=== PATIENT | female | born 1965 | race Caucasian/White ===

== ENCOUNTER 2016-06-26 13:30 | Inpatient (IN) | payer MEDICARE, MEDICAID ==
[2016-06-26] MEDS ORDERED: NS 0.9% 1000 ML* 1,000 ML IV ONE ×2 (14:09→15:04)
[2016-06-26] MEDS ORDERED: Acetaminophen TAB* 325 MG PO ONE (14:09)
[2016-06-26] MEDS ORDERED: Meclizine TAB* 12.5 MG PO ONE (14:13)
[2016-06-26 14:38] LABS: Hematocrit 37 % (35-47); Hemoglobin 12.3 g/dl (12.0-16.0); Mean Corpuscular HGB Conc 33 g/dl (31-36); Mean Corpuscular Hemoglobin 32 pg (27-31); Mean Corpuscular Volume 96 fL (80-97); Mean Platelet Volume 8 um3 (7.4-10.4); Red Blood Count 3.84 10^6/ul (4.0-5.4); Red Cell Distribution Width 13 % (10.5-15); White Blood Count 3.6 10^3/ul (3.5-10.8)
[2016-06-26 14:50] LABS: ALT 15 U/L (7-52); AST 18 U/L (13-39); Albumin 3.6 g/dL (3.2-5.2); Alkaline Phosphatase 61 U/L (34-104); Anion Gap 5 mmol/L (2-11); BUN/Creatinine Ratio 22.2 (8-20); Blood Urea Nitrogen 20 mg/dL (6-24); C Reactive Protein < 1.00 mg/L (< 5.00); CO2 Carbon Dioxide 27 mmol/L (22-32); Chloride 92 mmol/L (101-111); EGFR African American 84.2 (>60); EGFR Non-African American 65.5 (>60); Globulin 3.2 g/dL (2-4); Glucose 205 mg/dL (70-100); Magnesium 1.5 mg/dL (1.9-2.7); Potassium 4.4 mmol/L (3.5-5.0); Sodium 124 mmol/L (133-145); Total Protein 6.8 g/dL (6.4-8.9)
[2016-06-26 14:52] LABS: Urine Bacteria Absent (Absent); Urine Bilirubin Negative (Negative); Urine Glucose 2+(150 mg/dL) (Negative); Urine Nitrite Negative (Negative)
[2016-06-26 14:59] LABS: TSH (Thyroid Stimulating Horm) 2.33 mcIU/mL (0.34-5.60)
[2016-06-26] MEDS ORDERED: Acetaminophen TAB* 325 MG PO PRN (15:44)
--- NOTE | 2016-06-26 15:49 | ED ---
Dizziness - HPI Summary HPI Summary: Patient SHAWN is a type 2 diabetic on metformin and insulin who arrives to ED with CC of dizziness x2 days and worse since last night. She has a significant psych history in addition to her diabetes, but denies other health problems. She has not missed any doses of her psych or diabetes meds and last BG check this morning was 80. Her average daily is 80-100. She states she began to get dizzy 2 days ago while sitting. Symptoms are not worse with standing and nothing makes the dizziness better or worse. She is on Depakote and states her last Depakote check was several years ago. Denies abd pain, neck pain, SOB, chest pressure, N/V/C/D or body aches. She is unable to say if she feels she is spinning or if the room is spinning, just states "generalized dizziness." Endorses LARSEN intermittently for which she takes naproxen 1000mg for relief. Last dose she took was this morning. She has never had anything like this before. - History Of Current Complaint Chief Complaint: EDDizziness Stated Complaint: WEAKNESS/SHAKY Time Seen by Provider: 06/26/16 13:44 Hx Obtained From: Patient Onset/Duration: Still Present Timing: Constant Severity Initially: Moderate Severity Currently: Moderate Character: Lightheaded, Dizzy Aggravating Factor(s): Headache Alleviating Factor(s): Nothing - Risk Factors Cardiac Risk Factors: Negative CVA Risk Factor: Negative - Allergies/Home Medications Allergies/Adverse Reactions: Allergies Allergy/AdvReac Type Severity Reaction Status Date / Time Chlorpromazine Allergy Severe Hallucinati Verified 06/26/16 13:36 [From Thorazine] ons Haloperidol [From Haldol] Allergy Severe Hallucinati Verified 06/26/16 13:36 ons Ziprasidone [From Geodon] Allergy Severe See Comment Verified 06/26/16 13:36 Erythromycin Allergy Intermediate Rash Verified 06/26/16 13:36 Fluphenazine [From Prolixin] Allergy Intermediate See Comment Verified 06/26/16 13:36 [place] Allergy Intermediate depression Verified 06/26/16 13:36 Sulfisoxazole Allergy Intermediate Nausea Verified 06/26/16 13:36 [From Gantrisin] Sulfa Drugs Allergy Unknown Unknown Verified 06/26/16 13:36 Reaction Details Home Medications: Home Medications Atomoxetine (NF) [Strattera (NF)] 40 mg PO QAM 06/26/16 [History Confirmed 06/26] Atorvastatin* [Lipitor*] 80 mg PO BEDTIME 06/26/16 [History Confirmed 06/26/16] Naproxen TAB* [Naprosyn 250 mg TAB*] 500 mg PO BID PRN 06/26/16 [History Confirmed 06/26/16] Temazepam CAP* [Restoril CAP*] 30 mg PO BEDTIME PRN MDD 30mg 06/26/16 [History Confirmed 06/26/16] glipiZIDE TAB* [Glucotrol TAB*] 5 mg PO QAM 06/26/16 [History Confirmed 06/26/16 ] PMH/Surg Hx/FS Hx/Imm Hx Previously Healthy: Yes Endocrine/Hematology History: Reports: Hx Diabetes Denies: Hx Anticoagulant Therapy, Hx Blood Disorders, Hx Blood Transfusions, Hx Bone Marrow Disease, Hx Systemic Lupus Erythematosus, Hx Sickle Cell Disease , Hx Thyroid Disease, Hx Anemia, Hx Unexplained Bleeding, Other Endocrine/ Hematological Disorders Cardiovascular History: Reports: Hx Hypercholesterolemia - HLD, Hx Hypertension Denies: Hx Aneurysm, Hx Angina, Hx Angioplasty, Hx Auto Implanted Cardiovert Defib, Hx Cardiac Arrest, Hx Cardiomegaly, Hx Congenital Heart Disease, Hx Congestive Heart Failure, Hx Coronary Artery Disease, Hx Deep Vein Thrombosis, Hx Embolism, Hx Hypotension, Hx Pacemaker/ICD, Hx Peripheral Vascular Disease, Hx Rheumatic Fever, Hx Syncope, Hx Valvular Heart Disease, Other Cardiovascular Problems/Disorders Respiratory History: Denies: Hx Asthma, Hx Chronic Bronchitis, Hx Chronic Obstructive Pulmonary Disease (COPD), Hx Cystic Fibrosis, Hx Lung Cancer, Hx Pleural Effusion, Hx Pneumonia, Hx Pulmonary Edema, Hx Pulmonary Embolism, Hx Seasonal Allergies, Hx Sleep Apnea, Other Respiratory Problems/Disorders GI History: Denies: Hx Cirrhosis, Hx Crohn's Disease, Hx Diverticulosis, Hx Gall Bladder Disease, Hx Gastroesophageal Reflux Disease, Hx Gastrointestinal Bleed, Hx Hiatal Hernia, Hx Irritable Bowel, Hx Jaundice, Hx Obstructive Bowel, Hx Ileostomy, Hx Pyloric Stenosis, Hx Ulcer, Other GI Disorders History: Denies: Hx Renal Disease Musculoskeletal History: Denies: Hx Arthritis, Hx Back Problems, Hx Bursitis, Hx Congenital Bone Abnormalities, Hx Fibromyalgia, Hx Gout, Hx Orthopedic Injury, Hx Osteoporosis, Hx Scoliosis, Hx Tendonitis, Other Musculoskeletal History Sensory History: Reports: Hx Contacts or Glasses, Hx Deafness - Hard of hearing , Hx Hearing Problem Denies: Hx Cataracts, Hx Eye Injury, Hx Eye Prosthesis, Hx Glaucoma, Hx Legally Blind, Hx Macular Degeneration, Hx Vision Problem, Hx Hearing Aid, Other Sensory Impairments Opthamlomology History: Reports: Hx Contacts or Glasses Denies: Hx Cataracts, Hx Eye Injury, Hx Eye Prosthesis, Hx Glaucoma, Hx Legally Blind, Hx Macular Degeneration, Hx Vision Problem, Other Sensory Impairments Neurological History: Reports: Hx Headaches, Hx Migraine Denies: Hx Dementia, Hx Developmental Delay, Hx Nerve Disease, Hx Seizures, Hx Spinal Cord Injury, Hx Transient Ischemic Attacks (TIA), Other Neuro Impairments/Disorders Psychiatric History: Reports: Hx Anxiety, Hx Attention Deficit Hyperactivity Disorder, Hx Depression, Hx Post Traumatic Stress Disorder - HX SEXUAL ABUSE CHILD, Hx Inpatient Treatment - HX PSYCHIATRIC HOSPITALIZATIONS, Hx Community Mental Health Tx, Hx Bipolar Disorder - BORDERLINE PERSONALITY DISORDER, Hx Suicide Attempt, Hx of Violent Episodes Against Others, Hx Substance Abuse - HX BENZO ABUSE, Other Psychiatric Issues/Disorders - HX SI/ATTEMPT Denies: Hx Eating Disorder, Hx Panic Disorder, Hx Schizophrenia - Cancer History Hx Chemotherapy: No Hx Radiation Therapy: No - Surgical History Surgery Procedure, Year, and Place: appendectomy 1975, 1972 bladder, 5yrs ago orif rt ankle Hx Anesthesia Reactions: No - Immunization History Date of Tetanus Vaccine: Unknown Date of Influenza Vaccine: 12/10/2012 Infectious Disease History: No Infectious Disease History: Denies: Hx Clostridium Difficile, Hx Hepatitis, Hx Human Immunodeficiency Virus (HIV), Hx of Known/Suspected MRSA, Hx Shingles, Hx Tuberculosis, Hx Known/ Suspected VRE, Hx Known/Suspected VRSA, History Other Infectious Disease, Traveled Outside the [place] in Last 30 Days - Family History Known Family History: Positive: Hypertension, Diabetes - Social History Occupation: Unemployed Lives: With Family Alcohol Use: None Hx Substance Use: No Substance Use Type: Reports: None Hx Tobacco Use: No Smoking Status (MU): Never Smoked Tobacco Do You Chew or Dip Tobacco: No Review of Systems Constitutional: Negative ENT: Negative Cardiovascular: Negative Respiratory: Negative Positive: no symptoms reported, see HPI Musculoskeletal: Negative Skin: Negative Neurological: Other - dizziness Positive: Headache Psychological: Normal All Other Systems Reviewed And Are Negative: Yes Physical Exam Triage Information Reviewed: Yes Vital Signs On Initial Exam: Initial Vitals Temp Pulse Resp BP Pulse Ox 97.7 F 82 18 122/91 99 06/26/16 13:31 06/26/16 13:31 06/26/16 13:31 06/26/16 13:31 06/26/16 13:31 Vital Signs Reviewed: Yes Appearance: Positive: Well-Appearing, Well-Nourished Skin: Positive: Warm, Skin Color Reflects Adequate Perfusion Head/Face: Positive: Normal Head/Face Inspection Eyes: Positive: Normal, ELISEO Neck: Positive: Supple, No Lymphadenopathy Respiratory/Lung Sounds: Positive: Clear to Auscultation Cardiovascular: Positive: Normal, RRR Musculoskeletal: Positive: Normal, Strength/ROM Intact Neurological: Positive: Normal, Speech Normal Psychiatric: Positive: Normal AVPU Assessment: Alert Diagnostics - Vital Signs Vital Signs Temp Pulse Resp BP Pulse Ox 06/26/16 13:31 97.7 F 82 18 122/91 99 - Laboratory Lab Results: Lab Results 06/26/16 06/26/16 06/26/16 Range/Units 13:55 13:55 14:32 WBC 3.6 (3.5-10.8) 10^3/ul RBC 3.84 L (4.0-5.4) 10^6/ul Hgb 12.3 (12.0-16.0) g/dl Hct 37 (35-47) % MCV 96 (80-97) fL MCH 32 H (27-31) pg MCHC 33 (31-36) g/dl RDW 13 (10.5-15) % Plt Count 150 (150-450) 10^3/ul MPV 8 (7.4-10.4) um3 Neut % (Auto) 45.9 (38-83) % Lymph % (Auto) 41.6 (25-47) % Holmes % (Auto) 10.2 H (1-9) % Eos % (Auto) 0.5 (0-6) % Baso % (Auto) 1.8 (0-2) % Absolute Neuts (auto) 1.7 (1.5-7.7) 10^3/ul Absolute Lymphs (auto) 1.5 (1.0-4.8) 10^3/ul Absolute Monos (auto) 0.4 (0-0.8) 10^3/ul Absolute Eos (auto) 0 (0-0.6) 10^3/ul Absolute Basos (auto) 0.1 (0-0.2) 10^3/ul Absolute Nucleated RBC 0.02 10^3/ul Nucleated RBC % 0.4 Sodium 124 L (133-145) mmol/L Potassium 4.4 (3.5-5.0) mmol/L Chloride 92 L (101-111) mmol/L Carbon Dioxide 27 (22-32) mmol/L Anion Gap 5 (2-11) mmol/L BUN 20 (6-24) mg/dL Creatinine 0.90 (0.51-0.95) mg/dL Est GFR ( Amer) 84.2 (>60) Est GFR (Non-Af Amer) 65.5 (>60) BUN/Creatinine Ratio 22.2 H (8-20) Glucose 205 H (70-100) mg/dL Calcium 9.0 (8.6-10.3) mg/dL Magnesium 1.5 L (1.9-2.7) mg/dL Total Bilirubin 0.40 (0.2-1.0) mg/dL AST 18 (13-39) U/L ALT 15 (7-52) U/L Alkaline Phosphatase 61 (34-104) U/L Troponin I 0.00 (<0.04) ng/mL C-Reactive Protein < 1.00 (< 5.00) mg/L Total Protein 6.8 (6.4-8.9) g/dL Albumin 3.6 (3.2-5.2) g/dL Globulin 3.2 (2-4) g/dL Albumin/Globulin Ratio 1.1 (1-3) TSH 2.33 (0.34-5.60) mcIU/mL Urine Color Straw Urine Appearance Clear Urine pH 6.0 (5-9) Ur Specific Hurley 1.006 L (1.010-1.030) Urine Protein Negative (Negative) Urine Ketones Negative (Negative) Urine Blood 1+ H (Negative) Urine Nitrate Negative (Negative) Urine Bilirubin Negative (Negative) Urine Urobilinogen Negative (Negative) Ur Leukocyte Esterase Negative (Negative) Urine WBC (Auto) Trace(0-5/hpf) (Absent) Urine RBC (Auto) Trace(0-2/hpf) (Absent) Ur Squamous Epith Cells Present H (Absent) Urine Bacteria Absent (Absent) Urine Glucose 2+(150 mg/dl) H (Negative) Result Diagrams: 06/26/16 13:55 06/26/16 13:55 Lab Statement: Any lab studies that have been ordered have been reviewed, and results considered in the medical decision making process. Dizzy Course/Dx - Course Course Of Treatment: Physical exam performed. Labs show hyponatremia and increased BUN/Cr ratio. Given 2 L normal saline. Hospitalist called to see patient for admit for dizziness/hyponatremia. Agrees to see patient. - Diagnoses Differential Diagnosis/HQI/PQRI: Benign Paroxysmal Positional Vertigo, Hypovolemia, Vasovagal Reaction Provider Diagnoses: Dizziness Discharge - Discharge Plan Condition: Stable Disposition: ADMITTED TO [facility]
[2016-06-26] MEDS ORDERED: Dextrose 50% Syringe 50 ML* 25 GM/50 ML SYRINGE IV PUSH PRN (15:52)
--- NOTE | 2016-06-26 16:30 | ED ---
Chadd Iverson Adam, scribed for Bala Selby MD on 06/26/16 at 1510 . Progress - Progress Note Progress Note: This patient is being seen by Meme Lovett (FRANCINE). Last night the pt started feeling weak, shakey, and dizzy. She denies any vomiting, diarrhea, fever, hematuria, or burning during urination. She has a Hx of DM and her medications include Seroquel, Depakote, Metformin, Restoril, and Lipitor. She denies being on water pills or anything else that makes her urinate. Recommend admission for symptomatic hyponatremia, no mental status changes, no indication for ICU Course/Dx - Diagnoses Provider Diagnoses: Dizziness - Provider Notifications Discussed Care Of Patient With: the patient's mother who states that she goes to all of her appointments and makes all of her medical decisions for her. After speaking with her mother, the patient agrees to be admitted. The documentation as recorded by the Chadd zuniga Adam accurately reflects the service I personally performed and the decisions made by , Bala Selby MD.
[2016-06-26] MEDS: NS 0.9% 1000 ML* 1,000 ML IV SCH (18:30)
[2016-06-26 19:05] LABS: BUN/Creatinine Ratio 24.7 (8-20); Calcium 8.9 mg/dL (8.6-10.3); Potassium 4.5 mmol/L (3.5-5.0)
--- NOTE | 2016-06-26 19:10 | HP ---
HISTORY AND PHYSICAL: DATE OF ADMISSION: 06/26/16 TIME OF EVALUATION: 3:10 p.m. PRIMARY CARE PROVIDER: Dr. Burns. CHIEF COMPLAINT: Dizziness. HISTORY OF PRESENT ILLNESS: Ms. Gill is a 51-year-old lady with a past medical history of PTSD, multiple suicide attempts and psychiatric hospitalizations, hypertension, hyperlipidemia, type 2 diabetes, chronic headaches, mild intellectual disability who presents to the emergency room with complaints of dizziness. She states that last night she started to feel very weak, dizzy with the sensation she is going to pass out. She talked to her mom and states that her mom told her to take her medications and go to bed and she would feel better. The patient did that and she states that this morning when she woke up, she was actually feeling better, but around 11, she went to her appointment at [facility] and the same symptoms started again with dizziness, some nausea, weakness, and she felt she was going to pass out, so this prompted her emergency room visit. The patient is still symptomatic at this point, so she is going to be admitted for further observation. She denies fever, chills, cough, shortness of breath, chest pain, nausea, vomiting, or diarrhea. She also states that there were no medication changes to her medication list. PAST MEDICAL HISTORY: 1. PTSD. 2. History of multiple suicide attempts and psychiatric hospitalizations. 3. Hypertension. 4. Hyperlipidemia. 5. Type 2 diabetes. 6. Chronic headaches. 7. Mild intellectual disability. 8. Admission to [facility] in September 2015 with similar complaints. At that time, the patient was found to be dehydrated with acute kidney injury, hyponatremia. MEDICATIONS: 1. Aspirin 81 mg p.o. daily. 2. Strattera 40 mg p.o. q.a.m. 3. Atorvastatin 80 mg p.o. at bedtime. 4. Divalproex ER 2000 mg p.o. at bedtime. 5. Glipizide 5 mg p.o. q.a.m. 6. Ibuprofen 600 mg p.o. q.8 hours p.r.n. pain. 7. Metformin 1000 mg p.o. b.i.d. 8. Mirtazapine 30 mg p.o. at bedtime. 9. Naproxen 500 mg p.o. b.i.d. as needed for pain. 10. Seroquel XR 1200 mg p.o. at bedtime. 11. Temazepam 30 mg p.o. at bedtime. 12. Lantus 25 units subcutaneously at bedtime. ALLERGIES: The patient had hallucinations with THORAZINE and HALOPERIDOL. She had suicidal ideation with GEODON. She had a rash with ERYTHROMYCIN. She had depression with PROLIXIN and LITHIUM. She had nausea with SULFISOXAZOLE and other SULFA DRUGS. FAMILY HISTORY: Reviewed and noncontributory. SOCIAL HISTORY: She denies tobacco, alcohol, or drug use. The patient's mother , Ginny Gill, is her surrogate decision maker. Phone number is [phone]. REVIEW OF SYSTEMS: A 14-point review of systems was performed and all the pertinent negative and positive findings are in the HPI. PHYSICAL EXAMINATION GENERAL: The patient is a pleasant, middle-aged lady sitting up in the ER stretcher in no acute distress. VITAL SIGNS: Temperature 97.7, heart rate is 82, respiratory rate is 18, oxygen saturation 99% on room air, blood pressure is 122/91. HEENT: Pupils are equal. Dry mucous membranes. CHEST: Breath sounds present bilaterally with no added sounds. CVS: Normal S1, S2. Regular rate and rhythm. ABDOMEN: Soft, nontender. Bowel sounds present. EXTREMITIES: No edema. NEUROLOGIC: She is alert, awake, oriented x3. Able to move all 4 extremities. LABORATORY AND IMAGING DATA: The patient had a CBC that showed a WBC of 3.6, hemoglobin 12.3, hematocrit of 37, platelets of 150 with 45% neutrophils. Chemistry showed sodium of 124, potassium 4.4, chloride of 92, bicarb of 27, BUN of 20, creatinine of 0.9, glucose of 205, calcium of 9.0, magnesium of 1.5. LFTs are normal. Troponin is 0. Urinalysis shows 1+ blood, squamous epithelial cells. EKG done on June 26 at 1406 showed sinus rhythm at 79 beats per minute with flat T's in 3. No significant change when compared to her prior EKG from September 2015. ASSESSMENT AND PLAN: Ms. Gill is a 51-year-old lady with a past medical history of post-traumatic stress disorder, multiple suicide attempts and psychiatric hospitalizations, hypertension, hyperlipidemia, type 2 diabetes, chronic headaches, mild intellectual disability who presented to the emergency room with complaints of weakness and dizziness, found to be dehydrated with a sodium of 124. 1. Hyponatremia: The patient appears to be dehydrated at this time and that could explain her dizziness and hyponatremia. She is going to be admitted as observation to the telemetry floor. We are going to continue IV hydration. We are going to check serum and urine osmolality as well as urine random creatinine and sodium. She had a similar presentation in September 2015, although it was more severe at that time with significant hypotension. The patient states that she thinks she drinks enough fluids. She has had no new medications added to her regimen. We are going to continue to monitor. 2. Type 2 diabetes: I am going to continue her Lantus, add lispro sliding scale, hold glipizide and metformin for now. 3. Hypertension: She is normotensive at this time and we are going to continue to monitor. 4. Post-traumatic stress disorder: The patient denies any suicidal or homicidal ideation at this point. We are going to continue her mental health medications. 5. DVT prophylaxis: The patient has a score of 1 on the DVT Prophylaxis Risk Assessment Guide, but I believe she will not be ambulating a lot due to her dizziness, so we are going to place BRUCE stockings for DVT prophylaxis. 6. Code status is full. TIME SPENT: Approximately 50 minutes was spent in patient interview, medical records review, and physical examination to complete this admission, more than half of this time spent [id number] with the patient in coordination of care. CC: Dr. Burns* [id number]/CPS #: [id number]
[2016-06-26] MEDS: Insulin LISPRO* 1 UNITS UNIT SUBCUT SCH ×2 (20:38→20:55)
[2016-06-26] MEDS: Temazepam CAP* 15 MG PO SCH (20:54)
[2016-06-26] MEDS: Mirtazapine TAB* 15 MG PO SCH (20:54)
[2016-06-26] MEDS: Atorvastatin* 80 MG TAB PO SCH (20:54)
[2016-06-26] MEDS: Insulin GLARGINE(*) 1 UNITS UNIT SUBCUT SCH (20:55)
[2016-06-26] MEDS: QUEtiapine XR TAB* 300 MG PO SCH (20:55)
[2016-06-26] MEDS: Divalproex ER TAB(*) 500 MG PO SCH (21:09)
[2016-06-27 06:24] LABS: BUN/Creatinine Ratio 20.2 (8-20); Calcium 8.5 mg/dL (8.6-10.3); EGFR African American 85.3 (>60); EGFR Non-African American 66.3 (>60); Potassium 4.1 mmol/L (3.5-5.0)
[2016-06-27] MEDS: Insulin LISPRO* 1 UNITS UNIT SUBCUT SCH ×4 (07:44→21:00)
[2016-06-27] MEDS: Aspirin EC Low Dose* 81 MG TAB.EC PO SCH (08:32)
[2016-06-27] MEDS: NS 0.9% 1000 ML* 1,000 ML IV SCH (08:33)
--- NOTE | 2016-06-27 08:51 | PN ---
Subjective Date of Service: 06/27/16 Interval History: Pt is feeling ok today but no better than when she presented to the ER. She states she still feels dizzy. She describes the dizziness as both lightheaded like she will pass out and a feeling of spinning. She has been able to get up and walk without assistance and is stable on her feet per her nurse. The patient states nothing makes the "dizziness" any better or worse. Objective Active Medications: Acetaminophen (Tylenol Tab*) 650 mg PO Q6H PRN PRN Reason: pain/fever Aspirin (Aspirin Ec Low Dose*) 81 mg PO DAILY [facility] Last Admin: 06/27/16 08:32 Dose: 81 mg Atomoxetine HCl (Strattera (Nf)) 40 mg PO QAM [facility] PRN Reason: Protocol Last Admin: 06/27/16 08:32 Dose: Not Given Atorvastatin Calcium (Lipitor*) 80 mg PO BEDTIME [facility] Last Admin: 06/26/16 20:54 Dose: 80 mg Carbamide Peroxide (Debrox 6.5% Otic*) 5 drop BOTH EARS BID [facility] Stop: 06/30/16 21:01 Dextrose (D50w Syringe 50 Ml*) 12.5 gm IV PUSH .FOR FS < 60 - SS PRN PRN Reason: FS < 60 Divalproex Sodium (Depakote Er Tab(*)) 2,000 mg PO BEDTIME [facility] Last Admin: 06/26/16 21:09 Dose: 2,000 mg Sodium Chloride (Ns 0.9% 1000 Ml*) 1,000 mls @ 100 mls/hr IV PER RATE [facility] Last Admin: 06/27/16 08:33 Dose: 100 mls/hr Ibuprofen (Motrin Tab*) 600 mg PO Q8H PRN PRN Reason: PAIN Insulin Glargine (Lantus(*)) 25 units SUBCUT BEDTIME [facility] Last Admin: 06/26/16 20:55 Dose: 25 units Insulin Human Lispro (Humalog*) 0 units SUBCUT ACHS [facility] PRN Reason: Protocol Last Admin: 06/27/16 07:44 Dose: Not Given Mirtazapine (Remeron Tab*) 30 mg PO BEDTIME [facility] Last Admin: 06/26/16 20:54 Dose: 30 mg Quetiapine Fumarate (Seroquel Xr Tab*) 1,200 mg PO BEDTIME [facility] Last Admin: 06/26/16 20:55 Dose: 1,200 mg Temazepam (Restoril Cap*) 30 mg PO BEDTIME [facility] Last Admin: 06/26/16 20:54 Dose: 30 mg Vital Signs 06/26/16 06/26/16 06/26/16 15:53 16:00 16:13 Temperature 97.7 F Pulse Rate 85 Respiratory 21 18 16 Rate Blood Pressure 133/86 134/81 133/103 (mmHg) O2 Sat by Pulse 99 Oximetry 06/26/16 06/26/16 06/27/16 16:17 23:18 03:36 Temperature 97.7 F 97.7 F Pulse Rate 72 73 Respiratory 18 16 16 Rate Blood Pressure 119/77 93/63 (mmHg) O2 Sat by Pulse 95 96 Oximetry 06/27/16 07:24 Temperature 97.6 F Pulse Rate 78 Respiratory 16 Rate Blood Pressure 106/67 (mmHg) O2 Sat by Pulse 96 Oximetry Oxygen Devices in Use Now: None Appearance: Middle aged female sitting up in bed, NAD Eyes: No Scleral Icterus Ears/Nose/Mouth/Throat: Mucous Membranes Moist Respiratory: Symmetrical Chest Expansion and Respiratory Effort, Clear to Auscultation Cardiovascular: NL Sounds; No Murmurs; No JVD, RRR, No Edema Abdominal: NL Sounds; No Tenderness; No Distention Extremities: No Clubbing, Cyanosis Skin: No Rash or Ulcers, No Nodules or Sclerosis Neurological: Alert and Oriented x 3 Result Diagrams: 06/26/16 13:55 06/27/16 05:57 Additional Lab and Data: Lab Results 06/26/16 06/26/16 06/26/16 Range/Units 13:55 13:55 14:32 WBC 3.6 (3.5-10.8) 10^3/ul RBC 3.84 L (4.0-5.4) 10^6/ul Hgb 12.3 (12.0-16.0) g/dl Hct 37 (35-47) % MCV 96 (80-97) fL MCH 32 H (27-31) pg MCHC 33 (31-36) g/dl RDW 13 (10.5-15) % Plt Count 150 (150-450) 10^3/ul MPV 8 (7.4-10.4) um3 Neut % (Auto) 45.9 (38-83) % Lymph % (Auto) 41.6 (25-47) % [place] % (Auto) 10.2 H (1-9) % Eos % (Auto) 0.5 (0-6) % Baso % (Auto) 1.8 (0-2) % Absolute Neuts (auto) 1.7 (1.5-7.7) 10^3/ul Absolute Lymphs (auto) 1.5 (1.0-4.8) 10^3/ul Absolute Monos (auto) 0.4 (0-0.8) 10^3/ul Absolute Eos (auto) 0 (0-0.6) 10^3/ul Absolute Basos (auto) 0.1 (0-0.2) 10^3/ul Absolute Nucleated RBC 0.02 10^3/ul Nucleated RBC % 0.4 Sodium 124 L (133-145) mmol/L Potassium 4.4 (3.5-5.0) mmol/L Chloride 92 L (101-111) mmol/L Carbon Dioxide 27 (22-32) mmol/L Anion Gap 5 (2-11) mmol/L BUN 20 (6-24) mg/dL Creatinine 0.90 (0.51-0.95) mg/dL Est GFR ( Amer) 84.2 (>60) Est GFR (Non-Af Amer) 65.5 (>60) BUN/Creatinine Ratio 22.2 H (8-20) Glucose 205 H (70-100) mg/dL Calcium 9.0 (8.6-10.3) mg/dL Magnesium 1.5 L (1.9-2.7) mg/dL Total Bilirubin 0.40 (0.2-1.0) mg/dL AST 18 (13-39) U/L ALT 15 (7-52) U/L Alkaline Phosphatase 61 (34-104) U/L Troponin I 0.00 (<0.04) ng/mL C-Reactive Protein < 1.00 (< 5.00) mg/L Total Protein 6.8 (6.4-8.9) g/dL Albumin 3.6 (3.2-5.2) g/dL Globulin 3.2 (2-4) g/dL Albumin/Globulin Ratio 1.1 (1-3) TSH 2.33 (0.34-5.60) mcIU/mL Urine Color Straw Urine Appearance Clear Urine pH 6.0 (5-9) Ur Specific [place] 1.006 L (1.010-1.030) Urine Protein Negative (Negative) Urine Ketones Negative (Negative) Urine Blood 1+ H (Negative) Urine Nitrate Negative (Negative) Urine Bilirubin Negative (Negative) Urine Urobilinogen Negative (Negative) Ur Leukocyte Esterase Negative (Negative) Urine WBC (Auto) Trace(0-5/hpf) (Absent) Urine RBC (Auto) Trace(0-2/hpf) (Absent) Ur Squamous Epith Cells Present H (Absent) Urine Bacteria Absent (Absent) Urine Glucose 2+(150 mg/dl) H (Negative) Assess/Plan/Problems-Billing Ms Gill is a 51 yo F who has a h/o HTN, HLD, Type II DM, extensive psychiatric history and mild intellectual disability who presented to the ER with c/o lightheadedness and was found to be hyponatremic - Patient Problems (1) Hyponatremia Current Visit: Yes Status: Acute Code(s): E87.1 - HYPO-OSMOLALITY AND HYPONATREMIA SNOMED Code(s): 85798865 Comment: Resolved after hydration overnight. Likely secondary to volume depletion. (2) Dizziness Current Visit: Yes Status: Acute Code(s): R42 - DIZZINESS AND GIDDINESS SNOMED Code(s): 710159040 Comment: Etiology is not clear. On admission it was felt her dizziness was likely secondary to volume depletion. She has been hydrated overnight, appears euvolemic and feels no better today. She does admit to a sensation of spinning but I am not sure this is accurate. Will start debrox drops for marked cerum impaction in her ear canals. Trial meclizine 25mg TID for possible vertigo. Will continue to hydrate the patient for now and monitor her ability to get around. (3) HTN (hypertension) Current Visit: Yes Status: Acute Code(s): I10 - ESSENTIAL (PRIMARY) HYPERTENSION SNOMED Code(s): 74286696 Comment: BP this AM is low normal. Will continue IVFs. She is not on any medications for HTN at home. (4) Type II diabetes mellitus Current Visit: Yes Status: Acute Comment: Sugar this AM is good at 102. Will continue lantus alone for now but will likely be adding back her metformin and glipizide. (5) HLD (hyperlipidemia) Current Visit: Yes Status: Acute Code(s): E78.5 - HYPERLIPIDEMIA, UNSPECIFIED SNOMED Code(s): 33467114 Comment: Continue lipitor. (6) PTSD (post-traumatic stress disorder) Current Visit: Yes Status: Acute Code(s): F43.10 - POST-TRAUMATIC STRESS DISORDER, UNSPECIFIED SNOMED Code(s): 91094134 Comment: Pt has associated depression. Will continue depakote, seroquel and restoril. (7) DVT prophylaxis Current Visit: Yes Status: Acute Code(s): WCZ2980 - SNOMED Code(s): 332830724 Comment: SQ heparin (8) Full code status Current Visit: Yes Status: Acute Code(s): Z78.9 - OTHER SPECIFIED HEALTH STATUS SNOMED Code(s): 240130145
[2016-06-27] MEDS ORDERED: Atomoxetine (NF) 40 MG CAP PO SCH (09:00)
[2016-06-27] MEDS: Carbamide Peroxide 6.5% OTIC* 15 ML BTL BOTH EARS SCH ×2 (10:20→21:01)
[2016-06-27] MEDS: Meclizine TAB* 12.5 MG PO SCH ×3 (10:20→17:28)
[2016-06-27] MEDS: Ibuprofen TAB* 600 MG PO PRN (14:00)
[2016-06-27] MEDS: Heparin VIAL(*) 5000 UNITS/ML VIAL (FIVE THOUSAND) SUBCUT SCH ×2 (14:03→21:00)
[2016-06-27] MEDS: Mirtazapine TAB* 15 MG PO SCH (20:59)
[2016-06-27] MEDS: Divalproex ER TAB(*) 500 MG PO SCH (20:59)
[2016-06-27] MEDS: Atorvastatin* 80 MG TAB PO SCH (20:59)
[2016-06-27] MEDS: QUEtiapine XR TAB* 300 MG PO SCH (20:59)
[2016-06-27] MEDS: Temazepam CAP* 15 MG PO SCH (20:59)
[2016-06-27] MEDS: Insulin GLARGINE(*) 1 UNITS UNIT SUBCUT SCH (21:00)
[2016-06-28] MEDS: Meclizine TAB* 12.5 MG PO SCH ×2 (02:58→09:00)
[2016-06-28] MEDS: Heparin VIAL(*) 5000 UNITS/ML VIAL (FIVE THOUSAND) SUBCUT SCH ×2 (05:15→13:09)
[2016-06-28] MEDS: NS 0.9% 1000 ML* 1,000 ML IV SCH ×2 (05:58→11:07)
[2016-06-28] MEDS: Insulin LISPRO* 1 UNITS UNIT SUBCUT SCH ×2 (07:59→11:34)
[2016-06-28] MEDS ORDERED: CMCS:Atomoxetine (NF) 40 MG CAP PO SCH (09:00)
[2016-06-28] MEDS: Aspirin EC Low Dose* 81 MG TAB.EC PO SCH (09:00)
[2016-06-28] MEDS: Carbamide Peroxide 6.5% OTIC* 15 ML BTL BOTH EARS SCH (09:01)
[2016-06-28 11:34] VITALS: BP 131/85
[2016-06-28] MEDS: Ibuprofen TAB* 600 MG PO PRN (13:09)
--- NOTE | 2016-06-28 14:03 | PN ---
Subjective Date of Service: 06/28/16 Interval History: Pt is feeling well. No further dizziness. She states it went away last evening. She has not been up and walking yet today. Objective Active Medications: Acetaminophen (Tylenol Tab*) 650 mg PO Q6H PRN PRN Reason: pain/fever Aspirin (Aspirin Ec Low Dose*) 81 mg PO DAILY [facility] Last Admin: 06/28/16 09:00 Dose: 81 mg Atomoxetine HCl (Strattera (Nf)) 40 mg PO QAM [facility] PRN Reason: Protocol Last Admin: 06/28/16 09:00 Dose: 40 mg Atorvastatin Calcium (Lipitor*) 80 mg PO BEDTIME [facility] Last Admin: 06/27/16 20:59 Dose: 80 mg Carbamide Peroxide (Debrox 6.5% Otic*) 5 drop BOTH EARS BID [facility] Stop: 06/30/16 21:01 Last Admin: 06/28/16 09:01 Dose: 5 drop Dextrose (D50w Syringe 50 Ml*) 12.5 gm IV PUSH .FOR FS < 60 - SS PRN PRN Reason: FS < 60 Divalproex Sodium (Depakote Er Tab(*)) 2,000 mg PO BEDTIME [facility] Last Admin: 06/27/16 20:59 Dose: 2,000 mg Heparin Sodium (Porcine) (Heparin Vial(*)) 5,000 units SUBCUT Q8HR [facility] Last Admin: 06/28/16 13:09 Dose: 5,000 units Sodium Chloride (Ns 0.9% 1000 Ml*) 1,000 mls @ 100 mls/hr IV PER RATE [facility] Last Admin: 06/28/16 11:07 Dose: 100 mls/hr Ibuprofen (Motrin Tab*) 600 mg PO Q8H PRN PRN Reason: PAIN Last Admin: 06/28/16 13:09 Dose: 600 mg Insulin Glargine (Lantus(*)) 25 units SUBCUT BEDTIME [facility] Last Admin: 06/27/16 21:00 Dose: 25 units Insulin Human Lispro (Humalog*) 0 units SUBCUT ACHS [facility] PRN Reason: Protocol Last Admin: 06/28/16 11:34 Dose: Not Given Meclizine HCl (Antivert Tab*) 25 mg PO 0200,1000,1800 [facility] Last Admin: 06/28/16 09:00 Dose: 25 mg Mirtazapine (Remeron Tab*) 30 mg PO BEDTIME [facility] Last Admin: 06/27/16 20:59 Dose: 30 mg Quetiapine Fumarate (Seroquel Xr Tab*) 1,200 mg PO BEDTIME [facility] Last Admin: 06/27/16 20:59 Dose: 1,200 mg Temazepam (Restoril Cap*) 30 mg PO BEDTIME [facility] Last Admin: 06/27/16 20:59 Dose: 30 mg Vital Signs 06/27/16 06/27/16 06/28/16 19:21 23:14 03:50 Temperature 98.2 F 97.4 F 97.2 F Pulse Rate 82 81 78 Respiratory 18 16 16 Rate Blood Pressure 107/77 95/53 117/76 (mmHg) O2 Sat by Pulse 95 95 97 Oximetry 06/28/16 06/28/16 06/28/16 07:35 07:39 11:28 Temperature 98.5 F 98.1 F Pulse Rate 72 75 Respiratory 18 18 Rate Blood Pressure 127/81 131/85 (mmHg) O2 Sat by Pulse 100 100 Oximetry Oxygen Devices in Use Now: None Appearance: Middle aged female lying in bed sleeping, awakens to voice, NAD Eyes: No Scleral Icterus Ears/Nose/Mouth/Throat: Mucous Membranes Moist Respiratory: Symmetrical Chest Expansion and Respiratory Effort, Clear to Auscultation Cardiovascular: NL Sounds; No Murmurs; No JVD, RRR, No Edema Abdominal: NL Sounds; No Tenderness; No Distention Extremities: No Clubbing, Cyanosis Skin: No Rash or Ulcers, No Nodules or Sclerosis Neurological: Alert and Oriented x 3 Result Diagrams: 06/26/16 13:55 06/27/16 05:57 Additional Lab and Data: Lab Results 06/26/16 06/26/16 06/26/16 Range/Units 13:55 13:55 14:32 WBC 3.6 (3.5-10.8) 10^3/ul RBC 3.84 L (4.0-5.4) 10^6/ul Hgb 12.3 (12.0-16.0) g/dl Hct 37 (35-47) % MCV 96 (80-97) fL MCH 32 H (27-31) pg MCHC 33 (31-36) g/dl RDW 13 (10.5-15) % Plt Count 150 (150-450) 10^3/ul MPV 8 (7.4-10.4) um3 Neut % (Auto) 45.9 (38-83) % Lymph % (Auto) 41.6 (25-47) % [place] % (Auto) 10.2 H (1-9) % Eos % (Auto) 0.5 (0-6) % Baso % (Auto) 1.8 (0-2) % Absolute Neuts (auto) 1.7 (1.5-7.7) 10^3/ul Absolute Lymphs (auto) 1.5 (1.0-4.8) 10^3/ul Absolute Monos (auto) 0.4 (0-0.8) 10^3/ul Absolute Eos (auto) 0 (0-0.6) 10^3/ul Absolute Basos (auto) 0.1 (0-0.2) 10^3/ul Absolute Nucleated RBC 0.02 10^3/ul Nucleated RBC % 0.4 Sodium 124 L (133-145) mmol/L Potassium 4.4 (3.5-5.0) mmol/L Chloride 92 L (101-111) mmol/L Carbon Dioxide 27 (22-32) mmol/L Anion Gap 5 (2-11) mmol/L BUN 20 (6-24) mg/dL Creatinine 0.90 (0.51-0.95) mg/dL Est GFR ( Amer) 84.2 (>60) Est GFR (Non-Af Amer) 65.5 (>60) BUN/Creatinine Ratio 22.2 H (8-20) Glucose 205 H (70-100) mg/dL Calcium 9.0 (8.6-10.3) mg/dL Magnesium 1.5 L (1.9-2.7) mg/dL Total Bilirubin 0.40 (0.2-1.0) mg/dL AST 18 (13-39) U/L ALT 15 (7-52) U/L Alkaline Phosphatase 61 (34-104) U/L Troponin I 0.00 (<0.04) ng/mL C-Reactive Protein < 1.00 (< 5.00) mg/L Total Protein 6.8 (6.4-8.9) g/dL Albumin 3.6 (3.2-5.2) g/dL Globulin 3.2 (2-4) g/dL Albumin/Globulin Ratio 1.1 (1-3) TSH 2.33 (0.34-5.60) mcIU/mL Urine Color Straw Urine Appearance Clear Urine pH 6.0 (5-9) Ur Specific [place] 1.006 L (1.010-1.030) Urine Protein Negative (Negative) Urine Ketones Negative (Negative) Urine Blood 1+ H (Negative) Urine Nitrate Negative (Negative) Urine Bilirubin Negative (Negative) Urine Urobilinogen Negative (Negative) Ur Leukocyte Esterase Negative (Negative) Urine WBC (Auto) Trace(0-5/hpf) (Absent) Urine RBC (Auto) Trace(0-2/hpf) (Absent) Ur Squamous Epith Cells Present H (Absent) Urine Bacteria Absent (Absent) Urine Glucose 2+(150 mg/dl) H (Negative) Assess/Plan/Problems-Billing Ms Gill is a 51 yo F who has a h/o HTN, HLD, Type II DM, extensive psychiatric history and mild intellectual disability who presented to the ER with c/o lightheadedness and was found to be hyponatremic - Patient Problems (1) Hyponatremia Current Visit: Yes Status: Acute Code(s): E87.1 - HYPO-OSMOLALITY AND HYPONATREMIA SNOMED Code(s): 40837059 Comment: Resolved. (2) Dizziness Current Visit: Yes Status: Acute Code(s): R42 - DIZZINESS AND GIDDINESS SNOMED Code(s): 689719245 Comment: Resolved-? secondary to vertigo. Meclizine may have helped. She will continue with the debrox drops for the ear wax build up x3 more days. She will monitor her symptoms. (3) HTN (hypertension) Current Visit: Yes Status: Acute Code(s): I10 - ESSENTIAL (PRIMARY) HYPERTENSION SNOMED Code(s): 62723266 Comment: BP is in good range. (4) Type II diabetes mellitus Current Visit: Yes Status: Acute Comment: Resume home medication regimen. (5) HLD (hyperlipidemia) Current Visit: Yes Status: Acute Code(s): E78.5 - HYPERLIPIDEMIA, UNSPECIFIED SNOMED Code(s): 27466682 Comment: Continue lipitor. (6) PTSD (post-traumatic stress disorder) Current Visit: Yes Status: Acute Code(s): F43.10 - POST-TRAUMATIC STRESS DISORDER, UNSPECIFIED SNOMED Code(s): 58706248 Comment: Pt has associated depression. Will continue depakote, seroquel and restoril. (7) DVT prophylaxis Current Visit: Yes Status: Acute Code(s): CSS6552 - SNOMED Code(s): 417818836 Comment: SQ heparin (8) Full code status Current Visit: Yes Status: Acute Code(s): Z78.9 - OTHER SPECIFIED HEALTH STATUS SNOMED Code(s): 189043882 Status and Disposition: d/c home
--- NOTE | 2016-06-29 19:25 | DS ---
CC: Dr. Burns DISCHARGE SUMMARY: DATE OF ADMISSION: 06/26/16 DATE OF DISCHARGE: 06/28/16 PRIMARY CARE PROVIDER: Dr. Burns. PRINCIPAL DIAGNOSIS: Dizziness - likely vertigo. SECONDARY DIAGNOSES: 1. Posttraumatic stress disorder with depression. 2. Type 2 diabetes. 3. Hyperlipidemia. DISCHARGE MEDICATIONS: 1. Glipizide 5 mg p.o. daily. 2. Aspirin 81 mg p.o. daily. 3. Ibuprofen 600 mg p.o. q.8 hours p.r.n. pain. 4. Metformin 1000 mg p.o. b.i.d. 5. Temazepam 30 mg p.o. q.h.s. p.r.n. insomnia. 6. Naproxen 500 mg p.o. b.i.d. p.r.n. pain. 7. Lipitor 80 mg p.o. q.h.s. 8. Lantus 25 units subcutaneous q.h.s. 9. Depakote ER 2000 mg p.o. q.h.s. 10. Strattera 40 mg p.o. daily. 11. Seroquel 1200 mg p.o. q.h.s. 12. Remeron 30 mg p.o. q.h.s. 13. Meclizine 25 mg p.o. t.i.d. p.r.n. dizziness. 14. Debrox drops 5 drops to both ears x3 days. HOSPITAL COURSE: Ms. Gill is a 51-year-old female who presented to the emergency room on 06/26/16 with complaints of dizziness. The patient is not the best historian, but sounds as if her dizziness was felt to be lightheadedness initially. It was felt that perhaps she was mildly volume deplete. The patient was placed on telemetry where no significant arrhythmias were noted. She received IV fl uid hydration. Despite being hydrated overnight, the patient continued to be dizzy. At that time, s he then noted also a spinning sensation. Meclizine 25 mg 3 times daily was started. On the day of discharge, the patient states that the dizziness has completely resolved. She states that the dizzi ness went away the night prior to discharge. At this point, the patient has been able to be up and ambulating in the hallway without any issues whatsoever. The patient was ultimately felt to be stab le for discharge home. FOLLOWUP CONCERNS: The patient is being discharged home today, 06/28/16. She is remaining on her u sual home medication regimen and in addition p.r.n. meclizine has been ordered. FOLLOWUP: The patient is to follow up with Dr. Burns on 07/03/16 at 11:30 a.m. ACTIVITY LEVEL: As tolerated. DIET: Diabetic. CONDITION ON DISCHARGE: Stable. TIME SPENT: 35 minutes was spent discharging this patient. [id number]/[facility] #: [id number]
== END 2016-06-28 16:04 | disposition home or self-care (01) | DRG 149 ==
LOC: ED 13:30 → MEDTELE 15:08 → OBSVTOIN 06-27 10:00
PROVIDERS: ADMIT Internal Medicine; ATTEND Hospitalist
DX: R42 Dizziness and giddiness (principal); E87.1 Hypo-osmolality and hyponatremia; I10 Essential (primary) hypertension; E86.9 Volume depletion, unspecified; E86.0 Dehydration; E11.9 Type 2 diabetes mellitus without complications; E78.5 Hyperlipidemia, unspecified; F43.10 Post-traumatic stress disorder, unspecified; F32.9 Major depressive disorder, single episode, unspecified; H91.90 Unspecified hearing loss, unspecified ear; G43.909 Migraine, unspecified, not intractable, without status migrainosus; F41.9 Anxiety disorder, unspecified; F90.9 Attention-deficit hyperactivity disorder, unspecified type; F79 Unspecified intellectual disabilities; H61.20 Impacted cerumen, unspecified ear; F60.3 Borderline personality disorder; Z83.3 Family history of diabetes mellitus; Z82.49 Family history of ischemic heart disease and other diseases of the circulatory system; Z79.82 Long term (current) use of aspirin; Z79.4 Long term (current) use of insulin; Z88.8 Allergy status to other drugs, medicaments and biological substances; Z88.2 Allergy status to sulfonamides; Z88.1 Allergy status to other antibiotic agents
CPT/HCPCS: 36415; 80048; 80053; 81003; 81015; 82570; 83735; 83930; 83935; 84300; 84443; 84484; 85025; 86140; 93005; A9270-GY; G0378; J1644; J3475

== ENCOUNTER 2016-08-28 12:34 | Emergency (ER) | payer MEDICARE, MEDICAID ==
[2016-08-28 14:38] LABS: Hematocrit 39 % (35-47); Mean Corpuscular HGB Conc 33 g/dl (31-36); Mean Corpuscular Hemoglobin 31 pg (27-31); Mean Corpuscular Volume 95 fL (80-97); Mean Platelet Volume 7 um3 (7.4-10.4); Red Blood Count 4.12 10^6/ul (4.0-5.4); Red Cell Distribution Width 14 % (10.5-15); White Blood Count 4.9 10^3/ul (3.5-10.8)
[2016-08-28 14:57] LABS: Albumin 3.5 g/dL (3.2-5.2); BUN/Creatinine Ratio 16.8 (8-20); EGFR Non-African American 53.6 (>60); Globulin 3.1 g/dL (2-4); Potassium 4.4 mmol/L (3.5-5.0); Total Bilirubin 0.3 mg/dL (0.2-1.0); Total Protein 6.6 g/dL (6.4-8.9)
[2016-08-28] MEDS ORDERED: NS 0.9% 1000 ML* 1,000 ML IV ONE (15:02)
[2016-08-28] MEDS ORDERED: Acetaminophen TAB* 325 MG PO ONE (15:37)
--- NOTE | 2016-08-28 15:37 | ED ---
HPI Diabetic - HPI Summary HPI Summary: 51F presents with hypoglyemia today. She states her blood sugar was 39 at home so she ate some applesauce and then it was 60 so she came to the ED. Her originally blood sugar here wsa 69 so she was given a turkey sandwich. She states she has been on lantus 35 units for 3 weeks. Her blood sugars have been low but never this low. states she was dizzy but that has resolve. She denies any chest pain, SOB, fever, or uti symptoms. She denies any recent illnesses. she states she takes the lantus as night. - History Of Current Complaint Chief Complaint: EDGeneral Time Seen by Provider: 08/28/16 13:27 - Allergies/Home Medications Allergies/Adverse Reactions: Allergies Allergy/AdvReac Type Severity Reaction Status Date / Time Chlorpromazine Allergy Severe Hallucinati Verified 06/26/16 13:36 [From Thorazine] ons Haloperidol [From Haldol] Allergy Severe Hallucinati Verified 06/26/16 13:36 ons Ziprasidone [From Geodon] Allergy Severe See Comment Verified 06/26/16 13:36 Erythromycin Allergy Intermediate Rash Verified 06/26/16 13:36 Fluphenazine [From Prolixin] Allergy Intermediate See Comment Verified 06/26/16 13:36 [place] Allergy Intermediate depression Verified 06/26/16 13:36 Sulfisoxazole Allergy Intermediate Nausea Verified 06/26/16 13:36 [From Gantrisin] Sulfa Drugs Allergy Unknown Unknown Verified 06/26/16 13:36 Reaction Details PMH/Surg Hx/FS Hx/Imm Hx Endocrine/Hematology History: Reports: Hx Diabetes Denies: Hx Anticoagulant Therapy, Hx Blood Disorders, Hx Blood Transfusions, Hx Bone Marrow Disease, Hx Systemic Lupus Erythematosus, Hx Sickle Cell Disease , Hx Thyroid Disease, Hx Anemia, Hx Unexplained Bleeding, Other Endocrine/ Hematological Disorders Cardiovascular History: Reports: Hx Hypercholesterolemia - HLD, Hx Hypertension Denies: Hx Aneurysm, Hx Angina, Hx Angioplasty, Hx Auto Implanted Cardiovert Defib, Hx Cardiac Arrest, Hx Cardiomegaly, Hx Congenital Heart Disease, Hx Congestive Heart Failure, Hx Coronary Artery Disease, Hx Deep Vein Thrombosis, Hx Embolism, Hx Hypotension, Hx Pacemaker/ICD, Hx Peripheral Vascular Disease, Hx Rheumatic Fever, Hx Syncope, Hx Valvular Heart Disease, Other Cardiovascular Problems/Disorders Respiratory History: Denies: Hx Asthma, Hx Chronic Bronchitis, Hx Chronic Obstructive Pulmonary Disease (COPD), Hx Cystic Fibrosis, Hx Lung Cancer, Hx Pleural Effusion, Hx Pneumonia, Hx Pulmonary Edema, Hx Pulmonary Embolism, Hx Seasonal Allergies, Hx Sleep Apnea, Other Respiratory Problems/Disorders GI History: Denies: Hx Cirrhosis, Hx Crohn's Disease, Hx Diverticulosis, Hx Gall Bladder Disease, Hx Gastroesophageal Reflux Disease, Hx Gastrointestinal Bleed, Hx Hiatal Hernia, Hx Irritable Bowel, Hx Jaundice, Hx Obstructive Bowel, Hx Ileostomy, Hx Pyloric Stenosis, Hx Ulcer, Other GI Disorders History: Denies: Hx Renal Disease Musculoskeletal History: Denies: Hx Arthritis, Hx Back Problems, Hx Bursitis, Hx Congenital Bone Abnormalities, Hx Fibromyalgia, Hx Gout, Hx Orthopedic Injury, Hx Osteoporosis, Hx Scoliosis, Hx Tendonitis, Other Musculoskeletal History Sensory History: Reports: Hx Contacts or Glasses, Hx Deafness - Hard of hearing , Hx Hearing Problem Denies: Hx Cataracts, Hx Eye Injury, Hx Eye Prosthesis, Hx Glaucoma, Hx Legally Blind, Hx Macular Degeneration, Hx Vision Problem, Hx Hearing Aid, Other Sensory Impairments Opthamlomology History: Reports: Hx Contacts or Glasses Denies: Hx Cataracts, Hx Eye Injury, Hx Eye Prosthesis, Hx Glaucoma, Hx Legally Blind, Hx Macular Degeneration, Hx Vision Problem, Other Sensory Impairments Neurological History: Reports: Hx Headaches, Hx Migraine Denies: Hx Dementia, Hx Developmental Delay, Hx Nerve Disease, Hx Seizures, Hx Spinal Cord Injury, Hx Transient Ischemic Attacks (TIA), Other Neuro Impairments/Disorders Psychiatric History: Reports: Hx Anxiety, Hx Attention Deficit Hyperactivity Disorder, Hx Depression, Hx Post Traumatic Stress Disorder - HX SEXUAL ABUSE CHILD, Hx Inpatient Treatment - HX PSYCHIATRIC HOSPITALIZATIONS, Hx [facility] Tx, Hx Bipolar Disorder - BORDERLINE PERSONALITY DISORDER, Hx Suicide Attempt, Hx of Violent Episodes Against Others, Hx Substance Abuse - HX BENZO ABUSE, Other Psychiatric Issues/Disorders - HX SI/ATTEMPT Denies: Hx Eating Disorder, Hx Panic Disorder, Hx Schizophrenia - Cancer History Hx Chemotherapy: No Hx Radiation Therapy: No - Surgical History Surgery Procedure, Year, and Place: appendectomy 1975, 1972 bladder, 5yrs ago orif rt ankle Hx Anesthesia Reactions: No - Immunization History Date of Tetanus Vaccine: Unknown Date of Influenza Vaccine: 12/10/2012 Infectious Disease History: No Infectious Disease History: Denies: Hx Clostridium Difficile, Hx Hepatitis, Hx Human Immunodeficiency Virus (HIV), Hx of Known/Suspected MRSA, Hx Shingles, Hx Tuberculosis, Hx Known/ Suspected VRE, Hx Known/Suspected VRSA, History Other Infectious Disease, Traveled Outside the [place] in Last 30 Days - Family History Known Family History: Positive: Hypertension, Diabetes - Social History Alcohol Use: None Hx Substance Use: No Substance Use Type: Reports: None Hx Tobacco Use: No Smoking Status (MU): Never Smoked Tobacco Review of Systems Negative: Fever Negative: Chest Pain Negative: Shortness Of Breath Positive: Weakness All Other Systems Reviewed And Are Negative: Yes Physical Exam Triage Information Reviewed: Yes Vital Signs On Initial Exam: Initial Vitals Temp Pulse Resp BP Pulse Ox 98.5 F 72 20 124/74 99 08/28/16 12:49 08/28/16 12:49 08/28/16 12:49 08/28/16 12:49 08/28/16 12:49 Vital Signs Reviewed: Yes Appearance: Positive: Well-Appearing Skin: Positive: Warm, Dry Head/Face: Positive: Normal Head/Face Inspection Eyes: Positive: Normal, Conjunctiva Clear Respiratory/Lung Sounds: Positive: Clear to Auscultation, Breath Sounds Present Cardiovascular: Positive: Normal, RRR Abdomen Description: Positive: Nontender, Soft Bowel Sounds: Positive: Present Neurological: Positive: Sensory/Motor Intact, Alert, Oriented to Person Place, Time - [place] Coma Scale Coma Scale Total: 15 Diagnostics - Vital Signs Vital Signs Temp Pulse Resp BP Pulse Ox 08/28/16 15:00 21 119/77 08/28/16 14:54 81 17 98 08/28/16 14:52 149/100 08/28/16 12:55 98 F 72 16 124/74 98 08/28/16 12:49 98.5 F 72 20 124/74 99 - Laboratory Lab Results: Lab Results 08/28/16 08/28/16 08/28/16 Range/Units 12:41 13:54 14:25 WBC 4.9 (3.5-10.8) 10^3/ul RBC 4.12 (4.0-5.4) 10^6/ul Hgb 13.0 (12.0-16.0) g/dl Hct 39 (35-47) % MCV 95 (80-97) fL MCH 31 (27-31) pg MCHC 33 (31-36) g/dl RDW 14 (10.5-15) % Plt Count 154 (150-450) 10^3/ul MPV 7 L (7.4-10.4) um3 Neut % (Auto) 50.2 (38-83) % Lymph % (Auto) 39.5 (25-47) % [place] % (Auto) 9.8 H (1-9) % Eos % (Auto) 0.1 (0-6) % Baso % (Auto) 0.4 (0-2) % Absolute Neuts (auto) 2.4 (1.5-7.7) 10^3/ul Absolute Lymphs (auto) 1.9 (1.0-4.8) 10^3/ul Absolute Monos (auto) 0.5 (0-0.8) 10^3/ul Absolute Eos (auto) 0 (0-0.6) 10^3/ul Absolute Basos (auto) 0 (0-0.2) 10^3/ul Absolute Nucleated RBC 0.01 10^3/ul Nucleated RBC % 0.1 Sodium (133-145) mmol/L Potassium (3.5-5.0) mmol/L Chloride (101-111) mmol/L Carbon Dioxide (22-32) mmol/L Anion Gap (2-11) mmol/L BUN (6-24) mg/dL Creatinine (0.51-0.95) mg/dL Est GFR ( Amer) (>60) Est GFR (Non-Af Amer) (>60) BUN/Creatinine Ratio (8-20) Glucose (70-100) mg/dL POC Glucose (mg/dL) 69 L 79 (74-106) mg/dL Lactic Acid (0.5-2.0) mmol/L Calcium (8.6-10.3) mg/dL Total Bilirubin (0.2-1.0) mg/dL AST (13-39) U/L ALT (7-52) U/L Alkaline Phosphatase (34-104) U/L C-React Prot High Sens mg/L Total Protein (6.4-8.9) g/dL Albumin (3.2-5.2) g/dL Globulin (2-4) g/dL Albumin/Globulin Ratio (1-3) 08/28/16 08/28/16 Range/Units 14:25 14:25 WBC (3.5-10.8) 10^3/ul RBC (4.0-5.4) 10^6/ul Hgb (12.0-16.0) g/dl Hct (35-47) % MCV (80-97) fL MCH (27-31) pg MCHC (31-36) g/dl RDW (10.5-15) % Plt Count (150-450) 10^3/ul MPV (7.4-10.4) um3 Neut % (Auto) (38-83) % Lymph % (Auto) (25-47) % [place] % (Auto) (1-9) % Eos % (Auto) (0-6) % Baso % (Auto) (0-2) % Absolute Neuts (auto) (1.5-7.7) 10^3/ul Absolute Lymphs (auto) (1.0-4.8) 10^3/ul Absolute Monos (auto) (0-0.8) 10^3/ul Absolute Eos (auto) (0-0.6) 10^3/ul Absolute Basos (auto) (0-0.2) 10^3/ul Absolute Nucleated RBC 10^3/ul Nucleated RBC % Sodium 130 L (133-145) mmol/L Potassium 4.4 (3.5-5.0) mmol/L Chloride 95 L (101-111) mmol/L Carbon Dioxide 28 (22-32) mmol/L Anion Gap 7 (2-11) mmol/L BUN 18 (6-24) mg/dL Creatinine 1.07 H (0.51-0.95) mg/dL Est GFR ( Amer) 69.0 (>60) Est GFR (Non-Af Amer) 53.6 (>60) BUN/Creatinine Ratio 16.8 (8-20) Glucose 139 H (70-100) mg/dL POC Glucose (mg/dL) (74-106) mg/dL Lactic Acid 2.2 H* (0.5-2.0) mmol/L Calcium 9.0 (8.6-10.3) mg/dL Total Bilirubin 0.30 (0.2-1.0) mg/dL AST 21 (13-39) U/L ALT 14 (7-52) U/L Alkaline Phosphatase 53 (34-104) U/L C-React Prot High Sens 0.21 mg/L Total Protein 6.6 (6.4-8.9) g/dL Albumin 3.5 (3.2-5.2) g/dL Globulin 3.1 (2-4) g/dL Albumin/Globulin Ratio 1.1 (1-3) Result Diagrams: 08/28/16 14:25 08/28/16 14:25 Lab Statement: Any lab studies that have been ordered have been reviewed, and results considered in the medical decision making process. Diabetic Course/Dx - Course Course Of Treatment: 51F presents with hypoglycemia today. states was changed to lantus 35 3 weeks ago and has had low blood sugars but never as low as today. denies any recent illness. blood sugar intially wsa 69 gave food in ED and end blood sugar was 135. spoke with nurse from PCP and states she is only suppose to be taking 30 units of lantus. explained this to patient and she understands and agrees with plan. she has family at home to make sure sugars do not do to low until lantus wears off. - Diagnoses Differential Dx: Hyperosmolar State, Hypoglycemia, Sepsis Provider Diagnoses: Hypoglycemia Discharge - Discharge Plan Condition: Good Disposition: HOME Patient Education Materials: Hypoglycemia in a Person with Diabetes (ED) Referrals: Stella Burns MD [Primary Care Provider] - Additional Instructions: Take Lantus 30 units every night Continue to check blood sugar throughout day and eat as needed based on numbers Call primary tomorrow with blood sugars to discuss numbers Return to ED if develop any new or worsening symptoms
[2016-08-28 15:38] VITALS: BP 126/77
== END 2016-08-28 16:09 | disposition home or self-care (01) ==
LOC: ED 12:34
DX: E11.649 Type 2 diabetes mellitus with hypoglycemia without coma (principal); Z88.2 Allergy status to sulfonamides; E78.00 Pure hypercholesterolemia, unspecified; E78.5 Hyperlipidemia, unspecified; I10 Essential (primary) hypertension
CPT/HCPCS: 36415; 80053; 83605; 85025; 86141; 96360; 99282; A9270-GY

== ENCOUNTER → 2016-09-12 10:18 | Emergency (ER) | payer MEDICARE, MEDICAID ==
[~2016-09-12 10:18] MED LIST: Acetaminophen TAB* 325 MG PO ONE
[2016-09-12 10:57] LABS: Hematocrit 35 % (35-47); Hemoglobin 11.4 g/dl (12.0-16.0); Mean Corpuscular HGB Conc 33 g/dl (31-36); Mean Corpuscular Hemoglobin 32 pg (27-31); Mean Corpuscular Volume 96 fL (80-97); Mean Platelet Volume 8 um3 (7.4-10.4); Red Cell Distribution Width 14 % (10.5-15); White Blood Count 5.7 10^3/ul (3.5-10.8)
[2016-09-12 11:19] LABS: Albumin 3.2 g/dL (3.2-5.2); BUN/Creatinine Ratio 20.4 (8-20); Calcium 9.2 mg/dL (8.6-10.3); EGFR African American 76.3 (>60); EGFR Non-African American 59.4 (>60); Globulin 3.1 g/dL (2-4); Magnesium 1.8 mg/dL (1.9-2.7); Potassium 4.1 mmol/L (3.5-5.0); Total Bilirubin 0.4 mg/dL (0.2-1.0); Total Protein 6.3 g/dL (6.4-8.9); Troponin I 0.01 ng/mL (<0.04)
[2016-09-12 11:33] LABS: TSH (Thyroid Stimulating Horm) 2.98 mcIU/mL (0.34-5.60)
[2016-09-12 11:38] LABS: Urine Bacteria Absent (Absent); Urine Bilirubin Negative (Negative); Urine Glucose 2+(150 mg/dL) (Negative); Urine Nitrite Negative (Negative)
[2016-09-12 11:49] LABS: Benzodiazepine Urine Screen Presumptive Positive (None Detect)
--- NOTE | 2016-09-12 13:45 | RAD ---
Indication: Abdominal pain. Flat plate of the abdomen demonstrates stool throughout the colon. No dilated loops of bowel are noted. Psoas margins are intact. The stomach is filled with air. IMPRESSION: Fecal stasis without evidence of abnormal bowel gas pattern.
[2016-09-12 15:09] VITALS: BP 131/79
--- NOTE | 2016-09-13 07:38 | RAD ---
INDICATION: Chest pain. Single frontal view of the chest performed at 1050 hours was reviewed. Comparison is made with previous exam dated October 27, 2015. No mediastinal shift is noted. Heart is of normal size and configuration. Lung lester appear clear. IMPRESSION: NO ACTIVE CARDIOPULMONARY DISEASE IS NOTED.
--- NOTE | 2016-09-13 17:42 | ED ---
Nathaly Iverson Edward, scribed for Zi Rosado MD on 09/12/16 at 1110 . HPI Chest Pain - HPI Summary HPI Summary: 51 y/o female presents to ED with CP and abd pain. Patient's CP start days ago and is characterized as a sharp pain rated 5/10 with no radiation. Denies SOB. Patient's abd pain started last week and is diffuse. Assoc sx: constipation. Denies N/V. Patient also hit her head last week while reaching for something on her nightstand. - History of Current Complaint Chief Complaint: EDChestPainROMI Time Seen by Provider: 09/12/16 10:29 Hx Obtained From: Patient Onset/Duration: Started Days Ago - CP started days ago, Started Weeks Ago - Abd pain started last week Timing: Constant Initial Severity: Mild Current Severity: None Pain Intensity: 5 Pain Scale Used: 0-10 Numeric Chest Pain Location: Mid Sternal Chest Pain Radiates: No Character: Sharp/Stabbing Aggravating Factor(s): Nothing Alleviating Factor(s): Nothing Associated Signs and Symptoms: Positive: Chest Pain, Abdominal Pain - diffuse, Other: - Constipation. Negative: Shortness of Breath, Nausea, Vomiting - Additional Pertinent History Primary Care Physician: [id number] - Allergy/Home Medications Allergies/Adverse Reactions: Allergies Allergy/AdvReac Type Severity Reaction Status Date / Time Chlorpromazine Allergy Severe Hallucinati Verified 09/12/16 10:42 [From Thorazine] ons Haloperidol [From Haldol] Allergy Severe Hallucinati Verified 09/12/16 10:42 ons Ziprasidone [From Geodon] Allergy Severe See Comment Verified 09/12/16 10:42 Erythromycin Allergy Intermediate Rash Verified 09/12/16 10:42 Fluphenazine [From Prolixin] Allergy Intermediate See Comment Verified 09/12/16 10:42 [place] Allergy Intermediate depression Verified 09/12/16 10:42 Sulfisoxazole Allergy Intermediate Nausea Verified 09/12/16 10:42 [From Gantrisin] Sulfa Drugs Allergy Unknown Unknown Verified 09/12/16 10:42 Reaction Details PMH/Surg Hx/FS Hx/Imm Hx Previously Healthy: No Endocrine/Hematology History: Reports: Hx Diabetes Denies: Hx Anticoagulant Therapy, Hx Blood Disorders, Hx Blood Transfusions, Hx Bone Marrow Disease, Hx Systemic Lupus Erythematosus, Hx Sickle Cell Disease , Hx Thyroid Disease, Hx Anemia, Hx Unexplained Bleeding, Other Endocrine/ Hematological Disorders Cardiovascular History: Reports: Hx Hypercholesterolemia - HLD, Hx Hypertension Denies: Hx Aneurysm, Hx Angina, Hx Angioplasty, Hx Auto Implanted Cardiovert Defib, Hx Cardiac Arrest, Hx Cardiomegaly, Hx Congenital Heart Disease, Hx Congestive Heart Failure, Hx Coronary Artery Disease, Hx Deep Vein Thrombosis, Hx Embolism, Hx Hypotension, Hx Pacemaker/ICD, Hx Peripheral Vascular Disease, Hx Rheumatic Fever, Hx Syncope, Hx Valvular Heart Disease, Other Cardiovascular Problems/Disorders Respiratory History: Denies: Hx Asthma, Hx Chronic Bronchitis, Hx Chronic Obstructive Pulmonary Disease (COPD), Hx Cystic Fibrosis, Hx Lung Cancer, Hx Pleural Effusion, Hx Pneumonia, Hx Pulmonary Edema, Hx Pulmonary Embolism, Hx Seasonal Allergies, Hx Sleep Apnea, Other Respiratory Problems/Disorders GI History: Denies: Hx Cirrhosis, Hx Crohn's Disease, Hx Diverticulosis, Hx Gall Bladder Disease, Hx Gastroesophageal Reflux Disease, Hx Gastrointestinal Bleed, Hx Hiatal Hernia, Hx Irritable Bowel, Hx Jaundice, Hx Obstructive Bowel, Hx Ileostomy, Hx Pyloric Stenosis, Hx Ulcer, Other GI Disorders History: Denies: Hx Renal Disease Musculoskeletal History: Denies: Hx Arthritis, Hx Back Problems, Hx Bursitis, Hx Congenital Bone Abnormalities, Hx Fibromyalgia, Hx Gout, Hx Orthopedic Injury, Hx Osteoporosis, Hx Scoliosis, Hx Tendonitis, Other Musculoskeletal History Sensory History: Reports: Hx Contacts or Glasses, Hx Deafness - Hard of hearing , Hx Hearing Problem Denies: Hx Cataracts, Hx Eye Injury, Hx Eye Prosthesis, Hx Glaucoma, Hx Legally Blind, Hx Macular Degeneration, Hx Vision Problem, Hx Hearing Aid, Other Sensory Impairments Opthamlomology History: Reports: Hx Contacts or Glasses Denies: Hx Cataracts, Hx Eye Injury, Hx Eye Prosthesis, Hx Glaucoma, Hx Legally Blind, Hx Macular Degeneration, Hx Vision Problem, Other Sensory Impairments Neurological History: Reports: Hx Headaches, Hx Migraine Denies: Hx Dementia, Hx Developmental Delay, Hx Nerve Disease, Hx Seizures, Hx Spinal Cord Injury, Hx Transient Ischemic Attacks (TIA), Other Neuro Impairments/Disorders Psychiatric History: Reports: Hx Anxiety, Hx Attention Deficit Hyperactivity Disorder, Hx Depression, Hx Post Traumatic Stress Disorder - HX SEXUAL ABUSE CHILD, Hx Inpatient Treatment - HX PSYCHIATRIC HOSPITALIZATIONS, Hx Community Mental Health Tx, Hx Bipolar Disorder - BORDERLINE PERSONALITY DISORDER, Hx Suicide Attempt, Hx of Violent Episodes Against Others, Hx Substance Abuse - HX BENZO ABUSE, Other Psychiatric Issues/Disorders - HX SI/ATTEMPT Denies: Hx Eating Disorder, Hx Panic Disorder, Hx Schizophrenia - Cancer History Hx Chemotherapy: No Hx Radiation Therapy: No - Surgical History Surgery Procedure, Year, and Place: appendectomy 1975, 1972 bladder, 5yrs ago orif rt ankle Hx Anesthesia Reactions: No - Immunization History Date of Tetanus Vaccine: Unknown Date of Influenza Vaccine: 12/10/2012 Infectious Disease History: No Infectious Disease History: Denies: Hx Clostridium Difficile, Hx Hepatitis, Hx Human Immunodeficiency Virus (HIV), Hx of Known/Suspected MRSA, Hx Shingles, Hx Tuberculosis, Hx Known/ Suspected VRE, Hx Known/Suspected VRSA, History Other Infectious Disease, Traveled Outside the [place] in Last 30 Days - Family History Known Family History: Positive: Hypertension, Diabetes - Social History Occupation: Disabled Lives: With Family Alcohol Use: None Hx Substance Use: No Substance Use Type: Reports: None Hx Tobacco Use: No Smoking Status (MU): Never Smoked Tobacco Review of Systems Constitutional: Negative Eyes: Negative ENT: Negative Positive: Chest Pain Respiratory: Negative Negative: Shortness Of Breath Positive: Abdominal Pain, Other - Constipation. Negative: Vomiting, Nausea Genitourinary: Negative Musculoskeletal: Negative Skin: Negative Neurological: Negative Psychological: Normal All Other Systems Reviewed And Are Negative: Yes Physical Exam - Summary Physical Exam Summary: VITAL SIGNS:~Reviewed. GENERAL:~ Patient is a well-developed and nourished female who is lying comfortable in the stretcher.~ Patient is not in any acute respiratory distress. HEAD AND FACE:~No signs of trauma.~ Ecchymosis on right side of forehead, hematomas or skull depressions. No sinus tenderness. EYES:~PERRLA, EOMI x 2, No injected conjunctiva, no nystagmus. EARS:~Hearing grossly intact. Ear canals and tympanic membranes are within normal limits. MOUTH:~Oropharynx within normal limits. NECK:~Supple, trachea is midline, no adenopathy, no JVD, no carotid bruit, no c- spine tenderness, neck with full ROM. CHEST:~Symmetric, no tenderness at palpation LUNGS:~Clear to auscultation bilaterally. No wheezing or crackles. CVS:~Regular rate and rhythm, S1 and S2 present, no murmurs or gallops appreciated. ABDOMEN:~Soft, non-tender. No signs of distention. No rebound no guarding, and no masses palpated. Bowel sounds are normal. EXTREMITIES:~FROM in all major joints, no edema, no cyanosis or clubbing. NEURO:~Alert and oriented x 3. No acute neurological deficits. Speech is normal and follows commands. SKIN:~Dry and warm Triage Information Reviewed: Yes Vital Signs On Initial Exam: Initial Vitals BP 115/67 09/12/16 10:23 Vital Signs Reviewed: Yes Diagnostics - Vital Signs Vital Signs Temp Pulse Resp BP Pulse Ox 09/12/16 10:29 99 09/12/16 10:25 97.6 F 86 16 115/67 97 09/12/16 10:24 97.6 F 84 18 115/ 97 09/12/16 10:23 115/ - Laboratory Lab Results: Lab Results 09/12/16 09/12/16 09/12/16 Range/Units 10:38 10:38 10:38 WBC 5.7 (3.5-10.8) 10^3/ul RBC 3.60 L (4.0-5.4) 10^6/ul Hgb 11.4 L (12.0-16.0) g/dl Hct 35 (35-47) % MCV 96 (80-97) fL MCH 32 H (27-31) pg MCHC 33 (31-36) g/dl RDW 14 (10.5-15) % Plt Count 152 (150-450) 10^3/ul MPV 8 (7.4-10.4) um3 Neut % (Auto) 54.8 (38-83) % Lymph % (Auto) 34.7 (25-47) % [place] % (Auto) 9.8 H (1-9) % Eos % (Auto) 0.2 (0-6) % Baso % (Auto) 0.5 (0-2) % Absolute Neuts (auto) 3.2 (1.5-7.7) 10^3/ul Absolute Lymphs (auto) 2.0 (1.0-4.8) 10^3/ul Absolute Monos (auto) 0.6 (0-0.8) 10^3/ul Absolute Eos (auto) 0 (0-0.6) 10^3/ul Absolute Basos (auto) 0 (0-0.2) 10^3/ul Absolute Nucleated RBC 0 10^3/ul Nucleated RBC % 0 Sodium 130 L (133-145) mmol/L Potassium 4.1 (3.5-5.0) mmol/L Chloride 97 L (101-111) mmol/L Carbon Dioxide 28 (22-32) mmol/L Anion Gap 5 (2-11) mmol/L BUN 20 (6-24) mg/dL Creatinine 0.98 H (0.51-0.95) mg/dL Est GFR ( Amer) 76.3 (>60) Est GFR (Non-Af Amer) 59.4 (>60) BUN/Creatinine Ratio 20.4 H (8-20) Glucose 212 H (70-100) mg/dL Lactic Acid 2.0 (0.5-2.0) mmol/L Calcium 9.2 (8.6-10.3) mg/dL Magnesium 1.8 L (1.9-2.7) mg/dL Total Bilirubin 0.40 (0.2-1.0) mg/dL AST 22 (13-39) U/L ALT 13 (7-52) U/L Alkaline Phosphatase 57 (34-104) U/L Total Creatine Kinase 54 (10-223) U/L CK-MB (CK-2) 2.3 (0.6-6.3) ng/mL Troponin I 0.01 (<0.04) ng/mL B-Natriuretic Peptide ( - 100) pg/mL Total Protein 6.3 L (6.4-8.9) g/dL Albumin 3.2 (3.2-5.2) g/dL Globulin 3.1 (2-4) g/dL Albumin/Globulin Ratio 1.0 (1-3) TSH 2.98 (0.34-5.60) mcIU/mL Urine Color Urine Appearance Urine pH (5-9) Ur Specific [place] (1.010-1.030) Urine Protein (Negative) Urine Ketones (Negative) Urine Blood (Negative) Urine Nitrate (Negative) Urine Bilirubin (Negative) Urine Urobilinogen (Negative) Ur Leukocyte Esterase (Negative) Urine WBC (Auto) (Absent) Urine RBC (Auto) (Absent) Urine Bacteria (Absent) Urine Glucose (Negative) Urine Opiates Screen (None Detect) Ur Barbiturates Screen (None Detect) Ur Phencyclidine Scrn (None Detect) Ur Amphetamines Screen (None Detect) U Benzodiazepines Scrn (None Detect) Urine Cocaine Screen (None Detect) U Cannabinoids Screen (None Detect) 09/12/16 09/12/16 09/12/16 Range/Units 10:38 11:24 11:24 WBC (3.5-10.8) 10^3/ul RBC (4.0-5.4) 10^6/ul Hgb (12.0-16.0) g/dl Hct (35-47) % MCV (80-97) fL MCH (27-31) pg MCHC (31-36) g/dl RDW (10.5-15) % Plt Count (150-450) 10^3/ul MPV (7.4-10.4) um3 Neut % (Auto) (38-83) % Lymph % (Auto) (25-47) % [place] % (Auto) (1-9) % Eos % (Auto) (0-6) % Baso % (Auto) (0-2) % Absolute Neuts (auto) (1.5-7.7) 10^3/ul Absolute Lymphs (auto) (1.0-4.8) 10^3/ul Absolute Monos (auto) (0-0.8) 10^3/ul Absolute Eos (auto) (0-0.6) 10^3/ul Absolute Basos (auto) (0-0.2) 10^3/ul Absolute Nucleated RBC 10^3/ul Nucleated RBC % Sodium (133-145) mmol/L Potassium (3.5-5.0) mmol/L Chloride (101-111) mmol/L Carbon Dioxide (22-32) mmol/L Anion Gap (2-11) mmol/L BUN (6-24) mg/dL Creatinine (0.51-0.95) mg/dL Est GFR ( Amer) (>60) Est GFR (Non-Af Amer) (>60) BUN/Creatinine Ratio (8-20) Glucose (70-100) mg/dL Lactic Acid (0.5-2.0) mmol/L Calcium (8.6-10.3) mg/dL Magnesium (1.9-2.7) mg/dL Total Bilirubin (0.2-1.0) mg/dL AST (13-39) U/L ALT (7-52) U/L Alkaline Phosphatase (34-104) U/L Total Creatine Kinase (10-223) U/L CK-MB (CK-2) (0.6-6.3) ng/mL Troponin I (<0.04) ng/mL B-Natriuretic Peptide 41 ( - 100) pg/mL Total Protein (6.4-8.9) g/dL Albumin (3.2-5.2) g/dL Globulin (2-4) g/dL Albumin/Globulin Ratio (1-3) TSH (0.34-5.60) mcIU/mL Urine Color Straw Urine Appearance Clear Urine pH 6.0 (5-9) Ur Specific [place] 1.009 L (1.010-1.030) Urine Protein Negative (Negative) Urine Ketones Negative (Negative) Urine Blood Negative (Negative) Urine Nitrate Negative (Negative) Urine Bilirubin Negative (Negative) Urine Urobilinogen Negative (Negative) Ur Leukocyte Esterase Trace H (Negative) Urine WBC (Auto) Trace(0-5/hpf) (Absent) Urine RBC (Auto) Absent (Absent) Urine Bacteria Absent (Absent) Urine Glucose 2+(150 mg/dl) H (Negative) Urine Opiates Screen None detected (None Detect) Ur Barbiturates Screen None detected (None Detect) Ur Phencyclidine Scrn None detected (None Detect) Ur Amphetamines Screen None detected (None Detect) U Benzodiazepines Scrn Presumptive positive H (None Detect) Urine Cocaine Screen None detected (None Detect) U Cannabinoids Screen None detected (None Detect) 09/12/16 Range/Units 13:45 WBC (3.5-10.8) 10^3/ul RBC (4.0-5.4) 10^6/ul Hgb (12.0-16.0) g/dl Hct (35-47) % MCV (80-97) fL MCH (27-31) pg MCHC (31-36) g/dl RDW (10.5-15) % Plt Count (150-450) 10^3/ul MPV (7.4-10.4) um3 Neut % (Auto) (38-83) % Lymph % (Auto) (25-47) % [place] % (Auto) (1-9) % Eos % (Auto) (0-6) % Baso % (Auto) (0-2) % Absolute Neuts (auto) (1.5-7.7) 10^3/ul Absolute Lymphs (auto) (1.0-4.8) 10^3/ul Absolute Monos (auto) (0-0.8) 10^3/ul Absolute Eos (auto) (0-0.6) 10^3/ul Absolute Basos (auto) (0-0.2) 10^3/ul Absolute Nucleated RBC 10^3/ul Nucleated RBC % Sodium (133-145) mmol/L Potassium (3.5-5.0) mmol/L Chloride (101-111) mmol/L Carbon Dioxide (22-32) mmol/L Anion Gap (2-11) mmol/L BUN (6-24) mg/dL Creatinine (0.51-0.95) mg/dL Est GFR ( Amer) (>60) Est GFR (Non-Af Amer) (>60) BUN/Creatinine Ratio (8-20) Glucose (70-100) mg/dL Lactic Acid (0.5-2.0) mmol/L Calcium (8.6-10.3) mg/dL Magnesium (1.9-2.7) mg/dL Total Bilirubin (0.2-1.0) mg/dL AST (13-39) U/L ALT (7-52) U/L Alkaline Phosphatase (34-104) U/L Total Creatine Kinase (10-223) U/L CK-MB (CK-2) (0.6-6.3) ng/mL Troponin I 0.00 (<0.04) ng/mL B-Natriuretic Peptide ( - 100) pg/mL Total Protein (6.4-8.9) g/dL Albumin (3.2-5.2) g/dL Globulin (2-4) g/dL Albumin/Globulin Ratio (1-3) TSH (0.34-5.60) mcIU/mL Urine Color Urine Appearance Urine pH (5-9) Ur Specific [place] (1.010-1.030) Urine Protein (Negative) Urine Ketones (Negative) Urine Blood (Negative) Urine Nitrate (Negative) Urine Bilirubin (Negative) Urine Urobilinogen (Negative) Ur Leukocyte Esterase (Negative) Urine WBC (Auto) (Absent) Urine RBC (Auto) (Absent) Urine Bacteria (Absent) Urine Glucose (Negative) Urine Opiates Screen (None Detect) Ur Barbiturates Screen (None Detect) Ur Phencyclidine Scrn (None Detect) Ur Amphetamines Screen (None Detect) U Benzodiazepines Scrn (None Detect) Urine Cocaine Screen (None Detect) U Cannabinoids Screen (None Detect) Result Diagrams: 09/12/16 10:38 09/12/16 10:38 Lab Statement: Any lab studies that have been ordered have been reviewed, and results considered in the medical decision making process. - Radiology ABDOMEN XRAY Xray Interpretation: No Acute Changes - Fecal stasis without evidence of abnormal bowel gas pattern. Radiology Interpretation Completed By: Radiologist CXR Xray Interpretation: No Acute Changes Radiology Interpretation Completed By: ED Physician - EKG 1028 Cardiac Rate: NL - 83 BPM EKG Rhythm: Sinus Rhythm EKG Interpretation: No ST elevation Chest Pain Course/Dx - Course Assessment/Plan: 51 y/o female presents to ED with CP and abd pain. Patient's CP start days ago and is characterized as a sharp pain rated 5/10 with no radiation. Assoc sx: SOB, nausea. Patient's abd pain started last week and is diffuse. Assoc sx: constipation. Denies N/V. Patient also hit her head last week while reaching for something on her nightstand. Patients blood work is at baseline. Abd XR shows constipation with lots of stool in her colon. Therefore I hydrated the patient in the ER and gave her Miralax for her constipation. We checked her Troponin twice, both were negative. Patients CXR was negative for acute pathology. EKG showed no ST elevation. The patient was asymptomatic therefore I discharged the patient home with F/U with PCP. - Chest Pain Differential Diagnosis/HQI/PQRI: ACS, Angina, CHF, Chest Wall, Lower Respiratory Infection - Diagnoses Provider Diagnoses: Chest pain, Constipation Discharge - Discharge Plan Condition: Stable Disposition: HOME Prescriptions: Polyethylene Glycol 3350* [Miralax*] 17 gm PO DAILY #12 packet Patient Education Materials: Chest Pain (ED), Constipation (ED) Referrals: Stella Burns MD [Primary Care Provider] - 3 Days (Follow up 2-3 days please) The documentation as recorded by the scribe, Nathaly,Edward accurately reflects the service I personally performed and the decisions made by , Zi Rosado MD.
== END | disposition home or self-care (01) ==
LOC: ED 10:18
DX: R07.9 Chest pain, unspecified (principal); R10.9 Unspecified abdominal pain; K59.00 Constipation, unspecified
CPT/HCPCS: 36415; 71010; 74020; 80053; 80307; 81003; 81015; 82550; 82553; 83605; 83735; 83880; 84443; 84484; 85025; 87086; 93005; 99283; A9270-GY

== ENCOUNTER 2016-11-06 19:23 | Emergency (ER) | payer MEDICARE, MEDICAID ==
[2016-11-06] MEDS ORDERED: NS 0.9% 1000 ML* 1,000 ML IV ONE (19:44)
[2016-11-06] MEDS ORDERED: Acetaminophen TAB* 325 MG PO ONE (19:44)
[2016-11-06 20:32] LABS: Hematocrit 38 % (35-47); Hemoglobin 12.5 g/dl (12.0-16.0); Mean Corpuscular HGB Conc 34 g/dl (31-36); Mean Corpuscular Hemoglobin 32 pg (27-31); Mean Corpuscular Volume 96 fL (80-97); Mean Platelet Volume 7 um3 (7.4-10.4); Red Blood Count 3.89 10^6/ul (4.0-5.4); Red Cell Distribution Width 14 % (10.5-15); White Blood Count 4.9 10^3/ul (3.5-10.8)
[2016-11-06 20:34] LABS: Add Diff/Slide Review? Slide Review Added; Comments Flag Yes
[2016-11-06 20:47] LABS: Albumin 3.6 g/dL (3.2-5.2); BUN/Creatinine Ratio 20.4 (8-20); Calcium 8.9 mg/dL (8.6-10.3); EGFR African American 81.1 (>60); EGFR Non-African American 63.1 (>60); Globulin 3.2 g/dL (2-4); Magnesium 1.7 mg/dL (1.9-2.7); Potassium 4.4 mmol/L (3.5-5.0); Total Bilirubin 0.4 mg/dL (0.2-1.0); Total Protein 6.8 g/dL (6.4-8.9)
--- NOTE | 2016-11-06 20:51 | ED ---
Jose Raul Iverson SooYoung, scribed for Thaddeus Kumar MD on 11/06/16 at 1948 . Dizziness - HPI Summary HPI Summary: A 51 y/o F presents to ED with c/o dizziness onset this AM. Associated sx: weakness, LARSEN. Denies n/v. Pt [place] [facility] [place], today the nurse' s noticed that pt was a bit "wobbly" and they recommended she come to ED for evaluation. Pert PMHx: DM. Highest sugar today was 122; low of about 80 in the AM. Pt is medication compliant. PCP is Dr. Burns, [facility]. - History Of Current Complaint Chief Complaint: EDDizziness Stated Complaint: DIZZINESS/HEADACHE Time Seen by Provider: 11/06/16 19:36 Hx Obtained From: Patient Timing: Hours - onset this AM Severity Initially: Mild Severity Currently: Mild Character: Dizzy Associated Signs And Symptoms: Positive: Other: - pos: LARSEN, weakness. Negative: Nausea, Vomiting - Allergies/Home Medications Allergies/Adverse Reactions: Allergies Allergy/AdvReac Type Severity Reaction Status Date / Time Chlorpromazine Allergy Severe Hallucinati Verified 09/12/16 10:42 [From Thorazine] ons Haloperidol [From Haldol] Allergy Severe Hallucinati Verified 09/12/16 10:42 ons Ziprasidone [From Geodon] Allergy Severe See Comment Verified 09/12/16 10:42 Erythromycin Allergy Intermediate Rash Verified 09/12/16 10:42 Fluphenazine [From Prolixin] Allergy Intermediate See Comment Verified 09/12/16 10:42 [place] Allergy Intermediate depression Verified 09/12/16 10:42 Sulfisoxazole Allergy Intermediate Nausea Verified 09/12/16 10:42 [From Gantrisin] Sulfa Drugs Allergy Unknown Unknown Verified 09/12/16 10:42 Reaction Details PMH/Surg Hx/FS Hx/Imm Hx Previously Healthy: No Endocrine/Hematology History: Reports: Hx Diabetes Denies: Hx Anticoagulant Therapy, Hx Blood Disorders, Hx Blood Transfusions, Hx Bone Marrow Disease, Hx Systemic Lupus Erythematosus, Hx Sickle Cell Disease , Hx Thyroid Disease, Hx Anemia, Hx Unexplained Bleeding, Other Endocrine/ Hematological Disorders Cardiovascular History: Reports: Hx Hypercholesterolemia - HLD, Hx Hypertension Denies: Hx Aneurysm, Hx Angina, Hx Angioplasty, Hx Auto Implanted Cardiovert Defib, Hx Cardiac Arrest, Hx Cardiomegaly, Hx Congenital Heart Disease, Hx Congestive Heart Failure, Hx Coronary Artery Disease, Hx Deep Vein Thrombosis, Hx Embolism, Hx Hypotension, Hx Pacemaker/ICD, Hx Peripheral Vascular Disease, Hx Rheumatic Fever, Hx Syncope, Hx Valvular Heart Disease, Other Cardiovascular Problems/Disorders Respiratory History: Denies: Hx Asthma, Hx Chronic Bronchitis, Hx Chronic Obstructive Pulmonary Disease (COPD), Hx Cystic Fibrosis, Hx Lung Cancer, Hx Pleural Effusion, Hx Pneumonia, Hx Pulmonary Edema, Hx Pulmonary Embolism, Hx Seasonal Allergies, Hx Sleep Apnea, Other Respiratory Problems/Disorders GI History: Denies: Hx Cirrhosis, Hx Crohn's Disease, Hx Diverticulosis, Hx Gall Bladder Disease, Hx Gastroesophageal Reflux Disease, Hx Gastrointestinal Bleed, Hx Hiatal Hernia, Hx Irritable Bowel, Hx Jaundice, Hx Obstructive Bowel, Hx Ileostomy, Hx Pyloric Stenosis, Hx Ulcer, Other GI Disorders History: Denies: Hx Renal Disease Musculoskeletal History: Denies: Hx Arthritis, Hx Back Problems, Hx Bursitis, Hx Congenital Bone Abnormalities, Hx Fibromyalgia, Hx Gout, Hx Orthopedic Injury, Hx Osteoporosis, Hx Scoliosis, Hx Tendonitis, Other Musculoskeletal History Sensory History: Reports: Hx Contacts or Glasses, Hx Deafness - Hard of hearing , Hx Hearing Problem Denies: Hx Cataracts, Hx Eye Injury, Hx Eye Prosthesis, Hx Glaucoma, Hx Legally Blind, Hx Macular Degeneration, Hx Vision Problem, Hx Hearing Aid, Other Sensory Impairments Opthamlomology History: Reports: Hx Contacts or Glasses Denies: Hx Cataracts, Hx Eye Injury, Hx Eye Prosthesis, Hx Glaucoma, Hx Legally Blind, Hx Macular Degeneration, Hx Vision Problem, Other Sensory Impairments Neurological History: Reports: Hx Headaches, Hx Migraine Denies: Hx Dementia, Hx Developmental Delay, Hx Nerve Disease, Hx Seizures, Hx Spinal Cord Injury, Hx Transient Ischemic Attacks (TIA), Other Neuro Impairments/Disorders Psychiatric History: Reports: Hx Anxiety, Hx Attention Deficit Hyperactivity Disorder, Hx Depression, Hx Post Traumatic Stress Disorder - HX SEXUAL ABUSE CHILD, Hx Inpatient Treatment - HX PSYCHIATRIC HOSPITALIZATIONS, Hx Community Mental Health Tx, Hx Bipolar Disorder - BORDERLINE PERSONALITY DISORDER, Hx Suicide Attempt, Hx of Violent Episodes Against Others, Hx Substance Abuse - HX BENZO ABUSE, Other Psychiatric Issues/Disorders - HX SI/ATTEMPT Denies: Hx Eating Disorder, Hx Panic Disorder, Hx Schizophrenia - Cancer History Hx Chemotherapy: No Hx Radiation Therapy: No - Surgical History Surgery Procedure, Year, and Place: appendectomy 1975, 1972 bladder, 5yrs ago orif rt ankle Hx Anesthesia Reactions: No - Immunization History Date of Tetanus Vaccine: Unknown Date of Influenza Vaccine: 12/10/2012 Infectious Disease History: No Infectious Disease History: Denies: Hx Clostridium Difficile, Hx Hepatitis, Hx Human Immunodeficiency Virus (HIV), Hx of Known/Suspected MRSA, Hx Shingles, Hx Tuberculosis, Hx Known/ Suspected VRE, Hx Known/Suspected VRSA, History Other Infectious Disease, Traveled Outside the [place] in Last 30 Days - Family History Known Family History: Positive: Hypertension, Diabetes - Social History Occupation: Disabled Lives: With Family Alcohol Use: None Hx Substance Use: No Substance Use Type: Reports: None Hx Tobacco Use: No Smoking Status (MU): Never Smoked Tobacco Review of Systems Negative: Vomiting, Nausea Neurological: Other - pos: weakness Positive: Headache, Weakness All Other Systems Reviewed And Are Negative: Yes Physical Exam Triage Information Reviewed: Yes Vital Signs On Initial Exam: Initial Vitals Temp Pulse Resp BP Pulse Ox 97.5 F 78 18 153/99 99 11/06/16 19:26 11/06/16 19:26 11/06/16 19:26 11/06/16 19:26 11/06/16 19:26 Vital Signs Reviewed: Yes Appearance: Positive: Well-Appearing, No Pain Distress Skin: Positive: Warm Head/Face: Positive: Normal Head/Face Inspection Eyes: Positive: EOMI, ELISEO ENT: Positive: Normal ENT inspection Neck: Positive: Supple, Nontender Respiratory/Lung Sounds: Positive: Clear to Auscultation, Breath Sounds Present Cardiovascular: Positive: RRR Abdomen Description: Positive: Nontender, Soft Bowel Sounds: Positive: Present Musculoskeletal: Positive: Strength/ROM Intact Neurological: Positive: Sensory/Motor Intact, Alert, Oriented to Person Place, Time, Normal Gait Diagnostics - Vital Signs Vital Signs Temp Pulse Resp BP Pulse Ox 11/06/16 19:26 97.5 F 78 18 153/99 99 - Laboratory Lab Results: Lab Results 11/06/16 11/06/16 11/06/16 Range/Units 20:20 20:20 20:20 WBC 4.9 (3.5-10.8) 10^3/ul RBC 3.89 L (4.0-5.4) 10^6/ul Hgb 12.5 (12.0-16.0) g/dl Hct 38 (35-47) % MCV 96 (80-97) fL MCH 32 H (27-31) pg MCHC 34 (31-36) g/dl RDW 14 (10.5-15) % Plt Count 161 (150-450) 10^3/ul MPV 7 L (7.4-10.4) um3 Neut % (Auto) 24.7 L (38-83) % Lymph % (Auto) 64.4 H (25-47) % Placer % (Auto) 9.8 H (1-9) % Eos % (Auto) 0.3 (0-6) % Baso % (Auto) 0.8 (0-2) % Absolute Neuts (auto) 1.2 L (1.5-7.7) 10^3/ul Absolute Lymphs (auto) 3.1 (1.0-4.8) 10^3/ul Absolute Monos (auto) 0.5 (0-0.8) 10^3/ul Absolute Eos (auto) 0 (0-0.6) 10^3/ul Absolute Basos (auto) 0 (0-0.2) 10^3/ul Absolute Nucleated RBC 0.02 10^3/ul Nucleated RBC % 0.3 Sodium 129 L (133-145) mmol/L Potassium 4.4 (3.5-5.0) mmol/L Chloride 94 L (101-111) mmol/L Carbon Dioxide 32 (22-32) mmol/L Anion Gap 3 (2-11) mmol/L BUN 19 (6-24) mg/dL Creatinine 0.93 (0.51-0.95) mg/dL Est GFR ( Amer) 81.1 (>60) Est GFR (Non-Af Amer) 63.1 (>60) BUN/Creatinine Ratio 20.4 H (8-20) Glucose 119 H (70-100) mg/dL Lactic Acid 0.8 (0.5-2.0) mmol/L Calcium 8.9 (8.6-10.3) mg/dL Magnesium 1.7 L (1.9-2.7) mg/dL Total Bilirubin 0.40 (0.2-1.0) mg/dL AST 24 (13-39) U/L ALT 18 (7-52) U/L Alkaline Phosphatase 58 (34-104) U/L Total Protein 6.8 (6.4-8.9) g/dL Albumin 3.6 (3.2-5.2) g/dL Globulin 3.2 (2-4) g/dL Albumin/Globulin Ratio 1.1 (1-3) Result Diagrams: 11/06/16 20:20 11/06/16 20:20 Lab Statement: Any lab studies that have been ordered have been reviewed, and results considered in the medical decision making process. Re-Evaluation - Re-Evaluation First Eval Comment: results d/w pt Dizzy Course/Dx - Course Course Of Treatment: Pt is a 51 y/o F presenting with dizziness onset this AM. Associated sx: weakness, LARSEN. Denies n/v. Pt is [place] [facility] [place], today the nurse's noticed that pt was a bit "wobbly" and they recommended she come to ED for evaluation. Pert PMHx: DM. Highest sugar today was 122; low of about 80 in the AM. Pt is medication compliant. PCP is Dr. Burns, [facility]. Pt given fluids, Tylenol in ED. Blood work results are without significant abnormalities. Will D/C home. - Diagnoses Provider Diagnoses: Dizziness Discharge - Discharge Plan Condition: Stable Disposition: HOME Patient Education Materials: Dizziness (ED) Referrals: Stella Burns MD [Primary Care Provider] - Additional Instructions: Please return to the ED if you experience new or worsening symptoms. The documentation as recorded by the Jose Raul zuniga SooYoung accurately reflects the service I personally performed and the decisions made by me, Thaddeus Kumar MD.
[2016-11-06 21:16] VITALS: BP 170/97
== END 2016-11-06 21:17 | disposition home or self-care (01) ==
LOC: ED 19:23
DX: R42 Dizziness and giddiness (principal); R51 Headache; R53.1 Weakness
CPT/HCPCS: 36415; 80053; 80164; 83605; 83735; 85025; 99283; A9270-GY

== ENCOUNTER 2017-01-18 14:28 | Emergency (ER) | payer MEDICARE, MEDICAID ==
[2017-01-18 14:56] VITALS: BP 139/95
--- NOTE | 2017-01-18 15:30 | UC ---
Ear Complaint HPI - HPI Summary HPI Summary: FOUR DAYS OF BILATERAL EAR PAIN L>R , WITH SORE THROAT. NO FEVER. NO HEADACHE. NO RASHES. NO ABDOMINAL PAIN. - History of Current Complaint Chief Complaint: UCRespiratory Stated Complaint: SORE THROAT Time Seen by Provider: 01/18/17 14:29 Hx Obtained From: Patient, Family/Race Starter Hx Last Menstrual Period: 5 years ago Onset/Duration: Gradual Onset, Lasting Days Severity Initially: Mild Severity Currently: Moderate Associated Signs/Symptoms: Positive: Hearing Loss, URI Symptoms - Allergies/Home Medications Allergies/Adverse Reactions: Allergies Allergy/AdvReac Type Severity Reaction Status Date / Time Chlorpromazine Allergy Severe Hallucinati Verified 01/18/17 14:56 [From Thorazine] ons Haloperidol [From Haldol] Allergy Severe Hallucinati Verified 01/18/17 14:56 ons Ziprasidone [From Geodon] Allergy Severe See Comment Verified 01/18/17 14:56 Erythromycin Allergy Intermediate Rash Verified 01/18/17 14:56 Fluphenazine [From Prolixin] Allergy Intermediate See Comment Verified 01/18/17 14:56 [place] Allergy Intermediate depression Verified 01/18/17 14:56 Sulfisoxazole Allergy Intermediate Nausea Verified 01/18/17 14:56 [From Gantrisin] Sulfa Drugs Allergy Unknown Unknown Verified 01/18/17 14:56 Reaction Details Home Medications: Home Medications Lignum-3 Fatty Acids [Fish Oil] 1,000 mg PO 01/18/17 [History] PMH/Surg Hx/FS Hx/Imm Hx Previously Healthy: Yes Other History Of: Negative For: Anticoagulant Therapy - Surgical History Surgical History: Yes Surgery Procedure, Year, and Place: appendectomy 1975, 1972 bladder, 5yrs ago orif rt ankle - Family History Known Family History: Positive: Hypertension, Diabetes - Social History Occupation: Disabled Lives: With Family Alcohol Use: None Substance Use Type: None Smoking Status (MU): Never Smoked Tobacco Household Exposure Type: Cigarettes - Immunization History Most Recent Influenza Vaccination: 2016 Most Recent Tetanus Shot: UP TO DATE Most Recent Pneumonia Vaccination: 2014 Review of Systems Constitutional: Negative Skin: Negative Eyes: Negative ENT: Sore Throat, Ear Ache Respiratory: Negative Cardiovascular: Negative Gastrointestinal: Negative Genitourinary: Negative Motor: Negative Neurovascular: Negative Musculoskeletal: Negative Neurological: Negative Psychological: Negative Is Patient Immunocompromised?: No All Other Systems Reviewed And Are Negative: Yes Physical Exam Triage Information Reviewed: Yes Appearance: Well-Appearing, No Pain Distress, Well-Nourished Vital Signs: Initial Vital Signs Temp 97.3 F 01/18/17 14:53 Pulse 79 01/18/17 14:53 Resp 18 01/18/17 14:53 BP 139/95 01/18/17 14:53 Pulse Ox 100 01/18/17 14:53 Vital Signs Reviewed: Yes Eye Exam: Normal ENT: Positive: Pharyngeal erythema, TM bulging, TM dull. Negative: Tonsillar swelling, Tonsillar exudate Dental Exam: Normal Neck exam: Normal Neck: Positive: Supple, Nontender, No Lymphadenopathy Respiratory Exam: Normal Respiratory: Positive: Chest non-tender, Lungs clear, Normal breath sounds, No respiratory distress Cardiovascular Exam: Normal Cardiovascular: Positive: RRR, No Murmur, Pulses Normal, Brisk Capillary Refill Abdominal Exam: Normal Abdomen Description: Positive: Nontender, No Organomegaly Musculoskeletal Exam: Normal Neurological Exam: Normal Psychological Exam: Normal Skin Exam: Normal Ear Complaint Course/Dx - Differential Dx/Diagnosis Differential Diagnosis/HQI/PQRI: Otitis Externa, Otitis Media, URI Provider Diagnoses: BILATERAL OTITIS SEROUS; PHARYNGITIS Discharge - Discharge Plan Condition: Stable Disposition: HOME Prescriptions: Amoxicillin/Clavulanate TAB* [Augmentin TAB 875*] 875 mg PO BID #14 tab Patient Education Materials: Pharyngitis (ED), Serous Otitis Media (ED) Referrals: Stella Burns MD [Primary Care Provider] -
== END 2017-01-18 15:35 | disposition home or self-care (01) ==
LOC: UCEAST 14:28
DX: H66.93 Otitis media, unspecified, bilateral (principal); Z88.2 Allergy status to sulfonamides; J02.9 Acute pharyngitis, unspecified
CPT/HCPCS: 87651; 99212; G0463

== ENCOUNTER 2017-05-14 11:03 | Emergency (ER) | payer MEDICARE, MEDICAID ==
[2017-05-14] MEDS ORDERED: Ibuprofen TAB* 600 MG PO ONE (12:27)
--- NOTE | 2017-05-14 12:35 | UC ---
Abdominal Pain Female HPI - HPI Summary HPI Summary: ONSET OF SHARP RUQ PAIN YESTERDAY MORNING. IS CONSTANT BUT WORSE AFTER EATING AND WITH DEEP BREATHS. DENIES CP, SOB, NAUSEA. - History of Current Complaint Chief Complaint: UCChestPain Stated Complaint: CHEST PAIN Time Seen by Provider: 05/14/17 11:29 Hx Obtained From: Patient Hx Last Menstrual Period: 5 years ago Onset/Duration: Sudden Onset, Lasting Days - 1 DAY, Still Present Timing: Constant Severity Initially: Moderate Severity Currently: Moderate Pain Intensity: 10 - IN ROOM IN NO ACUTE DISTRESS Pain Scale Used: 0-10 Numeric Location: Discrete At: RUQ Radiates: No Character: Sharp Aggravating Factor(s): Food, Movement Alleviating Factor(s): Nothing Associated Signs and Symptoms: Negative: Fever, Chest Pain, Back Pain, Constipation, Urinary Symptoms, Nausea, Vomiting, Diarrhea Allergies/Adverse Reactions: Allergies Allergy/AdvReac Type Severity Reaction Status Date / Time MS Chlorpromazine Allergy Severe Hallucinati Verified 05/14/17 11:10 [From Thorazine] ons MS Haloperidol [From Haldol] Allergy Severe Hallucinati Verified 05/14/17 11:10 ons MS Ziprasidone [From Geodon] Allergy Severe See Comment Verified 05/14/17 11:10 MS Erythromycin Allergy Intermediate Rash Verified 05/14/17 11:10 [Erythromycin] MS Fluphenazine Allergy Intermediate See Comment Verified 05/14/17 11:10 [From Prolixin] MS Spelter [Spelter] Allergy Intermediate depression Verified 05/14/17 11:10 MS Sulfisoxazole Allergy Intermediate Nausea Verified 05/14/17 11:10 [From Gantrisin] MS Sulfa Drugs [Sulfa Drugs] Allergy Unknown Unknown Verified 05/14/17 11:10 Reaction Details Home Medications: Home Medications Ibuprofen TAB* [Motrin TAB* 600 MG] 1,000 mg PO Q8H PRN 05/14/17 [History Confirmed 05/14/17] PMH/Surg Hx/FS Hx/Imm Hx Endocrine History: Diabetes Cardiovascular History: Hypertension Psychological History: Bipolar Disorder, Post Traumatic Stress Disorder Other History Of: Negative For: Anticoagulant Therapy - Surgical History Surgical History: Yes Surgery Procedure, Year, and Place: appendectomy 1975, 1972 bladder, 5yrs ago orif rt ankle - Family History Known Family History: Positive: Hypertension, Diabetes - Social History Alcohol Use: None Substance Use Type: None Smoking Status (MU): Never Smoked Tobacco Household Exposure Type: Cigarettes - Immunization History Most Recent Influenza Vaccination: 2016 Most Recent Tetanus Shot: UP TO DATE Most Recent Pneumonia Vaccination: 2014 Review of Systems Constitutional: Negative Respiratory: Negative Cardiovascular: Negative Gastrointestinal: Abdominal Pain Genitourinary: Negative All Other Systems Reviewed And Are Negative: Yes Physical Exam Triage Information Reviewed: Yes Appearance: Well-Appearing, No Pain Distress, Well-Nourished Vital Signs: Initial Vital Signs Temp 97.7 F 05/14/17 11:15 Pulse 79 05/14/17 11:15 Resp 16 05/14/17 11:15 BP 129/87 05/14/17 11:15 Pulse Ox 100 05/14/17 11:15 Vital Signs Reviewed: Yes Eyes: Positive: Conjunctiva Clear ENT: Positive: Hearing grossly normal Neck: Positive: Supple Respiratory Exam: Normal Cardiovascular Exam: Normal Abdomen Description: Positive: Soft, Other: - TTP RUQ, NO REBOUND OR RIGIDITY. EQUIVOCAL MURPHYS. Negative: CVA Tenderness (R), CVA Tenderness (L), Distended , Guarding Bowel Sounds: Positive: Present Musculoskeletal: Positive: No Edema Neurological: Positive: Alert Psychological: Positive: Age Appropriate Behavior Skin: Negative: rashes Diagnostics - Radiology GALLBLADDER US Xray Interpretation: Positive (See Comments) - THERE IS NO CHOLELITHIASIS OR PERICHOLECYSTIC INFLAMMATORY CHANGE. A POSITIVE SONOGRAPHIC MORENO SIGN IS REPORTED WHICH IS OF UNCERTAIN CLINICAL SIGNIFICANCE IN THE SETTING OF A NORMAL ULTRASOUND. Radiology Interpretation Completed By: Radiologist - EKG Cardiac Rate: NL - 76 BPM Cardiac Rhythm: Sinus: Normal Ectopy: None ST Segment: Normal Abd Pain Female Course/Dx - Course Course Of Treatment: US UNREMARKABLE BUT PT WITH POSITIVE MORENO SIGN AND C/O PERSISTENT PAIN. HAVE ARRANGED FOR SURGICAL F/U TMRW. TO ER OVERNIGHT IF SX WORSEN. - Differential Dx/Diagnosis Provider Diagnoses: BILIARY COLIC Discharge - Discharge Plan Condition: Stable Disposition: HOME Patient Education Materials: Biliary Colic (ED), Low Fat Diet (ED) Referrals: Osiel Conn MD [Medical Doctor] - (APPT TOMORROW 05/15/17 AT 2:30PM) Stella Burns MD [Primary Care Provider] - If Needed Additional Instructions: ULTRASOUND DID NOT SHOW ANY GALLSTONES OR INFLAMMATORY CHANGE BUT GIVEN YOUR DISCOMFORT RECOMMEND CLOSE FOLLOW-UP. I HAVE ARRANGED FOR YOU TO SEE THE SURGEON DR. CONN TOMORROW AT 2:30PM. ARRIVE 15 MINUTES EARLY AND BRING YOUR INSURANCE CARD AND PHOTO ID. GO TO THE ER WITHOUT FAIL OVERNIGHT IF YOUR SYMPTOMS WORSEN OR BECOME INTOLERABLE. FOLLOW LOW FAT DIET FOR NOW. IBUPROFEN NEEDED FOR DISCOMFORT.
[2017-05-14 13:29] VITALS: BP 100/75
--- NOTE | 2017-05-14 14:00 | RAD ---
HISTORY: Right upper quadrant pain COMPARISONS: CT dated September 30, 2015 TECHNIQUE: Multiple transverse and longitudinal ultrasound images were obtained of the right upper quadrant of the abdomen using grayscale, color Doppler, and spectral Doppler imaging. FINDINGS: LIVER: The liver is normal in shape, size, contour, and echogenicity. There are no focal parenchymal masses. There is normal hepatopedal flow of the portal vein on Doppler imaging. BILIARY TREE: There is no intrahepatic or extrahepatic biliary dilatation. The common duct measures 0.2 cm. GALLBLADDER: The gallbladder is well-visualized. There is no cholelithiasis, gallbladder wall thickening, or pericholecystic fluid. Positive sonographic Huang's sign is reported.. PANCREAS: The head of the pancreas is unremarkable. The tail of the pancreas is not well visualized secondary to overlying bowel gas. RIGHT KIDNEY: The right kidney is normal in shape, size, contour, and echogenicity. There is no hydronephrosis or nephrolithiasis. The right kidney measures 10.9 x 5.4 x 5.8 cm. AORTA AND IVC: The aorta and IVC are unremarkable. Normal arterial and venous waveforms are identifiable on spectral Doppler imaging. FLUID: There are no pleural effusions. There is no free fluid within the hepatorenal recess. OTHER FINDINGS: None. IMPRESSION: THERE IS NO CHOLELITHIASIS OR PERICHOLECYSTIC INFLAMMATORY CHANGE. A POSITIVE SONOGRAPHIC HUANG SIGN IS REPORTED WHICH IS OF UNCERTAIN CLINICAL SIGNIFICANCE IN THE SETTING OF A NORMAL ULTRASOUND.
== END 2017-05-14 14:43 | disposition home or self-care (01) ==
LOC: UCEAST 11:03
DX: K80.50 Calculus of bile duct without cholangitis or cholecystitis without obstruction (principal); E11.9 Type 2 diabetes mellitus without complications; I10 Essential (primary) hypertension; F31.9 Bipolar disorder, unspecified; F43.10 Post-traumatic stress disorder, unspecified; Z88.1 Allergy status to other antibiotic agents; Z88.2 Allergy status to sulfonamides; Z88.8 Allergy status to other drugs, medicaments and biological substances
CPT/HCPCS: 76705; 93005; 99211; A9270-GY; G0463

== ENCOUNTER 2017-09-17 10:48 | Emergency (ER) | payer MEDICARE, MEDICAID ==
--- NOTE | 2017-09-17 12:28 | RAD ---
INDICATION: Abdominal pain COMPARISON: September 12, 2016 TECHNIQUE: Erect and supine views of the abdomen are submitted. FINDINGS: Bones: There are no acute bony findings. Soft tissues: The soft tissues appear normal. The psoas margins are sharp. Bowel gas pattern: There is no obstruction. There is moderate retained stool Calcifications: There are no abnormal calcifications. Other: None IMPRESSION: MODERATE RETAINED STOOL
--- NOTE | 2017-09-17 13:38 | ED ---
Abdominal Pain/Female - History of Current Complaint Chief Complaint: EDAbdPain Stated Complaint: ABD PAIN Time Seen by Provider: 09/17/17 11:13 Hx Obtained From: Patient Hx Last Menstrual Period: 5 years ago ?: No Onset/Duration: Gradual Onset, Lasting Days, Other - Abd pain for the last 4 days. Last BM was last week. Was seen at [facility] two days ago, had Xrays of her abdomen, and was told that she had a lot of stool in her abdomen. Timing: Constant Severity Initially: Mild Severity Currently: Moderate Pain Intensity: 5 Location: Diffuse Radiates: No Character: Dull Aggravating Factor(s): Nothing Alleviating Factor(s): Nothing Associated Signs and Symptoms: Positive: Constipation Allergies/Adverse Reactions: Allergies Allergy/AdvReac Type Severity Reaction Status Date / Time ziprasidone [From Geodon] Allergy Severe Unknown Verified 09/17/17 11:11 Reaction Details erythromycin base Allergy Intermediate Rash Verified 09/17/17 11:11 Sulfa (Sulfonamide Allergy Unknown Unknown Verified 09/17/17 11:11 Antibiotics) Reaction Details chlorpromazine AdvReac Severe Hallucinati Verified 09/17/17 11:11 [From Thorazine] ons haloperidol [From Haldol] AdvReac Severe Hallucinati Verified 09/17/17 11:11 ons fluphenazine [From Prolixin] AdvReac Intermediate depression Verified 09/17/17 11:11 lithium AdvReac Intermediate depression Verified 09/17/17 11:11 sulfisoxazole AdvReac Intermediate Nausea Verified 09/17/17 11:11 [From Gantrisin] Home Medications: Home Medications [place]-3 Fatty Acids (Nf) [Fish Oil (NF)] 1,000 mg PO DAILY 09/17/17 [History Confirmed 09/17/17] QUEtiapine TAB* [Seroquel 100 MG *] 1,200 mg PO BEDTIME 09/17/17 [History Confirmed 09/17/17] PMH/Surg Hx/FS Hx/Imm Hx Endocrine/Hematology History: Reports: Hx Diabetes Denies: Hx Anticoagulant Therapy, Hx Blood Disorders, Hx Blood Transfusions, Hx Bone Marrow Disease, Hx Systemic Lupus Erythematosus, Hx Sickle Cell Disease , Hx Thyroid Disease, Hx Anemia, Hx Unexplained Bleeding, Other Endocrine/ Hematological Disorders Cardiovascular History: Reports: Hx Hypercholesterolemia - HLD, Hx Hypertension Denies: Hx Aneurysm, Hx Angina, Hx Angioplasty, Hx Auto Implanted Cardiovert Defib, Hx Cardiac Arrest, Hx Cardiomegaly, Hx Congenital Heart Disease, Hx Congestive Heart Failure, Hx Coronary Artery Disease, Hx Deep Vein Thrombosis, Hx Embolism, Hx Hypotension, Hx Pacemaker/ICD, Hx Peripheral Vascular Disease, Hx Rheumatic Fever, Hx Syncope, Hx Valvular Heart Disease, Other Cardiovascular Problems/Disorders Respiratory History: Denies: Hx Asthma, Hx Chronic Bronchitis, Hx Chronic Obstructive Pulmonary Disease (COPD), Hx Cystic Fibrosis, Hx Lung Cancer, Hx Pleural Effusion, Hx Pneumonia, Hx Pulmonary Edema, Hx Pulmonary Embolism, Hx Seasonal Allergies, Hx Sleep Apnea, Other Respiratory Problems/Disorders GI History: Denies: Hx Cirrhosis, Hx Crohn's Disease, Hx Diverticulosis, Hx Gall Bladder Disease, Hx Gastroesophageal Reflux Disease, Hx Gastrointestinal Bleed, Hx Hiatal Hernia, Hx Irritable Bowel, Hx Jaundice, Hx Obstructive Bowel, Hx Ileostomy, Hx Pyloric Stenosis, Hx Ulcer, Other GI Disorders History: Denies: Hx Renal Disease Musculoskeletal History: Denies: Hx Arthritis, Hx Back Problems, Hx Bursitis, Hx Congenital Bone Abnormalities, Hx Fibromyalgia, Hx Gout, Hx Orthopedic Injury, Hx Osteoporosis, Hx Scoliosis, Hx Tendonitis, Other Musculoskeletal History Sensory History: Reports: Hx Contacts or Glasses, Hx Deafness - Hard of hearing , Hx Hearing Problem Denies: Hx Cataracts, Hx Eye Injury, Hx Eye Prosthesis, Hx Glaucoma, Hx Legally Blind, Hx Macular Degeneration, Hx Vision Problem, Hx Hearing Aid, Other Sensory Impairments Opthamlomology History: Reports: Hx Contacts or Glasses Denies: Hx Cataracts, Hx Eye Injury, Hx Eye Prosthesis, Hx Glaucoma, Hx Legally Blind, Hx Macular Degeneration, Hx Vision Problem, Other Sensory Impairments Neurological History: Reports: Hx Headaches, Hx Migraine Denies: Hx Dementia, Hx Developmental Delay, Hx Nerve Disease, Hx Seizures, Hx Spinal Cord Injury, Hx Transient Ischemic Attacks (TIA), Other Neuro Impairments/Disorders Psychiatric History: Reports: Hx Anxiety, Hx Attention Deficit Hyperactivity Disorder, Hx Depression, Hx Post Traumatic Stress Disorder - HX SEXUAL ABUSE CHILD, Hx Inpatient Treatment - HX PSYCHIATRIC HOSPITALIZATIONS, Hx Community Mental Health Tx, Hx Bipolar Disorder - BORDERLINE PERSONALITY DISORDER, Hx Suicide Attempt, Hx of Violent Episodes Against Others, Hx Substance Abuse - HX BENZO ABUSE, Other Psychiatric Issues/Disorders - HX SI/ATTEMPT Denies: Hx Eating Disorder, Hx Panic Disorder, Hx Schizophrenia - Cancer History Hx Chemotherapy: No Hx Radiation Therapy: No - Surgical History Surgery Procedure, Year, and Place: appendectomy 1975, 1972 bladder, 5yrs ago orif rt ankle Hx Anesthesia Reactions: No - Immunization History Date of Tetanus Vaccine: Unknown Date of Influenza Vaccine: 12/10/2012 Infectious Disease History: No Infectious Disease History: Denies: Hx Clostridium Difficile, Hx Hepatitis, Hx Human Immunodeficiency Virus (HIV), Hx of Known/Suspected MRSA, Hx Shingles, Hx Tuberculosis, Hx Known/ Suspected VRE, Hx Known/Suspected VRSA, History Other Infectious Disease, Traveled Outside the [place] in Last 30 Days - Family History Known Family History: Positive: Hypertension, Diabetes - Social History Alcohol Use: None Hx Substance Use: No Substance Use Type: Reports: None Hx Tobacco Use: No Smoking Status (MU): Never Smoked Tobacco Review of Systems Cardiovascular: Negative Respiratory: Negative Positive: Abdominal Pain Genitourinary: Negative Skin: Negative All Other Systems Reviewed And Are Negative: Yes Physical Exam Triage Information Reviewed: Yes Vital Signs On Initial Exam: Initial Vitals Temp Pulse Resp BP Pulse Ox 96.9 F 83 19 141/89 98 09/17/17 11:06 09/17/17 11:06 09/17/17 11:06 09/17/17 11:06 09/17/17 11:06 Vital Signs Reviewed: Yes Appearance: Positive: Well-Appearing Skin: Positive: Warm, Skin Color Reflects Adequate Perfusion Head/Face: Positive: Normal Head/Face Inspection Eyes: Positive: Normal ENT: Positive: Normal ENT inspection Neck: Positive: Supple, Nontender, No Lymphadenopathy Respiratory/Lung Sounds: Positive: Clear to Auscultation, Breath Sounds Present Cardiovascular: Positive: Normal, RRR Abdomen Description: Positive: Soft, Other: - Mild diffuse tenderness to palpation. Rectal negative for stool or fecal impaction. Neurological: Positive: Normal Psychiatric: Positive: Normal - [place] Coma Scale Best Eye Response: 4 - Spontaneous Best Motor Response: 6 - Obeys Commands Best Verbal Response: 5 - Oriented Coma Scale Total: 15 Diagnostics - Vital Signs Vital Signs Temp Pulse Resp BP Pulse Ox 09/17/17 11:06 96.9 F 83 19 141/89 98 - Laboratory Diagnostic Studies Comment: Abdominal Xray shows large amount of stool, No obstruction. Lab Statement: Any lab studies that have been ordered have been reviewed, and results considered in the medical decision making process. Abdominal Pain Fem Course/Dx - Course Course Of Treatment: Stable throughout ER course. Comfortable going home. Sleeping at reevaluation - Diagnoses Provider Diagnoses: Constipated Is Visit Related: No Discharge - Sign-Out/Discharge Documenting (check all that apply): Discharge/Admit/Transfer - Discharge Plan Condition: Good Disposition: HOME Prescriptions: Lactulose [Enulose] 10 gm PO BID #240 ml Magnesium CITRATE* [Citrate of Magnesia*] 300 ml PO SEE INSTRUCTIONS #1 btl Referrals: Stella Burns MD [Primary Care Provider] - Additional Instructions: Take the Magnesium citrate when you get home. It will cause a lot of cramping a large BM in a few hours. Rx for Lactulose: take 30 ml twice daily for the next few days. If you are still constipated you can take 45 ml twice daily. Follow up with your doctor in 2 days. Come back to the ED if you have worsening abdominal pain, fevers, chills, vomiting, or diarrhea. - Billing Disposition and Condition Condition: GOOD Disposition: Home
[2017-09-17 13:41] VITALS: BP 175/115
== END 2017-09-17 13:40 | disposition home or self-care (01) ==
LOC: ED 10:48
DX: K59.00 Constipation, unspecified (principal); E11.9 Type 2 diabetes mellitus without complications; I10 Essential (primary) hypertension; E78.00 Pure hypercholesterolemia, unspecified; F90.9 Attention-deficit hyperactivity disorder, unspecified type; F41.9 Anxiety disorder, unspecified; F32.9 Major depressive disorder, single episode, unspecified; Z88.1 Allergy status to other antibiotic agents; Z88.8 Allergy status to other drugs, medicaments and biological substances; Z82.49 Family history of ischemic heart disease and other diseases of the circulatory system; Z83.3 Family history of diabetes mellitus
CPT/HCPCS: 74019; 99282

== ENCOUNTER 2017-10-13 10:53 | Emergency (ER) | payer MEDICARE, MEDICAID ==
[2017-10-13] MEDS ORDERED: NS 0.9% 1000 ML* 1,000 ML IV ONE (11:13)
[2017-10-13] MEDS ORDERED: Aspirin 81 mg CHEW TAB* 81 MG TAB.CHEW PO ONE (11:14)
[2017-10-13] MEDS ORDERED: Albuterol/Ipratropium NEB.SOL* Albuterol 2.5 MG/Ipratropium 0.5 MG 3 ML INH ONE (11:14)
[2017-10-13 11:51] LABS: EGFR Non-African American 58.5 (>60)
[2017-10-13 11:54] LABS: INR 0.75 (0.77-1.02)
[2017-10-13 11:56] LABS: ABS Basophils 0 10^3/ul (0-0.2); ABS Eosinophils 0 10^3/ul (0-0.6); ABS Lymphocytes 2.1 10^3/ul (1.0-4.8); ABS Monocytes 0.3 10^3/ul (0-0.8); ABS Neutrophils 1.6 10^3/ul (1.5-7.7); ABS Nucleated RBC 0 10^3/ul; Eosinophil % 0.5 % (0-6); Hematocrit 31 % (35-47); Hemoglobin 10.5 g/dl (12.0-16.0); Lymphocyte % 51.8 % (25-47); Mean Corpuscular HGB Conc 34 g/dl (31-36); Mean Corpuscular Hemoglobin 33 pg (27-31); Mean Corpuscular Volume 95 fL (80-97); Mean Platelet Volume 6.7 um3 (7.4-10.4); Nucleated Red Blood Cells % 0.2; Platelet Count 204 10^3/ul (150-450); Red Blood Count 3.22 10^6/ul (4.00-5.40); Red Cell Distribution Width 13 % (10.5-15)
--- NOTE | 2017-10-13 12:45 | RAD ---
Indication: Cough. 2 views of the chest demonstrate no mediastinal shift. Heart is of normal size and configuration. Lung lester are clear. IMPRESSION: No active cardiopulmonary disease is noted.
[2017-10-13 13:21] LABS: Urine Appearance Clear; Urine Blood Negative (Negative); Urine Color Yellow; Urine Ketones Negative (Negative); Urine Protein Negative (Negative); Urine Urobilinogen Negative (Negative)
[2017-10-13 14:04] VITALS: BP 132/74
--- NOTE | 2017-10-13 14:57 | ED ---
HPI Chest Pain - HPI Summary HPI Summary: This is Carlita Maynard, documenting for attending Lio Anand MD. Pt is a 52 y/o F BIBA c/o chest pain. She was at [facility] today when she began to c/o chest pain and staff there called EMS per nurses report. She describes the pain as sharp, in the center of her chest, constant, and rates it an 8/10 in severity. Pt reports that the chest pain began on Friday. Notes dyspnea, abdominal discomfort, and non-productive cough. Denies fever, smoking, or reflux. Took Naproxen but it did not alleviate her symptoms. She was given ASA and 2 NTG before arrival by EMS per nurses report. States her LKMP was 8 years ago. PMHx of bipolar disorder, depression, and anxiety. - History of Current Complaint Chief Complaint: EDChestWallPain Time Seen by Provider: 10/13/17 11:01 Hx Obtained From: Patient, Medical Records - Nurse's report Hx Last Menstrual Period: 5 years ago Onset/Duration: Started Days Ago, Still Present Timing: Constant Current Severity: Severe Pain Intensity: 8 Pain Scale Used: 0-10 Numeric Character: Sharp/Stabbing Associated Signs and Symptoms: Positive: Chest Pain, Shortness of Breath, Nonproductive Cough, Abdominal Pain - Additional Pertinent History Primary Care Physician: VENU - Allergy/Home Medications Allergies/Adverse Reactions: Allergies Allergy/AdvReac Type Severity Reaction Status Date / Time ziprasidone [From Geodon] Allergy Severe Unknown Verified 10/13/17 11:02 Reaction Details erythromycin base Allergy Intermediate Rash Verified 10/13/17 11:02 Sulfa (Sulfonamide Allergy Unknown Unknown Verified 10/13/17 11:02 Antibiotics) Reaction Details chlorpromazine AdvReac Severe Hallucinati Verified 10/13/17 11:02 [From Thorazine] ons haloperidol [From Haldol] AdvReac Severe Hallucinati Verified 10/13/17 11:02 ons fluphenazine [From Prolixin] AdvReac Intermediate depression Verified 10/13/17 11:02 lithium AdvReac Intermediate depression Verified 10/13/17 11:02 sulfisoxazole AdvReac Intermediate Nausea Verified 10/13/17 11:02 [From Gantrisin] PMH/Surg Hx/FS Hx/Imm Hx Endocrine/Hematology History: Reports: Hx Diabetes Denies: Hx Anticoagulant Therapy, Hx Blood Disorders, Hx Blood Transfusions, Hx Bone Marrow Disease, Hx Systemic Lupus Erythematosus, Hx Sickle Cell Disease , Hx Thyroid Disease, Hx Anemia, Hx Unexplained Bleeding, Other Endocrine/ Hematological Disorders Cardiovascular History: Reports: Hx Hypercholesterolemia - HLD, Hx Hypertension Denies: Hx Aneurysm, Hx Angina, Hx Angioplasty, Hx Auto Implanted Cardiovert Defib, Hx Cardiac Arrest, Hx Cardiomegaly, Hx Congenital Heart Disease, Hx Congestive Heart Failure, Hx Coronary Artery Disease, Hx Deep Vein Thrombosis, Hx Embolism, Hx Hypotension, Hx Pacemaker/ICD, Hx Peripheral Vascular Disease, Hx Rheumatic Fever, Hx Syncope, Hx Valvular Heart Disease, Other Cardiovascular Problems/Disorders Respiratory History: Denies: Hx Asthma, Hx Chronic Bronchitis, Hx Chronic Obstructive Pulmonary Disease (COPD), Hx Cystic Fibrosis, Hx Lung Cancer, Hx Pleural Effusion, Hx Pneumonia, Hx Pulmonary Edema, Hx Pulmonary Embolism, Hx Seasonal Allergies, Hx Sleep Apnea, Other Respiratory Problems/Disorders GI History: Denies: Hx Cirrhosis, Hx Crohn's Disease, Hx Diverticulosis, Hx Gall Bladder Disease, Hx Gastroesophageal Reflux Disease, Hx Gastrointestinal Bleed, Hx Hiatal Hernia, Hx Irritable Bowel, Hx Jaundice, Hx Obstructive Bowel, Hx Ileostomy, Hx Pyloric Stenosis, Hx Ulcer, Other GI Disorders History: Denies: Hx Renal Disease Musculoskeletal History: Denies: Hx Arthritis, Hx Back Problems, Hx Bursitis, Hx Congenital Bone Abnormalities, Hx Fibromyalgia, Hx Gout, Hx Orthopedic Injury, Hx Osteoporosis, Hx Scoliosis, Hx Tendonitis, Other Musculoskeletal History Sensory History: Reports: Hx Contacts or Glasses, Hx Deafness - Hard of hearing , Hx Hearing Problem Denies: Hx Cataracts, Hx Eye Injury, Hx Eye Prosthesis, Hx Glaucoma, Hx Legally Blind, Hx Macular Degeneration, Hx Vision Problem, Hx Hearing Aid, Other Sensory Impairments Opthamlomology History: Reports: Hx Contacts or Glasses Denies: Hx Cataracts, Hx Eye Injury, Hx Eye Prosthesis, Hx Glaucoma, Hx Legally Blind, Hx Macular Degeneration, Hx Vision Problem, Other Sensory Impairments Neurological History: Reports: Hx Headaches, Hx Migraine Denies: Hx Dementia, Hx Developmental Delay, Hx Nerve Disease, Hx Seizures, Hx Spinal Cord Injury, Hx Transient Ischemic Attacks (TIA), Other Neuro Impairments/Disorders Psychiatric History: Reports: Hx Anxiety, Hx Attention Deficit Hyperactivity Disorder, Hx Depression, Hx Post Traumatic Stress Disorder - HX SEXUAL ABUSE CHILD, Hx Inpatient Treatment - HX PSYCHIATRIC HOSPITALIZATIONS, Hx Community Mental Health Tx, Hx Bipolar Disorder - BORDERLINE PERSONALITY DISORDER, Hx Suicide Attempt, Hx of Violent Episodes Against Others, Hx Substance Abuse - HX BENZO ABUSE, Other Psychiatric Issues/Disorders - HX SI/ATTEMPT Denies: Hx Eating Disorder, Hx Panic Disorder, Hx Schizophrenia - Cancer History Hx Chemotherapy: No Hx Radiation Therapy: No - Surgical History Surgery Procedure, Year, and Place: appendectomy 1975, 1972 bladder, 5yrs ago orif rt ankle Hx Anesthesia Reactions: No - Immunization History Date of Tetanus Vaccine: Unknown Date of Influenza Vaccine: 12/10/2012 Infectious Disease History: No Infectious Disease History: Denies: Hx Clostridium Difficile, Hx Hepatitis, Hx Human Immunodeficiency Virus (HIV), Hx of Known/Suspected MRSA, Hx Shingles, Hx Tuberculosis, Hx Known/ Suspected VRE, Hx Known/Suspected VRSA, History Other Infectious Disease, Traveled Outside the [place] in Last 30 Days - Family History Known Family History: Positive: Hypertension, Diabetes - Social History Alcohol Use: None Hx Substance Use: Yes Substance Use Type: Reports: Other - Benzodiazepines Hx Tobacco Use: No Smoking Status (MU): Never Smoked Tobacco Review of Systems Negative: Fever Positive: Chest Pain, Other - NEGATIVE: heart burn Positive: Shortness Of Breath, Cough Positive: Abdominal Pain All Other Systems Reviewed And Are Negative: Yes Physical Exam - Summary Physical Exam Summary: Appearance: Well appearing, no pain distress Skin: warm, dry, reflects adequate perfusion Head/face: normal Eyes: EOMI, ELISOE ENT: normal Neck: supple, non-tender Respiratory: CTA, breath sounds present Cardiovascular: RRR, pulses occasionally irregular Abdomen: non-tender, soft Bowel Sounds: present Musculoskeletal: normal, strength/ROM intact Neuro: normal, sensory motor intact, A&Ox3 Triage Information Reviewed: Yes Vital Signs On Initial Exam: Initial Vitals Temp Pulse Resp BP Pulse Ox 97.3 F 80 16 132/92 99 10/13/17 11:02 10/13/17 11:02 10/13/17 11:02 10/13/17 11:02 10/13/17 11:02 Vital Signs Reviewed: Yes Diagnostics - Vital Signs Vital Signs Temp Pulse Resp BP Pulse Ox 10/13/17 14:03 98.3 F 73 16 132/74 99 10/13/17 11:25 80 19 100 07/16/18 11:02 97.3 F 81 18 157/103 96 - Laboratory Lab Results: Lab Results 10/13/17 10/13/17 10/13/17 Range/Units 11:22 11:22 11:22 WBC (3.5-10.8) 10^3/ul RBC (4.00-5.40) 10^6/ul Hgb (12.0-16.0) g/dl Hct (35-47) % MCV (80-97) fL MCH (27-31) pg MCHC (31-36) g/dl RDW (10.5-15) % Plt Count (150-450) 10^3/ul MPV (7.4-10.4) um3 Neut % (Auto) (38-83) % Lymph % (Auto) (25-47) % [place] % (Auto) (0-7) % Eos % (Auto) (0-6) % Baso % (Auto) (0-2) % Absolute Neuts (auto) (1.5-7.7) 10^3/ul Absolute Lymphs (auto) (1.0-4.8) 10^3/ul Absolute Monos (auto) (0-0.8) 10^3/ul Absolute Eos (auto) (0-0.6) 10^3/ul Absolute Basos (auto) (0-0.2) 10^3/ul Absolute Nucleated RBC 10^3/ul Nucleated RBC % INR (Anticoag Therapy) 0.75 L (0.77-1.02) D-Dimer, Quantitative < 200 (Less Than 230) ng/mL Sodium 129 L (135-145) mmol/L Potassium 4.6 (3.5-5.0) mmol/L Chloride 93 L (101-111) mmol/L Carbon Dioxide 28 (22-32) mmol/L Anion Gap 8 (2-11) mmol/L BUN 16 (6-24) mg/dL Creatinine 0.99 H (0.51-0.95) mg/dL Est GFR ( Amer) 70.7 (>60) Est GFR (Non-Af Amer) 58.5 (>60) BUN/Creatinine Ratio 16.2 (8-20) Glucose 324 H (70-100) mg/dL Lactic Acid 2.5 H* (0.5-2.0) mmol/L Calcium 9.3 (8.6-10.3) mg/dL Total Bilirubin 0.30 (0.2-1.0) mg/dL AST 18 (13-39) U/L ALT 13 (7-52) U/L Alkaline Phosphatase 78 (34-104) U/L Troponin I 0.00 (<0.04) ng/mL B-Natriuretic Peptide ( - 100) pg/mL Total Protein 6.6 (6.4-8.9) g/dL Albumin 3.2 (3.2-5.2) g/dL Globulin 3.4 (2-4) g/dL Albumin/Globulin Ratio 0.9 L (1-3) Urine Color Urine Appearance Urine pH (5-9) Ur Specific [place] (1.010-1.030) Urine Protein (Negative) Urine Ketones (Negative) Urine Blood (Negative) Urine Nitrate (Negative) Urine Bilirubin (Negative) Urine Urobilinogen (Negative) Ur Leukocyte Esterase (Negative) Urine Glucose (Negative) 10/13/17 10/13/17 10/13/17 Range/Units 11:22 11:25 13:14 WBC 4.0 (3.5-10.8) 10^3/ul RBC 3.22 L (4.00-5.40) 10^6/ul Hgb 10.5 L (12.0-16.0) g/dl Hct 31 L (35-47) % MCV 95 (80-97) fL MCH 33 H (27-31) pg MCHC 34 (31-36) g/dl RDW 13 (10.5-15) % Plt Count 204 (150-450) 10^3/ul MPV 6.7 L (7.4-10.4) um3 Neut % (Auto) 38.9 (38-83) % Lymph % (Auto) 51.8 H (25-47) % [place] % (Auto) 8.3 H (0-7) % Eos % (Auto) 0.5 (0-6) % Baso % (Auto) 0.5 (0-2) % Absolute Neuts (auto) 1.6 (1.5-7.7) 10^3/ul Absolute Lymphs (auto) 2.1 (1.0-4.8) 10^3/ul Absolute Monos (auto) 0.3 (0-0.8) 10^3/ul Absolute Eos (auto) 0 (0-0.6) 10^3/ul Absolute Basos (auto) 0 (0-0.2) 10^3/ul Absolute Nucleated RBC 0 10^3/ul Nucleated RBC % 0.2 INR (Anticoag Therapy) (0.77-1.02) D-Dimer, Quantitative (Less Than 230) ng/mL Sodium (135-145) mmol/L Potassium (3.5-5.0) mmol/L Chloride (101-111) mmol/L Carbon Dioxide (22-32) mmol/L Anion Gap (2-11) mmol/L BUN (6-24) mg/dL Creatinine (0.51-0.95) mg/dL Est GFR ( Amer) (>60) Est GFR (Non-Af Amer) (>60) BUN/Creatinine Ratio (8-20) Glucose (70-100) mg/dL Lactic Acid (0.5-2.0) mmol/L Calcium (8.6-10.3) mg/dL Total Bilirubin (0.2-1.0) mg/dL AST (13-39) U/L ALT (7-52) U/L Alkaline Phosphatase (34-104) U/L Troponin I (<0.04) ng/mL B-Natriuretic Peptide 62 ( - 100) pg/mL Total Protein (6.4-8.9) g/dL Albumin (3.2-5.2) g/dL Globulin (2-4) g/dL Albumin/Globulin Ratio (1-3) Urine Color Yellow Urine Appearance Clear Urine pH 6.0 (5-9) Ur Specific [place] 1.010 (1.010-1.030) Urine Protein Negative (Negative) Urine Ketones Negative (Negative) Urine Blood Negative (Negative) Urine Nitrate Negative (Negative) Urine Bilirubin Negative (Negative) Urine Urobilinogen Negative (Negative) Ur Leukocyte Esterase Negative (Negative) Urine Glucose 3+(>=500 mg/dl) A (Negative) Result Diagrams: 10/13/17 11:25 10/13/17 11:22 Lab Statement: Any lab studies that have been ordered have been reviewed, and results considered in the medical decision making process. - Radiology CXR Radiology Interpretation Completed By: Radiologist - 11:14. No active cardiopulmonary disease is noted. ED Physician reviewed this report. - EKG 11:04 Cardiac Rate: NL - 78 bpm EKG Rhythm: Sinus Rhythm ST Segment: Normal Ectopy: PVCs EKG Interpretation: Normal axis Chest Pain Course/Dx - Course Course Of Treatment: Patient with some mild cognitive impairment presents with chest pain. She is also has some wheezing and some recent cold symptoms with cough. Her x-ray is negative. Her laboratories are fairly unremarkable. She was improved with breathing treatments. Urinalysis is negative. Her abdomen is soft and benign. She is diabetic with sugars of 300. She states that they were 85 this morning. She did just eat prior to laboratories. She will be treated symptomatically and follow closely with her primary care physician. - Diagnoses Provider Diagnoses: Hyperglycemia, Atypical chest pain, Upper respiratory infection Discharge - Sign-Out/Discharge Documenting (check all that apply): Patient Departure - Discharge - Discharge Plan Condition: Improved Disposition: HOME Prescriptions: Albuterol HFA INHALER* [Ventolin HFA Inhaler*] 1 - 2 puff INH Q6H PRN #1 mdi PRN Reason: Shortness Of Breath Famotidine TAB* [Pepcid 20 MG TAB*] 20 mg PO BID #30 tab Patient Education Materials: Chest Pain (DC) Referrals: Stella Burns MD [Primary Care Provider] - Additional Instructions: Call your doctor today to schedule follow-up appointment as soon as possible. Cut back in carbohydrates and watch her sugars.. Blood sugar was in the 300s here today. Make adjustments to diabetic medication as necessary. Return with fever, uncontrolled blood sugars, increased discomfort, new symptoms, worse or other concerns as discussed. - Billing Disposition and Condition Condition: IMPROVED Disposition: Home
== END 2017-10-13 14:03 | disposition home or self-care (01) ==
LOC: ED 10:53
DX: R07.89 Other chest pain (principal); E11.65 Type 2 diabetes mellitus with hyperglycemia; J06.9 Acute upper respiratory infection, unspecified; F31.9 Bipolar disorder, unspecified; F41.9 Anxiety disorder, unspecified; Z88.8 Allergy status to other drugs, medicaments and biological substances; Z88.2 Allergy status to sulfonamides; Z88.3 Allergy status to other anti-infective agents
CPT/HCPCS: 36415; 71046; 80053; 81003; 83605; 83880; 84484; 85025; 85379; 85610; 93005; 96360; 99283; A9270-GY

== ENCOUNTER → 2018-03-26 13:29 | Emergency (ER) | payer MEDICARE, MEDICAID ==
[~2018-03-26 13:29] MED LIST changes: -Acetaminophen TAB* 325 MG PO ONE; +Iodixanol* (CONTRAST) 320 MG/ML 100 ML SDV IV ONE; +Ketorolac INJ* 30 MG/ML 1 ML VIAL IV PUSH ONE; +Magnesium Sulfate 2 GM IV* 2 GM/50 ML BAG IVPB ONE; +NS 0.9% 1000 ML* 1,000 ML IV ONE; +Ondansetron INJ* 2 MG/ML VIAL IV ONE
--- OUTSIDE RECORDS SUMMARY | 2018-03-26 13:57 | XMS REPORT | Continuity of Care Document ---
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 NOTE> Abnormal None Detect 28 Urine Cannabinoids Screen None Detected N None Detect Urine Cocaine Screen None Detected N None Detect Urine Opiates Screen None Detected N None Detect Urine Phencyclidine Screen None Detected N None Detect 29 CBC Auto Diff 09/12/2016 [facility] White Blood 5.7 10^3/uL N 3.5-10.[address] [place] [address] [phone] Red Blood Count 3.60 10^6/uL Low 4.0-5.4 Hemoglobin 11.4 g/dL Low 12.0-16.0 Hematocrit 35 % N 35-47 Mean Corpuscular Volume 96 fL N 80-97 Mean Corpuscular Hemoglobin 32 pg High 27-31 Mean Corpuscular HGB Conc 33 g/dL N 31-36 Red Cell Distribution Width 14 % N 10.5-15 Platelet Count 152 10^3/uL N 150-450 Mean Platelet Volume 8 um3 N 7.4-10.4 Abs Neutrophils 3.2 10^3/uL N 1.5-7.7 Abs Lymphocytes 2.0 10^3/uL N 1.0-4.8 Abs Monocytes 0.6 10^3/uL N 0-0.8 Abs Eosinophils 0 10^3/uL N 0-0.6 Abs Basophils 0 10^3/uL N 0-0.2 Abs Nucleated RBC 0 10^3/uL N Granulocyte % 54.8 % N 38-83 Lymphocyte % 34.7 % N 25-47 Monocyte % 9.8 % High 1-9 Eosinophil % 0.2 % N 0-6 Basophil % 0.5 % N 0-2 Nucleated Red Blood Cells % 0 N Comp Metabolic Panel 09/12/2016 [facility] Sodium 130 mmol/L Low 133-[address] [place] [address] [phone] Potassium 4.1 mmol/L N 3.5-5.0 Chloride 97 mmol/L Low 101-111 Co2 Carbon Dioxide 28 mmol/L N 22-32 Anion Gap 5 mmol/L N 2-11 Glucose 212 mg/dL High 70-100 Blood Urea Nitrogen 20 mg/dL N 6-24 Creatinine 0.98 mg/dL High 0.51-0.95 BUN/Creatinine Ratio 20.4 High 8-20 Calcium 9.2 mg/dL N 8.6-10.3 Total Protein 6.3 g/dL Low 6.4-8.9 Albumin 3.2 g/dL N 3.2-5.2 Globulin 3.1 g/dL N 2-4 Albumin/Globulin Ratio 1.0 N 1-3 Total Bilirubin 0.40 mg/dL N 0.2-1.0 Alkaline Phosphatase 57 U/L N 34-104 Alt 13 U/L N 7-52 Ast 22 U/L N 13-39 Egfr Non- 59.4 N >60 Egfr 76.3 N >60 30 Laboratory test 09/12/2016 [facility] Magnesium 1.8 mg/dL Low 1.9-2.[address] [place] [address] [phone] Creatine Kinase(CK) 54 U/L N 10-223 Troponin-I (TnI) 0.01 ng/mL N <0.04 CKMB 09/12/2016 [facility] CKMB ng/mL 2.3 ng/mL N 0.6-6.[address] [place] [address] [phone] Laboratory test 09/12/2016 [facility] TSH 2.98 N 0.34-5.[address] (Thyroid mcIU/[place] [address] Stim Hykf) [phone] B-Type Natriuretic Peptide BNP 41 pg/mL N 31 Laboratory test 09/12/2016 [facility] Lactic Acid 2.0 mmol/L N 0.5-2.0 32 finding [address] [place] [address] [phone] Urinalysis 09/12/2016 [facility] Urine Color Straw N Profile [address] [place] [address] [phone] Urine Appearance Clear N Urine Specific [place] 1.009 Low 1.010-1.030 Urine pH 6.0 N 5-9 Urine Urobilinogen Negative N Negative Urine Ketones Negative N Negative Urine Protein Negative N Negative Urine Leukocytes Trace Abnormal Negative Urine Blood Negative N Negative Urine Nitrite Negative N Negative Urine Bilirubin Negative N Negative Urine Glucose 2+(150 mg/dL) Abnormal Negative Urine White Blood Cell Trace(0-5/hpf) N Absent Urine Red Blood Cell Absent N Absent Urine Bacteria Absent N Absent CBC Auto Diff 08/28/2016 [facility] White Blood 4.9 10^3/uL N 3.5-10.[address] [place] [address] [phone] Red Blood Count 4.12 10^6/uL N 4.0-5.4 Hemoglobin 13.0 g/dL N 12.0-16.0 Hematocrit 39 % N 35-47 Mean Corpuscular Volume 95 fL N 80-97 Mean Corpuscular Hemoglobin 31 pg N 27-31 Mean Corpuscular HGB Conc 33 g/dL N 31-36 Red Cell Distribution Width 14 % N 10.5-15 Platelet Count 154 10^3/uL N 150-450 Mean Platelet Volume 7 um3 Low 7.4-10.4 Abs Neutrophils 2.4 10^3/uL N 1.5-7.7 Abs Lymphocytes 1.9 10^3/uL N 1.0-4.8 Abs Monocytes 0.5 10^3/uL N 0-0.8 Abs Eosinophils 0 10^3/uL N 0-0.6 Abs Basophils 0 10^3/uL N 0-0.2 Abs Nucleated RBC 0.01 10^3/uL N Granulocyte % 50.2 % N 38-83 Lymphocyte % 39.5 % N 25-47 Monocyte % 9.8 % High 1-9 Eosinophil % 0.1 % N 0-6 Basophil % 0.4 % N 0-2 Nucleated Red Blood Cells % 0.1 N Comp Metabolic Panel 08/28/2016 [facility] Sodium 130 mmol/L Low 133-[address] [place] [address] [phone] Potassium 4.4 mmol/L N 3.5-5.0 Chloride 95 mmol/L Low 101-111 Co2 Carbon Dioxide 28 mmol/L N 22-32 Anion Gap 7 mmol/L N 2-11 Glucose 139 mg/dL High 70-100 Blood Urea Nitrogen 18 mg/dL N 6-24 Creatinine 1.07 mg/dL High 0.51-0.95 BUN/Creatinine Ratio 16.8 N 8-20 Calcium 9.0 mg/dL N 8.6-10.3 Total Protein 6.6 g/dL N 6.4-8.9 Albumin 3.5 g/dL N 3.2-5.2 Globulin 3.1 g/dL N 2-4 Albumin/Globulin Ratio 1.1 N 1-3 Total Bilirubin 0.30 mg/dL N 0.2-1.0 Alkaline Phosphatase 53 U/L N 34-104 Alt 14 U/L N 7-52 Ast 21 U/L N 13-39 Egfr Non- 53.6 N >60 Egfr 69.0 N >60 33 Laboratory test 08/28/2016 [facility] CRP High 0.21 mg/L N 34 finding [address] [place] [address] [phone] Lactic Acid 2.2 mmol/L High 0.5-2.0 35 Laboratory test 08/28/2016 [facility] Point of Care 79 mg/dL N 74-[address] [place] [address] [phone] Laboratory test 07/26/2016 [facility] Magnesium 1.6 mg/dL Low 1.9-2.7 finding [address] [place] [address] [phone] Basic Metabolic 07/26/2016 [facility] Sodium 128 mmol/L Low 133-145 Panel [address] [place] [address] [phone] Potassium 4.1 mmol/L N 3.5-5.0 Chloride 93 mmol/L Low 101-111 Co2 Carbon Dioxide 27 mmol/L N 22-32 Anion Gap 8 mmol/L N 2-11 Glucose 163 mg/dL High 70-100 Blood Urea Nitrogen 19 mg/dL N 6-24 Creatinine 0.97 mg/dL High 0.51-0.95 BUN/Creatinine Ratio 19.6 N 8-20 Calcium 9.1 mg/dL N 8.6-10.3 Egfr Non- 60.1 N >60 Egfr 77.3 N >60 37 Laboratory test 07/22/2016 [facility] Hemoglobin A1c 7.7 High 5-7 finding Laboratory test 06/26/2016 [facility] Magnesium 1.5 mg/dL Low 1.9-2.7 finding [address] [place] [address] [phone] C Reactive Protein < 1.00 mg/L N < 5.00 38 Troponin-I (TnI) 0.00 ng/mL N <0.04 39 TSH (Thyroid Stim Horm) 2.33 mcIU/mL N 0.34-5.60 Osmolality Serum 280 mOsm/kg N 275 - 295 40 Comp Metabolic Panel 06/26/2016 [facility] Sodium 124 mmol/L Low 133-145 [address] [place] [address] [phone] Potassium 4.4 mmol/L N 3.5-5.0 Chloride 92 mmol/L Low 101-111 Co2 Carbon Dioxide 27 mmol/L N 22-32 Anion Gap 5 mmol/L N 2-11 Glucose 205 mg/dL High 70-100 Blood Urea Nitrogen 20 mg/dL N 6-24 Creatinine 0.90 mg/dL N 0.51-0.95 BUN/Creatinine Ratio 22.2 High 8-20 Calcium 9.0 mg/dL N 8.6-10.3 Total Protein 6.8 g/dL N 6.4-8.9 Albumin 3.6 g/dL N 3.2-5.2 Globulin 3.2 g/dL N 2-4 Albumin/Globulin Ratio 1.1 N 1-3 Total Bilirubin 0.40 mg/dL N 0.2-1.0 Alkaline Phosphatase 61 U/L N 34-104 Alt 15 U/L N 7-52 Ast 18 U/L N 13-39 Egfr Non- 65.5 N >60 Egfr 84.2 N >60 41 Urinalysis Profile 06/26/2016 [facility] Urine Color Straw N [address] [place] [address] [phone] Urine Appearance Clear N Urine Specific [place] 1.006 Low 1.010-1.030 Urine pH 6.0 N 5-9 Urine Urobilinogen Negative N Negative Urine Ketones Negative N Negative Urine Protein Negative N Negative Urine Leukocytes Negative N Negative Urine Blood 1+ Abnormal Negative Urine Nitrite Negative N Negative Urine Bilirubin Negative N Negative Urine Glucose 2+(150 mg/dL) Abnormal Negative Urine White Blood Cell Trace(0-5/hpf) N Absent Urine Red Blood Cell Trace(0-2/hpf) N Absent Urine Bacteria Absent N Absent Urine Squamous Epithelial Cell Present Abnormal Absent CBC Auto Diff 06/26/2016 [facility] White Blood 3.6 10^3/uL N 3.5-10.[address] [place] [address] [phone] Red Blood Count 3.84 10^6/uL Low 4.0-5.4 Hemoglobin 12.3 g/dL N 12.0-16.0 Hematocrit 37 % N 35-47 Mean Corpuscular Volume 96 fL N 80-97 Mean Corpuscular Hemoglobin 32 pg High 27-31 Mean Corpuscular HGB Conc 33 g/dL N 31-36 Red Cell Distribution Width 13 % N 10.5-15 Platelet Count 150 10^3/uL N 150-450 Mean Platelet Volume 8 um3 N 7.4-10.4 Abs Neutrophils 1.7 10^3/uL N 1.5-7.7 Abs Lymphocytes 1.5 10^3/uL N 1.0-4.8 Abs Monocytes 0.4 10^3/uL N 0-0.8 Abs Eosinophils 0 10^3/uL N 0-0.6 Abs Basophils 0.1 10^3/uL N 0-0.2 Abs Nucleated RBC 0.02 10^3/uL N Granulocyte % 45.9 % N 38-83 Lymphocyte % 41.6 % N 25-47 Monocyte % 10.2 % High 1-9 Eosinophil % 0.5 % N 0-6 Basophil % 1.8 % N 0-2 Nucleated Red Blood Cells % 0.4 N Laboratory test 03/28/2016 [facility] Hemoglobin A1c 7.0 5-7 finding Laboratory test 03/28/2016 [facility] Culture Throat SEE RESULT [address] [place] [address] [phone] Urine Microalbumin 01/15/2016 [facility] Urine Creatinine 84.30 mg/dL N Random [address] [place] [address] [phone] Ur Microalbumin (mg/L) < 15.0 mg/L N Urine Microalbumin/Creatinine TNP ug/mg N <31 43 Laboratory test 01/03/2016 [facility] Hemoglobin A1c 7.6 High 5-7 finding Comp Metabolic 11/10/2015 [facility] Sodium 132 mmol/L Low 133 -[address] [place] [address] [phone] Potassium 4.1 mmol/L N 3.5-5.0 Chloride 96 mmol/L Low 101-111 Co2 Carbon Dioxide 29 mmol/L N 22-32 Anion Gap 7 mmol/L N 2-11 Glucose 135 mg/dL High 70-100 Blood Urea Nitrogen 16 mg/dL N 6-24 Creatinine 0.98 mg/dL High 0.51-0.95 BUN/Creatinine Ratio 16.3 N 8-20 Calcium 9.2 mg/dL N 8.6-10.3 Total Protein 6.6 g/dL N 6.4-8.9 Albumin 3.4 g/dL N 3.2-5.2 Globulin 3.2 g/dL N 2-4 Albumin/Globulin Ratio 1.1 N 1-3 Total Bilirubin 0.40 mg/dL N 0.2-1.0 Alkaline Phosphatase 60 U/L N 34-104 Alt 15 U/L N 7-52 Ast 24 U/L N 13-39 Egfr Non- 59.6 N >60 Egfr 76.6 N >60 44 Laboratory 11/10/2015 [facility] Hepatitis C Nonreactive N Nonreactive test finding [address] [place] [address] [phone] HIV 1&2 AB Self Referred Nonreactive N Nonreactive 45 Laboratory test 10/27/2015 [facility] Troponin-I 0.00 ng/mL N <0.03 [address] (TnI) [place] [address] [phone] CBC Auto Diff 10/27/2015 [facility] White Blood 4.3 N 3.5- 10.[address] Count 10^3/[place] [address] [phone] Red Blood Count 3.53 10^6/uL Low 4.0-5.4 Hemoglobin 11.3 g/dL Low 12.0-16.0 Hematocrit 34 % Low 35-47 Mean Corpuscular Volume 97 fL N 80-97 Mean Corpuscular Hemoglobin 32 pg High 27-31 Mean Corpuscular HGB Conc 33 g/dL N 31-36 Red Cell Distribution Width 14 % N 10.5-15 Platelet Count 156 10^3/uL N 150-450 Mean Platelet Volume 7 um3 Low 7.4-10.4 Abs Neutrophils 1.5 10^3/uL N 1.5-7.7 Abs Lymphocytes 2.3 10^3/uL N 1.0-4.8 Abs Monocytes 0.4 10^3/uL N 0-0.8 Abs Eosinophils 0 10^3/uL N 0-0.6 Abs Basophils 0 10^3/uL N 0-0.2 Abs Nucleated RBC 0.01 10^3/uL N Granulocyte % 35.8 % Low 38-83 Lymphocyte % 53.5 % High 25-47 Monocyte % 10.1 % High 1-9 Eosinophil % 0.1 % N 0-6 Basophil % 0.5 % N 0-2 Nucleated Red Blood Cells % 0.2 N Comp Metabolic Panel 10/27/2015 [facility] Sodium 131 mmol/L Low 133-[address] [place] [address] [phone] Potassium 4.3 mmol/L N 3.5-5.0 Chloride 97 mmol/L Low 101-111 Co2 Carbon Dioxide 26 mmol/L N 22-32 Anion Gap 8 mmol/L N 2-11 Glucose 185 mg/dL High 70-100 Blood Urea Nitrogen 23 mg/dL N 6-24 Creatinine 1.08 mg/dL High 0.51-0.95 BUN/Creatinine Ratio 21.3 High 8-20 Calcium 9.1 mg/dL N 8.6-10.3 Total Protein 6.7 g/dL N 6.4-8.9 Albumin 3.4 g/dL N 3.2-5.2 Globulin 3.3 g/dL N 2-4 Albumin/Globulin Ratio 1.0 N 1-3 Total Bilirubin 0.40 mg/dL N 0.2-1.0 Alkaline Phosphatase 55 U/L N 34-104 Alt 17 U/L N 7-52 Ast 24 U/L N 13-39 Egfr Non- 53.3 N >60 Egfr 68.5 N >60 47 Laboratory 10/27/2015 [facility] Troponin-I 0.00 ng/mL N < 0.[address] (TnI) [place] [address] [phone] Inr/Protime 10/27/2015 [facility] Inr 0.85 Low 0.89-1.[address] [place] [address] [phone] Laboratory 10/27/2015 [facility] Partial Thrombo 28.9 N 26.0- 36.[address] [place] [address] [phone] Urine Drug SCR 09/30/2015 [facility] Amphetamine Ur None N None ED & Pain [address] Screen [place] [address] [phone] Barbiturates Urine Screen None Detected N None Detect Benzodiazepine Urine Screen Presumptive Posi <SEE NOTE> Abnormal None Detect 49 Urine Cannabinoids Screen None Detected N None Detect Urine Cocaine Screen None Detected N None Detect Urine Opiates Screen None Detected N None Detect Urine Phencyclidine Screen None Detected N None Detect 50 CBC Auto Diff 09/30/2015 [facility] White Blood 7.8 10^3/uL N 3.5-10.[address] [place] [address] [phone] Red Blood Count 4.16 10^6/uL N 4.0-5.4 Hemoglobin 13.4 g/dL N 12.0-16.0 Hematocrit 40 % N 35-47 Mean Corpuscular Volume 96 fL N 80-97 Mean Corpuscular Hemoglobin 32 pg High 27-31 Mean Corpuscular HGB Conc 34 g/dL N 31-36 Red Cell Distribution Width 14 % N 10.5-15 Platelet Count 166 10^3/uL N 150-450 Mean Platelet Volume 7 um3 Low 7.4-10.4 Abs Neutrophils 5.4 10^3/uL N 1.5-7.7 Abs Lymphocytes 1.7 10^3/uL N 1.0-4.8 Abs Monocytes 0.6 10^3/uL N 0-0.8 Abs Eosinophils 0 10^3/uL N 0-0.6 Abs Basophils 0 10^3/uL N 0-0.2 Abs Nucleated RBC 0.01 10^3/uL N Granulocyte % 69.2 % N 38-83 Lymphocyte % 21.9 % Low 25-47 Monocyte % 8.3 % N 1-9 Eosinophil % 0.1 % N 0-6 Basophil % 0.5 % N 0-2 Nucleated Red Blood Cells % 0.1 N Laboratory test 09/30/2015 [facility] Lactic Acid 3.0 mmol/L High 0.5-2.0 [address] [place] [address] [phone] Comp Metabolic 09/30/2015 [facility] Sodium 129 mmol/L Low 133 -[address] [place] [address] [phone] Potassium 4.4 mmol/L N 3.5-5.0 Chloride 97 mmol/L Low 101-111 Co2 Carbon Dioxide 21 mmol/L Low 22-32 Anion Gap 11 mmol/L N 2-11 Glucose 216 mg/dL High 70-100 Blood Urea Nitrogen 33 mg/dL High 6-24 Creatinine 1.63 mg/dL High 0.51-0.95 BUN/Creatinine Ratio 20.2 High 8-20 Calcium 8.7 mg/dL N 8.6-10.3 Total Protein 5.8 g/dL Low 6.4-8.9 Albumin 2.9 g/dL Low 3.2-5.2 Globulin 2.9 g/dL N 2-4 Albumin/Globulin Ratio 1.0 N 1-3 Total Bilirubin 0.60 mg/dL N 0.2-1.0 Alkaline Phosphatase 52 U/L N 34-104 Alt 22 U/L N 7-52 Ast 34 U/L N 13-39 Egfr Non- 33.1 N >60 Egfr 42.6 N >60 52 Laboratory test 09/30/2015 [facility] Magnesium 1.7 mg/dL Low 1.9-2.[address] [place] [address] [phone] Troponin-I (TnI) 0.00 ng/mL N <0.03 53 TSH (Thyroid Stim Horm) 3.97 ?IU/mL N 0.34-5.60 Acetaminophen < 15 g/mL N 54 Salicylate < 2.50 mg/dL N <30 Fries < 0.10 mmol/L Low 0.6-1.2 C Reactive Protein < 1.00 mg/L N < 5.00 55 Urine Culture And 09/30/2015 [facility] Urine Culture SEE RESULT [address] [place] [address] [phone] Urinalysis Profile 09/30/2015 [facility] Urine Color Rosalinda N [address] [place] [address] [phone] Urine Appearance Cloudy N Urine Specific [place] 1.023 N 1.010-1.030 Urine pH 5.0 N 5-9 Urine Urobilinogen Negative N Negative Urine Ketones Trace Abnormal Negative Urine Protein 1+(30 mg/dL) Abnormal Negative Urine Leukocytes Negative N Negative Urine Blood 1+ Abnormal Negative Urine Nitrite Negative N Negative Urine Bilirubin 1+ Abnormal Negative Urine Glucose Negative N Negative Urine White Blood Cell Trace(0-5/hpf) N Absent Urine Red Blood Cell 1+(3-5/hpf) Abnormal Absent Urine Bacteria 1+ Abnormal Absent Urine Squamous Epithelial Cell Present Abnormal Absent Urine Hyaline Casts Present Abnormal Absent Ua Routine 09/20/2015 [facility] Ua Specific [place] 1.010 Ua PH 6 Ua Color straw Ua Appera cloudy Ua WBC pos Ua Protein 30 Ua Glucose neg Ua Ketones neg Ua Bilirubin neg Ua Urobilinogen neg Ua Nitrite pos Ua Occult Blood 250 Urine Culture And 09/20/2015 [facility] Urine Culture SEE RESULT [address] [place] [address] [phone] Lipid Profile 09/01/2015 [facility] Triglycerides 124 mg/dL N 58 (Trig/Chol/HDL) [address] [place] [address] [phone] Cholesterol 187 mg/dL N 59 HDL Cholesterol 42.1 mg/dL N 60 LDL Cholesterol 120 mg/dL N 61 Laboratory test 08/29/2015 [facility] Point of Care 145 mg/dL High 74-[address] [place] [address] [phone] Laboratory test 08/18/2015 [facility] Hemoglobin A1c 6.4 5-7 finding Lipid Profile 07/26/2015 [facility] Triglycerides 113 mg/dL N 63 (Trig/Chol/HDL) [address] [place] [address] [phone] Cholesterol 172 mg/dL N 64 HDL Cholesterol 41.4 mg/dL N 65 LDL Cholesterol 108 mg/dL N 66 Liver Function 04/20/2015 [facility] Total Protein 6.4 g/dL N 6.4-8.[address] [place] [address] [phone] Albumin 3.6 g/dL N 3.2-5.2 Globulin 2.8 g/dL N 2-4 Albumin/Globulin Ratio 1.3 N 1-3 Total Bilirubin 0.40 mg/dL N 0.2-1.0 Direct Bilirubin 0.10 mg/dL N 0.03-0.18 Indirect Bilirubin 0.3 mg/dL N 0.3-1.0 Alkaline Phosphatase 50 U/L N 34-104 Alt 14 U/L N 7-52 Ast 21 U/L N 13-39 Lipid Profile 04/20/2015 [facility] Triglycerides 127 mg/dL N 67 (Trig/Chol/HDL) [address] [place] [address] [phone] Cholesterol 210 mg/dL N 68 HDL Cholesterol 48.9 mg/dL N 69 LDL Cholesterol 136 mg/dL N 70 Laboratory test 04/13/2015 [facility] Hemoglobin A1c 7.3 High 5-7 finding Urine Microalbumin 01/20/2015 [facility] Ur Microalbumin < 5.0 mg/L N Random [address] (mg/L) [place] [address] [phone] Urine Creatinine 86.84 mg/dL N Urine Microalbumin/Creatinine TNP ug/mg N <31 71 Laboratory test 01/20/2015 [facility] TSH (Thyroid 4.12 ?IU/mL N 0.34-5.[address] Stim Horm) [place] [address] [phone] Free T4 (Free Thyroxine) 0.51 ng/mL Low 0.61-1.12 Hemoglobin A1c (Glyco HGB) 7.1 % High Less than 6.0 72 Comp Metabolic Panel 01/20/2015 [facility] Sodium 134 mmol/L N 133-[address] [place] [address] [phone] Potassium 4.3 mmol/L N 3.5-5.0 Chloride 97 mmol/L Low 101-111 Co2 Carbon Dioxide 29 mmol/L N 22-32 Anion Gap 8 mmol/L N 2-11 Glucose 107 mg/dL High 70-100 Blood Urea Nitrogen 19 mg/dL N 6-24 Creatinine 1.04 mg/dL High 0.51-0.95 BUN/Creatinine Ratio 18.3 N 8-20 Calcium 9.2 mg/dL N 8.6-10.3 Total Protein 7.0 g/dL N 6.4-8.9 Albumin 3.7 g/dL N 3.2-5.2 Globulin 3.3 g/dL N 2-4 Albumin/Globulin Ratio 1.1 N 1-3 Total Bilirubin 0.30 mg/dL N 0.2-1.0 Alkaline Phosphatase 60 U/L N 34-104 Alt 13 U/L N 7-52 Ast 18 U/L N 13-39 Egfr Non- 55.9 N >60 Egfr 71.8 N >60 73 Lipid Profile 01/20/2015 [facility] Triglycerides 171 mg/dL N 74 (Trig/Chol/HDL) [address] [place] [address] [phone] Cholesterol 230 mg/dL N 75 HDL Cholesterol 49.4 mg/dL N 76 LDL Cholesterol 146 mg/dL N 77 Laboratory test 12/23/2014 [facility] Cytology SEE RESULT BELOW 78 finding [address] [place] [address] [phone] HPV Rna Ww/Reflex Genotype Negative N Negative 79 1 Because ethnic data is not always readily available, this report includes an eGFR for both -Americans and non- Americans. The National Kidney Disease Education Program (NKDEP) does not endorse the use of the MDRD equation for patients that are not between the ages of 18 and 70, are , have extremes of body size, muscle mass, or nutritional status, or are non- or non-. According to the National Kidney Foundation, irrespective of diagnosis, the stage of the disease is based on the level of kidney function: Stage Description GFR(mL/min/1.73 m(2)) 1 Kidney damage with normal or decreased GFR 90 2 Kidney damage with mild decrease in GFR 60-89 3 Moderate decrease in GFR 30-59 4 Severe decrease in GFR 15-29 5 Kidney failure <15 (or dialysis) 2 No interferon-gamma response to M. tuberculosis antigens was detected. Infection with M. tuberculosis is unlikely. A single negative result does not exclude infection with M. tuberculosis. In patients at high risk for M.tuberculosis infection, a second test should be considered in accordance with the 2017 ATS/IDSA/CDC Clinical Practice Guidelines for Diagnosis of Tuberculosis in Adults and Children [Lewinsohn DM et. al. Clin. Infect. Dis. 2017;64(2):111-115]. 3 Test Performed by: [facility] [address] [place] [address] 4 Critical Result LACT:2.5 Called to JESSICA at: 11:50:02 by:[id number] Read back by:JESSICA [facility] Severe Sepsis and Septic Shock Management Bundle Measure requires all lactic acids initially measuring >2.0 mmol/L be repeated. 5 Please note: The following may produce a false positive D Dimer test: - Rheumatoid factor greater than 60 IU/ml - Plasma hemoglobin greater than 0.05 gm/dl - Bilirubin greater than 50 mg/dl - Lipids greater than 1000 mg/dl - FDP greater than 20 ug/ml 6 >100 to <200 pg/mL: likely compensated congestive heart failure (CHF) 200 to 400 pg/mL: likely moderate CHF >400 pg/mL: likely moderate to severe CHF 7 Because ethnic data is not always readily available, this report includes an eGFR for both -Americans and non- Americans. The National Kidney Disease Education Program (NKDEP) does not endorse the use of the MDRD equation for patients that are not between the ages of 18 and 70, are , have extremes of body size, muscle mass, or nutritional status, or are non- or non-. According to the National Kidney Foundation, irrespective of diagnosis, the stage of the disease is based on the level of kidney function: Stage Description GFR(mL/min/1.73 m(2)) 1 Kidney damage with normal or decreased GFR 90 2 Kidney damage with mild decrease in GFR 60-89 3 Moderate decrease in GFR 30-59 4 Severe decrease in GFR 15-29 5 Kidney failure <15 (or dialysis) 8 SEE RESULT BELOW Name: STEPHANIA DORADO : [address]: Veronika Sanchez DO Acct: [id number] Unit: [id number] AGE: 52 Location: ENDO Re08/07/17 SEX: F Status: REG REF SPEC: [id number] FABIAN: 08/07/[address]: Veronika BUSTOS: [id number] RECD: [id number] [facility]: Stella Burns MD _ ORDERED: LEVEL 4 FINAL DIAGNOSIS Colon, at 40 cm, biopsy: -- Hyperplastic polyp. CLINICAL HISTORY Screening/surveillance for malignancy in asymptomatic patient POST-OPERATIVE DIAGNOSIS 6 mm sigmoid polyp at 40 cm ? cold snare; rare scattered diverticula; internal hemorrhoids GROSS DESCRIPTION The specimen is received in formalin labeled, Sigmoid Polyp at 40 cm, and consists of a 0.5 x 0.2 x 0.2 cm cuellar-white irregular to polypoid soft tissue fragment which is submitted entirely in one cassette. Signed by and Reported on: Ary Young MD 08/08/17 0561 END OF REPORT DEPARTMENT OF PATHOLOGY, [address] [place] [address] Rufino Barker M.D. Director [facility] # [id number] [employer] Associate: [id number] Desirable: <150 Borderline High: 150-199 High: 200-499 Very High: >500 11 Desirable: <200 Borderline High: 200-239 High: >239 12 Low: <40 Desirable: 40-60 High: >60 13 Desirable: <100 Near Optimal: 100-129 Borderline High: 130-159 High: 160-189 Very High: >189 14 Because ethnic data is not always readily available, this report includes an eGFR for both -Americans and non- Americans. The National Kidney Disease Education Program (NKDEP) does not endorse the use of the MDRD equation for patients that are not between the ages of 18 and 70, are , have extremes of body size, muscle mass, or nutritional status, or are non- or non-. According to the National Kidney Foundation, irrespective of diagnosis, the stage of the disease is based on the level of kidney function: Stage Description GFR(mL/min/1.73 m(2)) 1 Kidney damage with normal or decreased GFR 90 2 Kidney damage with mild decrease in GFR 60-89 3 Moderate decrease in GFR 30-59 4 Severe decrease in GFR 15-29 5 Kidney failure <15 (or dialysis) 15 [id number] 16 SEE RESULT BELOW Name: STEPHANIA DORADO : [address]: Stella Burns MD Acct: [id number] Unit: [id number] AGE: 52 Location: [facility] Re04/22/17 SEX: F Status: REG REF SPEC: [id number] FABIAN: 04/22/17-1552 [facility] [place] DR: Stella Burns MD REQ: [id number] RECD: 04/22/17 STATUS: COMP _ SOURCE: THROAT SPDESC: ORDERED: Throat Culture COMMENTS: [id number] Procedure Result Reported Site Throat Culture Final 04/24/17- 1223 ML Organism 1 NORMAL TRINITY Quantity 3+ Throat cultures are clinically indicated to detect the presence of group A strep, arcanobacterium and yeast. In certain cases, predominating organisms will be reported. * ML - MAIN LAB ([facility]) . END OF REPORT * ML=Testing performed at Main Lab DEPARTMENT OF PATHOLOGY, [address] [place] [address] Rufino Barker M.D. Director [facility] # [id number] 17 Because ethnic data is not always readily available, this report includes an eGFR for both -Americans and non- Americans. The National Kidney Disease Education Program (NKDEP) does not endorse the use of the MDRD equation for patients that are not between the ages of 18 and 70, are , have extremes of body size, muscle mass, or nutritional status, or are non- or non-. According to the National Kidney Foundation, irrespective of diagnosis, the stage of the disease is based on the level of kidney function: Stage Description GFR(mL/min/1.73 m(2)) 1 Kidney damage with normal or decreased GFR 90 2 Kidney damage with mild decrease in GFR 60-89 3 Moderate decrease in GFR 30-59 4 Severe decrease in GFR 15-29 5 Kidney failure <15 (or dialysis) 18 [id number] 19 Unable to calculate due to low microalbumin 20 Because ethnic data is not always readily available, this report includes an eGFR for both -Americans and non- Americans. The National Kidney Disease Education Program (NKDEP) does not endorse the use of the MDRD equation for patients that are not between the ages of 18 and 70, are , have extremes of body

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
[2018-03-26 14:47] LABS: Hematocrit 31 % (35-47); Hemoglobin 10.5 g/dl (12.0-16.0); Mean Corpuscular HGB Conc 34 g/dl (31-36); Mean Corpuscular Hemoglobin 35 pg (27-31); Mean Corpuscular Volume 101 fL (80-97); Mean Platelet Volume 7.1 fL (7.4-10.4); Platelet Count 211 10^3/ul (150-450); Red Blood Count 3.05 10^6/ul (4.00-5.40); Red Cell Distribution Width 15 % (10.5-15); White Blood Count 3.4 10^3/ul (3.5-10.8)
[2018-03-26 15:04] LABS: Albumin/Globulin Ratio 1.2 (1-3); BUN/Creatinine Ratio 14.4 (8-20); C Reactive Protein 2.72 mg/L (<8.01); Calcium 8.7 mg/dL (8.6-10.3); Globulin 2.6 g/dL (2-4); Magnesium 1.4 mg/dL (1.9-2.7); Potassium 4.1 mmol/L (3.5-5.0); Total Bilirubin 0.4 mg/dL (0.2-1.0); Total Protein 5.6 g/dL (6.4-8.9)
[2018-03-26 15:15] LABS: ABS Basophils 0 10^3/ul (0-0.2); ABS Eosinophils 0 10^3/ul (0-0.6); ABS Lymphocytes 2.2 10^3/ul (1.0-4.8); ABS Monocytes 0.4 10^3/ul (0-0.8); ABS Neutrophils 0.8 10^3/ul (1.5-7.7); ABS Nucleated RBC 0 10^3/ul; Eosinophil % 0.3 %; Lymphocyte % 64.2 %; Nucleated Red Blood Cells % 0.2
[2018-03-26 15:25] LABS: Urine Appearance Clear; Urine Bilirubin Negative (Negative); Urine Blood Negative (Negative); Urine Color Straw; Urine Glucose Negative (Negative); Urine Ketones Negative (Negative); Urine Nitrite Negative (Negative); Urine Protein Negative (Negative); Urine Specific Gravity 1.005 (1.010-1.030); Urine Urobilinogen Negative (Negative)
[2018-03-26 17:39] VITALS: BP 127/81
== END | disposition home or self-care (01) ==
LOC: ED 13:29
DX: K52.9 Noninfective gastroenteritis and colitis, unspecified (principal); K76.0 Fatty (change of) liver, not elsewhere classified; F90.9 Attention-deficit hyperactivity disorder, unspecified type; F60.3 Borderline personality disorder
CPT/HCPCS: 36415; 74177; 80053; 81003; 83605; 83690; 83735; 84484; 85025; 85060; 85730; 86140; 87040; 93005; 96361; 96374; 96375; 99283; J1885; J2405; J3475; Q9967

== ENCOUNTER → 2018-07-03 11:46 | Emergency (ER) | payer MEDICARE, MEDICAID ==
[~2018-07-03 11:46] MED LIST changes: -Iodixanol* (CONTRAST) 320 MG/ML 100 ML SDV IV ONE; -Ketorolac INJ* 30 MG/ML 1 ML VIAL IV PUSH ONE; +LORazepam TAB(*) 1 MG PO ONE; -Magnesium Sulfate 2 GM IV* 2 GM/50 ML BAG IVPB ONE; -NS 0.9% 1000 ML* 1,000 ML IV ONE; +Nicotine Inhaler* 10 MG AMP INH PRN; -Ondansetron INJ* 2 MG/ML VIAL IV ONE
--- NOTE | 2018-07-03 12:04 | ED ---
Psychiatric Complaint - HPI Summary HPI Summary: This patient is a 53 year old F brought in by police with a chief complaint of SI since just STEERER. Patient reports difficulty hearing, recent stress, and difficulty sleeping. Patient denies hearing voices or present SI. She was in counseling when she was picked up by police. Police say she is usually very manic and combative. The patient is having a hard time with her mom and her father recently . She also just had a friend of diabetes. These events led to a nervous breakdown, per patient. The patient was in [facility] for a week and was released yesterday. The patient has been having difficulties getting to the drug store to get her medications. The patient has not missed any doses of her medication recently. The patient has not slept for the last few nights, at least. She states that she has not recently had EtOH or other recreational drugs. PMHX Diabetic. RX Depakote, Seroquel. - History Of Current Complaint Time Seen by Provider: 07/03/18 11:49 Hx Obtained From: Patient, EMS, Other: - police, counselor Hx Last Menstrual Period: 5 years ago Onset/Duration: Gradual Onset, Lasting Weeks Character: Manic, Frustrated Aggravating Factor(s): Recent Stress Associated Signs And Symptoms: Positive: Hostile, Sleep Disturbance Related History: Positive For: Prior Psychiatric Issues Has Suicidal: Reports: Thoughts - Allergies/Home Medications Allergies/Adverse Reactions: Allergies Allergy/AdvReac Type Severity Reaction Status Date / Time ziprasidone [From Geodon] Allergy Severe Unknown Verified 05/02/18 00:41 Reaction Details erythromycin base Allergy Intermediate Rash Verified 05/02/18 00:41 Sulfa (Sulfonamide Allergy Unknown Unknown Verified 05/02/18 00:41 Antibiotics) Reaction Details chlorpromazine AdvReac Severe Hallucinati Verified 05/02/18 00:41 [From Thorazine] ons haloperidol [From Haldol] AdvReac Severe Hallucinati Verified 05/02/18 00:41 ons fluphenazine [From Prolixin] AdvReac Intermediate depression Verified 05/02/18 00:41 lithium AdvReac Intermediate depression Verified 05/02/18 00:41 sulfisoxazole AdvReac Intermediate Nausea Verified 05/02/18 00:41 [From Gantrisin] Home Medications: Home Medications Ibuprofen TAB* [Motrin TAB* 400 MG] 400 mg PO Q8HR PRN 07/03/18 [History Confirmed 07/03/18] Melatonin 10 mg PO BEDTIME PRN 07/03/18 [History Confirmed 07/03/18] Polyethylene Glycol 3350* [Miralax*] 17 gm PO DAILY 07/03/18 [History Confirmed 07/03/18] Quetiapine Fumarate [Seroquel 400 MG] 1,200 mg PO BEDTIME 07/03/18 [History Confirmed 07/03/18] PMH/Surg Hx/FS Hx/Imm Hx Endocrine/Hematology History: Reports: Hx Diabetes Denies: Hx Anticoagulant Therapy, Hx Blood Disorders, Hx Blood Transfusions, Hx Bone Marrow Disease, Hx Systemic Lupus Erythematosus, Hx Sickle Cell Disease , Hx Thyroid Disease, Hx Anemia, Hx Unexplained Bleeding, Other Endocrine/ Hematological Disorders Cardiovascular History: Reports: Hx Hypercholesterolemia - HLD, Hx Hypertension Denies: Hx Aneurysm, Hx Angina, Hx Angioplasty, Hx Auto Implanted Cardiovert Defib, Hx Cardiac Arrest, Hx Cardiomegaly, Hx Congenital Heart Disease, Hx Congestive Heart Failure, Hx Coronary Artery Disease, Hx Deep Vein Thrombosis, Hx Embolism, Hx Hypotension, Hx Pacemaker/ICD, Hx Peripheral Vascular Disease, Hx Rheumatic Fever, Hx Syncope, Hx Valvular Heart Disease, Other Cardiovascular Problems/Disorders Respiratory History: Denies: Hx Asthma, Hx Chronic Bronchitis, Hx Chronic Obstructive Pulmonary Disease (COPD), Hx Cystic Fibrosis, Hx Lung Cancer, Hx Pleural Effusion, Hx Pneumonia, Hx Pulmonary Edema, Hx Pulmonary Embolism, Hx Seasonal Allergies, Hx Sleep Apnea, Other Respiratory Problems/Disorders GI History: Denies: Hx Cirrhosis, Hx Crohn's Disease, Hx Diverticulosis, Hx Gall Bladder Disease, Hx Gastroesophageal Reflux Disease, Hx Gastrointestinal Bleed, Hx Hiatal Hernia, Hx Irritable Bowel, Hx Jaundice, Hx Obstructive Bowel, Hx Ileostomy, Hx Pyloric Stenosis, Hx Ulcer, Other GI Disorders History: Denies: Hx Renal Disease Musculoskeletal History: Denies: Hx Arthritis, Hx Back Problems, Hx Bursitis, Hx Congenital Bone Abnormalities, Hx Fibromyalgia, Hx Gout, Hx Orthopedic Injury, Hx Osteoporosis, Hx Scoliosis, Hx Tendonitis, Other Musculoskeletal History Sensory History: Reports: Hx Contacts or Glasses, Hx Deafness - Hard of hearing , Hx Hearing Problem Denies: Hx Cataracts, Hx Eye Injury, Hx Eye Prosthesis, Hx Glaucoma, Hx Legally Blind, Hx Macular Degeneration, Hx Vision Problem, Hx Hearing Aid, Other Sensory Impairments Opthamlomology History: Reports: Hx Contacts or Glasses Denies: Hx Cataracts, Hx Eye Injury, Hx Eye Prosthesis, Hx Glaucoma, Hx Legally Blind, Hx Macular Degeneration, Hx Vision Problem, Other Sensory Impairments Neurological History: Reports: Hx Headaches, Hx Migraine Denies: Hx Dementia, Hx Developmental Delay, Hx Nerve Disease, Hx Seizures, Hx Spinal Cord Injury, Hx Transient Ischemic Attacks (TIA), Other Neuro Impairments/Disorders Psychiatric History: Reports: Hx Anxiety, Hx Attention Deficit Hyperactivity Disorder, Hx Depression, Hx Post Traumatic Stress Disorder - HX SEXUAL ABUSE CHILD, Hx Inpatient Treatment - HX PSYCHIATRIC HOSPITALIZATIONS, Hx Community Mental Health Tx, Hx Bipolar Disorder - BORDERLINE PERSONALITY DISORDER, Hx Suicide Attempt, Hx of Violent Episodes Against Others, Hx Substance Abuse - HX BENZO ABUSE, Other Psychiatric Issues/Disorders - HX SI/ATTEMPT Denies: Hx Eating Disorder, Hx Panic Disorder, Hx Schizophrenia - Cancer History Cancer Type, Location and Year: None reported Hx Chemotherapy: No Hx Radiation Therapy: No - Surgical History Surgery Procedure, Year, and Place: appendectomy 1975, 1972 bladder, 5yrs ago orif rt ankle Hx Anesthesia Reactions: No - Immunization History Date of Tetanus Vaccine: Unknown Date of Influenza Vaccine: 12/10/2012 Infectious Disease History: Denies: Hx Clostridium Difficile, Hx Hepatitis, Hx Human Immunodeficiency Virus (HIV), Hx of Known/Suspected MRSA, Hx Shingles, Hx Tuberculosis, Hx Known/ Suspected VRE, Hx Known/Suspected VRSA, History Other Infectious Disease - Family History Known Family History: Positive: Hypertension, Diabetes - Social History Alcohol Use: None Hx Substance Use: No Substance Use Type: Reports: None Hx Tobacco Use: No Smoking Status (MU): Never Smoked Tobacco Review of Systems ENT: Other - hearing difficulties Neurological: Other - insomnia Psychological: Other - SI Negative: Other - hearing voices All Other Systems Reviewed And Are Negative: Yes Physical Exam - Summary Physical Exam Summary: Constitutional: Well-developed, Well-nourished, Alert. Pressured speech, very animated. Skin: Warm, Dry HENT: Normocephalic; Atraumatic Eyes: Conjunctiva normal Neck: Musculoskeletal ROM normal neck. Cardio: Rhythm regular, rate normal, Heart sounds normal; Intact distal pulses; The pedal pulses are 2+ and symmetric. Radial pulses are 2+ and symmetric. Pulmonary/Chest wall: Effort normal. Abd: Soft. Neuro: Alert, Oriented x3 Psych: Mood and affect Normal Triage Information Reviewed: Yes Vital Signs Reviewed: Yes Diagnostics - Laboratory Result Diagrams: 07/03/18 12:18 07/03/18 12:18 Lab Statement: Any lab studies that have been ordered have been reviewed, and results considered in the medical decision making process. Re-Evaluation - Re-Evaluation First Eval Re-Evaluation Time: 17:48 Comment: I discussed that she has a need for hospitalization for her acute hyponatremia, but she states that she doesn't want to stay in the hospital overnight. Course/Dx - Course Course Of Treatment: This patient is a 53 year old F brought in by police with a chief complaint of SI since just STEERER. Patient reports difficulty hearing, recent stress, and difficulty sleeping. Patient denies hearing voices or present SI. Test results with no significant abnormalities. In the ED course the patient was given a Nicotine Inhaler and Lorazepam. The patient was advised to stay overnight for her acute on chronic hyponatremia, but she refused to stay. I advise that she goes to the [facility] on Friday. She was cleared by mental health. Patient will be discharged with follow up from [facility]. The patient is agreeable with this plan. - Differential Dx/Clinical Impression Provider Diagnosis: Acute hyponatremia Discharge - Sign-Out/Discharge Documenting (check all that apply): Patient Departure - discharge Patient Received Moderate/Deep Sedation with Procedure: No - Discharge Plan Condition: Fair Disposition: HOME Patient Education Materials: Hyponatremia (ED) Referrals: [facility] [Outside] - 3 Days Additional Instructions: Please follow up with the [facility] on Friday. - Attestation Statements Document Initiated by Scribe: Yes Documenting Scribe: Hari Carlton Provider For Whom Scribe is Documenting (Include Credential): Bala Selby MD Scribe Attestation: I, Hari Carlton, scribed for Bala Selby MD on 07/03/18 at 1751. Status of Scribe Document: Ready
[2018-07-03 12:39] LABS: Hematocrit 34 % (33-41); Hemoglobin 11.9 g/dL (12.0-16.0); Mean Corpuscular HGB Conc 35 g/dL (31-36); Mean Corpuscular Hemoglobin 33 pg (27-31); Mean Corpuscular Volume 94 fL (80-97); Red Blood Count 3.65 10^6 /uL (3.70-4.87); Red Cell Distribution Width 14 % (10.5-15)
[2018-07-03 12:55] LABS: ALT 18 U/L (7-52); AST 25 U/L (13-39); Albumin 3.6 g/dL (3.2-5.2); Albumin/Globulin Ratio 1.2 (1-3); Alkaline Phosphatase 80 U/L (34-104); Anion Gap 11 mmol/L (2-11); BUN/Creatinine Ratio 19.3 (8-20); Blood Urea Nitrogen 21 mg/dL (6-24); CO2 Carbon Dioxide 21 mmol/L (22-32); Calcium 9.1 mg/dL (8.6-10.3); Chloride 91 mmol/L (101-111); EGFR African American 63.1 (>60); EGFR Non-African American 52.1 (>60); Globulin 3.1 g/dL (2-4); Glucose 209 mg/dL (70-100); Sodium 123 mmol/L (135-145); Total Protein 6.7 g/dL (6.4-8.9)
[2018-07-03 13:32] LABS: ABS Basophils 0.1 10^3/ul (0-0.2); ABS Eosinophils 0 10^3/ul (0-0.6); ABS Lymphocytes 2.8 10^3/ul (1.0-4.8); ABS Monocytes 0.8 10^3/ul (0-0.8); ABS Neutrophils 2.3 10^3/ul (1.5-7.7); ABS Nucleated RBC 0 10^3/ul; Eosinophil % 0.3 %; Lymphocyte % 47.2 %; Nucleated Red Blood Cells % 0; Platelet Count Platelets clumped. 10^3/uL (150-450)
[2018-07-03 13:41] LABS: Acetaminophen < 15 mcg/mL; Alcohol < 10 mg/dL (<10); Salicylate < 2.50 mg/dL (<30)
[2018-07-03 13:54] LABS: TSH (Thyroid Stimulating Horm) 3.38 mcIU/mL (0.34-5.60)
[2018-07-03 16:56] LABS: Urine Appearance Clear; Urine Bilirubin Negative (Negative); Urine Blood Negative (Negative); Urine Color Yellow; Urine Glucose 3+(>=500 mg/dL) (Negative); Urine Ketones Trace (Negative); Urine Nitrite Negative (Negative); Urine Protein Negative (Negative); Urine Specific Gravity 1.016 (1.010-1.030); Urine Urobilinogen Negative (Negative)
[2018-07-03 17:06] LABS: Barbiturates Urine Screen None Detected (None Detect); Benzodiazepine Urine Screen Presumptive Positive (None Detect); Urine Cannabinoids Screen None Detected (None Detect)
[2018-07-03 18:16] VITALS: BP 125/62
== END | disposition home or self-care (01) ==
LOC: ED 11:46
DX: E87.1 Hypo-osmolality and hyponatremia (principal); R45.851 Suicidal ideations; E11.9 Type 2 diabetes mellitus without complications; I10 Essential (primary) hypertension; R45.5 Hostility; Z88.2 Allergy status to sulfonamides; G47.00 Insomnia, unspecified; G47.9 Sleep disorder, unspecified; F90.9 Attention-deficit hyperactivity disorder, unspecified type
CPT/HCPCS: 36415; 80053; 80307; 80320; 80329; 81003; 84443; 85025; 99285; A9270-GY; G0480

== ENCOUNTER 2018-08-17 14:06 | Emergency (ER) | payer MEDICARE, MEDICAID ==
--- NOTE | 2018-08-17 14:36 | ED ---
Dizziness - HPI Summary HPI Summary: This patient is a 53 year old F brought in by ambulance to ED with a chief complaint of dizziness described as room spinning and LARSEN since a couple months ago. He was seen by her PCP and sent here for her sx of dizziness, low sodium level, and high BP. The patient rates the pain 5/10 in severity. Dizziness aggravated by standing up from sitting. Symptoms alleviated by nothing. Patient reports frequent falls secondary to the dizziness. - History Of Current Complaint Chief Complaint: EDDizziness Stated Complaint: DIZZINESS PER EMS Time Seen by Provider: 08/17/18 14:10 Hx Obtained From: Patient Onset/Duration: Still Present Timing: Constant Severity Currently: None Character: Room Spinning Aggravating Factor(s): Supine To Erect Alleviating Factor(s): Nothing Associated Signs And Symptoms: Positive: Other: - LARSEN, dizziness, frequent falls secondary to dizziness - Allergies/Home Medications Allergies/Adverse Reactions: Allergies Allergy/AdvReac Type Severity Reaction Status Date / Time ziprasidone [From Geodon] Allergy Severe Unknown Verified 05/02/18 00:41 Reaction Details erythromycin base Allergy Intermediate Rash Verified 05/02/18 00:41 Sulfa (Sulfonamide Allergy Unknown Unknown Verified 05/02/18 00:41 Antibiotics) Reaction Details chlorpromazine AdvReac Severe Hallucinati Verified 05/02/18 00:41 [From Thorazine] ons haloperidol [From Haldol] AdvReac Severe Hallucinati Verified 05/02/18 00:41 ons fluphenazine [From Prolixin] AdvReac Intermediate depression Verified 05/02/18 00:41 lithium AdvReac Intermediate depression Verified 05/02/18 00:41 sulfisoxazole AdvReac Intermediate Nausea Verified 05/02/18 00:41 [From Gantrisin] Home Medications: Home Medications QUEtiapine TAB* [Seroquel 100 MG *] 1,200 mg PO BEDTIME 08/17/18 [History Confirmed 08/17/18] PMH/Surg Hx/FS Hx/Imm Hx Endocrine/Hematology History: Reports: Hx Diabetes Denies: Hx Anticoagulant Therapy, Hx Blood Disorders, Hx Blood Transfusions, Hx Bone Marrow Disease, Hx Systemic Lupus Erythematosus, Hx Sickle Cell Disease , Hx Thyroid Disease, Hx Anemia, Hx Unexplained Bleeding, Other Endocrine/ Hematological Disorders Cardiovascular History: Reports: Hx Hypercholesterolemia - HLD, Hx Hypertension Denies: Hx Aneurysm, Hx Angina, Hx Angioplasty, Hx Auto Implanted Cardiovert Defib, Hx Cardiac Arrest, Hx Cardiomegaly, Hx Congenital Heart Disease, Hx Congestive Heart Failure, Hx Coronary Artery Disease, Hx Deep Vein Thrombosis, Hx Embolism, Hx Hypotension, Hx Pacemaker/ICD, Hx Peripheral Vascular Disease, Hx Rheumatic Fever, Hx Syncope, Hx Valvular Heart Disease, Other Cardiovascular Problems/Disorders Respiratory History: Denies: Hx Asthma, Hx Chronic Bronchitis, Hx Chronic Obstructive Pulmonary Disease (COPD), Hx Cystic Fibrosis, Hx Lung Cancer, Hx Pleural Effusion, Hx Pneumonia, Hx Pulmonary Edema, Hx Pulmonary Embolism, Hx Seasonal Allergies, Hx Sleep Apnea, Other Respiratory Problems/Disorders GI History: Denies: Hx Cirrhosis, Hx Crohn's Disease, Hx Diverticulosis, Hx Gall Bladder Disease, Hx Gastroesophageal Reflux Disease, Hx Gastrointestinal Bleed, Hx Hiatal Hernia, Hx Irritable Bowel, Hx Jaundice, Hx Obstructive Bowel, Hx Ileostomy, Hx Pyloric Stenosis, Hx Ulcer, Other GI Disorders History: Denies: Hx Renal Disease Musculoskeletal History: Denies: Hx Arthritis, Hx Back Problems, Hx Bursitis, Hx Congenital Bone Abnormalities, Hx Fibromyalgia, Hx Gout, Hx Orthopedic Injury, Hx Osteoporosis, Hx Scoliosis, Hx Tendonitis, Other Musculoskeletal History Sensory History: Reports: Hx Contacts or Glasses, Hx Deafness - Hard of hearing , Hx Hearing Problem Denies: Hx Cataracts, Hx Eye Injury, Hx Eye Prosthesis, Hx Glaucoma, Hx Legally Blind, Hx Macular Degeneration, Hx Vision Problem, Hx Hearing Aid, Other Sensory Impairments Opthamlomology History: Reports: Hx Contacts or Glasses Denies: Hx Cataracts, Hx Eye Injury, Hx Eye Prosthesis, Hx Glaucoma, Hx Legally Blind, Hx Macular Degeneration, Hx Vision Problem, Other Sensory Impairments Neurological History: Reports: Hx Headaches, Hx Migraine Denies: Hx Dementia, Hx Developmental Delay, Hx Nerve Disease, Hx Seizures, Hx Spinal Cord Injury, Hx Transient Ischemic Attacks (TIA), Other Neuro Impairments/Disorders Psychiatric History: Reports: Hx Anxiety, Hx Attention Deficit Hyperactivity Disorder, Hx Depression, Hx Post Traumatic Stress Disorder - HX SEXUAL ABUSE CHILD, Hx Inpatient Treatment - HX PSYCHIATRIC HOSPITALIZATIONS, Hx Community Mental Health Tx, Hx Bipolar Disorder - BORDERLINE PERSONALITY DISORDER, Hx Suicide Attempt, Hx of Violent Episodes Against Others, Hx Substance Abuse - HX BENZO ABUSE, Other Psychiatric Issues/Disorders - HX SI/ATTEMPT Denies: Hx Eating Disorder, Hx Panic Disorder, Hx Schizophrenia - Cancer History Cancer Type, Location and Year: None reported Hx Chemotherapy: No Hx Radiation Therapy: No - Surgical History Surgery Procedure, Year, and Place: appendectomy 1975, 1972 bladder, 5yrs ago orif rt ankle Hx Anesthesia Reactions: No - Immunization History Date of Tetanus Vaccine: Unknown Date of Influenza Vaccine: 12/10/2012 Infectious Disease History: No Infectious Disease History: Denies: Hx Clostridium Difficile, Hx Hepatitis, Hx Human Immunodeficiency Virus (HIV), Hx of Known/Suspected MRSA, Hx Shingles, Hx Tuberculosis, Hx Known/ Suspected VRE, Hx Known/Suspected VRSA, History Other Infectious Disease, Traveled Outside the [place] in Last 30 Days - Family History Known Family History: Positive: Hypertension, Diabetes - Social History Alcohol Use: None Hx Substance Use: No Substance Use Type: Reports: None Hx Tobacco Use: No Smoking Status (MU): Never Smoked Tobacco Review of Systems Positive: Other - sent by PCP for low sodium level previously Positive: Other - sent by PCP for high BP previously Neurological: Other - dizziness (room spinning), frequent falls secondary to dizziness Positive: Headache All Other Systems Reviewed And Are Negative: Yes Physical Exam - Summary Physical Exam Summary: Appearance: Well-appearing, Well-nourished, lying in bed comfortably Skin: Warm, dry, no obvious rash Eyes: sclera anicteric, no conjunctival pallor ENT: mucous membranes moist, pharynx appears normal Neck: Supple, nontender Respiratory: Clear to auscultation, no signs of respiratory distress Cardiovascular: Normal S1, S2. No murmurs. Normal distal pulses in tibial and radial bilaterally. Abdomen: Soft, nontender, normal active bowel sounds present Musculoskeletal: Normal, Strength/ROM Intact Neurological: A&Ox3, awake and alert, mentation is normal, speech is fluent and appropriate Psychiatric: affect is normal, does not appear anxious or depressed Triage Information Reviewed: Yes Vital Signs On Initial Exam: Initial Vitals Temp Pulse Resp BP Pulse Ox 97 F 68 16 158/98 97 08/17/18 14:15 08/17/18 14:15 08/17/18 14:15 08/17/18 14:15 08/17/18 14:15 Vital Signs Reviewed: Yes Diagnostics - Vital Signs Vital Signs Temp Pulse Resp BP Pulse Ox 08/17/18 14:15 97 F 68 16 158/98 97 - Laboratory Result Diagrams: 08/17/18 14:55 08/17/18 14:55 Lab Statement: Any lab studies that have been ordered have been reviewed, and results considered in the medical decision making process. - EKG 1444 Cardiac Rate: NL - 65 BPM EKG Rhythm: Sinus Rhythm Summary of EKG Findings: NSR at 65 BPM, P waves, QRS complex, and T waves are within normal limits, T waves and intervals are normal, no ischemic changes. This is a normal EKG. Re-Evaluation - Re-Evaluation First Eval Re-Evaluation Time: 15:49 Comment: Discussed results and plan for discharge with the patient. Patient understands and agrees with this plan. Dizzy Course/Dx - Course Assessment/Plan: This patient is a 53 year old F brought in by ambulance to ED with a chief complaint of dizziness described as room spinning and LARSEN since a couple months ago. EKG reveals NSR at 65 BPM, P waves, QRS complex, and T waves are within normal limits, T waves and intervals are normal, no ischemic changes. This is a normal EKG. The patient will be discharged with dx of vertigo. Patient understands and agrees with this plan. - Diagnoses Differential Diagnosis/HQI/PQRI: Other - vertigo Provider Diagnoses: Vertigo Discharge - Sign-Out/Discharge Documenting (check all that apply): Patient Departure - discharge Patient Received Moderate/Deep Sedation with Procedure: No - Discharge Plan Condition: Good Disposition: HOME Prescriptions: Meclizine TAB* [Antivert 12.5 TAB*] 25 mg PO TID PRN #20 tab PRN Reason: Dizziness Patient Education Materials: Vertigo (ED) Referrals: Stella Burns MD [Primary Care Provider] - - Billing Disposition and Condition Condition: GOOD Disposition: Home - Attestation Statements Document Initiated by Scribe: Yes Documenting Scribe: Rober Denis Provider For Whom Aleyda is Documenting (Include Credential): Ulices Bowman MD Scribe Attestation: Rober Iverson, scribed for Ulices Bowman MD on 08/17/18 at 1710. Scribe Documentation Reviewed: Yes Provider Attestation: The documentation as recorded by the Rober zuniga accurately reflects the service I personally performed and the decisions made by me, Ulices Bowman MD Status of Scribe Document: Viewed
[2018-08-17 14:58] LABS: Urine Appearance Clear; Urine Bilirubin Negative (Negative); Urine Blood Negative (Negative); Urine Color Straw; Urine Glucose 1+(50 mg/dL) (Negative); Urine Ketones Negative (Negative); Urine Nitrite Negative (Negative); Urine Protein Negative (Negative); Urine Specific Gravity 1.009 (1.010-1.030); Urine Urobilinogen Negative (Negative)
[2018-08-17] MEDS: NS 0.9% 1000 ML** 2,000 ML IV ONE ×2 (15:03→15:04)
[2018-08-17 15:10] LABS: ABS Lymphocytes 2.3 10^3/ul (1.0-4.8); ABS Monocytes 0.4 10^3/ul (0-0.8); ABS Neutrophils 1.5 10^3/ul (1.5-7.7); Eosinophil % 0.1 %; Hematocrit 35 % (35-47); Hemoglobin 12.1 g/dL (12.0-16.0); Lymphocyte % 55.9 %; Mean Corpuscular HGB Conc 34 g/dL (31-36); Mean Corpuscular Hemoglobin 33 pg (27-31); Mean Corpuscular Volume 96 fL (80-97); Mean Platelet Volume 7.6 fL (7.4-10.4); Nucleated Red Blood Cells % 0.1; Platelet Count 166 10^3/uL (150-450); Red Blood Count 3.71 10^6 /uL (3.70-4.87); Red Cell Distribution Width 16 % (10.5-15); White Blood Count 4.2 10^3/uL (3.5-10.8)
[2018-08-17 15:28] LABS: Albumin 3.4 g/dL (3.2-5.2); Calcium 9.4 mg/dL (8.6-10.3); EGFR African American 88.8 (>60); EGFR Non-African American 73.4 (>60); Globulin 3.3 g/dL (2-4); Potassium 4.2 mmol/L (3.5-5.0); Total Bilirubin 0.3 mg/dL (0.2-1.0); Total Protein 6.7 g/dL (6.4-8.9)
--- OUTSIDE RECORDS SUMMARY | 2018-08-17 15:30 | XMS REPORT | Continuity of Care Document ---
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 Microalbumin/Creatinine TNP ug/mg <31 37 Laboratory test 02/11/2017 [facility] Hemoglobin A1c 7.9 High 5-7 finding Lipid Profile 12/20/2016 [facility] Triglycerides 272 mg/dL N 38 (Trig/Chol/HDL) [address] [place] [address] [phone] Cholesterol 233 mg/dL N 39 HDL Cholesterol 44.3 mg/dL N 40 LDL Cholesterol 134 mg/dL N 41 Basic Metabolic 12/20/2016 [facility] Sodium 131 mmol/L Low 133-[address] [place] [address] [phone] Potassium 4.5 mmol/L N 3.5-5.0 Chloride 95 mmol/L Low 101-111 Co2 Carbon Dioxide 30 mmol/L N 22-32 Anion Gap 6 mmol/L N 2-11 Glucose 152 mg/dL High 70-100 Blood Urea Nitrogen 16 mg/dL N 6-24 Creatinine 0.90 mg/dL N 0.51-0.95 BUN/Creatinine Ratio 17.8 N 8-20 Calcium 9.4 mg/dL N 8.6-10.3 Egfr Non- 65.5 N >60 Egfr 84.2 N >60 42 Laboratory test 11/06/2016 [facility] Lactic Acid 0.8 mmol/L N 0.5-2.0 [address] [place] [address] [phone] CBC Auto Diff 11/06/2016 [facility] White Blood 4.9 10^3/uL N 3.5-10.[address] [place] [address] [phone] Red Blood Count 3.89 10^6/uL Low 4.0-5.4 [...] Cells % 0.3 N Laboratory test 11/06/2016 [facility] Valproic Acid 105.0 High 50-[address] (Depakene) g/[place] [address] [phone] Comp Metabolic 11/06/2016 [facility] Sodium 129 mmol/L Low 133 -145 Panel 101 [place] [address] [phone] Potassium 4.4 mmol/L N 3.5-5.0 Chloride 94 [...] 63.1 N >60 Egfr 81.1 N >60 44 Laboratory 11/06/2016 [facility] Magnesium 1.7 mg/dL Low 1.9- 2.[address] [place] [address] [phone] Laboratory 10/15/2016 [facility] Hemoglobin A1c 7.1 High 5-7 test finding Laboratory 09/12/2016 [facility] Troponin-I 0.00 ng/mL N < 0.04 test finding 101 (TnI) [place] [address] [phone] Urine Drug SCR 09/12/2016 [facility] Amphetamine Ur None N None ED & Pain [address] [place] [address] [phone] Barbiturates Urine Screen None Detected N None Detect Benzodiazepine Urine Screen Presumptive Posi <SEE NOTE> Abnormal None Detect 45 Urine Cannabinoids Screen None Detected N None Detect Urine Cocaine Screen None Detected N None Detect Urine Opiates Screen None Detected N None Detect Urine Phencyclidine Screen None Detected N None Detect 46 CBC Auto Diff 09/12/2016 [facility] White Blood 5.7 10^3/uL N 3.5-10.[address] [place] [address] [phone] Red Blood Count 3.60 10^6/uL Low 4.0-5.4 [...] % 0 N Comp Metabolic Panel 09/12/2016 [facility] Sodium 130 mmol/L Low 133-[address] [place] [address] [phone] Potassium 4.1 mmol/L N 3.5-5.0 Chloride 97 [...] 59.4 N >60 Egfr 76.3 N >60 47 Laboratory test 09/12/2016 [facility] Magnesium 1.8 mg/dL Low 1.9-2.[address] [place] [address] [phone] Creatine Kinase(CK) 54 U/L N 10-223 Troponin-I (TnI) 0.01 ng/mL N <0.04 Urine Culture And 09/12/2016 [facility] Urine Culture SEE RESULT [address] [place] [address] [phone] Laboratory test 09/12/2016 [facility] Lactic Acid 2.0 mmol/L N 0.5-[address]0 [place] [address] [phone] Urinalysis Profile 09/12/2016 [facility] Urine Color Straw [place] [address] [place] [address] [phone] Urine Appearance Clear N Urine Specific [place]se[place] 1.009 Low 1.010-1.030 Urine pH 6.0 N [...] N Absent Urine Bacteria Absent N Absent Laboratory test 09/12/2016 [facility] TSH (Thyroid 2.98 mcIU/mL N 0.34-5.[address] Stim Horm) [place] [address] [phone] B-Type Natriuretic Peptide BNP 41 pg/mL N 50 CKMB 09/12/2016 [facility] CKMB ng/mL 2.3 ng/mL N 0.6-6.[address] [place] [address] [phone] Laboratory test 08/28/2016 [facility] Point of Care 79 mg/dL N 74-[address] [place] [address] [phone] Laboratory test 08/28/2016 [facility] CRP High 0.21 mg/L N [address] [place] [address] [phone] Lactic Acid 2.2 mmol/L High 0.5-2.0 53 Comp Metabolic Panel 08/28/2016 [facility] Sodium 130 mmol/L Low 133-[address] [place] [address] [phone] Potassium 4.4 mmol/L N 3.5-5.0 Chloride 95 [...] 53.6 N >60 Egfr 69.0 N >60 54 CBC Auto Diff 08/28/2016 [facility] White Blood 4.9 10^3/uL N 3.5-10.[address] [place] [address] [phone] Red Blood Count 4.12 10^6/uL N 4.0-5.4 [...] Blood Cells % 0.1 N Laboratory test 07/26/2016 [facility] Magnesium 1.6 mg/dL Low 1.9-2.7 finding [address] [place] [address] [phone] Basic Metabolic 07/26/2016 [facility] Sodium 128 mmol/L Low 133-145 Panel 101 [place] [address] [phone] Potassium 4.1 mmol/L N 3.5-5.0 Chloride 93 mmol/L Low 101-111 Co2 Carbon Dioxide 27 mmol/L N 22-32 Anion Gap 8 mmol/L N 2-11 Glucose 163 mg/dL High 70-100 Blood Urea Nitrogen 19 mg/dL N 6-24 Creatinine 0.97 mg/dL High 0.51-0.95 BUN/Creatinine Ratio 19.6 N 8-20 Calcium 9.1 mg/dL N 8.6-10.3 Egfr Non- 60.1 N >60 Egfr 77.3 N >60 55 Laboratory test 07/22/2016 [facility] Hemoglobin A1c 7.7 High 5-7 finding Comp Metabolic 06/26/2016 [facility] Sodium 124 mmol/L Low 133 -145 Panel [address] [place] [address] [phone] Potassium 4.4 mmol/L N 3.5-5.0 Chloride 92 [...] 65.5 N >60 Egfr 84.2 N >60 56 Urinalysis Profile 06/26/2016 [facility] Urine Color Straw N [address] [place] [address] [phone] Urine Appearance Clear N Urine Specific [place] 1.006 Low 1.010-1.030 Urine pH 6.0 N [...] Present Abnormal Absent CBC Auto Diff 06/26/2016 [facility] White Blood 3.6 10^3/uL N 3.5-10.[address] [place] [address] [phone] Red Blood Count 3.84 10^6/uL Low 4.0-5.4 [...] Blood Cells % 0.4 N Laboratory test 06/26/2016 [facility] Magnesium 1.5 mg/dL Low 1.9-2.[address] [place] [address] [phone] Reactive Protein < 1.00 mg/L N < 5.00 57 Troponin-I (TnI) 0.00 ng/mL N <0.04 58 TSH (Thyroid Stim Horm) 2.33 mcIU/mL N 0.34-5.60 Osmolality Serum 280 mOsm/kg N 275 - 295 59 Laboratory test 03/28/2016 [facility] Culture Throat SEE RESULT [address] [place] [address] [phone] Laboratory test 03/28/2016 [facility] Hemoglobin A1c 7.0 5-7 finding Urine Microalbumin 01/15/2016 [facility] Urine Creatinine 84.30 mg/dL N Random [address] [place] [address] [phone] Ur Microalbumin (mg/L) < 15.0 mg/L N Urine Microalbumin/Creatinine TNP ug/mg N <31 61 Laboratory test 01/03/2016 [facility] Hemoglobin A1c 7.6 High 5-7 finding Comp Metabolic 11/10/2015 [facility] Sodium 132 mmol/L Low 133 -[address] [place] [address] [phone] Potassium 4.1 mmol/L N 3.5-5.0 Chloride 96 [...] 59.6 N >60 Egfr 76.6 N >60 62 Laboratory 11/10/2015 [facility] Hepatitis C Nonreactive N Nonreactive test finding [address] [place] [address] [phone] HIV 1&2 AB Self Referred Nonreactive N Nonreactive 63 Laboratory test 10/27/2015 [facility] Troponin-I 0.00 ng/mL N <0.03 [address] (TnI) [place] [address] [phone] Comp Metabolic 10/27/2015 [facility] Sodium 131 mmol/L Low 133 -[address] [place] [address] [phone] Potassium 4.3 mmol/L N 3.5-5.0 Chloride 97 [...] 53.3 N >60 Egfr 68.5 N >60 65 CBC Auto Diff 10/27/2015 [facility] White Blood 4.3 10^3/uL N 3.5-10.[address] Count [place], [place] [address] [phone] Red Blood Count 3.53 10^6/uL Low 4.0-5.4 [...] Nucleated Red Blood Cells % 0.2 N Laboratory test 10/27/2015 [facility] Troponin-I 0.00 ng/mL N <0.03 [address] (TnI) [place] [address] [phone] Laboratory test 10/27/2015 [facility] Partial 28.9 N 26.0-36. finding [address] Thrombo Time seconds 3 [place] [address] [phone] Inr/Protime 10/27/2015 [facility] Inr 0.85 Low 0.89-1.[address] 1 [place] [address] [phone] Urine Culture And 09/30/2015 [facility] Urine Culture SEE RESULT [address] [place] [address] [phone] Urinalysis 09/30/2015 [facility] Urine Color Rosalinda N Profile [address] [place] [address] [phone] Urine Appearance Cloudy N Urine Specific [place] 1.023 N 1.010-1.030 Urine pH 5.0 N [...] Absent Urine Hyaline Casts Present Abnormal Absent Laboratory test 09/30/2015 [facility] Magnesium 1.7 mg/dL Low 1.9-2.7 finding [address] [place] [address] [phone] Troponin-I (TnI) 0.00 ng/mL N <0.03 68 TSH (Thyroid Stim Horm) 3.97 ?IU/mL N 0.34-5.60 Acetaminophen < 15 g/mL N 69 Salicylate < 2.50 mg/dL N <30 Roseau < 0.10 mmol/L Low 0.6-1.2 C Reactive Protein < 1.00 mg/L N < 5.00 70 Comp Metabolic Panel 09/30/2015 [facility] Sodium 129 mmol/L Low 133-145 [address] [place] [address] [phone] Potassium 4.4 mmol/L N 3.5-5.0 Chloride 97 [...] 33.1 N >60 Egfr 42.6 N >60 71 Laboratory test 09/30/2015 [facility] Lactic Acid 3.0 mmol/L High 0.5-2.0 [address] [place] [address] [phone] CBC Auto Diff 09/30/2015 [facility] White Blood 7.8 10^3/uL N 3.5-10.[address] [place] [address] [phone] Red Blood Count 4.16 10^6/uL N 4.0-5.4 [...] Nucleated Red Blood Cells % 0.1 N Urine Drug 09/30/2015 [facility] Amphetamine Ur None Detected N None Detect SCR ED & [address] [place] [address] [phone] Barbiturates Urine Screen None Detected N None Detect Benzodiazepine Urine Screen Presumptive Posi <SEE NOTE> Abnormal None Detect 73 Urine Cannabinoids Screen None Detected N None Detect Urine Cocaine Screen None Detected N None Detect Urine Opiates Screen None Detected N None Detect Urine Phencyclidine Screen None Detected N None Detect 74 Ua Routine 09/20/2015 [facility] Ua Specific [place] 1.010 Ua PH 6 Ua Color straw Ua Appera cloudy Ua WBC pos Ua Protein 30 Ua Glucose neg Ua Ketones neg Ua Bilirubin neg Ua Urobilinogen neg Ua Nitrite pos Ua Occult Blood 250 Urine Culture And 09/20/2015 [facility] Urine Culture SEE RESULT [address] [place] [address] [phone] Lipid Profile 09/01/2015 [facility] Triglycerides 124 mg/dL N 76 (Trig/Chol/HDL) [address] [place] [address] [phone] Cholesterol 187 mg/dL N 77 HDL Cholesterol 42.1 mg/dL N 78 LDL Cholesterol 120 mg/dL N 79 Laboratory test 08/29/2015 [facility] Point of Care 145 mg/dL High 74-[address] [place] [address] [phone] Laboratory test 08/18/2015 [facility] Hemoglobin A1c 6.4 5-7 finding Lipid Profile 07/26/2015 [facility] Triglycerides 113 mg/dL N 81 (Trig/Chol/HDL) [address] [place] [address] [phone] Cholesterol 172 mg/dL N 82 HDL Cholesterol 41.4 mg/dL N 83 LDL Cholesterol 108 mg/dL N 84 Lipid Profile 04/20/2015 [facility] Triglycerides 127 mg/dL N 85 (Trig/Chol/HDL) [address] [place] [address] [phone] Cholesterol 210 mg/dL N 86 HDL Cholesterol 48.9 mg/dL N 87 LDL Cholesterol 136 mg/dL N 88 Liver Function 04/20/2015 [facility] Total Protein 6.4 g/dL N 6.4-8.[address] [place] [address] [phone] Albumin 3.6 g/dL N 3.2-5.2 Globulin 2.8 g/dL N 2-4 Albumin/Globulin Ratio 1.3 N 1-3 Total Bilirubin 0.40 mg/dL N 0.2-1.0 Direct Bilirubin 0.10 mg/dL N 0.03-0.18 Indirect Bilirubin 0.3 mg/dL N 0.3-1.0 Alkaline Phosphatase 50 U/L N 34-104 Alt 14 U/L N 7-52 Ast 21 U/L N 13-39 Laboratory test 04/13/2015 [facility] Hemoglobin A1c 7.3 High 5-7 finding Lipid Profile 01/20/2015 [facility] Triglycerides 171 mg/dL N 89 (Trig/Chol/HDL) [address] [place] [address] [phone] Cholesterol 230 mg/dL N 90 HDL Cholesterol 49.4 mg/dL N 91 LDL Cholesterol 146 mg/dL N 92 Comp Metabolic Panel 01/20/2015 [facility] Sodium 134 mmol/L N 133-[address] [place] [address] [phone] Potassium 4.3 mmol/L N 3.5-5.0 Chloride 97 [...] 55.9 N >60 Egfr 71.8 N >60 93 Laboratory test 01/20/2015 [facility] TSH (Thyroid 4.12 ?IU/mL N 0.34-5.[address] Stim Horm) [place] [address] [phone] Free T4 (Free Thyroxine) 0.51 ng/mL Low 0.61-1.12 Hemoglobin A1c (Glyco HGB) 7.1 % High Less than 6.0 94 Urine Microalbumin 01/20/2015 [facility] Ur Microalbumin < 5.0 mg/L N Random [address] (mg/L) [place] [address] [phone] Urine Creatinine 86.84 mg/dL N Urine Microalbumin/Creatinine TNP ug/mg N <31 95 Laboratory test 12/23/2014 [facility] Cytology SEE RESULT BELOW [address] [place] [address] [phone] HPV Rna Ww/Reflex Genotype Negative N Negative 97 1 Presumptive Positive Presumptive positive results are unconfirmed. 2 The urine specimen was tested at the listed cutoffs: Drug class test level (ng/mL) Amphetamines 500 Barbiturates 200 Benzodiazepine metabolites 200 Cocaine metabolites 150 Cannabinoids 50 Opiates 300 Pcp 25 Specimen was received without chain of custody. Results should be used for medical purposes only. 3 Platelets clumped. Unable to perform accurate count. 4 Therapeutic concentration: <50 ug/mL Toxic concentration: >120 ug/mL 5 Because ethnic data is not always readily [...] 15-29 5 Kidney failure <15 (or dialysis) 6 Because ethnic data is not always readily [...] 15-29 5 Kidney failure <15 (or dialysis) 7 Because ethnic data is not always [...] 5 Kidney failure <15 (or dialysis) 8 <5.0 Negative 5.0 - 25.0 Indeterminate (Repeat testing recommended after 72 hours) >25.0 Positive Perimenopausal women can display HCG levels of up to 20 mIU/mL 9 Therapeutic concentration: <50 ug/mL Toxic concentration: >120 ug/mL 10 The urine specimen was tested at the listed cutoffs: Drug class test level (ng/mL) Amphetamines 500 Barbiturates 200 Benzodiazepine metabolites 200 Cocaine metabolites 150 Cannabinoids 50 Opiates 300 Pcp 25 Specimen was received without chain of custody. Results should be used for medical purposes only. 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 END OF REPORT DEPARTMENT OF PATHOLOGY, [address] [place] [address] Rufino Barker M.D. Director [facility] # [id number] 13 Because ethnic data is not always readily [...] 15-29 5 Kidney failure <15 (or dialysis) 14 Troponin-I testing on Plasma Separator Tubes (PST) has a known false positive rate of 0.20-0.40%. All positive troponins reflex immediate secondary confirmatory testing. 15 [facility] Severe Sepsis and Septic Shock Management Bundle Measure requires all lactic acids initially measuring >2.0 mmol/L be repeated. 16 Verbal to [[id number]] by [[id number]] at [1449] on [].Results read back accurately 17 Macrocytic anemia. Absolute neutropenia. Reviewed by Ary Young MD 18 SEE RESULT BELOW Name: STEPHANIA DORADO : [address]: Robbin Pro MD Acct: [id number] Unit: [id number] AGE: 53 Location: ED Re03/26/18 SEX: F Status: REG ER SPEC: [id number] FABIAN: 03/26/[address]: Jacinto Pro MD REQ: [id number] RECD: 03/26/18 STATUS: COMP OTHR DR: Stella Burns MD _ SOURCE: BLOOD,VENO SPDESC: ORDERED: Blood Cult Procedure Result Reported Site Aerobic Culture Bottle Final 03/31/18- 6 ML No Growth Day 5 Anaerobic Culture Bottle Final 03/31/18- 1435 ML No Growth Day 5 * ML - Main Lab . END OF REPORT DEPARTMENT OF PATHOLOGY, [address] [place] [address] Rufino Barker M.D. Director [facility] # [id number] 19 Because ethnic data is not always readily [...] 15-29 5 Kidney failure <15 (or dialysis) 20 No interferon-gamma response to M. tuberculosis antigens was detected. Infection with M. tuberculosis is unlikely. A single negative result does not exclude infection with M. tuberculosis. In patients at high risk for M.tuberculosis infection, a second test should be considered in accordance with the 2017 ATS/IDSA/CDC Clinical Practice Guidelines for Diagnosis of Tuberculosis in Adults and Children [Sulemaninsrobinn ERMIAS et. al. Clin. Infect. Dis. 2017;64(2):111-115]. 21 Test Performed by: [facility] - [address] [address] 22 Because ethnic data is not always readily [...] 15-29 5 Kidney failure <15 (or dialysis) 23 Please note: The following may produce a false positive D Dimer test: - Rheumatoid factor greater than 60 IU/ml - Plasma hemoglobin greater than 0.05 gm/dl - Bilirubin greater than 50 mg/dl - Lipids greater than 1000 mg/dl - FDP greater than 20 ug/ml 24 >100 to <200 pg/mL: likely compensated congestive heart failure (CHF) 200 to 400 pg/mL: likely moderate CHF >400 pg/mL: likely moderate to severe CHF 25 Critical Result LACT:2.5 Called to [id number] at: 11:50:02 by:[id number] Read back by:JESSICA [facility] Severe Sepsis and Septic Shock Management Bundle Measure requires all lactic acids initially measuring >2.0 mmol/L be repeated. 26 SEE RESULT BELOW Name: STEPHANIA DORADO : [address]: Veronika Sanchez DO Acct: [id number] Unit: [id number] AGE: 52 Location: ENDO Re08/07/17 SEX: F Status: REG REF SPEC: [id number] FABIAN: 08/07/17-[address] [facility] [address]: Veronika Sanchez DO REQ: [id number] RECD: 08/07/17 STATUS: JACQUES DYER DR: Stella Burns MD _ ORDERED: LEVEL [...] and Reported on: Ary Young MD 08/08/17 1434 END OF REPORT DEPARTMENT OF PATHOLOGY, [address] [place] [address] Rufino Barker M.D. Director [facility] # [id number] 27 Export Freight Manager: [id number] 28 Desirable: <150 Borderline High: 150-199 High: 200-499 Very High: >500 29 Desirable: <200 Borderline High: 200-239 High: >239 30 Low: <40 Desirable: 40-60 High: >60 31 Desirable: <100 Near Optimal: 100-129 Borderline High: 130-159 High: 160-189 Very High: >189 32 Because ethnic data is not always readily [...] 15-29 5 Kidney failure <15 (or dialysis) 33 [id number] 34 SEE RESULT BELOW Name: STEPHANIA DORADO : [address]: Stella Burns MD Acct: [id number] Unit: [id number] AGE: 52 Location: [facility] Re04/22/17 SEX: F Status: REG REF SPEC: [id number] FABIAN: 04/22/17-[address] [facility] [address]: Stella Burns MD REQ: [id number] RECD: 04/22/17 STATUS: COMP _ SOURCE: THROAT SPDESC: ORDERED: Throat Culture COMMENTS: [id number] Procedure Result Reported Site Throat Culture Final 04/24/17- 1223 ML Organism 1 NORMAL TRINITY Quantity 3+ Throat cultures are clinically indicated to detect the presence of group A strep, arcanobacterium and yeast. In certain cases, predominating organisms will be reported. * ML - MAIN LAB ([facility]) . END OF REPORT * ML=Testing performed at Main Lab DEPARTMENT OF PATHOLOGY, [address] [place] [address] Rufino Barker M.D. Director [facility] # [id number] 35 Because ethnic data is not always readily [...] 15-29 5 Kidney failure <15 (or dialysis) 36 [id number] Unable to calculate due to low microalbumin 38 Desirable <150 Borderline high 150-199 High 200-499 Very High >500 39 Desirable <200 Borderline high 200-239 High >239 40 Low <40 Desirable: 40-60 High: >60 41 Desirable: <100 mg/dL Near Optimal: 100-129 mg/dL Borderline High: 130-159 mg/dL High: 160-189 mg/dL Very High: >189 mg/dL 42 Because ethnic data is not always readily [...] 15-29 5 Kidney failure <15 (or dialysis) 43 [facility] Severe Sepsis and Septic Shock Management Bundle Measure requires all lactic acids initially measuring >2.0 mmol/L be repeated. 44 Because ethnic data is not always [...] 5 Kidney failure <15 (or dialysis) 45 Presumptive Positive Presumptive positive results are unconfirmed. 46 The urine specimen was tested at the listed cutoffs: Drug class test level (ng/mL) Amphetamines 500 Barbiturates 200 Benzodiazepine metabolites 200 Cocaine metabolites 150 Cannabinoids 50 Opiates 300 Pcp 25 Specimen was received without chain of custody. Results should be used for medical purposes only. 47 Because ethnic data is not always [...] 5 Kidney failure <15 (or dialysis) 48 SEE RESULT BELOW Name: STEPHANIA DORADO : [address]: Zi Rosado MD Acct: [id number] Unit: [id number] AGE: 51 Location: ED Re09/12/16 SEX: F Status: REG ER SPEC: [id number] FABIAN: 09/12/[address] [facility] [address]: Zi Rosado MD REQ: [id number] RECD: 09/12/16 STATUS: RABIA DYER DR: Stella Burns MD _ SOURCE: URINE SPDESC: ORDERED: Urine Culture Procedure Result Reported Site Urine Culture Final 09/13/16- 1051 ML No growth of clinically significant organisms * ML - [facility] LAB ([facility]) . END OF REPORT * ML=Testing performed at Main Lab DEPARTMENT OF PATHOLOGY, [address] [place] [address] Rufino Barker M.D. Director [facility] # [id number] [facility] Severe Sepsis and Septic Shock Management Bundle Measure requires all lactic acids initially measuring >2.0 mmol/L be repeated. 50 >100 to <200 pg/mL: likely compensated congestive heart failure (CHF) 200 to 400 pg/mL: likely moderate CHF >400 pg/mL: likely moderate to severe CHF 51 Export Freight Manager: [id number] 52 Low risk: <1.00 Average risk: 1.00-3.00 High risk: >3.00 53 Critical Result LACT:2.2 Called to [id number] at: 15:02:55 by:[id number] Read back by:[facility] Severe Sepsis and Septic Shock Management Bundle Measure requires all lactic acids initially measuring >2.0 mmol/L be repeated. 54 Because ethnic data is not always readily [...] 15-29 5 Kidney failure <15 (or dialysis) 55 Because ethnic data is not always readily [...] 15-29 5 Kidney failure <15 (or dialysis) 56 Because ethnic data is not always readily [...] 15-29 5 Kidney failure <15 (or dialysis) 57 Acute inflammation: >10.00 58 99th percentile=0.04 ng/mL Troponin results at [facility] and [facility] are not interchangeable. 59 Test Performed by: [address] [id number] 60 SEE RESULT BELOW Name: STEPHANIA DORADO : [address]: Shaista Richards MD Acct: [id number] Unit: [id number] AGE: 51 Location: [facility] Re03/28/16 SEX: F Status: REG REF SPEC: [id number] FABIAN: 03/28/[address]: Abelardo Richards MD REQ: [id number] RECD: 03/28/16 STATUS: COMP _ SOURCE: THROAT SPDESC: ORDERED: Throat Culture COMMENTS: [id number] Procedure Result Reported Site Throat Culture Final 03/30/16- 0941 ML Organism 1 NORMAL TRINITY Quantity 3+ Throat cultures are clinically indicated to detect the presence of group A strep, arcanobacterium and yeast. In certain cases, predominating organisms will be reported. * ML - MAIN LAB ([facility]) . END OF REPORT * ML=Testing performed at Main Lab DEPARTMENT OF PATHOLOGY, [address] [place] [address] Rufino Barker M.D. Director [facility] # [id number] 61 Unable to calculate due to low microalbumin 62 Because ethnic data is not always readily [...] 15-29 5 Kidney failure <15 (or dialysis) 63 It is recognized that currently available assays [...] 95% confidence interval of 99.78 to 99.96%. 64 Reference Range and Interpretation: TnI (ng/mL) Interpretation Less Than 0.03 ng/mL Not supportive of diagnosis of CO 0.03 - 0.50 ng/mL Indeterminate: suggest serial studies if clinically indicated. Greater than 0.5 ng/mL Consistent with diagnosis of CO 65 Because ethnic data is not always readily [...] 15-29 5 Kidney failure <15 (or dialysis) 66 Reference Range and Interpretation: TnI (ng/mL) Interpretation Less Than 0.03 ng/mL Not supportive of diagnosis of CO 0.03 - 0.50 ng/mL Indeterminate: suggest serial studies if clinically indicated. Greater than 0.5 ng/mL Consistent with diagnosis of CO 67 SEE RESULT BELOW Name: STEPHANIA DORADO : [address]: Heriberto García MD Acct: [id number] Unit: [id number] AGE: 50 Location: [place] [address] Re09/30/15 Dis: 10/02/15 SEX: F Status: DIS IN SPEC: [id number] FABIAN: 09/30/15-[address] [facility] [address]: Janette Tucker MD REQ: [id number] RECD: 09/30/15-160 STATUS: RABIA DYER DR: Geetha Summers MD _ SOURCE: URINE SPDESC: ORDERED: Urine Culture Procedure Result Reported Site Urine Culture Final 10/03/15- 803 ML Organism 1 ESCHERICHIA COLI Higdon Count 10-25,000 (Moderate) CFU/ML 1. ESCHERICHIA COLI [...] antibiotic reporting. * ML - MAIN LAB ([facility]) . END OF REPORT * ML=Testing performed at Main Lab DEPARTMENT OF PATHOLOGY, [address] [place] [address] Rufino Barker M.D. Director [facility] # [id number] 68 Reference Range and Interpretation: TnI (ng/mL) Interpretation Less Than 0.03 ng/mL Not supportive of diagnosis of CO 0.03 - 0.50 ng/mL Indeterminate: suggest serial studies if clinically indicated. Greater than 0.5 ng/mL Consistent with diagnosis of CO 69 Therapeutic concentration: <50 ug/mL Toxic concentration: >120 ug/mL 70 Acute inflammation: >10.00 71 Because ethnic data is not always readily [...] 15-29 5 Kidney failure <15 (or dialysis) 72 Critical Result LACT:3.0 Called to [id number] at: 14:34:52 by:[id number] Read back by:[id number] [facility] Severe Sepsis and Septic Shock Management Bundle Measure requires all lactic acids initially measuring >2.0 mmol/L be repeated. 73 Presumptive Positive Presumptive positive results are unconfirmed. 74 The urine specimen was tested at the listed cutoffs: Drug class test level (ng/mL) Amphetamines 500 Barbiturates 200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
--- OUTSIDE RECORDS SUMMARY | 2018-08-17 15:30 | XMS REPORT | Continuity of Care Document ---
:1965 External Reference #:[id number] Author Name Ramiro Kahn M.D. Address [address] [place] [address] Care Team Providers Name Role Phone Stella Burns M.D. Care Team Information Retrofit Installer Unavailable Stella Burns M.D. Primary Care Physician Unavailable Payers Date Identification Numbers Payment Provider Subscriber Policy Number: [id number] Medicare-[facility] Stephania Gill PayID: [id number] [address] [place] [address] Policy Number: [id number] Medicaid/C Stephania Gill Group Name: 2 1 Medicare Primary PayID: [id number] [place] [address] Advance Directives Description No Information Available Problems Active Problems Provider Date Sensorineural hearing loss, bilateral Ramiro Khan M.D. Onset: 03/07 Impacted cerumen Ramiro Khan M.D. Onset: 03/07/2015 Family History Date Family Member(s) Observation Comments General Cancer General Diabetes General Hearing Loss General Heart Attack General Heart Disease Social History Type Date Description Comments Sex Unknown Occupation Unemployed Tobacco Use Start: Unknown Never Smoked Cigarettes Tobacco Use Start: Unknown Never Smoked Cigars Tobacco Use Start: Unknown Never Smoked A Pipe Smokeless Tobacco Never Used Smokeless Tobacco ETOH Use Denies alcohol use Tobacco Use Start: Unknown Patient has never smoked Smoking Status Reviewed: 07/20/18 Patient has never smoked Allergies, Adverse Reactions, Alerts Active Allergies Reaction Severity Comments Date Prozac 03/06/2015 Thorazine 03/06/2015 [place] 03/06/2015 sulfa 07/21/2018 Medications Active Medications SIG Qnty Indications Ordering Provider Date Cefdinir 1 by mouth two 20caps J32.4 Ramiro Suggs 07/21/2018 300mg Capsules times per day Dani Khan Temazepam Unknown 30mg Capsules Strattera Unknown 40mg Capsules Melatonin take as directed Unknown 5mg Capsules Miralax Powder as needed Unknown Packet Quetiapine Fumarate Unknown 50mg Tablets Mirtazapine Take One Tablet Unknown 30mg By Mouth AT Tablets Bedtime Mirtazapine Take One Tablet Unknown 30mg By Mouth AT Tablets Bedtime Fluticasone [place] One [place] Unknown Propionate In Each Nostril 50mcg/Act Twice A Day Suspension Mucinex Take One Tablet Unknown 600mg Tablets By Mouth Twice A ER 12HR Day Divalproex Sodium 2 by mouth every Unknown 500mg day Tablets DR Metformin HCL bid Unknown 1000mg Tablets Aspirin 81 1 by mouth every Unknown 81mg Tablets day DR History Medications [facility] Ramiro Khan, 07/21/2018 - 324mg M.Sofia. 07/21/2018 Capsules Sodium Chloride 1 by mouth twice a Geetha Summers M.D. - 1gm day 07/21/2018 Tablets Metformin HCL ER 1 by mouth every in Geetha Summers M.D. - (Osm) the morning and 1 07/21/2018 500mg Tablets by mouth every at ER 24HR bedtime Glipizide ER 1 by mouth every Geetha Summers M.D. - 2.5mg day 07/21/2018 Tablets ER 24HR Lisinopril-Hydrochlo 1 by mouth every Geetha Summers M.D. - rothiazide day 07/21/2018 10-12.5mg Tablets Lipitor 1 by mouth every Geetha Summers M.D. - 10mg Tablets day 07/21/2018 Aspirin 1 by mouth every Geetha Summers M.D. - 81mg Chewtabs day 07/21/2018 Seroquel as directed Geetha Summers M.D. - 400mg 07/21/2018 Tablets Strattera 1 by mouth every Geetha Summers M.D. - 40mg day 07/21/2018 Capsules Prazosin HCL as directed Geetha Summers M.D. - 5mg 07/21/2018 Capsules Lantus sliding scales as Geetha Summers M.D. - 100Unit/ML directed 07/21/2018 Solution Immunizations Description No Information Available Vital Signs Date Vital Result Comment 07/21/2018 11:03am Weight 130.00 lb Weight 58.968 kg Height 66 inches 5'6" Height in cm's 167.6 cm BMI (Body Mass Index) 21.0 kg/m2 03/07/2015 9:31am BP Systolic 109 mmHg BP Diastolic 81 mmHg Heart Rate 86 /min Respiratory Rate 16 /min Weight 178.00 lb Weight 80.741 kg Height 66 inches 5'6" Height in cm's 167.6 cm BMI (Body Mass Index) 28.7 kg/m2 Results Description No Information Available Procedures Date Code Description Status 03/07/2015 34966 Tympanometry Completed 03/07/2015 25695 Comprehensive Audiogram Completed 03/07/2015 13743 Binocular Microscopy Completed Encounters Type Date Location Provider Dx Diagnosis Office Visit 07/21/2018 [place] Ramiro Carlin32.4 Chronic pansinusitis 11:00a 03/31/07 Dani Khan H61.23 Impacted cerumen, bilateral H92.03 Otalgia, bilateral R07.0 Pain in throat Office Visit 03/07/2015 [place],Francisco Suggs H61.23 Impacted 10:00a 03/31/07 Dani Khan cerumen, bilateral H90.3 Sensorineural hearing loss, bilateral Plan of Treatment 07/21/2018 - Ramiro Khan M.D.J32.4 Chronic pansinusitisNew Medication: Cefdinir 300 mg - 1 by mouth two times per dayComments:The patient presented today because her ears are aching and her throat is sore. She had cerumen impactions that I cleaned. She has pus draining from her sinuses. I think this is the cause of her pain.Follow up:MILAGROS with Veronika in 1 ydoenG86.23 Impacted cerumen, bilateralComments:The patient's cerumen impaction was cleaned without difficulty.H92.03 Otalgia, atxuigqkcT75.0 Pain in throat
[2018-08-17 15:57] VITALS: BP 130/91
== END 2018-08-17 15:58 | disposition home or self-care (01) ==
LOC: ED 14:06
DX: R42 Dizziness and giddiness (principal); E11.9 Type 2 diabetes mellitus without complications; E78.00 Pure hypercholesterolemia, unspecified; E78.5 Hyperlipidemia, unspecified; I10 Essential (primary) hypertension; Z88.2 Allergy status to sulfonamides
CPT/HCPCS: 36415; 80053; 81003; 83605; 85025; 93005; 96360; 99283

== ENCOUNTER 2018-11-26 12:45 | Inpatient (IN) | payer MEDICARE, MEDICAID ==
[2018-11-26 13:19] LABS: Hematocrit 36 % (35-47); Hemoglobin 12.1 g/dL (12.0-16.0); Mean Corpuscular HGB Conc 34 g/dL (31-36); Mean Corpuscular Hemoglobin 33 pg (27-31); Mean Corpuscular Volume 97 fL (80-97); Platelet Count 198 10^3/uL (150-450); Red Blood Count 3.69 10^6 /uL (3.70-4.87); Red Cell Distribution Width 14 % (10-15); White Blood Count 3.8 10^3/uL (3.5-10.8)
[2018-11-26 13:33] LABS: ALT 15 U/L (7-52); AST 19 U/L (13-39); Albumin 3.6 g/dL (3.2-5.2); Albumin/Globulin Ratio 1.2 (1-3); Alkaline Phosphatase 68 U/L (34-104); Anion Gap 2 mmol/L (2-11); BUN/Creatinine Ratio 27.4 (8-20); Blood Urea Nitrogen 20 mg/dL (6-24); CO2 Carbon Dioxide 33 mmol/L (22-32); Calcium 9.2 mg/dL (8.6-10.3); Chloride 100 mmol/L (101-111); EGFR African American 100.2 (>60); EGFR Non-African American 82.8 (>60); Globulin 3.1 g/dL (2-4); Glucose 163 mg/dL (70-100); Potassium 3.8 mmol/L (3.5-5.0); Sodium 135 mmol/L (135-145); Total Protein 6.7 g/dL (6.4-8.9)
[2018-11-26 14:20] LABS: Urine Appearance Clear; Urine Bilirubin Negative (Negative); Urine Blood Negative (Negative); Urine Color Yellow; Urine Glucose 3+(>=500 mg/dL) (Negative); Urine Ketones Trace (Negative); Urine Nitrite Negative (Negative); Urine Protein Negative (Negative); Urine Specific Gravity 1.024 (1.010-1.030); Urine Urobilinogen Negative (Negative)
[2018-11-26] MEDS ORDERED: diPHENhydraMINE IV* 50 MG/ML 1 ml VIAL (BENADRYL) IM ONE (14:23)
[2018-11-26 14:47] LABS: Alcohol < 10 mg/dL (<10); Salicylate < 2.50 mg/dL (<30)
[2018-11-26 14:51] LABS: Urine Benzodiazepine Screen Presumptive Positive (None Detect); Urine Opiates Screen None Detected (None Detect)
[2018-11-26 14:57] LABS: TSH (Thyroid Stimulating Horm) 1.83 mcIU/mL (0.34-5.60)
[2018-11-26 15:14] LABS: Acetaminophen 2 mcg/mL
[2018-11-26 15:22] LABS: ABS Lymphocytes 2.3 10^3/ul (1.0-4.8); ABS Monocytes 0.3 10^3/ul (0-0.8); ABS Neutrophils 1.2 10^3/ul (1.5-7.7); Eosinophil % 0.1 %; Lymphocyte % 58.9 %; Nucleated Red Blood Cells % 0.1
--- NOTE | 2018-11-26 15:47 | ED ---
Psychiatric Complaint - HPI Summary HPI Summary: This patient is a 53-year-old female with a history of major depressive disorder presenting to the ED with feelings of worsening depression since her father recently as well as her nephew committed suicide. She states she is currently living with her mother and her of her nephew. She has been seen in the ED several times and has been admitted several times for same. When asked if she had any SI, she states she believes she would take a bottle of pills and swallowed them to attempt to kill herself. She denies any other plans. She states she would like to stay in our hospital for the next few weeks as she wants to get better. She is forward thinking. She is very anxious on arrival and is requesting medications for urinating frequently. She does state she has hyperglycemia and diabetes type 2, however this is well controlled with medications. - History Of Current Complaint Chief Complaint: EDMentalHealth Time Seen by Provider: 11/26/18 12:48 Hx Obtained From: Patient Hx Last Menstrual Period: 5 years ago ?: No Onset/Duration: Sudden Onset Timing: Constant Severity Initially: Moderate Severity Currently: Moderate Character: Depressed Aggravating Factor(s): Recent Stress Alleviating Factor(s): Nothing Associated Signs And Symptoms: Positive: Negative - Risk Factor(s) Completed Suicide Risk Factors: Negative - Allergies/Home Medications Allergies/Adverse Reactions: Allergies Allergy/AdvReac Type Severity Reaction Status Date / Time ziprasidone [From Geodon] Allergy Severe Unknown Verified 11/26/18 12:54 Reaction Details erythromycin base Allergy Intermediate Rash Verified 11/26/18 12:54 Sulfa (Sulfonamide Allergy Unknown Unknown Verified 11/26/18 12:54 Antibiotics) Reaction Details chlorpromazine AdvReac Severe Hallucinati Verified 11/26/18 12:54 [From Thorazine] ons haloperidol [From Haldol] AdvReac Severe Hallucinati Verified 11/26/18 12:54 ons fluphenazine [From Prolixin] AdvReac Intermediate depression Verified 11/26/18 12:54 lithium AdvReac Intermediate depression Verified 11/26/18 12:54 sulfisoxazole AdvReac Intermediate Nausea Verified 11/26/18 12:54 [From Gantrisin] Home Medications: Home Medications Acetaminophen [Tylenol 8 Hour] 650 mg PO Q8HR PRN 11/26/18 [History Confirmed ] Insulin Glargine,Hum.rec.anlog [Lantus Solostar 5x3 ML PENS] 15 units SUBCUT DAILY 11/26/18 [History Confirmed 11/26/18] QUEtiapine TAB* [Seroquel 100 MG *] 200 mg PO BEDTIME 11/26/18 [History Confirmed 11/26/18] Quetiapine Fumarate [Seroquel 400 MG] 800 mg PO BEDTIME 11/26/18 [History Confirmed 11/26/18] RX: Melatonin (NF) 6 mg PO BEDTIME PRN 11/26/18 [History Confirmed 11/26/18] PMH/Surg Hx/FS Hx/Imm Hx Previously Healthy: Yes Endocrine/Hematology History: Reports: Hx Diabetes Denies: Hx Anticoagulant Therapy, Hx Blood Disorders, Hx Blood Transfusions, Hx Bone Marrow Disease, Hx Systemic Lupus Erythematosus, Hx Sickle Cell Disease , Hx Thyroid Disease, Hx Anemia, Hx Unexplained Bleeding, Other Endocrine/ Hematological Disorders Cardiovascular History: Reports: Hx Hypercholesterolemia - HLD, Hx Hypertension Denies: Hx Aneurysm, Hx Angina, Hx Angioplasty, Hx Auto Implanted Cardiovert Defib, Hx Cardiac Arrest, Hx Cardiomegaly, Hx Congenital Heart Disease, Hx Congestive Heart Failure, Hx Coronary Artery Disease, Hx Deep Vein Thrombosis, Hx Embolism, Hx Hypotension, Hx Pacemaker/ICD, Hx Peripheral Vascular Disease, Hx Rheumatic Fever, Hx Syncope, Hx Valvular Heart Disease, Other Cardiovascular Problems/Disorders Respiratory History: Denies: Hx Asthma, Hx Chronic Bronchitis, Hx Chronic Obstructive Pulmonary Disease (COPD), Hx Cystic Fibrosis, Hx Lung Cancer, Hx Pleural Effusion, Hx Pneumonia, Hx Pulmonary Edema, Hx Pulmonary Embolism, Hx Seasonal Allergies, Hx Sleep Apnea, Other Respiratory Problems/Disorders GI History: Denies: Hx Cirrhosis, Hx Crohn's Disease, Hx Diverticulosis, Hx Gall Bladder Disease, Hx Gastroesophageal Reflux Disease, Hx Gastrointestinal Bleed, Hx Hiatal Hernia, Hx Irritable Bowel, Hx Jaundice, Hx Obstructive Bowel, Hx Ileostomy, Hx Pyloric Stenosis, Hx Ulcer, Other GI Disorders History: Denies: Hx Renal Disease Musculoskeletal History: Denies: Hx Arthritis, Hx Back Problems, Hx Bursitis, Hx Congenital Bone Abnormalities, Hx Fibromyalgia, Hx Gout, Hx Orthopedic Injury, Hx Osteoporosis, Hx Scoliosis, Hx Tendonitis, Other Musculoskeletal History Sensory History: Reports: Hx Contacts or Glasses, Hx Deafness - Hard of hearing , Hx Hearing Problem Denies: Hx Cataracts, Hx Eye Injury, Hx Eye Prosthesis, Hx Glaucoma, Hx Legally Blind, Hx Macular Degeneration, Hx Vision Problem, Hx Hearing Aid, Other Sensory Impairments Opthamlomology History: Reports: Hx Contacts or Glasses Denies: Hx Cataracts, Hx Eye Injury, Hx Eye Prosthesis, Hx Glaucoma, Hx Legally Blind, Hx Macular Degeneration, Hx Vision Problem, Other Sensory Impairments Neurological History: Reports: Hx Headaches, Hx Migraine Denies: Hx Dementia, Hx Developmental Delay, Hx Nerve Disease, Hx Seizures, Hx Spinal Cord Injury, Hx Transient Ischemic Attacks (TIA), Other Neuro Impairments/Disorders Psychiatric History: Reports: Hx Anxiety, Hx Attention Deficit Hyperactivity Disorder, Hx Depression, Hx Post Traumatic Stress Disorder - HX SEXUAL ABUSE CHILD, Hx Inpatient Treatment - HX PSYCHIATRIC HOSPITALIZATIONS, Hx Community Mental Health Tx, Hx Bipolar Disorder - BORDERLINE PERSONALITY DISORDER, Hx Suicide Attempt, Hx of Violent Episodes Against Others, Hx Substance Abuse - HX BENZO ABUSE, Other Psychiatric Issues/Disorders - HX SI/ATTEMPT Denies: Hx Eating Disorder, Hx Panic Disorder, Hx Schizophrenia - Cancer History Cancer Type, Location and Year: None reported Hx Chemotherapy: No Hx Radiation Therapy: No - Surgical History Surgery Procedure, Year, and Place: appendectomy 1975, 1972 bladder, 5yrs ago orif rt ankle Hx Anesthesia Reactions: No - Immunization History Date of Tetanus Vaccine: Unknown Date of Influenza Vaccine: 12/10/2012 Immunizations Up to Date: Yes Infectious Disease History: No Infectious Disease History: Denies: Hx Clostridium Difficile, Hx Hepatitis, Hx Human Immunodeficiency Virus (HIV), Hx of Known/Suspected MRSA, Hx Shingles, Hx Tuberculosis, Hx Known/ Suspected VRE, Hx Known/Suspected VRSA, History Other Infectious Disease, Traveled Outside the [place] in Last 30 Days - Family History Known Family History: Positive: Hypertension, Diabetes - Social History Occupation: Unemployed Lives: With Family Alcohol Use: None Hx Substance Use: No Substance Use Type: Reports: None Hx Tobacco Use: No Smoking Status (MU): Never Smoked Tobacco Review of Systems Constitutional: Negative Negative: Fever, Chills, Fatigue, Skin Diaphoresis Negative: Palpitations, Chest Pain Negative: Shortness Of Breath, Cough Genitourinary: Negative Positive: no symptoms reported, see HPI Negative: Arthralgia, Myalgia Positive: Anxious, Depressed All Other Systems Reviewed And Are Negative: Yes Physical Exam Triage Information Reviewed: Yes Vital Signs On Initial Exam: Initial Vitals Temp Pulse Resp BP Pulse Ox 98.2 F 78 16 157/99 100 11/26/18 12:50 11/26/18 12:50 11/26/18 12:50 11/26/18 12:50 11/26/18 12:50 Vital Signs Reviewed: Yes Appearance: Positive: Well-Appearing, Well-Nourished Skin: Positive: Warm, Skin Color Reflects Adequate Perfusion Head/Face: Positive: Normal Head/Face Inspection Eyes: Positive: EOMI, ELISEO, Conjunctiva Clear Neck: Positive: Supple, No Lymphadenopathy Respiratory/Lung Sounds: Positive: Clear to Auscultation, Breath Sounds Present Cardiovascular: Positive: RRR, Pulses are Symmetrical in both Upper and Lower Extremities Musculoskeletal: Positive: Strength/ROM Intact Neurological: Positive: Speech Normal Psychiatric: Positive: Anxious, Depressed AVPU Assessment: Alert Diagnostics - Vital Signs Vital Signs Temp Pulse Resp BP Pulse Ox 11/26/18 12:50 98.2 F 78 16 157/99 100 - Laboratory Lab Results: Lab Results 11/26/18 11/26/18 11/26/18 Range/Units 13:09 13:09 13:48 WBC 3.8 (3.5-10.8) 10^3/uL RBC 3.69 L (3.70-4.87) 10^6 /uL Hgb 12.1 (12.0-16.0) g/dL Hct 36 (35-47) % MCV 97 (80-97) fL MCH 33 H (27-31) pg MCHC 34 (31-36) g/dL RDW 14 (10-15) % Plt Count 198 (150-450) 10^3/uL MPV 7.0 L (7.4-10.4) fL Neut % (Auto) 31.4 % Lymph % (Auto) 58.9 % [place] % (Auto) 8.9 % Eos % (Auto) 0.1 % Baso % (Auto) 0.7 % Absolute Neuts (auto) 1.2 L (1.5-7.7) 10^3/ul Absolute Lymphs (auto) 2.3 (1.0-4.8) 10^3/ul Absolute Monos (auto) 0.3 (0-0.8) 10^3/ul Absolute Eos (auto) 0.0 (0-0.6) 10^3/ul Absolute Basos (auto) 0.0 (0-0.2) 10^3/ul Absolute Nucleated RBC 0.0 10^3/ul Nucleated RBC % 0.1 Sodium 135 (135-145) mmol/L Potassium 3.8 (3.5-5.0) mmol/L Chloride 100 L (101-111) mmol/L Carbon Dioxide 33 H (22-32) mmol/L Anion Gap 2 (2-11) mmol/L BUN 20 (6-24) mg/dL Creatinine 0.73 (0.51-0.95) mg/dL Est GFR ( Amer) 100.2 (>60) Est GFR (Non-Af Amer) 82.8 (>60) BUN/Creatinine Ratio 27.4 H (8-20) Glucose 163 H (70-100) mg/dL Calcium 9.2 (8.6-10.3) mg/dL Total Bilirubin 0.30 (0.2-1.0) mg/dL AST 19 (13-39) U/L ALT 15 (7-52) U/L Alkaline Phosphatase 68 (34-104) U/L Total Protein 6.7 (6.4-8.9) g/dL Albumin 3.6 (3.2-5.2) g/dL Globulin 3.1 (2-4) g/dL Albumin/Globulin Ratio 1.2 (1-3) TSH 1.83 (0.34-5.60) mcIU/mL Urine Color Yellow Urine Appearance Clear Urine pH 6.0 (5-9) Ur Specific [place] 1.024 (1.010-1.030) Urine Protein Negative (Negative) Urine Ketones Trace A (Negative) Urine Blood Negative (Negative) Urine Nitrate Negative (Negative) Urine Bilirubin Negative (Negative) Urine Urobilinogen Negative (Negative) Ur Leukocyte Esterase Negative (Negative) Urine Glucose 3+(>=500 mg/dl) A (Negative) Salicylates < 2.50 (<30) mg/dL Urine Opiates Screen (None Detect) Acetaminophen 2 mcg/mL Ur Barbiturates Screen (None Detect) Ur Phencyclidine Scrn (None Detect) Ur Amphetamines Screen (None Detect) U Benzodiazepines Scrn (None Detect) Urine Cocaine Screen (None Detect) U Cannabinoids Screen (None Detect) Serum Alcohol < 10 (<10) mg/dL 11/26/18 Range/Units 13:48 WBC (3.5-10.8) 10^3/uL RBC (3.70-4.87) 10^6 /uL Hgb (12.0-16.0) g/dL Hct (35-47) % MCV (80-97) fL MCH (27-31) pg MCHC (31-36) g/dL RDW (10-15) % Plt Count (150-450) 10^3/uL MPV (7.4-10.4) fL Neut % (Auto) % Lymph % (Auto) % [place] % (Auto) % Eos % (Auto) % Baso % (Auto) % Absolute Neuts (auto) (1.5-7.7) 10^3/ul Absolute Lymphs (auto) (1.0-4.8) 10^3/ul Absolute Monos (auto) (0-0.8) 10^3/ul Absolute Eos (auto) (0-0.6) 10^3/ul Absolute Basos (auto) (0-0.2) 10^3/ul Absolute Nucleated RBC 10^3/ul Nucleated RBC % Sodium (135-145) mmol/L Potassium (3.5-5.0) mmol/L Chloride (101-111) mmol/L Carbon Dioxide (22-32) mmol/L Anion Gap (2-11) mmol/L BUN (6-24) mg/dL Creatinine (0.51-0.95) mg/dL Est GFR ( Amer) (>60) Est GFR (Non-Af Amer) (>60) BUN/Creatinine Ratio (8-20) Glucose (70-100) mg/dL Calcium (8.6-10.3) mg/dL Total Bilirubin (0.2-1.0) mg/dL AST (13-39) U/L ALT (7-52) U/L Alkaline Phosphatase (34-104) U/L Total Protein (6.4-8.9) g/dL Albumin (3.2-5.2) g/dL Globulin (2-4) g/dL Albumin/Globulin Ratio (1-3) TSH (0.34-5.60) mcIU/mL Urine Color Urine Appearance Urine pH (5-9) Ur Specific [place] (1.010-1.030) Urine Protein (Negative) Urine Ketones (Negative) Urine Blood (Negative) Urine Nitrate (Negative) Urine Bilirubin (Negative) Urine Urobilinogen (Negative) Ur Leukocyte Esterase (Negative) Urine Glucose (Negative) Salicylates (<30) mg/dL Urine Opiates Screen None detected (None Detect) Acetaminophen mcg/mL Ur Barbiturates Screen None detected (None Detect) Ur Phencyclidine Scrn None detected (None Detect) Ur Amphetamines Screen None detected (None Detect) U Benzodiazepines Scrn Presumptive positive A (None Detect) Urine Cocaine Screen None detected (None Detect) U Cannabinoids Screen None detected (None Detect) Serum Alcohol (<10) mg/dL Result Diagrams: 11/26/18 13:09 11/26/18 13:09 Lab Statement: Any lab studies that have been ordered have been reviewed, and results considered in the medical decision making process. Course/Dx - Course Course Of Treatment: Patient is evaluated for major depressive disorder. Patient states she has been here in the past and would like to be admitted. She does endorse SI stating she would harm herself by taking an overdose of medication. She denies any other symptoms or pain. She states she has been having abdominal pain, but none currently. She notes increased in frequency of urine, however her glucose has been maintained at home with medications. No hypertensive medications on file, however she is noted to be high on arrival. She is currently at 150/90 and we will not give medications at this time. She is given Benadryl with good relief of her "urinary symptoms." She states she was given this in the past for frequency of urination. She is okay at evaluation at this time. Mental health evaluation. Per Dr. Sow she will be admitted for depressive disorder. - Differential Dx/Clinical Impression Differential Diagnosis/HQI/PQRI: Positive: Depression, Suicidal Ideation Provider Diagnosis: Depressive disorder Discharge ED - Sign-Out/Discharge Documenting (check all that apply): Patient Departure Patient Received Moderate/Deep Sedation with Procedure: No - Discharge Plan Condition: Good Disposition: ADMITTED TO [facility] Referrals: Stella Burns MD [Primary Care Provider] - - Billing Disposition and Condition Condition: GOOD Disposition: Admitted to [facility]
[2018-11-26] MEDS ORDERED: Al Hydrox/Mg Hydrox/Simet LIQ* 30 ML UDC PO PRN (16:29)
[2018-11-26] MEDS ORDERED: Ibuprofen TAB* 400 MG PO PRN (16:38)
[2018-11-26] MEDS: metFORMIN* 1,000 MG TAB PO SCH (16:48)
[2018-11-26] MEDS: OLANzapine TAB* 5 MG PO PRN (16:48)
[2018-11-26] MEDS: QUEtiapine TAB* 100 MG PO SCH (20:13)
[2018-11-26] MEDS: QUEtiapine TAB* 300 MG PO SCH (20:14)
[2018-11-26] MEDS: Mirtazapine TAB* 15 MG PO SCH (20:14)
[2018-11-26] MEDS: Melatonin 3 MG TAB PO PRN (20:14)
[2018-11-26] MEDS: Temazepam CAP* 15 MG PO PRN (20:15)
[2018-11-26] MEDS: Divalproex ER TAB(*) 500 MG PO SCH (20:15)
[2018-11-26] MEDS: Acetaminophen TAB* 325 MG PO PRN (20:17)
[2018-11-26] MEDS ORDERED: QUEtiapine TAB* 300 MG PO SCH (21:00)
[2018-11-26] MEDS ORDERED: QUEtiapine TAB* 100 MG PO SCH (21:00)
[2018-11-27 08:29] LABS: HDL Cholesterol 43.1 mg/dL
[2018-11-27] MEDS: CMCS:Atomoxetine (NF) 40 MG CAP PO SCH (08:35)
[2018-11-27] MEDS: Insulin GLARGINE(*) 1 UNITS UNIT SUBCUT SCH (08:35)
[2018-11-27] MEDS: metFORMIN* 1,000 MG TAB PO SCH ×2 (08:35→17:27)
[2018-11-27] MEDS: CMCS:OMEGA-3 FATTY ACIDS (NF) 1,000 MG CAP PO SCH (08:35)
[2018-11-27] MEDS: Aspirin EC TAB* 81 MG TAB.EC PO SCH (08:35)
[2018-11-27] MEDS: Polyethylene Glycol 3350* 17 GM PACKET PO SCH (08:35)
[2018-11-27] MEDS: Vitamin THERAPEUTIC TAB PO SCH (10:48)
[2018-11-27] MEDS: Acetaminophen TAB* 325 MG PO PRN (17:27)
--- NOTE | 2018-11-27 19:11 | HP ---
HISTORY AND PHYSICAL: DATE OF ADMISSION: 11/26/18 SUPERVISING PSYCHIATRIST: Dr. Lewis Phelan* (dictated by ANNE MARIE Rogers) . JUSTIFICATION FOR ADMISSION: The patient presented to the emergency department after an appointment with her mental health counselor with complaints of suicidal ideation, plan to overdose on medication. She continues to endorse suicidal ideation. She merits hospitalization for immediate safety and stabilization. CHIEF COMPLAINT: "I came here because I have suicidal thoughts." HISTORY OF PRESENT ILLNESS: Stephania is a 53-year-old white female with a long history of mental illness and comorbid medical diagnoses, multiple medical and psychiatric admissions, who presented to the emergency department in an agitated state with suicidal ideation and needing to be admitted to the psychiatric unit. The patient reports she has been having suicidal thoughts for the past 2 weeks. She reports stressors of her father dying last February and her 2 nephews suiciding. The patient is known to be a poor historian and perseverate on somatic complaints and past trauma. We do know that she has had deaths in her family including suicide of her nephew, although her timeline is askew. During interview, the patient repeats same information multiple times including that she was at [facility] after her dad's in February. She states that she is having difficulty at home with her mother and her nephew Osman, with whom she has lived for many years. She states that they tell her that she is mean and that she is a "drug addict and that she needs rehab." She reports that her nephew makes her anesthesiologist attending the corner and threatens to have her arrested. The patient denies physical abuse. She denies that she is aggressive at home. The patient reports depressed mood, thoughts of suicide. She reports loss of appetite and a weight decrease of 10 pounds in the last 7 to 8 months. She is able to recall current medications and lists them repeatedly. She is tearful at times and reports fear that her mother would not let her return home. She states that she is afraid of having to go to long-term care. While in the emergency department and directly after admission to the mental health unit, the patient was agitated, yelling, and she has received IM Benadryl along with oral olanzapine for agitation. As stated above, the patient is a limited historian. She gave me permission to call [facility] and the patient has not been hospitalized on their unit since 2013. She has been seen in the emergency room multiple times. According to [facility], she receives temazepam from her primary psychiatric provider and has received lorazepam twice this year in a limited supply from the ED at [facility]. The patient denies auditory or visual hallucinations. She reports difficulty sleeping, endorses anxiety. PAST PSYCHIATRIC HISTORY: The patient has had multiple psychiatric hospitalizations at [facility], [facility], [facility], and [facility]. As stated above, she has not been hospitalized in a psychiatric unit here or at [facility] since 2013. The patient has been a client of [facility] for many years. She sees Nadia Florez, psychiatric nurse practitioner and Dwayne Chan, community nurse therapist. She has had past diagnoses of borderline personality disorder, PTSD, depressive disorder, and intellectual disability. The patient reports she is currently diagnosed with bipolar 2 disorder. PAST SUICIDE/SELF-HARM: The patient denies self-injurious behavior. She reports a history of 6 suicide attempts via overdose. PAST MEDICAL HISTORY: Type 2 diabetes mellitus, hypertension, hypercholesterolemia, previous obesity, chronic headaches. PAST SURGICAL HISTORY: Appendectomy in 1975, bladder surgery in 1972, ORIF of the right ankle 5 years ago. CURRENT MEDICATIONS: 1. Aspirin EC 81 mg p.o. daily. 2. Atomoxetine 40 mg daily. 3. Depakote ER 2000 mg p.o. q.h.s. 4. Insulin Lantus 15 units subcutaneous daily. 5. Melatonin 6 mg p.o. q.h.s. 6. Metformin 1000 mg p.o. b.i.d. 7. Mirtazapine 15 mg p.o. q.h.s. 8. [place]-3 fatty acids 1000 mg p.o. daily. 9. MiraLAX 17 g daily. 10. Quetiapine 800 mg p.o. q.h.s. 11. Temazepam 30 mg p.o. q.h.s. ALLERGIES: ZIPRASIDONE, ERYTHROMYCIN, SULFA, THORAZINE, HALOPERIDOL, PROLIXIN, LITHIUM, and GANTRISIN. FAMILY PSYCHIATRIC HISTORY: The patient's father and sister with bipolar disorder, nephew with suicide, and multiple family members with substance use history. SOCIAL HISTORY: Stephania lives with her mother and nephew. She is never , has no children and has lived with her mother. She has a history of intellectual disability, but is proud of having taken college courses. The patient denies alcohol, marijuana, or tobacco use. She has a history of benzodiazepine dependence. REVIEW OF SYSTEMS: Constitutional: Negative. No fevers, chills, or fatigue. ENT: Negative. Cardiovascular: Negative. Denies chest pain or palpitations. Respiratory: Negative. Denies shortness of breath or cough. Genitourinary: Frequent urination. Musculoskeletal: Negative. Neurological: Negative. PHYSICAL EXAMINATION GENERAL: The patient is well appearing, well nourished. VITAL SIGNS: T 97.5, P 81, respiration rate 16, O2 saturation 100%, BP 114/67. HEENT: Head and face: Normal head and face inspection. Eyes: Positive EOMI. PERRL. Conjunctivae clear. NECK: Supple. Full ROM. Trachea midline. RESPIRATORY: Lung sounds clear to auscultation, breath sounds present. CARDIOVASCULAR: Heart RRR. Pulses are symmetrical in both upper and lower extremities. MUSCULOSKELETAL: Normal strength. ROM intact. NEUROLOGICAL: Normal sensory and motor intact. Alert and oriented x3, with normal gait. Cerebellar function intact. SKIN: Warm and dry. Color reflects adequate perfusion. LABORATORY DATA: RBC low at 3.69, MCH 33, MPV 7, absolute neutrophils 1.2. Chemistry: Chloride 100, carbon dioxide 33, BUN/creatinine ratio 27.4, glucose 163 nonfasting. Her fingerstick this morning was 171. Hemoglobin A1c 8.2. Lipid panel within normal limits. TSH normal at 1.83. Urinalysis: Trace ketones and 3+ glucose. Toxicology negative for salicylates, acetaminophen, or alcohol. Urine drug screen is positive for benzodiazepines, which are prescribed. MENTAL STATUS EXAM: Stephania is a 53-year-old white female, edentulous, well groomed with thin a frame, casually dressed in her own clothing. She is also wearing glasses. She is alert and oriented x3. She is pleasant and cooperative. She recalls many of the staff by name. Eye contact is good. Speech is soft, spontaneous, mumbled at times. Concentration fair. Memory fair. Mood is anxious and dysphoric with tearful affect at times. No abnormal psychomotor activity noted. Thought process is circumstantial and coherent. Thought content is positive for SI. She denies auditory or visual hallucinations. There are no perceptual disturbances noted. Insight and judgment are poor. Fund of knowledge is adequate, and she has a low average intellect. DIAGNOSES: 1. Bipolar 2 disorder. 2. Posttraumatic stress disorder. 3. Borderline personality disorder. 4. Intellectual disability. ASSESSMENT: Stephania is a 53-year-old female with a history of intellectual disability, posttraumatic stress disorder, borderline personality disorder, and bipolar 2 disorder, who is well known to this unit from historical psychiatric admissions. Fortunately, she has not been hospitalized for many years and has been stable in the outpatient setting. She presented to the emergency department in an agitated state after an appointment with her therapist when she disclosed suicidal ideation and the desire to be hospitalized. She was agitated and yelling in the ED, demanding to be admitted. She presents as impulsive and anxious. She reports conflicts in the home with her mother and nephew. PLAN: The patient is admitted to adult behavioral services unit on voluntary status. Code status is full. She is placed on 15-minute checks for safety. She is already participating in supportive milieu, individual sessions with staff and psychoeducational groups. She is on a consistent carbohydrate diet. Outpatient medications have been resumed. We will continue to monitor for thought and mood content. Collateral information will be obtained from outpatient providers. Family will be involved in discharge planning. Estimated length of stay is 3 to 5 days. ANNE MARIE ROGERS [id number]/CPS #: [id number] CHU
[2018-11-27] MEDS: Divalproex ER TAB(*) 500 MG PO SCH (19:59)
[2018-11-27] MEDS: Mirtazapine TAB* 15 MG PO SCH (20:00)
[2018-11-27] MEDS: QUEtiapine TAB* 300 MG PO SCH (20:00)
[2018-11-27] MEDS: QUEtiapine TAB* 100 MG PO SCH (20:01)
[2018-11-27] MEDS: Melatonin 3 MG TAB PO PRN (20:12)
[2018-11-27] MEDS: Temazepam CAP* 15 MG PO PRN (20:12)
[2018-11-28] MEDS: metFORMIN* 1,000 MG TAB PO SCH ×2 (09:50→16:50)
[2018-11-28] MEDS: Vitamin THERAPEUTIC TAB PO SCH (09:50)
[2018-11-28] MEDS: Aspirin EC TAB* 81 MG TAB.EC PO SCH (09:50)
[2018-11-28] MEDS: Polyethylene Glycol 3350* 17 GM PACKET PO SCH (09:51)
[2018-11-28] MEDS: CMCS:OMEGA-3 FATTY ACIDS (NF) 1,000 MG CAP PO SCH (09:54)
[2018-11-28] MEDS: Insulin GLARGINE(*) 1 UNITS UNIT SUBCUT SCH (09:56)
[2018-11-28] MEDS: Acetaminophen TAB* 325 MG PO PRN (09:58)
[2018-11-28] MEDS: CMCS:Atomoxetine (NF) 40 MG CAP PO SCH (13:43)
[2018-11-28] MEDS: Temazepam CAP* 15 MG PO PRN (19:59)
[2018-11-28] MEDS: QUEtiapine TAB* 300 MG PO SCH (20:00)
[2018-11-28] MEDS: QUEtiapine TAB* 100 MG PO SCH (20:00)
[2018-11-28] MEDS: Melatonin 3 MG TAB PO PRN (20:00)
[2018-11-28] MEDS: Mirtazapine TAB* 15 MG PO SCH (20:00)
[2018-11-28] MEDS: Divalproex ER TAB(*) 500 MG PO SCH (20:00)
[2018-11-28] MEDS: OLANzapine TAB* 5 MG PO PRN (20:51)
[2018-11-29] MEDS: Aspirin EC TAB* 81 MG TAB.EC PO SCH (09:02)
[2018-11-29] MEDS: metFORMIN* 1,000 MG TAB PO SCH ×2 (09:02→17:06)
[2018-11-29] MEDS: Insulin GLARGINE(*) 1 UNITS UNIT SUBCUT SCH (09:04)
[2018-11-29] MEDS: Polyethylene Glycol 3350* 17 GM PACKET PO SCH (09:05)
[2018-11-29] MEDS: Vitamin THERAPEUTIC TAB PO SCH (09:05)
[2018-11-29] MEDS: CMCS:OMEGA-3 FATTY ACIDS (NF) 1,000 MG CAP PO SCH (09:50)
[2018-11-29] MEDS: CMCS:Atomoxetine (NF) 40 MG CAP PO SCH (09:50)
[2018-11-29] MEDS: QUEtiapine TAB* 100 MG PO SCH (20:02)
[2018-11-29] MEDS: Divalproex ER TAB(*) 500 MG PO SCH (20:02)
[2018-11-29] MEDS: QUEtiapine TAB* 300 MG PO SCH (20:02)
[2018-11-29] MEDS: Melatonin 3 MG TAB PO PRN (20:03)
[2018-11-29] MEDS: Temazepam CAP* 15 MG PO PRN (20:03)
--- NOTE | 2018-11-29 20:48 | PN ---
Subjective - Subjective Date of Service: 11/29/18 Service Type: 82758 Hosp care 25 min moderate complexity Subjective: Jessica remains the same with her intrussive and childish behaviors but easily re -directable. Still pressured and illogical in he thoughts and conversations. Objective - General Observations Appearance: Neat Appears Stated Age: Yes Stature: Thin Posture: WNL Eye Contact: Average Behavior/Activity: Accelerated, Impulsive - Interaction Observations Attitude Towards Examiner: Cooperative, Anxious Stated Mood: Expansive, Anxious Affect: Bright Speech Pattern/Tone: Excessive, Pressured Thought Process: Circumstantial, Over Inclusive, [place] Thought Content: Preoccupation/Ruminations Hallucination Type: Denies Delusion Type: Denies - Cognitive Function Orientation: A&O x 4 Level of Consciousness: Awake, Alert Cognition: WNL Estimated Intelligence: Borderline Range Judgment Within Normal Limits: No Ability to Make Reasonable Decisions: Serverely Impaired - Medication Compliance Cooperative with Inpatient Medication Regimen: Yes - Group Participation Participates in Group Activities: No Assessment - Assessment Merits Inpatient Hospitalization: For Immediate Safety, For Stabilization, Pending Safe DC Plan Plan - Plan Treatment Plan: Name: NUBIA DORADO Birthdate: 1965 [id number] Continued Medication Management: Continue Outpt Medication Medications: Current Medications Acetaminophen (Tylenol Tab*) 650 mg PO Q8H PRN PRN Reason: PAIN - MODERATE Last Admin: 11/28/18 09:58 Dose: 650 mg Al Hydrox/Mg Hydrox/Simethicone (Maalox Plus*) 30 ml PO Q4H PRN PRN Reason: INDIGESTION Aspirin (Aspirin Ec Tab*) 81 mg PO DAILY [facility] Last Admin: 11/29/18 09:02 Dose: 81 mg Atomoxetine HCl (Strattera (Nf)) 40 mg PO DAILY [facility] Last Admin: 11/29/18 09:50 Dose: 40 mg Divalproex Sodium (Depakote Er Tab(*)) 2,000 mg PO BEDTIME [facility] Last Admin: 11/29/18 20:02 Dose: 2,000 mg Fish Oil (Fish Oil (Nf)) 1,000 mg PO DAILY [facility] Last Admin: 11/29/18 09:50 Dose: 1,000 mg Ibuprofen (Motrin Tab*) 400 mg PO Q8H PRN PRN Reason: PAIN Last Admin: 11/26/18 16:48 Dose: 400 mg Insulin Glargine (Lantus(*)) 15 units SUBCUT DAILY [facility] Last Admin: 11/29/18 09:04 Dose: 15 units Melatonin (Melatonin) 6 mg PO BEDTIME PRN PRN Reason: INSOMNIA Last Admin: 11/29/18 20:03 Dose: 6 mg Metformin HCl (Glucophage*) 1,000 mg PO BID WITH MEALS [facility] Last Admin: 11/29/18 17:06 Dose: 1,000 mg Mirtazapine (Remeron Tab*) 15 mg PO BEDTIME [facility] Last Admin: 11/28/18 20:00 Dose: 15 mg Multivitamins (Theragran Tab*) 1 tab PO DAILY [facility] Last Admin: 11/29/18 09:05 Dose: 1 tab Olanzapine (Zyprexa Tab*) 5 mg PO Q6H PRN PRN Reason: AGITATION Last Admin: 11/28/18 20:51 Dose: 5 mg Polyethylene Glycol/Electrolytes (Miralax*) 17 gm PO DAILY [facility] Last Admin: 11/29/18 09:05 Dose: 17 gm Quetiapine Fumarate (Seroquel Tab*) 600 mg PO BEDTIME [facility] Last Admin: 11/29/18 20:02 Dose: 600 mg Quetiapine Fumarate (Seroquel Tab*) 200 mg PO BEDTIME [facility] Last Admin: 11/29/18 20:02 Dose: 200 mg Temazepam (Restoril Cap*) 30 mg PO BEDTIME PRN PRN Reason: SLEEP Last Admin: 11/29/18 20:03 Dose: 30 mg - Discharge Plan Discharge Plan: Outpatient Follow Up Outpatient Program: [facility]
[2018-11-30] MEDS: Mirtazapine TAB* 15 MG PO SCH ×2 (05:27→20:21)
[2018-11-30] MEDS: Insulin GLARGINE(*) 1 UNITS UNIT SUBCUT SCH (09:06)
[2018-11-30] MEDS: Polyethylene Glycol 3350* 17 GM PACKET PO SCH (09:09)
[2018-11-30] MEDS: Vitamin THERAPEUTIC TAB PO SCH (09:09)
[2018-11-30] MEDS: metFORMIN* 1,000 MG TAB PO SCH ×2 (09:09→17:01)
[2018-11-30] MEDS: Acetaminophen TAB* 325 MG PO PRN ×2 (09:10→17:14)
[2018-11-30] MEDS: Aspirin EC TAB* 81 MG TAB.EC PO SCH (09:10)
[2018-11-30] MEDS: CMCS:OMEGA-3 FATTY ACIDS (NF) 1,000 MG CAP PO SCH (09:11)
[2018-11-30] MEDS: CMCS:Atomoxetine (NF) 40 MG CAP PO SCH (09:11)
[2018-11-30 13:20] VITALS: BP 129/87
--- NOTE | 2018-11-30 18:35 | PN ---
Subjective - Subjective Date of Service: 11/30/18 Service Type: 41492 Hosp care 15 min low complexity Subjective: Jessica continues to be illogical and childlike with intrusive and impulsive behaviors but easily redirectable. Denies SI or HI. Objective - General Observations Appearance: Neat Appears Stated Age: Yes Stature: WNL Posture: WNL Eye Contact: Average Behavior/Activity: Accelerated - Interaction Observations Attitude Towards Examiner: Cooperative Stated Mood: Elevated, Anxious Affect: Bright Speech Pattern/Tone: Pressured, Loud Volume Thought Process: Coherent, Circumstantial, [place] Perception: WNL Thought Content: Preoccupation/Ruminations Hallucination Type: Denies Delusion Type: Denies - Cognitive Function Orientation: A&O x 4 Level of Consciousness: Awake, Alert Cognition: WNL Estimated Intelligence: Borderline Range Judgment Within Normal Limits: No Ability to Make Reasonable Decisions: Moderately Impaired - Medication Compliance Cooperative with Inpatient Medication Regimen: Yes - Group Participation Participates in Group Activities: No Assessment - Assessment Merits Inpatient Hospitalization: For Stabilization, Pending Safe DC Plan Plan - Plan Treatment Plan: Name: NUBIA DORADO Birthdate: 1965 [id number] Continued Medication Management: Continue Outpt Medication Medications: Current Medications Acetaminophen (Tylenol Tab*) 650 mg PO Q8H PRN PRN Reason: PAIN - MODERATE Last Admin: 11/30/18 17:14 Dose: 650 mg Al Hydrox/Mg Hydrox/Simethicone (Maalox Plus*) 30 ml PO Q4H PRN PRN Reason: INDIGESTION Aspirin (Aspirin Ec Tab*) 81 mg PO DAILY [facility] Last Admin: 11/30/18 09:10 Dose: 81 mg Atomoxetine HCl (Strattera (Nf)) 40 mg PO DAILY [facility] Last Admin: 11/30/18 09:11 Dose: 40 mg Divalproex Sodium (Depakote Er Tab(*)) 2,000 mg PO BEDTIME [facility] Last Admin: 11/29/18 20:02 Dose: 2,000 mg Fish Oil (Fish Oil (Nf)) 1,000 mg PO DAILY [facility] Last Admin: 11/30/18 09:11 Dose: 1,000 mg Ibuprofen (Motrin Tab*) 400 mg PO Q8H PRN PRN Reason: PAIN Last Admin: 11/26/18 16:48 Dose: 400 mg Insulin Glargine (Lantus(*)) 15 units SUBCUT DAILY [facility] Last Admin: 11/30/18 09:06 Dose: 15 units Melatonin (Melatonin) 6 mg PO BEDTIME PRN PRN Reason: INSOMNIA Last Admin: 11/29/18 20:03 Dose: 6 mg Metformin HCl (Glucophage*) 1,000 mg PO BID WITH MEALS [facility] Last Admin: 11/30/18 17:01 Dose: 1,000 mg Mirtazapine (Remeron Tab*) 15 mg PO BEDTIME [facility] Last Admin: 11/30/18 05:27 Dose: 15 mg Multivitamins (Theragran Tab*) 1 tab PO DAILY [facility] Last Admin: 11/30/18 09:09 Dose: 1 tab Olanzapine (Zyprexa Tab*) 5 mg PO Q6H PRN PRN Reason: AGITATION Last Admin: 11/28/18 20:51 Dose: 5 mg Polyethylene Glycol/Electrolytes (Miralax*) 17 gm PO DAILY [facility] Last Admin: 11/30/18 09:09 Dose: 17 gm Quetiapine Fumarate (Seroquel Tab*) 600 mg PO BEDTIME [facility] Last Admin: 11/29/18 20:02 Dose: 600 mg Quetiapine Fumarate (Seroquel Tab*) 200 mg PO BEDTIME [facility] Last Admin: 11/29/18 20:02 Dose: 200 mg Temazepam (Restoril Cap*) 30 mg PO BEDTIME PRN PRN Reason: SLEEP Last Admin: 11/29/18 20:03 Dose: 30 mg - Discharge Plan Discharge Plan: Outpatient Follow Up Outpatient Program: [facility]
[2018-11-30] MEDS: Divalproex ER TAB(*) 500 MG PO SCH (20:20)
[2018-11-30] MEDS: QUEtiapine TAB* 100 MG PO SCH (20:21)
[2018-11-30] MEDS: Melatonin 3 MG TAB PO PRN (20:21)
[2018-11-30] MEDS: QUEtiapine TAB* 300 MG PO SCH (20:21)
[2018-11-30] MEDS: Temazepam CAP* 15 MG PO PRN (20:21)
[2018-12-01] MEDS: Insulin GLARGINE(*) 1 UNITS UNIT SUBCUT SCH (09:36)
[2018-12-01] MEDS: CMCS:Atomoxetine (NF) 40 MG CAP PO SCH (09:37)
[2018-12-01] MEDS: Acetaminophen TAB* 325 MG PO PRN (09:37)
[2018-12-01] MEDS: metFORMIN* 1,000 MG TAB PO SCH (09:37)
[2018-12-01] MEDS: Aspirin EC TAB* 81 MG TAB.EC PO SCH (09:37)
[2018-12-01] MEDS: Vitamin THERAPEUTIC TAB PO SCH (09:38)
[2018-12-01] MEDS: Polyethylene Glycol 3350* 17 GM PACKET PO SCH (09:38)
[2018-12-01] MEDS: CMCS:OMEGA-3 FATTY ACIDS (NF) 1,000 MG CAP PO SCH (09:38)
--- NOTE | 2018-12-01 10:30 | DCNOTE ---
Subjective - Subjective Service Types: [id number] Hosp DC Day Mgmt simple under 30 min Discharge Date: 12/01/18 Subjective: Patient is tearful and reports fear of continued hospitalization or being referred to [facility]. She denies SI, passive wish or urges for self harm. She states she is ready to return home and wants to call a friend for a ride. Objective - General Observations Appearance: Well Groomed Stature: Thin Posture: WNL Eye Contact: Average Behavior/Activity: WNL - Interaction Observations Attitude Towards Examiner: Cooperative Stated Mood: Euthymic Affect: Full Speech Pattern/Tone: Clear, Appropriate, Normal Volume Thought Process: Coherent, Goal Directed Perception: WNL Thought Content: WNL Hallucination Type: None Delusion Type: None - Cognitive Function Orientation: A&O x 4 Level of Consciousness: Alert Cognition: WNL Estimated Intelligence: Borderline Range Insight: WNL Judgment Within Normal Limits: Yes - Medication Compliance Cooperative with Inpatient Medication Regimen: Yes - Group Participation Participates in Group Activities: Yes DC Assessment - Assessment Clinical Impression: 53yo white female with a history of intellectual disability, PTSD, borderline personality disorder and unspecified bipolar d/o and multiple psychiatric admissions. She presented to her outpatient therapist with c/o suicidal ideation and demanding admission to hospital. Patient has stabilized in this setting and reports desire to return home. Merits Inpatient Hospitalization: No Clear for Discharge: Adequate Clinical Respons, Acceptable Safety Profile Inpatient DSM-V Dx: F31.9 Discharge Planning - Discharge Planning Discharge Plan: Outpatient Follow Up Outpatient Program: [facility] Recommendations for Continuing Care: Medication Management, Psychotherapy, Routine Metabolic Monitoring, Primary Care Followup Medications: Current Medications Aspirin (Aspirin Ec Tab*) 81 mg PO DAILY [facility] Last Admin: 12/01/18 09:37 Dose: 81 mg Atomoxetine HCl (Strattera (Nf)) 40 mg PO DAILY [facility] Last Admin: 12/01/18 09:37 Dose: 40 mg Divalproex Sodium (Depakote Er Tab(*)) 2,000 mg PO BEDTIME [facility] Last Admin: 11/30/18 20:20 Dose: 2,000 mg Fish Oil (Fish Oil (Nf)) 1,000 mg PO DAILY [facility] Last Admin: 12/01/18 09:38 Dose: Not Given Ibuprofen (Motrin Tab*) 400 mg PO Q8H PRN PRN Reason: PAIN Last Admin: 11/26/18 16:48 Dose: 400 mg Insulin Glargine (Lantus(*)) 15 units SUBCUT DAILY [facility] Last Admin: 12/01/18 09:36 Dose: 15 units Melatonin (Melatonin) 6 mg PO BEDTIME PRN PRN Reason: INSOMNIA Last Admin: 11/30/18 20:21 Dose: 6 mg Metformin HCl (Glucophage*) 1,000 mg PO BID WITH MEALS [facility] Last Admin: 12/01/18 09:37 Dose: 1,000 mg Mirtazapine (Remeron Tab*) 15 mg PO BEDTIME [facility] Last Admin: 11/30/18 20:21 Dose: 15 mg Multivitamins (Theragran Tab*) 1 tab PO DAILY [facility] Last Admin: 12/01/18 09:38 Dose: 1 tab Polyethylene Glycol/Electrolytes (Miralax*) 17 gm PO DAILY [facility] Last Admin: 12/01/18 09:38 Dose: 17 gm Quetiapine Fumarate (Seroquel Tab*) 600 mg PO BEDTIME [facility] Last Admin: 11/30/18 20:21 Dose: 600 mg Quetiapine Fumarate (Seroquel Tab*) 200 mg PO BEDTIME [facility] Last Admin: 11/30/18 20:21 Dose: 200 mg Temazepam (Restoril Cap*) 30 mg PO BEDTIME PRN PRN Reason: SLEEP Last Admin: 11/30/18 20:21 Dose: 30 mg Discharge Planning: Prescriptions provided for discharge [] Yes [x] No Follow up care details as per social work arrangements: [facility] Stella Burns- primary care Patient response to discharge plan: [x] eager for discharge [x] agreeable with discharge plan [] ambivalent about discharge [] disagrees with discharge today
--- NOTE | 2018-12-01 11:43 | PN ---
[facility]: Group Therapy Note - Service Type Service Type: [id number] Group Psychotherapy - CBT Group Note: Stephania attended programming and expressed great relief at being able to go home today, as she feared she would be sent to a state hospital instead. She presents in characteristic fashion, needing repeated reassurance that it's ok for her to go home.
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
== END 2018-12-01 13:36 | disposition home or self-care (01) | DRG 885 ==
LOC: ED 12:45 → BSU 15:29
PROVIDERS: ADMIT Psychiatry & Neurology Psychiatry; ATTEND Psychiatry & Neurology Psychiatry
DX: F31.81 Bipolar II disorder (principal); R45.851 Suicidal ideations; F43.10 Post-traumatic stress disorder, unspecified; F60.3 Borderline personality disorder; F79 Unspecified intellectual disabilities; E11.9 Type 2 diabetes mellitus without complications; I10 Essential (primary) hypertension; E78.00 Pure hypercholesterolemia, unspecified; G44.89 Other headache syndrome; Z79.84 Long term (current) use of oral hypoglycemic drugs; Z79.82 Long term (current) use of aspirin; Z79.4 Long term (current) use of insulin; Z79.899 Other long term (current) drug therapy; Z88.1 Allergy status to other antibiotic agents; Z88.2 Allergy status to sulfonamides; Z88.8 Allergy status to other drugs, medicaments and biological substances; Z81.8 Family history of other mental and behavioral disorders; Z81.3 Family history of other psychoactive substance abuse and dependence
CPT/HCPCS: 36415; 80053; 80061; 80307; 80320; 80329; 81003; 83036; 84443; 85025; 90853; 99222; 99231; 99238; 99284; A9270-GY; G0480; J1200

== ENCOUNTER 2018-12-21 18:01 | Emergency (ER) | payer MEDICARE, MEDICAID ==
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
[2018-12-21] MEDS ORDERED: LORazepam TAB(*) 1 MG PO ONE (19:50)
[2018-12-21] MEDS ORDERED: Temazepam CAP* 15 MG PO ONE (20:07)
[2018-12-21] MEDS ORDERED: ALPRAZolam TAB* 0.5 MG PO ONE (20:44)
[2018-12-21] MEDS ORDERED: Acetaminophen TAB* 325 MG PO ONE (21:31)
[2018-12-21 22:25] VITALS: BP 148/92
== END 2018-12-21 22:26 | disposition home or self-care (01) ==
LOC: ED 18:01
DX: F41.9 Anxiety disorder, unspecified (principal); F31.9 Bipolar disorder, unspecified; F43.10 Post-traumatic stress disorder, unspecified; E11.9 Type 2 diabetes mellitus without complications; E78.00 Pure hypercholesterolemia, unspecified; I10 Essential (primary) hypertension; Z88.1 Allergy status to other antibiotic agents; Z88.2 Allergy status to sulfonamides; Z88.8 Allergy status to other drugs, medicaments and biological substances; Z79.4 Long term (current) use of insulin; Z79.899 Other long term (current) drug therapy
CPT/HCPCS: 99285; A9270-GY

== ENCOUNTER 2019-02-27 12:19 | Emergency (ER) | payer MEDICARE, MEDICAID ==
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
[2019-02-27 12:47] LABS: Hematocrit 36 % (35-47); Mean Corpuscular HGB Conc 34 g/dL (31-36); Mean Corpuscular Hemoglobin 32 pg (27-31); Mean Corpuscular Volume 96 fL (80-97); Mean Platelet Volume 6.5 fL (7.4-10.4); Platelet Count 124 10^3/uL (150-450); Red Cell Distribution Width 15 % (10-15); White Blood Count 3.4 10^3/uL (3.5-10.8)
[2019-02-27 13:04] LABS: ALT 13 U/L (7-52); AST 17 U/L (13-39); Albumin 3.4 g/dL (3.2-5.2); Albumin/Globulin Ratio 1.1 (1-3); Alkaline Phosphatase 48 U/L (34-104); Anion Gap 4 mmol/L (2-11); BUN/Creatinine Ratio 19.3 (8-20); Blood Urea Nitrogen 16 mg/dL (6-24); CO2 Carbon Dioxide 30 mmol/L (22-32); Calcium 9.4 mg/dL (8.6-10.3); Chloride 101 mmol/L (101-111); EGFR Non-African American 71.1 (>60); Globulin 3.2 g/dL (2-4); Glucose 126 mg/dL (70-100); Potassium 4.5 mmol/L (3.5-5.0); Sodium 135 mmol/L (135-145); Total Protein 6.6 g/dL (6.4-8.9)
[2019-02-27 13:10] LABS: Acetaminophen < 15 mcg/mL; Alcohol < 10 mg/dL (<10); Salicylate < 2.50 mg/dL (<30)
[2019-02-27 13:25] LABS: TSH (Thyroid Stimulating Horm) 2.62 mcIU/mL (0.34-5.60)
[2019-02-27 13:36] LABS: ABS Lymphocytes 1.9 10^3/ul (1.0-4.8); ABS Monocytes 0.4 10^3/ul (0-0.8); Eosinophil % 0.1 %; Lymphocyte % 57.4 %; Nucleated Red Blood Cells % 0.2
[2019-02-27 13:39] LABS: Urine Appearance Clear; Urine Bilirubin Negative (Negative); Urine Blood 1+ (Negative); Urine Color Straw; Urine Glucose Negative (Negative); Urine Ketones Negative (Negative); Urine Nitrite Negative (Negative); Urine Protein Negative (Negative); Urine Specific Gravity 1.006 (1.010-1.030); Urine Urobilinogen Negative (Negative)
[2019-02-27 13:51] LABS: Urine Bacteria 1+ (Absent); Urine Red Blood Cell Trace(0-2/hpf) (Absent); Urine White Blood Cell Trace(0-5/hpf) (Absent)
[2019-02-27] MEDS ORDERED: Ibuprofen TAB* 600 MG PO ONE (13:54)
[2019-02-27 13:55] LABS: Urine Benzodiazepine Screen Presumptive Positive (None Detect); Urine Opiates Screen None Detected (None Detect)
[2019-02-27 14:42] VITALS: BP 125/96
== END 2019-02-27 14:15 | disposition home or self-care (01) ==
LOC: ED 12:19
DX: F32.9 Major depressive disorder, single episode, unspecified (principal); E11.9 Type 2 diabetes mellitus without complications; E78.00 Pure hypercholesterolemia, unspecified; I10 Essential (primary) hypertension; F41.9 Anxiety disorder, unspecified; F90.9 Attention-deficit hyperactivity disorder, unspecified type; F43.10 Post-traumatic stress disorder, unspecified; Z90.89 Acquired absence of other organs; Z79.4 Long term (current) use of insulin; Z79.899 Other long term (current) drug therapy; Z88.1 Allergy status to other antibiotic agents; Z88.2 Allergy status to sulfonamides; Z88.8 Allergy status to other drugs, medicaments and biological substances
CPT/HCPCS: 36415; 80053; 80307; 80320; 80329; 81003; 81015; 84443; 85025; 85060; 87086; 99284; A9270-GY; G0480

== ENCOUNTER 2019-03-22 03:18 | Emergency (ER) | payer MEDICARE, MEDICAID ==
--- NOTE | 2019-03-22 03:29 | ED ---
Psychiatric Complaint - HPI Summary HPI Summary: Patient is a 54 y/o F presenting to [facility] via EMS with complaints of depression. She claims that her father has recently . It is reported that the patient had called EMS earlier in the evening with regards to her depression. She was brought to [facility] ED for evaluation and later discharged. She later called EMS once more and stated that she was going to slit her wrists with a knife. In the room, patient denies SI. EMS states that the patient was displeased with her workup at [facility] as the night doctor that she likes was not on shift and they refused to administer medication to help her sleep. Patient is unable to see her therapist until April 01, 2019. Patient also reports recent difficulty sleeping. Home medications and allergies are reviewed. - History Of Current Complaint Time Seen by Provider: 03/22/19 03:21 Hx Obtained From: Patient Hx Last Menstrual Period: 5 years ago Onset/Duration: Still Present Timing: Constant Character: Depressed Aggravating Factor(s): Recent Stress Alleviating Factor(s): Nothing Associated Signs And Symptoms: Positive: Sleep Disturbance Has Suicidal: Reports: Thoughts - patient had threatened to slit her wrists but denies SI in room - Allergies/Home Medications Allergies/Adverse Reactions: Allergies Allergy/AdvReac Type Severity Reaction Status Date / Time ziprasidone [From Geodon] Allergy Severe Unknown Verified 03/22/19 03:40 Reaction Details erythromycin base Allergy Intermediate Rash Verified 03/22/19 03:40 Sulfa (Sulfonamide Allergy Unknown Unknown Verified 03/22/19 03:40 Antibiotics) Reaction Details chlorpromazine AdvReac Severe Hallucinati Verified 03/22/19 03:40 [From Thorazine] ons haloperidol [From Haldol] AdvReac Severe Hallucinati Verified 03/22/19 03:40 ons fluphenazine [From Prolixin] AdvReac Intermediate depression Verified 03/22/19 03:40 lithium AdvReac Intermediate depression Verified 03/22/19 03:40 sulfisoxazole AdvReac Intermediate Nausea Verified 03/22/19 03:40 [From Gantrisin] PMH/Surg Hx/FS Hx/Imm Hx Endocrine/Hematology History: Reports: Hx Diabetes Denies: Hx Anticoagulant Therapy, Hx Blood Disorders, Hx Blood Transfusions, Hx Bone Marrow Disease, Hx Systemic Lupus Erythematosus, Hx Sickle Cell Disease , Hx Thyroid Disease, Hx Anemia, Hx Unexplained Bleeding, Other Endocrine/ Hematological Disorders Cardiovascular History: Reports: Hx Hypercholesterolemia - HLD, Hx Hypertension Denies: Hx Aneurysm, Hx Angina, Hx Angioplasty, Hx Auto Implanted Cardiovert Defib, Hx Cardiac Arrest, Hx Cardiomegaly, Hx Congenital Heart Disease, Hx Congestive Heart Failure, Hx Coronary Artery Disease, Hx Deep Vein Thrombosis, Hx Embolism, Hx Hypotension, Hx Pacemaker/ICD, Hx Peripheral Vascular Disease, Hx Rheumatic Fever, Hx Syncope, Hx Valvular Heart Disease, Other Cardiovascular Problems/Disorders Respiratory History: Denies: Hx Asthma, Hx Chronic Bronchitis, Hx Chronic Obstructive Pulmonary Disease (COPD), Hx Cystic Fibrosis, Hx Lung Cancer, Hx Pleural Effusion, Hx Pneumonia, Hx Pulmonary Edema, Hx Pulmonary Embolism, Hx Seasonal Allergies, Hx Sleep Apnea, Other Respiratory Problems/Disorders GI History: Denies: Hx Cirrhosis, Hx Crohn's Disease, Hx Diverticulosis, Hx Gall Bladder Disease, Hx Gastroesophageal Reflux Disease, Hx Gastrointestinal Bleed, Hx Hiatal Hernia, Hx Irritable Bowel, Hx Jaundice, Hx Obstructive Bowel, Hx Ileostomy, Hx Pyloric Stenosis, Hx Ulcer, Other GI Disorders History: Denies: Hx Renal Disease Musculoskeletal History: Denies: Hx Arthritis, Hx Back Problems, Hx Bursitis, Hx Congenital Bone Abnormalities, Hx Fibromyalgia, Hx Gout, Hx Orthopedic Injury, Hx Osteoporosis, Hx Scoliosis, Hx Tendonitis, Other Musculoskeletal History Sensory History: Reports: Hx Contacts or Glasses, Hx Deafness - Hard of hearing , Hx Hearing Aid, Hx Hearing Problem Denies: Hx Cataracts, Hx Eye Injury, Hx Eye Prosthesis, Hx Glaucoma, Hx Legally Blind, Hx Macular Degeneration, Hx Vision Problem, Other Sensory Impairments Opthamlomology History: Reports: Hx Contacts or Glasses Denies: Hx Cataracts, Hx Eye Injury, Hx Eye Prosthesis, Hx Glaucoma, Hx Legally Blind, Hx Macular Degeneration, Hx Vision Problem, Other Sensory Impairments Neurological History: Reports: Hx Headaches, Hx Migraine Denies: Hx Dementia, Hx Developmental Delay, Hx Nerve Disease, Hx Seizures, Hx Spinal Cord Injury, Hx Transient Ischemic Attacks (TIA), Other Neuro Impairments/Disorders Psychiatric History: Reports: Hx Anxiety, Hx Attention Deficit Hyperactivity Disorder, Hx Depression, Hx Post Traumatic Stress Disorder - HX SEXUAL ABUSE CHILD, Hx Inpatient Treatment - HX PSYCHIATRIC HOSPITALIZATIONS, Hx Community Mental Health Tx, Hx Bipolar Disorder - BORDERLINE PERSONALITY DISORDER, Hx Suicide Attempt, Hx of Violent Episodes Against Others, Hx Substance Abuse - HX BENZO ABUSE, Other Psychiatric Issues/Disorders - HX SI/ATTEMPT Denies: Hx Eating Disorder, Hx Panic Disorder, Hx Schizophrenia - Cancer History Cancer Type, Location and Year: None reported Hx Chemotherapy: No Hx Radiation Therapy: No - Surgical History Surgery Procedure, Year, and Place: appendectomy 1975, 1972 bladder, 5yrs ago orif rt ankle Hx Anesthesia Reactions: No - Immunization History Date of Tetanus Vaccine: Unknown Date of Influenza Vaccine: 12/10/2012 Infectious Disease History: Denies: Hx Clostridium Difficile, Hx Hepatitis, Hx Human Immunodeficiency Virus (HIV), Hx of Known/Suspected MRSA, Hx Shingles, Hx Tuberculosis, Hx Known/ Suspected VRE, Hx Known/Suspected VRSA, History Other Infectious Disease - Family History Known Family History: Positive: Hypertension, Diabetes - Social History Alcohol Use: None Hx Substance Use: No Substance Use Type: Reports: None Hx Tobacco Use: No Smoking Status (MU): Never Smoked Tobacco Review of Systems Constitutional: Other - positive - sleep disturbance Psychological: Other - positive - patient had threatened to slit her wrists but denies SI in room Positive: Depressed All Other Systems Reviewed And Are Negative: Yes Physical Exam - Summary Physical Exam Summary: Appearance: Well-appearing, Well-nourished, lying in bed comfortable Skin: Warm, dry, no obvious rash Eyes: sclera anicteric, no conjunctival pallor ENT: mucous membranes moist Neck: deferred Respiratory: No signs of respiratory distress Cardiovascular: Appears well perfused, pulses are nml Abdomen: deferred Musculoskeletal: Moving all 4 extremities without obvious discomfort Neurological: Awake and alert, mentation is normal, speech is with some dysarthria but intelligible. Psychiatric: Patient's speech is very monotonous. She denies SI but EMS reports that the patient had threatened to slit her wrists. Triage Information Reviewed: Yes Vital Signs Reviewed: Yes Procedures - Sedation Patient Received Moderate/Deep Sedation with Procedure: No Re-Evaluation - Re-Evaluation First Eval Re-Evaluation Time: 03:33 Comment: Patient denies SI and refusing all workup. She states that she just wants to be discharged to home. I suspect that her prior expressions of SI were a way of convincing EMS to bring her here, after she was disappointed by her experience at [facility]. I do not feel she is at high risk of self harm and will not be kept here against her will. Course/Dx - Course Course Of Treatment: Patient is a 54 y/o F presenting to [facility] via EMS with complaints of depression. She claims that her father has recently . It is reported that the patient had called EMS earlier in the evening with regards to her depression. She was brought to [facility] ED for evaluation and later discharged. She later called EMS once more and stated that she was going to slit her wrists with a knife. In the room, patient denies SI. Patient is unable to see her therapist until April 01, 2019. Patient also reports recent difficulty sleeping. Neurological: Awake and alert, mentation is normal, speech is with some dysarthria but intelligible. Psychiatric: Patient's speech is very monotonous. She denies SI but EMS reports that the patient had threatened to slit her wrists. Patient denies SI and refusing all workup. She states that she just wants to be discharged to home. Patient discharged to home. - Differential Dx/Clinical Impression Provider Diagnosis: Depression Discharge ED - Sign-Out/Discharge Documenting (check all that apply): Patient Departure - discharge - Discharge Plan Condition: Good Disposition: HOME Patient Education Materials: Depression (ED) Referrals: Stella Burns MD [Primary Care Provider] - If Needed - Billing Disposition and Condition Condition: GOOD Disposition: Home - Attestation Statements Document Initiated by Aleyda: Yes Documenting Scribe: PAU GARCIA Provider For Whom Aleyda is Documenting (Include Credential): RIP CHENG MD Scribe Attestation: PAU Iverson, scribed for RIP CHENG MD on 03/23/19 at 0353. Scribe Documentation Reviewed: Yes Provider Attestation: The documentation as recorded by the PAU [email or web address] accurately reflects the service I personally performed and the decisions made by me, RIP CHENG MD Status of Scribe Document: Viewed
[2019-03-22] MEDS ORDERED: diPHENhydraMINE PO* 50 MG PO ONE (03:42)
[2019-03-22 04:13] VITALS: BP 145/99
== END 2019-03-22 04:00 | disposition home or self-care (01) ==
LOC: ED 03:18
DX: F32.9 Major depressive disorder, single episode, unspecified (principal); E11.9 Type 2 diabetes mellitus without complications; E78.00 Pure hypercholesterolemia, unspecified; I10 Essential (primary) hypertension; Z90.89 Acquired absence of other organs; Z88.1 Allergy status to other antibiotic agents; Z88.2 Allergy status to sulfonamides; Z88.8 Allergy status to other drugs, medicaments and biological substances; G47.00 Insomnia, unspecified; F41.9 Anxiety disorder, unspecified; F90.9 Attention-deficit hyperactivity disorder, unspecified type; F43.10 Post-traumatic stress disorder, unspecified
CPT/HCPCS: 99282; A9270-GY

== ENCOUNTER 2019-03-22 07:12 | Emergency (ER) | payer MEDICARE, MEDICAID ==
--- NOTE | 2019-03-22 07:16 | ED ---
Psychiatric Complaint - HPI Summary HPI Summary: 54 year old F w hx DM arriving via ambulance from home where she lives with her mother who takes care of her complains of insomnia since 3 hours ago and worsening depression about her sister being sick for several hours. Called EMS yesterday 03/21 PM, was brought to [facility], was not happy about her treatment there, called EMS today 03/22 AM again, was brought to [facility], and was seen here for similar symptoms. Was given Benadryl which did not help her sleep. Patient back today for similar symptoms. No suicidal ideation or homicidal ideation. Symptoms rated 0/10 in severity. Symptoms aggravated by recent life stress. Symptoms alleviated by nothing. Was supposed to see primary care provider/MH clinician but hasn't yet. PMHx reviewed. Medications reviewed. Takes multiple psych meds. - History Of Current Complaint Hx Last Menstrual Period: 5 years ago Onset/Duration: Lasting Hours, Still Present Timing: Constant Severity Currently: None Character: Depressed Aggravating Factor(s): Recent Stress Alleviating Factor(s): Nothing Has Suicidal: Denies: Thoughts Has Homicidal: Denies: Thoughts - Allergies/Home Medications Allergies/Adverse Reactions: Allergies Allergy/AdvReac Type Severity Reaction Status Date / Time ziprasidone [From Geodon] Allergy Severe Unknown Verified 03/22/19 03:40 Reaction Details erythromycin base Allergy Intermediate Rash Verified 03/22/19 03:40 Sulfa (Sulfonamide Allergy Unknown Unknown Verified 03/22/19 03:40 Antibiotics) Reaction Details chlorpromazine AdvReac Severe Hallucinati Verified 03/22/19 03:40 [From Thorazine] ons haloperidol [From Haldol] AdvReac Severe Hallucinati Verified 03/22/19 03:40 ons fluphenazine [From Prolixin] AdvReac Intermediate depression Verified 03/22/19 03:40 lithium AdvReac Intermediate depression Verified 03/22/19 03:40 sulfisoxazole AdvReac Intermediate Nausea Verified 03/22/19 03:40 [From Gantrisin] PMH/Surg Hx/FS Hx/Imm Hx Endocrine/Hematology History: Reports: Hx Diabetes Denies: Hx Anticoagulant Therapy, Hx Blood Disorders, Hx Blood Transfusions, Hx Bone Marrow Disease, Hx Systemic Lupus Erythematosus, Hx Sickle Cell Disease , Hx Thyroid Disease, Hx Anemia, Hx Unexplained Bleeding, Other Endocrine/ Hematological Disorders Cardiovascular History: Reports: Hx Hypercholesterolemia - HLD, Hx Hypertension Denies: Hx Aneurysm, Hx Angina, Hx Angioplasty, Hx Auto Implanted Cardiovert Defib, Hx Cardiac Arrest, Hx Cardiomegaly, Hx Congenital Heart Disease, Hx Congestive Heart Failure, Hx Coronary Artery Disease, Hx Deep Vein Thrombosis, Hx Embolism, Hx Hypotension, Hx Pacemaker/ICD, Hx Peripheral Vascular Disease, Hx Rheumatic Fever, Hx Syncope, Hx Valvular Heart Disease, Other Cardiovascular Problems/Disorders Respiratory History: Denies: Hx Asthma, Hx Chronic Bronchitis, Hx Chronic Obstructive Pulmonary Disease (COPD), Hx Cystic Fibrosis, Hx Lung Cancer, Hx Pleural Effusion, Hx Pneumonia, Hx Pulmonary Edema, Hx Pulmonary Embolism, Hx Seasonal Allergies, Hx Sleep Apnea, Other Respiratory Problems/Disorders GI History: Denies: Hx Cirrhosis, Hx Crohn's Disease, Hx Diverticulosis, Hx Gall Bladder Disease, Hx Gastroesophageal Reflux Disease, Hx Gastrointestinal Bleed, Hx Hiatal Hernia, Hx Irritable Bowel, Hx Jaundice, Hx Obstructive Bowel, Hx Ileostomy, Hx Pyloric Stenosis, Hx Ulcer, Other GI Disorders History: Denies: Hx Renal Disease Musculoskeletal History: Denies: Hx Arthritis, Hx Back Problems, Hx Bursitis, Hx Congenital Bone Abnormalities, Hx Fibromyalgia, Hx Gout, Hx Orthopedic Injury, Hx Osteoporosis, Hx Scoliosis, Hx Tendonitis, Other Musculoskeletal History Sensory History: Reports: Hx Contacts or Glasses, Hx Deafness - Hard of hearing , Hx Hearing Aid, Hx Hearing Problem Denies: Hx Cataracts, Hx Eye Injury, Hx Eye Prosthesis, Hx Glaucoma, Hx Legally Blind, Hx Macular Degeneration, Hx Vision Problem, Other Sensory Impairments Opthamlomology History: Reports: Hx Contacts or Glasses Denies: Hx Cataracts, Hx Eye Injury, Hx Eye Prosthesis, Hx Glaucoma, Hx Legally Blind, Hx Macular Degeneration, Hx Vision Problem, Other Sensory Impairments Neurological History: Reports: Hx Headaches, Hx Migraine Denies: Hx Dementia, Hx Developmental Delay, Hx Nerve Disease, Hx Seizures, Hx Spinal Cord Injury, Hx Transient Ischemic Attacks (TIA), Other Neuro Impairments/Disorders Psychiatric History: Reports: Hx Anxiety, Hx Attention Deficit Hyperactivity Disorder, Hx Depression, Hx Post Traumatic Stress Disorder - HX SEXUAL ABUSE CHILD, Hx Inpatient Treatment - HX PSYCHIATRIC HOSPITALIZATIONS, Hx Community Mental Health Tx, Hx Bipolar Disorder - BORDERLINE PERSONALITY DISORDER, Hx Suicide Attempt, Hx of Violent Episodes Against Others, Hx Substance Abuse - HX BENZO ABUSE, Other Psychiatric Issues/Disorders - HX SI/ATTEMPT Denies: Hx Eating Disorder, Hx Panic Disorder, Hx Schizophrenia - Cancer History Cancer Type, Location and Year: None reported Hx Chemotherapy: No Hx Radiation Therapy: No - Surgical History Surgery Procedure, Year, and Place: appendectomy 1975, 1972 bladder, 5yrs ago orif rt ankle Hx Anesthesia Reactions: No - Immunization History Date of Tetanus Vaccine: Unknown Date of Influenza Vaccine: 12/10/2012 Infectious Disease History: Denies: Hx Clostridium Difficile, Hx Hepatitis, Hx Human Immunodeficiency Virus (HIV), Hx of Known/Suspected MRSA, Hx Shingles, Hx Tuberculosis, Hx Known/ Suspected VRE, Hx Known/Suspected VRSA, History Other Infectious Disease - Family History Known Family History: Positive: Hypertension, Diabetes, Other - bipolar disorder , breat cancer - Social History Alcohol Use: None Hx Substance Use: No Substance Use Type: Reports: None Hx Tobacco Use: No Smoking Status (MU): Never Smoked Tobacco Review of Systems Negative: Fever Positive: Depressed, Other - insomnia; NEG: SI, HI All Other Systems Reviewed And Are Negative: Yes Physical Exam - Summary Physical Exam Summary: Constitutional: Well-developed, Well-nourished, Alert. (-) Distressed Skin: Warm, Dry HENT: Normocephalic; Atraumatic Eyes: Conjunctiva normal Neck: Musculoskeletal ROM normal neck. (-) JVD, (-) Stridor, (-) Nuchal rigidity Cardio: Rhythm regular, rate normal, Heart sounds normal; Intact distal pulses; Radial pulses are 2+ and symmetric. (-) Murmur Pulmonary/Chest wall: Effort normal. (-) Respiratory distress, (-) Wheezes, (-) Rales Abd: Soft, (-) tenderness, (-) Distension, (-) Guarding, (-) Rebound Musculoskeletal: (-) Edema Lymph: (-) Cervical adenopathy Neuro: Alert, Oriented x3 Psych: Mood and affect Normal Triage Information Reviewed: Yes Vital Signs Reviewed: Yes Procedures - Sedation Patient Received Moderate/Deep Sedation with Procedure: No Re-Evaluation - Re-Evaluation First Eval Re-Evaluation Time: 07:18 Comment: pt is medically cleared for psychiatric evaluation Course/Dx - Course Course Of Treatment: 54 y/o F w hx DM and depression p/w insomnia and depression. -Seen in ED x2, discharged. Requesting MHE. Denies active SI. Plan for ME evaluation - Differential Dx/Clinical Impression Provider Diagnosis: Insomnia - Physician Notifications Discussed Care Of Patient With: sanaz Time Discussed With Above Provider: 08:43 Instructed by Provider To: Other - Psychiatric aircraft armament mechanic reviewed case with Dr. Sow psychiatry. Patient will be discharged. Discharge ED - Sign-Out/Discharge Documenting (check all that apply): Patient Departure - Discharge Plan Condition: Stable Disposition: HOME Prescriptions: hydrOXYzine HCL TAB* [Atarax 25 MG TAB*] 25 mg PO QID PRN 14 Days #20 tab PRN Reason: Insomnia Referrals: Stella Burns MD [Primary Care Provider] - [facility] [Teachable, APPLICATION, OTHER] - (You have an apt. on 03/25 at noon with your therapist at [facility]. You have a medication management apt. on 04/01/19 with your Nurse Practioner at [facility]. ) - Billing Disposition and Condition Condition: STABLE Disposition: Home - Attestation Statements Document Initiated by Scribe: Yes Documenting Scribe: Meghna Borrego Provider For Whom Scribe is Documenting (Include Credential): Roya Washington MD Scribe Attestation: I, Meghna Borrego, scribed for Roya Washington MD on 03/22/19 at 0857. Scribe Documentation Reviewed: Yes Provider Attestation: The documentation as recorded by the scribeMeghna accurately reflects the service I personally performed and the decisions made by me, Roya Washington MD Status of Scribe Document: Viewed
[2019-03-22 09:00] VITALS: BP 164/107
--- NOTE | 2019-03-22 09:02 | PN ---
ED Psychiatric Progress Note Date of Service: 03/22/19 Subjective: Patient presents to the ED with chief complaint of difficulty sleeping. She denied suicidal ideation intent or plan and denied homicidal ideation intent or plan. Objective: 54 year old female resting comfortable in bed, no evidence of delusions, internal stimuli and denied suicidal/ homicidal ideation intent or plan Assessment: 54 year old male with a history of Borderline personality disorder, posttraumatic stress disorder, depressive disorder, benzodiazepine abuse, mild intellectual disability presented to the emergency room with trouble sleeping. Plan: # Mother was contacted and feels that returning to her home is a safe discharge plan #Patient provided with hydroxyzine for sleep # Patient has no access to firearms and no substance abuse or alcohol abuse, no command hallucinations no recent suicide attempts in last year, no current suicidal plan has outpatient follow up in place. Lives with her mother. No barriers to treatment. Patient able to verbalize needs and patients baseline was established and the patient is currently at baseline. Patient currently not hopeless or suicidal. # Notified of 21/10 availability of emergency room services in the event of a emergency to call 911 Vital Signs Temp Pulse Resp BP Pulse Ox 96.1 F 78 16 157/109 100 03/22/19 07:19 03/22/19 07:19 03/22/19 07:19 03/22/19 07:19 03/22/19 07:19 Lab Results - Entire Visit 03/22/19 08:02 POC Glucose (mg/dL) 188 H
== END 2019-03-22 09:52 | disposition home or self-care (01) ==
LOC: ED 07:12
DX: G47.00 Insomnia, unspecified (principal); E11.9 Type 2 diabetes mellitus without complications; E78.00 Pure hypercholesterolemia, unspecified; I10 Essential (primary) hypertension; F41.9 Anxiety disorder, unspecified; F90.9 Attention-deficit hyperactivity disorder, unspecified type; F43.10 Post-traumatic stress disorder, unspecified; Z90.89 Acquired absence of other organs; Z88.1 Allergy status to other antibiotic agents; Z88.2 Allergy status to sulfonamides; Z88.8 Allergy status to other drugs, medicaments and biological substances
CPT/HCPCS: 99284

== ENCOUNTER 2019-05-13 12:54 | Inpatient (IN) | payer MEDICARE, MEDICAID ==
--- NOTE | 2019-05-13 13:04 | ED ---
Psychiatric Complaint - HPI Summary HPI Summary: 54-year-old female with a significant psychiatric past medical history presents to the emergency department today complaining of suicidal ideation. Patient endorses a recent medication changes which she states is causing her to have difficulty sleeping. Patient went into [facility] today and told them these issues and stated if her medications did not change she would go home and kill herself. Patient has a plan stating she would "take my pills" . Patient denies homicidal ideation. Patient is also complaining of bilateral flank pain "where my kidneys are". Patient states she has had these symptoms for approximately 3 weeks. Patient otherwise feels well and denies fever, chest pain, abdominal pain, pain with urination, rash. - History Of Current Complaint Time Seen by Provider: 05/13/19 12:58 Hx Obtained From: Patient Hx Last Menstrual Period: 5 years ago Onset/Duration: Gradual Onset Timing: Constant Character: Depressed, Anxious Related History: Positive For: Prior Psychiatric Issues Has Suicidal: Reports: Thoughts, With A Plan, Has Prior Attempt(s). Denies: Demonstrates Gesture Has Homicidal: Denies: Thoughts, With A Plan, Demonstrates Gesture, Has Prior Attempt(s) - Allergies/Home Medications Allergies/Adverse Reactions: Allergies Allergy/AdvReac Type Severity Reaction Status Date / Time ziprasidone [From Geodon] Allergy Severe Unknown Verified 03/22/19 03:40 Reaction Details erythromycin base Allergy Intermediate Rash Verified 03/22/19 03:40 Sulfa (Sulfonamide Allergy Unknown Unknown Verified 03/22/19 03:40 Antibiotics) Reaction Details chlorpromazine AdvReac Severe Hallucinati Verified 03/22/19 03:40 [From Thorazine] ons haloperidol [From Haldol] AdvReac Severe Hallucinati Verified 03/22/19 03:40 ons fluphenazine [From Prolixin] AdvReac Intermediate depression Verified 03/22/19 03:40 lithium AdvReac Intermediate depression Verified 03/22/19 03:40 sulfisoxazole AdvReac Intermediate Nausea Verified 03/22/19 03:40 [From Gantrisin] Home Medications: Home Medications Acetaminophen [Tylenol 8 Hour] 650 mg PO Q8H PRN 05/13/19 [History Confirmed ] Ciprofloxacin TAB* [Cipro 250 MG Tab*] 250 mg PO BID 05/13/19 [History Confirmed 05/13/19] Divalproex ER TAB(*) [Depakote ER TAB(*)] 2,000 mg PO BEDTIME 05/13/19 [History Confirmed 05/13/19] [place]-3 Fatty Acids (Nf) [Fish Oil (NF)] 1,000 mg PO DAILY 05/13/19 [History Confirmed 05/13/19] Polyethylene Glycol 3350* [Miralax (17 GM DOSE VERITO)] 17 gm PO DAILY 05/13/19 [ History Confirmed 05/13/19] Quetiapine Fumarate [Seroquel XR 400 mg Tab.Er.24h] 400 mg PO BEDTIME 05/13/19 [ History Confirmed 05/13/19] Temazepam CAP* [Restoril CAP*] 30 mg PO DAILY 05/13/19 [History Confirmed ] hydrOXYzine HCL TAB* [Atarax 25 MG TAB*] 25 mg PO BEDTIME PRN 05/13/19 [History Confirmed 05/13/19] PMH/Surg Hx/FS Hx/Imm Hx Endocrine/Hematology History: Reports: Hx Diabetes Denies: Hx Anticoagulant Therapy, Hx Blood Disorders, Hx Blood Transfusions, Hx Bone Marrow Disease, Hx Systemic Lupus Erythematosus, Hx Sickle Cell Disease , Hx Thyroid Disease, Hx Anemia, Hx Unexplained Bleeding, Other Endocrine/ Hematological Disorders Cardiovascular History: Reports: Hx Hypercholesterolemia - HLD, Hx Hypertension Denies: Hx Aneurysm, Hx Angina, Hx Angioplasty, Hx Auto Implanted Cardiovert Defib, Hx Cardiac Arrest, Hx Cardiomegaly, Hx Congenital Heart Disease, Hx Congestive Heart Failure, Hx Coronary Artery Disease, Hx Deep Vein Thrombosis, Hx Embolism, Hx Hypotension, Hx Pacemaker/ICD, Hx Peripheral Vascular Disease, Hx Rheumatic Fever, Hx Syncope, Hx Valvular Heart Disease, Other Cardiovascular Problems/Disorders Respiratory History: Denies: Hx Asthma, Hx Chronic Bronchitis, Hx Chronic Obstructive Pulmonary Disease (COPD), Hx Cystic Fibrosis, Hx Lung Cancer, Hx Pleural Effusion, Hx Pneumonia, Hx Pulmonary Edema, Hx Pulmonary Embolism, Hx Seasonal Allergies, Hx Sleep Apnea, Other Respiratory Problems/Disorders GI History: Denies: Hx Cirrhosis, Hx Crohn's Disease, Hx Diverticulosis, Hx Gall Bladder Disease, Hx Gastroesophageal Reflux Disease, Hx Gastrointestinal Bleed, Hx Hiatal Hernia, Hx Irritable Bowel, Hx Jaundice, Hx Obstructive Bowel, Hx Ileostomy, Hx Pyloric Stenosis, Hx Ulcer, Other GI Disorders History: Denies: Hx Renal Disease Musculoskeletal History: Denies: Hx Arthritis, Hx Back Problems, Hx Bursitis, Hx Congenital Bone Abnormalities, Hx Fibromyalgia, Hx Gout, Hx Orthopedic Injury, Hx Osteoporosis, Hx Scoliosis, Hx Tendonitis, Other Musculoskeletal History Sensory History: Reports: Hx Contacts or Glasses, Hx Deafness - Hard of hearing , Hx Hearing Aid, Hx Hearing Problem Denies: Hx Cataracts, Hx Eye Injury, Hx Eye Prosthesis, Hx Glaucoma, Hx Legally Blind, Hx Macular Degeneration, Hx Vision Problem, Other Sensory Impairments Opthamlomology History: Reports: Hx Contacts or Glasses Denies: Hx Cataracts, Hx Eye Injury, Hx Eye Prosthesis, Hx Glaucoma, Hx Legally Blind, Hx Macular Degeneration, Hx Vision Problem, Other Sensory Impairments Neurological History: Reports: Hx Headaches, Hx Migraine Denies: Hx Dementia, Hx Developmental Delay, Hx Nerve Disease, Hx Seizures, Hx Spinal Cord Injury, Hx Transient Ischemic Attacks (TIA), Other Neuro Impairments/Disorders Psychiatric History: Reports: Hx Anxiety, Hx Attention Deficit Hyperactivity Disorder, Hx Depression, Hx Post Traumatic Stress Disorder - HX SEXUAL ABUSE CHILD, Hx Inpatient Treatment - HX PSYCHIATRIC HOSPITALIZATIONS, Hx Community Mental Health Tx, Hx Bipolar Disorder - BORDERLINE PERSONALITY DISORDER, Hx Suicide Attempt, Hx of Violent Episodes Against Others, Hx Substance Abuse - HX BENZO ABUSE, Other Psychiatric Issues/Disorders - HX SI/ATTEMPT Denies: Hx Eating Disorder, Hx Panic Disorder, Hx Schizophrenia - Cancer History Cancer Type, Location and Year: None reported Hx Chemotherapy: No Hx Radiation Therapy: No - Surgical History Surgery Procedure, Year, and Place: appendectomy 1975, 1972 bladder, 5yrs ago orif rt ankle Hx Anesthesia Reactions: No - Immunization History Date of Tetanus Vaccine: Unknown Date of Influenza Vaccine: 12/10/2012 Infectious Disease History: Denies: Hx Clostridium Difficile, Hx Hepatitis, Hx Human Immunodeficiency Virus (HIV), Hx of Known/Suspected MRSA, Hx Shingles, Hx Tuberculosis, Hx Known/ Suspected VRE, Hx Known/Suspected VRSA, History Other Infectious Disease - Family History Known Family History: Positive: Hypertension, Diabetes, Other - bipolar disorder , breat cancer - Social History Alcohol Use: None Hx Substance Use: No Substance Use Type: Reports: None Hx Tobacco Use: No Smoking Status (MU): Never Smoked Tobacco Review of Systems Constitutional: Negative Eyes: Negative ENT: Negative Cardiovascular: Negative Respiratory: Negative Gastrointestinal: Negative Genitourinary: Negative Positive: Arthralgia Skin: Negative Neurological/Mental Status: Negative Psychological: Normal All Other Systems Reviewed And Are Negative: Yes Physical Exam Triage Information Reviewed: Yes Vital Signs Reviewed: Yes Appearance: Positive: Well-Appearing, No Pain Distress, Well-Nourished Skin: Positive: Warm, Skin Color Reflects Adequate Perfusion Eyes: Positive: EOMI, ELISEO ENT: Positive: Hearing grossly normal Respiratory/Lung Sounds: Positive: Clear to Auscultation, Breath Sounds Present Cardiovascular: Positive: RRR, S1, S2 Abdomen Description: Positive: Nontender, Soft. Negative: CVA Tenderness (R), CVA Tenderness (L), Distended, Guarding Bowel Sounds: Positive: Present Musculoskeletal: Positive: Strength/ROM Intact Neurological: Positive: Sensory/Motor Intact, Alert, Oriented to Person Place, Time, Normal Gait, Facial Symmetry, Speech Normal Psychiatric: Positive: Normal, Affect/Mood Appropriate AVPU Assessment: Alert Procedures - Sedation Patient Received Moderate/Deep Sedation with Procedure: No Diagnostics - Laboratory Result Diagrams: 05/13/19 13:19 05/13/19 13:19 Lab Statement: Any lab studies that have been ordered have been reviewed, and results considered in the medical decision making process. Course/Dx - Course Course Of Treatment: Patient was evaluated in the emergency department today for suicidal ideation. Patient was seen and examined their vital signs are stable and they were afebrile. Upon arrival to emergency department the patient was placed in a safe room, placed under observation and changed into hospital scrubs. Their belongings were collected and placed in a locked box. Laboratory studies were ordered for mental health clearance including urinalysis and toxicology. Labs returned showing no abnormalities other than mild hyponatremia at 131. Toxicology screen positive for benzodiazepines. Patient was cleared for mental health evaluation and disposition by psychiatric services. Patient signed out to FRANCINE Bhandari at 1730. - Differential Dx/Clinical Impression Differential Diagnosis/HQI/PQRI: Positive: Acute Psychosis, Anxiety, Bipolar Disorder, Depression, Homicidal Ideation, Suicide Attempt, Suicidal Ideation, Suicidal Gesture Provider Diagnosis: Suicidal ideation Discharge ED - Sign-Out/Discharge Documenting (check all that apply): Patient Departure, Sign-Out Patient Signing out patient TO: Ary Peres Receiving patient FROM: Saran Aldana - Discharge Plan Condition: Stable Disposition: HOME Referrals: Stella Burns MD [Primary Care Provider] - - Billing Disposition and Condition Condition: STABLE Disposition: Home
[2019-05-13 13:33] LABS: Hematocrit 38 % (35-47); Hemoglobin 13.2 g/dL (12.0-16.0); Mean Corpuscular HGB Conc 35 g/dL (31-36); Mean Corpuscular Hemoglobin 34 pg (27-31); Mean Corpuscular Volume 96 fL (80-97); Mean Platelet Volume 7.1 fL (7.4-10.4); Platelet Count 133 10^3/uL (150-450); Red Blood Count 3.96 10^6 /uL (3.70-4.87); Red Cell Distribution Width 15 % (10-15); White Blood Count 4.2 10^3/uL (3.5-10.8)
[2019-05-13 13:51] LABS: ALT 21 U/L (7-52); AST 28 U/L (13-39); Albumin 3.8 g/dL (3.2-5.2); Albumin/Globulin Ratio 1.2 (1-3); Alkaline Phosphatase 62 U/L (34-104); Anion Gap 6 mmol/L (2-11); BUN/Creatinine Ratio 20.2 (8-20); Blood Urea Nitrogen 21 mg/dL (6-24); CO2 Carbon Dioxide 28 mmol/L (22-32); Calcium 9.5 mg/dL (8.6-10.3); Chloride 97 mmol/L (101-111); EGFR African American 66.3 (>60); EGFR Non-African American 54.8 (>60); Globulin 3.2 g/dL (2-4); Glucose 83 mg/dL (70-100); Potassium 4.7 mmol/L (3.5-5.0); Sodium 131 mmol/L (135-145)
[2019-05-13 14:00] LABS: ABS Lymphocytes 2.8 10^3/ul (1.0-4.8); ABS Monocytes 0.3 10^3/ul (0-0.8); ABS Neutrophils 1.1 10^3/ul (1.5-7.7); Eosinophil % 0.1 %; Lymphocyte % 66.9 %; Nucleated Red Blood Cells % 0.2
[2019-05-13 14:06] LABS: Urine Appearance Clear; Urine Bilirubin Negative (Negative); Urine Blood Negative (Negative); Urine Color Yellow; Urine Glucose Negative (Negative); Urine Ketones Trace (Negative); Urine Nitrite Negative (Negative); Urine Protein Negative (Negative); Urine Specific Gravity 1.017 (1.010-1.030); Urine Urobilinogen Negative (Negative)
[2019-05-13 14:09] LABS: Alcohol < 10 mg/dL (<10); Salicylate < 2.50 mg/dL (<30)
[2019-05-13 14:15] LABS: Acetaminophen < 15 mcg/mL
[2019-05-13 14:17] LABS: TSH (Thyroid Stimulating Horm) 2.71 mcIU/mL (0.34-5.60)
[2019-05-13 14:28] LABS: Urine Benzodiazepine Screen Presumptive Positive (None Detect); Urine Opiates Screen None Detected (None Detect)
--- NOTE | 2019-05-13 17:44 | ED ---
Re-Evaluation - Re-Evaluation First Eval Re-Evaluation Time: 19:33 Comment: complaining of all over pain, will give tyenlol Second Eval Re-Evaluation Time: 19:47 Comment: becoming more agitated, will check sugar Third Eval Re-Evaluation Time: 01:30 Comment: patient becoming agitated again so will give ativan. Fourth Eval Re-Evaluation Time: 01:46 Comment: patient complaining that is not getting her night time meds correctly. Course/Dx - Course Course Of Treatment: Patient was evaluated in the emergency department today for suicidal ideation. Patient was seen and examined their vital signs are stable and they were afebrile. Upon arrival to emergency department the patient was placed in a safe room, placed under observation and changed into hospital scrubs. Their belongings were collected and placed in a locked box. Laboratory studies were ordered for mental health clearance including urinalysis and toxicology. Labs returned showing no abnormalities other than mild hyponatremia at 131. Toxicology screen positive for benzodiazepines. Patient was cleared for mental health evaluation and disposition by psychiatric services. patient required ativan as became agitated. after mental health patient will be discharged. patient became more agitated about night meds which gave patient. patient ate after sugar was 57. - Diagnoses Provider Diagnoses: Bipolar disorder Discharge ED - Sign-Out/Discharge Documenting (check all that apply): Sign-Out Patient, Receiving Sign-Out Signing out patient TO: Ulices Bowman Receiving patient FROM: Saran Aldana - Discharge Plan Condition: Stable Referrals: Stella Burns MD [Primary Care Provider] - - Billing Disposition and Condition Condition: STABLE
[2019-05-13] MEDS ORDERED: Acetaminophen TAB* 325 MG PO ONE (19:32)
[2019-05-13] MEDS ORDERED: hydrOXYzine HCL TAB* 25 MG PO ONE (19:45)
[2019-05-13] MEDS ORDERED: LORazepam TAB(*) 1 MG PO ONE (19:53)
[2019-05-13] MEDS ORDERED: metFORMIN* 500 MG TAB PO ONE (20:55)
[2019-05-14] MEDS ORDERED: LORazepam TAB(*) 1 MG PO ONE (01:19)
[2019-05-14] MEDS ORDERED: Divalproex ER TAB(*) 500 MG PO ONE (01:22)
[2019-05-14] MEDS ORDERED: Mirtazapine TAB* 15 MG PO ONE (01:22)
[2019-05-14] MEDS ORDERED: QUEtiapine XR TAB* 200 MG PO ONE (01:30)
[2019-05-14] MEDS ORDERED: Temazepam CAP* 15 MG PO ONE (01:52)
[2019-05-14] MEDS ORDERED: diPHENhydraMINE PO* 50 MG PO ONE (01:52)
[2019-05-14] MEDS ORDERED: OLANzapine TAB* 5 MG PO ONE (02:00)
[2019-05-14] MEDS ORDERED: Melatonin 3 MG TAB PO ONE (02:00)
--- NOTE | 2019-05-14 02:36 | ED ---
Progress - Progress Note Progress Note: The patient is a sign-out from FRANCINE Brandt, to Dr. Ulices Bowman MD, at change of shift at 0230 on 05/14/19, pending psychiatric evaluation and disposition. Dr. Davies and mental health staff have evaluated the patient and determined that she is safe for discharge with outpatient treatment. Patient may leave once she has woken up. Re-Evaluation - Re-Evaluation First Eval Re-Evaluation Time: 19:33 Comment: complaining of all over pain, will give tyenlol Second Eval Re-Evaluation Time: 19:47 Comment: becoming more agitated, will check sugar Third Eval Re-Evaluation Time: 01:30 Comment: patient becoming agitated again so will give ativan. Fourth Eval Re-Evaluation Time: 01:46 Comment: patient complaining that is not getting her night time meds correctly. Course/Dx - Diagnoses Provider Diagnoses: Bipolar disorder - Provider Notifications Discussed Care Of Patient With: Segun Davies - psychiatry Time Discussed With Above Provider: 03:00 Instructed by Provider To: Other - Dr. Davies and mental health staff have evaluated the patient and determined that she is safe for discharge with outpatient treatment. Discharge ED - Sign-Out/Discharge Documenting (check all that apply): Receiving Sign-Out Receiving patient FROM: Ary Peres - Patient is a sign-out from FRANCINE Bhandari, at change of shift at 0230 on 05/14/19, pending MHE and disposition. - Discharge Plan Condition: Stable Disposition: HOME Referrals: Stella Burns MD [Primary Care Provider] - - Billing Disposition and Condition Condition: STABLE Disposition: Home - Attestation Statements Document Initiated by Aleyda: Yes Documenting Scribe: Erica Capellan Provider For Whom Aleyda is Documenting (Include Credential): Dr. Ulices Bowman MD Scribe Attestation: Erica Iverson scribed for Dr. Ulices Bowman MD on 05/14/19 at 0432. Scribe Documentation Reviewed: Yes Provider Attestation: The documentation as recorded by the Erica zuniga accurately reflects the service I personally performed and the decisions made by me, Dr. Ulices Bowman MD Status of Scribe Document: Viewed Procedures - Sedation Patient Received Moderate/Deep Sedation with Procedure: No
--- NOTE | 2019-05-14 12:44 | PN ---
ED Psychiatric Progress Note Date of Service: 05/14/19 Subjective: This is a 54 year-old F who is pending admission to [facility] secondary to suicidal ideation. She reports fear of returning home and is persistent about needing admission to the hospital "for a few days." Objective: Vitals: Most recent vital signs documented below. General NAD, Alert and oriented x3. Heart: rrr at 87 bpm Lungs: CTA or with rales, rhonchi, wheezing Laboratory: Current laboratory results documented below. Assessment: 54yo wf with known history of mild intellectual disability, PTSD, borderline personality d/o, and bipolar 2 disorder who presented to the ED after an appt at [facility]. She endorses suicidal ideation with plans and means. Plan: admit to [facility] under voluntary status with diagnosis of bipolar II d/o. Vital Signs Temp Pulse Resp BP Pulse Ox 97.5 F 87 16 122/86 96 05/14/19 02:16 05/14/19 02:16 05/14/19 02:16 05/14/19 02:16 05/14/19 02:16 Lab Results - Entire Visit 05/14/19 05/13/19 05/13/19 01:35 19:51 13:34 WBC RBC Hgb Hct MCV MCH MCHC RDW Plt Count MPV Neut % (Auto) Lymph % (Auto) [place] % (Auto) Eos % (Auto) Baso % (Auto) Absolute Neuts (auto) Absolute Lymphs (auto) Absolute Monos (auto) Absolute Eos (auto) Absolute Basos (auto) Absolute Nucleated RBC Nucleated RBC % Sodium Potassium Chloride Carbon Dioxide Anion Gap BUN Creatinine Est GFR ( Amer) Est GFR (Non-Af Amer) BUN/Creatinine Ratio Glucose POC Glucose (mg/dL) 56 L 285 H Calcium Total Bilirubin AST ALT Alkaline Phosphatase Total Protein Albumin Globulin Albumin/Globulin Ratio TSH Urine Color Urine Appearance Urine pH Ur Specific [place] Urine Protein Urine Ketones Urine Blood Urine Nitrate Urine Bilirubin Urine Urobilinogen Ur Leukocyte Esterase Urine Glucose Salicylates Urine Opiates Screen None detected Acetaminophen Ur Barbiturates Screen None detected Ur Phencyclidine Scrn None detected Ur Amphetamines Screen None detected U Benzodiazepines Scrn Presumptive positive A Urine Cocaine Screen None detected U Cannabinoids Screen None detected Serum Alcohol 05/13/19 05/13/19 05/13/19 13:34 13:19 13:19 WBC 4.2 RBC 3.96 Hgb 13.2 Hct 38 MCV 96 MCH 34 H MCHC 35 RDW 15 Plt Count 133 L MPV 7.1 L Neut % (Auto) 26.0 Lymph % (Auto) 66.9 [place] % (Auto) 6.7 Eos % (Auto) 0.1 Baso % (Auto) 0.3 Absolute Neuts (auto) 1.1 L Absolute Lymphs (auto) 2.8 Absolute Monos (auto) 0.3 Absolute Eos (auto) 0.0 Absolute Basos (auto) 0.0 Absolute Nucleated RBC 0.0 Nucleated RBC % 0.2 Sodium 131 L Potassium 4.7 Chloride 97 L Carbon Dioxide 28 Anion Gap 6 BUN 21 Creatinine 1.04 H Est GFR ( Amer) 66.3 Est GFR (Non-Af Amer) 54.8 BUN/Creatinine Ratio 20.2 H Glucose 83 POC Glucose (mg/dL) Calcium 9.5 Total Bilirubin 0.40 AST 28 ALT 21 Alkaline Phosphatase 62 Total Protein 7.0 Albumin 3.8 Globulin 3.2 Albumin/Globulin Ratio 1.2 TSH 2.71 Urine Color Yellow Urine Appearance Clear Urine pH 6.0 Ur Specific [place] 1.017 Urine Protein Negative Urine Ketones Trace A Urine Blood Negative Urine Nitrate Negative Urine Bilirubin Negative Urine Urobilinogen Negative Ur Leukocyte Esterase Negative Urine Glucose Negative Salicylates < 2.50 Urine Opiates Screen Acetaminophen < 15 Ur Barbiturates Screen Ur Phencyclidine Scrn Ur Amphetamines Screen U Benzodiazepines Scrn Urine Cocaine Screen U Cannabinoids Screen Serum Alcohol < 10
[2019-05-14] MEDS ORDERED: Al Hydrox/Mg Hydrox/Simet LIQ* 30 ML UDC PO PRN (13:16)
[2019-05-14] MEDS ORDERED: OMEGA-3 FATTY ACIDS (NF) 1,000 MG CAP PO SCH (14:00)
[2019-05-14] MEDS ORDERED: Atomoxetine (NF) 40 MG CAP PO SCH (14:00)
[2019-05-14] MEDS ORDERED: metFORMIN* 1,000 MG TAB PO SCH (17:00)
[2019-05-14] MEDS ORDERED: Insulin GLARGINE(*) 1 UNITS UNIT SUBCUT SCH ×2 (17:00→21:30)
[2019-05-14] MEDS: Aspirin EC TAB* 81 MG TAB.EC PO SCH (19:15)
[2019-05-14] MEDS: metFORMIN* 1,000 MG TAB PO SCH (19:22)
[2019-05-14] MEDS: Divalproex ER TAB(*) 500 MG PO SCH (20:04)
[2019-05-14] MEDS: QUEtiapine TAB* 100 MG PO SCH (20:05)
[2019-05-14] MEDS: Temazepam CAP* 15 MG PO SCH (20:07)
[2019-05-14] MEDS: Mirtazapine TAB* 15 MG PO SCH (20:07)
[2019-05-14] MEDS: CMCS:OMEGA-3 FATTY ACIDS (NF) 1,000 MG CAP PO SCH (20:08)
[2019-05-14] MEDS: Melatonin 3 MG TAB PO PRN (20:10)
[2019-05-14] MEDS: hydrOXYzine HCL TAB* 25 MG PO PRN (20:10)
--- NOTE | 2019-05-14 20:10 | HP ---
HISTORY AND PHYSICAL: DATE OF ADMISSION: 05/14/19 SUPERVISING PSYCHIATRIST: Dr. Segun Davies.* (DICTATED BY HUYEN LEAL NP) JUSTIFICATION FOR ADMISSION: The patient presented to the emergency department due to suicidal ideation with plans and means. She merits hospitalization for immediate safety and stabilization. CHIEF COMPLAINT: "I need a few days in the hospital. I have access to knives and pills at home." HISTORY OF PRESENT ILLNESS: Stephania is a 54-year-old white female with a long history of mental illness and comorbid medical diagnosis, multiple medical and psychiatric admissions, who presented to the emergency department after an appointment with her outpatient therapist, demanding to be hospitalized. She was agitated and yelling in the emergency department. She reports frustration that her Seroquel dose was decreased and her Zyprexa dose was increased. According to therapist, the patient has been obsessing about this change and as a result stated she was suicidal. She was agitated at the clinic and calmed down once an ambulance was called. The patient is known to this inspector automatic typewriter and to [facility]. She presents to the emergency department often. She is circumstantial about medications especially when she feels that sedative medications are not effective enough. The patient was given her medications in the ED last night and slept well. This morning when attempts were made to discharge her, she was persistent in wanting to be admitted to the mental health unit. She reports stressors of her family members telling her she needs to go to rehab and that she is crazy. She reports her sister is having heart issues and she is worried about her. The patient states that her family members have also been threatening to place her in a [facility]. PAST PSYCHIATRIC HISTORY: The patient has had multiple psychiatric hospitalizations at [facility], [facility], [facility], and [place]. Her last admission to [facility] was in October 2018. She has been a client of [facility] for many years. She sees Nadia Florez, psychiatric nurse practitioner and Dwayne Chiu, community nurse therapist. She has had past diagnoses of borderline personality disorder, PTSD, depressive disorder and intellectual disability. PAST SUICIDAL/SELF HARM: The patient denies self injurious behavior. She reports a history of 6 suicide attempts via overdose. PAST MEDICAL HISTORY: Type 2 diabetes mellitus, hypertension, hypercholesterolemia, previous obesity, chronic headaches. PAST SURGICAL HISTORY: Appendectomy in 1975, bladder surgery in 1972, ORIF of right ankle in 2013. CURRENT MEDICATIONS: 1. Quetiapine XR 400 mg p.o. q.h.s. 2. Hydroxyzine 25 mg p.o. q.h.s. p.r.n. anxiety and insomnia. 3. Temazepam 30 mg p.o. daily. 4. Linn-3 fatty acids 1000 mg p.o. daily. 5. Melatonin 6 mg p.o. q.h.s. p.r.n. insomnia. 6. Strattera 40 mg p.o. daily. 7. Aspirin EC 81 mg p.o. daily. 8. Depakote ER 2000 mg p.o. q.h.s. 9. Mirtazapine 15 mg p.o. q.h.s. 10. Atorvastatin 80 mg p.o. q.h.s. 11. Metformin 1000 mg p.o. b.i.d. with meals. 12. MiraLAX 17 g p.o. daily. 13. Insulin Lantus 35 units subcutaneous daily. 14. Acetaminophen 650 mg p.o. q.8 hours p.r.n. 15. Cipro 250 mg p.o. b.i.d. ALLERGIES: ZIPRASIDONE, ERYTHROMYCIN, SULFA, THORAZINE, HALOPERIDOL, PROLIXIN, LITHIUM and GANTRISIN. FAMILY PSYCHIATRIC HISTORY: The patient's father and sister with bipolar disorder, nephew with suicide and multiple family members with substance use history. SOCIAL HISTORY: The patient lives with her mother and nephew. She is never , has no children, and has always lived with her mother. She has a history of intellectual disability, but is proud of having taken college courses. The patient denies alcohol, marijuana or tobacco use. She has a history of benzodiazepine dependence. REVIEW OF SYSTEMS: Constitutional: Negative. No fever, chills, or fatigue. ENT : Negative. Cardiovascular: Negative. Denies chest pain or palpitations. Respiratory: Negative. Denies shortness of breath or cough. Genitourinary: Negative. Musculoskeletal: Negative. Neurological: Negative. PHYSICAL EXAMINATION GENERAL: The patient is well appearing and well nourished. VITAL SIGNS: Height 5 feet 6 inches, weight 137 pounds. T 97.5, P 99, respiration rate 18, O2 sat 99%, BP 126/83. HEENT: Head and Face: Normal head and face inspection. Eyes: Positive, EOMI. PERRLA. Conjunctivae clear. NECK: Supple. Full ROM. Trachea midline. RESPIRATORY: Lung sounds clear to auscultation. Breath sounds present. CARDIOVASCULAR: Heart RRR. Pulses are symmetric in both upper and lower extremities. MUSCULOSKELETAL: Normal strength. ROM intact. NEUROLOGICAL: Normal sensory and motor intact. Alert and oriented x3 with normal gait. Cerebellar function intact. SKIN: Warm, dry. Color reflects adequate perfusion. DIAGNOSTIC STUDIES/LAB DATA: CBC: MCH 34, platelets 133, MPV 7.1, absolute neutrophils 1.1. Chemistry: Sodium 131, chloride 97, creatinine 1.04, BUN and creatinine ratio of 20.2. TSH normal at 2.71. Urinalysis, trace ketones. Toxicology positive for benzodiazepines which she received in the ED. MENTAL STATUS EXAM: Stephania is a 54-year-old white female, edentulous, poorly groomed with a thin frame and dressed in blue scrubs. She usually wears glasses , but is not at this time. She is alert and oriented x3. She is pleasant and cooperative. She recalls inspector automatic typewriter by name. Eye contact is good. Speech is soft , spontaneous, mumbled at times. Concentration fair. Memory fair. Mood is dysphoric with tearful affect at times. No abnormal psychomotor activity noted. Thought process is circumstantial. Thought content is positive for suicidal ideation. She denies auditory or visual hallucinations. There are no perceptual disturbances noted. Insight and judgment are poor. Fund of knowledge is adequate. She has a low average intellect. DIAGNOSES: 1. Bipolar II disorder. 2. Posttraumatic stress disorder. 3. Borderline personality disorder. 4. Intellectual disability. ASSESSMENT: Stephania is a 54-year-old female with a history of intellectual disability, posttraumatic stress disorder, borderline personality disorder and bipolar II disorder, who is well known to this unit and this community from historical psychiatric admissions. She was last hospitalized in October 2018. She had some medication changes recently through her parakeet raiser and she is reporting suicidal ideation related to this. She is agitated and yelling in the ED, demanding to be admitted. She presents as impulsive and anxious and has a history of suicide attempts. PLAN: The patient is admitted to adult behavioral services unit on voluntary status. Code status is full. She is placed on 15 minutes checks for safety. She is encouraged to participate in supportive milieu, individual sessions with staff and psychoeducational groups. As stated above, we will resume known outpatient medications. The patient will be on a consistent carbohydrate diet. We will target a brief admission to promote independence. Estimated length of stay is 3 to 5 days. HUYEN LEAL, JANNIE [id number]/CPS #: [id number] CHU
[2019-05-14] MEDS ORDERED: Divalproex ER TAB(*) 500 MG PO SCH (21:00)
[2019-05-14] MEDS ORDERED: Temazepam CAP* 15 MG PO SCH (21:00)
[2019-05-14] MEDS ORDERED: QUETIAPINE FUMARATE 400 MG PO SCH (21:00)
[2019-05-14] MEDS: Polyethylene Glycol 3350* 17 GM PACKET PO SCH (21:14)
[2019-05-14] MEDS: Atorvastatin* 80 MG TAB PO SCH (22:46)
[2019-05-15] MEDS: Aspirin EC TAB* 81 MG TAB.EC PO SCH (08:52)
[2019-05-15] MEDS: Vitamin THERAPEUTIC TAB PO SCH (08:52)
[2019-05-15] MEDS: metFORMIN* 1,000 MG TAB PO SCH ×2 (08:52→18:28)
[2019-05-15] MEDS: CMCS:Atomoxetine (NF) 40 MG CAP PO SCH (08:53)
[2019-05-15] MEDS: CMCS:OMEGA-3 FATTY ACIDS (NF) 1,000 MG CAP PO SCH (08:53)
[2019-05-15] MEDS: Polyethylene Glycol 3350* 17 GM PACKET PO SCH (08:54)
[2019-05-15] MEDS: Acetaminophen TAB* 325 MG PO PRN (08:58)
--- NOTE | 2019-05-15 19:00 | PN ---
Subjective - Subjective Date of Service: 05/15/19 Service Type: 65638 Hosp care 15 min low complexity Subjective: Mood today reported as "really very depressed." Reports sleeping well with 400 mg Seroquel, but change last week to 200 mg with Zyprexa increased from 5 to 10 mg resulted in several days of poor sleep. REports having been taking Depakote for 7 years, then is hard to follow both because of poorly enunciated speech and loose logic,but I think she wants to continue it and may be worried it will be stopped. Denies any intent or plan to harm herself, but does say she talks about her pills a lot. Objective - General Observations Appearance: Neat, Well Groomed Appears Stated Age: Yes Stature: WNL Posture: WNL Eye Contact: Average Behavior/Activity: Peculiar - Interaction Observations Attitude Towards Examiner: Cooperative Attitude Towards Parent/Guardian: Positive Interaction Stated Mood: Dysphoric Affect: Flat Speech Pattern/Tone: Normal Volume, Unclear, Garbled, Rambling Thought Process: Tangential Thought Content: Self-Deprecatory Thought Process: Lethality: Passive Wish Hallucination Type: None Delusion Type: None - Cognitive Function Orientation: A&O x 4 Level of Consciousness: Awake, Alert, Appropriate Cognition: WNL Estimated Intelligence: Normal Insight: WNL Ability to Make Reasonable Decisions: Mildly Impaired - Medication Compliance Cooperative with Inpatient Medication Regimen: Yes - Group Participation Participates in Group Activities: Yes Assessment - Assessment Merits Inpatient Hospitalization: For Stabilization, For Ongoing Evaluation, Consolidate Improvements, For Discharge Planning Inpatient DSM-V Dx: F43.1 Clinical Impression: Stephania reports a history of trauma and a lengthy course of psychiatric care in her life. Currently she reports her most troublesome symptom is mood swings. She endorses passive SI, but is a little hard to pin down in report of symptoms and says it is hard to explain whether she is suicidal. Plan - Plan Treatment Plan: Name: STEPHANIA DORADO Birthdate: 1965 [id number] Continue current medications and treatment plan. Encourage groups and milieu. Continued Medication Management: Continue Outpt Medication Medications: Current Medications Acetaminophen (Tylenol Tab*) 650 mg PO Q4H PRN PRN Reason: for pain; or Temp >101 F Last Admin: 05/15/19 08:58 Dose: 650 mg Al Hydrox/Mg Hydrox/Simethicone (Maalox Plus*) 30 ml PO Q4H PRN PRN Reason: INDIGESTION Aspirin (Aspirin Ec Tab*) 81 mg PO DAILY [facility] Last Admin: 05/15/19 08:52 Dose: 81 mg Atomoxetine HCl (Strattera (Nf)) 40 mg PO DAILY [facility]; Protocol Last Admin: 05/15/19 08:53 Dose: 40 mg Atorvastatin Calcium (Lipitor*) 80 mg PO BEDTIME [facility] Last Admin: 05/14/19 22:46 Dose: Not Given Divalproex Sodium (Depakote Er Tab(*)) 2,000 mg PO BEDTIME [facility] Last Admin: 05/14/19 20:04 Dose: 2,000 mg Fish Oil (Fish Oil (Nf)) 1,000 mg PO DAILY [facility]; Protocol Last Admin: 05/15/19 08:53 Dose: 1,000 mg Hydroxyzine HCl (Atarax Tab*) 25 mg PO BEDTIME PRN PRN Reason: INSOMNIA Last Admin: 05/14/19 20:10 Dose: 25 mg Insulin Glargine (Lantus(*)) 35 units SUBCUT DAILY@2100 [facility] Melatonin (Melatonin) 6 mg PO BEDTIME PRN PRN Reason: INSOMNIA Last Admin: 05/14/19 20:10 Dose: 6 mg Metformin HCl (Glucophage*) 1,000 mg PO BID WITH MEALS [facility] Last Admin: 05/15/19 18:28 Dose: 1,000 mg Mirtazapine (Remeron Tab*) 15 mg PO BEDTIME [facility] Last Admin: 05/14/19 20:07 Dose: 15 mg Multivitamins (Theragran Tab*) 1 tab PO DAILY [facility] Last Admin: 05/15/19 08:52 Dose: 1 tab Polyethylene Glycol/Electrolytes (Miralax (17 Gm Dose John)) 17 gm PO DAILY [facility] Last Admin: 05/15/19 08:54 Dose: 17 gm Quetiapine Fumarate (Seroquel Tab*) 400 mg PO BEDTIME [facility] Last Admin: 05/14/19 20:05 Dose: 400 mg Temazepam (Restoril Cap*) 30 mg PO BEDTIME [facility] Last Admin: 05/14/19 20:07 Dose: 30 mg - Discharge Plan Discharge Plan: Outpatient Follow Up Outpatient Program: [facility]
[2019-05-15] MEDS: Atorvastatin* 80 MG TAB PO SCH (20:03)
[2019-05-15] MEDS: Divalproex ER TAB(*) 500 MG PO SCH (20:04)
[2019-05-15] MEDS: Mirtazapine TAB* 15 MG PO SCH (20:05)
[2019-05-15] MEDS: QUEtiapine TAB* 100 MG PO SCH (20:05)
[2019-05-15] MEDS: hydrOXYzine HCL TAB* 25 MG PO PRN (20:06)
[2019-05-15] MEDS: Melatonin 3 MG TAB PO PRN (20:07)
[2019-05-15] MEDS: Temazepam CAP* 15 MG PO SCH (20:08)
[2019-05-15] MEDS: Insulin GLARGINE(*) 1 UNITS UNIT SUBCUT SCH (20:25)
[2019-05-16] MEDS: CMCS:OMEGA-3 FATTY ACIDS (NF) 1,000 MG CAP PO SCH (08:52)
[2019-05-16] MEDS: metFORMIN* 1,000 MG TAB PO SCH ×2 (08:52→17:27)
[2019-05-16] MEDS: Vitamin THERAPEUTIC TAB PO SCH (08:52)
[2019-05-16] MEDS: CMCS:Atomoxetine (NF) 40 MG CAP PO SCH (08:52)
[2019-05-16] MEDS: Polyethylene Glycol 3350* 17 GM PACKET PO SCH (08:52)
[2019-05-16] MEDS: Aspirin EC TAB* 81 MG TAB.EC PO SCH (08:52)
[2019-05-16] MEDS: Insulin GLARGINE(*) 1 UNITS UNIT SUBCUT SCH (19:56)
[2019-05-16] MEDS: hydrOXYzine HCL TAB* 25 MG PO PRN (19:58)
[2019-05-16] MEDS: Melatonin 3 MG TAB PO PRN (19:58)
[2019-05-16] MEDS: Divalproex ER TAB(*) 500 MG PO SCH (20:00)
[2019-05-16] MEDS: Mirtazapine TAB* 15 MG PO SCH (20:00)
[2019-05-16] MEDS: QUEtiapine TAB* 100 MG PO SCH (20:00)
[2019-05-16] MEDS: Acetaminophen TAB* 325 MG PO PRN (20:01)
[2019-05-16] MEDS: Atorvastatin* 80 MG TAB PO SCH (20:02)
[2019-05-16] MEDS: Temazepam CAP* 15 MG PO SCH (20:02)
[2019-05-17] MEDS: CMCS:Atomoxetine (NF) 40 MG CAP PO SCH (09:10)
[2019-05-17] MEDS: Vitamin THERAPEUTIC TAB PO SCH (09:10)
[2019-05-17] MEDS: Aspirin EC TAB* 81 MG TAB.EC PO SCH (09:10)
[2019-05-17] MEDS: CMCS:OMEGA-3 FATTY ACIDS (NF) 1,000 MG CAP PO SCH (09:10)
[2019-05-17] MEDS: Polyethylene Glycol 3350* 17 GM PACKET PO SCH (09:10)
[2019-05-17] MEDS: metFORMIN* 1,000 MG TAB PO SCH ×2 (09:10→17:32)
[2019-05-17 10:32] VITALS: BP 132/90
--- NOTE | 2019-05-17 14:17 | PN ---
Subjective - Subjective Date of Service: 05/17/19 Service Type: 35773 Hosp care 15 min low complexity Subjective: Patient reports "I'm depressed. I'm suicidal." She states she wants to stay in the hospital. She is tearful and reports worry about her family members. She states she has had difficulty sleeping and is circumstantial about medications. Panel Builder agrees to reach out to her outpatient pediatric neuropsychologist tomorrow, as today is a federal holiday. Objective - General Observations Appearance: Well Groomed Stature: Thin Posture: WNL Eye Contact: Average Behavior/Activity: WNL - Interaction Observations Attitude Towards Examiner: Cooperative Stated Mood: Dysphoric Affect: Labile Speech Pattern/Tone: Perseverating, Loud Volume Thought Process: Circumstantial, Impoverished Thought Content: Preoccupation/Ruminations, Depressive Thought Process: Lethality: Suicidal Planning Hallucination Type: Denies Delusion Type: Denies - Cognitive Function Orientation: A&O x 4 Level of Consciousness: Alert Cognition: Impaired Attention/Concentration Estimated Intelligence: Borderline Range Insight: Difficulty Acknowledging Presence of Psyciatric Problems Judgment Within Normal Limits: No Ability to Make Reasonable Decisions: Moderately Impaired - Medication Compliance Cooperative with Inpatient Medication Regimen: Yes - Group Participation Participates in Group Activities: Yes Assessment - Assessment Merits Inpatient Hospitalization: For Immediate Safety, For Stabilization Inpatient DSM-V Dx: F43.1 Clinical Impression: Stephania reports suicidal ideation and concerns about not being able to sleep. She is circumstantial about medication changes. [facility] is closed due to president 's day. Will collaborate with outpatient providers prior to discharge. Patient merits hospitalization for immediate safety and stabilization. Plan - Plan Treatment Plan: Name: STEPHANIA DORADO Birthdate: 1965 [id number] Continue current medications and treatment plan. may decrease to q30min obs. obtain collateral from [facility] on 05/18/19. Probable discharge 05/18/19. Continued Medication Management: Continue Outpt Medication Medications: Current Medications Acetaminophen (Tylenol Tab*) 650 mg PO Q4H PRN PRN Reason: for pain; or Temp >101 F Last Admin: 05/16/19 20:01 Dose: 650 mg Al Hydrox/Mg Hydrox/Simethicone (Maalox Plus*) 30 ml PO Q4H PRN PRN Reason: INDIGESTION Aspirin (Aspirin Ec Tab*) 81 mg PO DAILY [facility] Last Admin: 05/17/19 09:10 Dose: 81 mg Atomoxetine HCl (Strattera (Nf)) 40 mg PO DAILY [facility]; Protocol Last Admin: 05/17/19 09:10 Dose: 40 mg Atorvastatin Calcium (Lipitor*) 80 mg PO BEDTIME [facility] Last Admin: 05/16/19 20:02 Dose: 80 mg Divalproex Sodium (Depakote Er Tab(*)) 2,000 mg PO BEDTIME [facility] Last Admin: 05/16/19 20:00 Dose: 2,000 mg Fish Oil (Fish Oil (Nf)) 1,000 mg PO DAILY [facility]; Protocol Last Admin: 05/17/19 09:10 Dose: 1,000 mg Hydroxyzine HCl (Atarax Tab*) 25 mg PO BEDTIME PRN PRN Reason: INSOMNIA Last Admin: 05/16/19 19:58 Dose: 25 mg Insulin Glargine (Lantus(*)) 35 units SUBCUT DAILY@2100 [facility] Last Admin: 05/16/19 19:56 Dose: 35 unit Melatonin (Melatonin) 6 mg PO BEDTIME PRN PRN Reason: INSOMNIA Last Admin: 05/16/19 19:58 Dose: 6 mg Metformin HCl (Glucophage*) 1,000 mg PO BID WITH MEALS [facility] Last Admin: 05/17/19 09:10 Dose: 1,000 mg Mirtazapine (Remeron Tab*) 15 mg PO BEDTIME [facility] Last Admin: 05/16/19 20:00 Dose: 15 mg Multivitamins (Theragran Tab*) 1 tab PO DAILY [facility] Last Admin: 05/17/19 09:10 Dose: 1 tab Polyethylene Glycol/Electrolytes (Miralax (17 Gm Dose John)) 17 gm PO DAILY [facility] Last Admin: 05/17/19 09:10 Dose: 17 gm Quetiapine Fumarate (Seroquel Tab*) 400 mg PO BEDTIME [facility] Last Admin: 05/16/19 20:00 Dose: 400 mg Temazepam (Restoril Cap*) 30 mg PO BEDTIME [facility] Last Admin: 05/16/19 20:02 Dose: 30 mg - Discharge Plan Discharge Plan: Inpatient Hospitalization
[2019-05-17] MEDS: Divalproex ER TAB(*) 500 MG PO SCH (20:06)
[2019-05-17] MEDS: Atorvastatin* 80 MG TAB PO SCH (20:06)
[2019-05-17] MEDS: Mirtazapine TAB* 15 MG PO SCH (20:07)
[2019-05-17] MEDS: QUEtiapine TAB* 100 MG PO SCH (20:08)
[2019-05-17] MEDS: Temazepam CAP* 15 MG PO SCH (20:09)
[2019-05-17] MEDS: Insulin GLARGINE(*) 1 UNITS UNIT SUBCUT SCH (20:14)
[2019-05-17] MEDS: Melatonin 3 MG TAB PO PRN (20:16)
[2019-05-17] MEDS: hydrOXYzine HCL TAB* 25 MG PO PRN (20:42)
[2019-05-18] MEDS: Aspirin EC TAB* 81 MG TAB.EC PO SCH (09:12)
[2019-05-18] MEDS: Vitamin THERAPEUTIC TAB PO SCH (09:12)
[2019-05-18] MEDS: metFORMIN* 1,000 MG TAB PO SCH (09:12)
[2019-05-18] MEDS: CMCS:OMEGA-3 FATTY ACIDS (NF) 1,000 MG CAP PO SCH (09:13)
[2019-05-18] MEDS: CMCS:Atomoxetine (NF) 40 MG CAP PO SCH (09:13)
[2019-05-18] MEDS: Polyethylene Glycol 3350* 17 GM PACKET PO SCH (09:15)
--- NOTE | 2019-05-18 11:15 | PN ---
BSU: Group Therapy Note - Service Type Service Type: 62399 Group Psychotherapy - Cognitive Behavioral Group Therapy ( CBT):Patient was attentive and participatory in CBT programming this morning, and remained in good behavioral control. Patient expressed positive insights regarding relevant treatment interventions and goals.
--- NOTE | 2019-05-18 14:42 | DCNOTE ---
Subjective - Subjective Service Types: 84620 Hosp DC Day Mgmt complex over 30 min Discharge Date: 05/18/19 DC Assessment - Assessment Clinical Impression: Stephania reports suicidal ideation and concerns about not being able to sleep. She is circumstantial about medication changes. [facility] is closed due to president 's day. Will collaborate with outpatient providers prior to discharge. Patient merits hospitalization for immediate safety and stabilization. Inpatient DSM-V Dx: F43.1 Discharge Planning - Discharge Planning Discharge Plan: Outpatient Follow Up Outpatient Program: [facility] Recommendations for Continuing Care: Medication Management, Routine Metabolic Monitoring, Therapeutic Drug Levels, Primary Care Followup Medications: Current Medications Aspirin (Aspirin Ec Tab*) 81 mg PO DAILY [facility] Last Admin: 05/18/19 09:12 Dose: 81 mg Atomoxetine HCl (Strattera (Nf)) 40 mg PO DAILY [facility]; Protocol Last Admin: 05/18/19 09:13 Dose: 40 mg Atorvastatin Calcium (Lipitor*) 80 mg PO BEDTIME [facility] Last Admin: 05/17/19 20:06 Dose: 80 mg Divalproex Sodium (Depakote Er Tab(*)) 1,500 mg PO BEDTIME [facility] Divalproex Sodium (Depakote Er Tab(*)) 250 mg PO BEDTIME [facility] Fish Oil (Fish Oil (Nf)) 1,000 mg PO DAILY [facility]; Protocol Last Admin: 05/18/19 09:13 Dose: 1,000 mg Hydroxyzine HCl (Atarax Tab*) 25 mg PO BEDTIME PRN PRN Reason: INSOMNIA Last Admin: 05/17/19 20:42 Dose: 25 mg Insulin Glargine (Lantus(*)) 35 units SUBCUT DAILY@2100 [facility] Last Admin: 05/17/19 20:14 Dose: 35 unit Melatonin (Melatonin) 6 mg PO BEDTIME PRN PRN Reason: INSOMNIA Last Admin: 05/17/19 20:16 Dose: 6 mg Metformin HCl (Glucophage*) 1,000 mg PO BID WITH MEALS [facility] Last Admin: 05/18/19 09:12 Dose: 1,000 mg Mirtazapine (Remeron Tab*) 15 mg PO BEDTIME [facility] Last Admin: 05/17/19 20:07 Dose: 15 mg Multivitamins (Theragran Tab*) 1 tab PO DAILY [facility] Last Admin: 05/18/19 09:12 Dose: 1 tab Polyethylene Glycol/Electrolytes (Miralax (17 Gm Dose John)) 17 gm PO DAILY [facility] Last Admin: 05/18/19 09:15 Dose: 17 gm Quetiapine Fumarate XR (Seroquel XR Tab*) 400 mg PO BEDTIME [facility] Last Admin: 05/17/19 20:08 Dose: 400 mg Temazepam (Restoril Cap*) 30 mg PO BEDTIME [facility] Last Admin: 05/17/19 20:09 Dose: 30 mg Discharge Planning: Prescriptions provided for discharge [x] Yes [] No Follow up care details as per social work arrangements: [facility] primary care- Dr Burns Patient response to discharge plan: [x] eager for discharge [x] agreeable with discharge plan [] ambivalent about discharge [] disagrees with discharge today
[2019-05-18] MEDS ORDERED: Divalproex ER TAB(*) 500 MG PO SCH (21:00)
[2019-05-18] MEDS ORDERED: Divalproex ER TAB(*) 250 MG PO SCH (21:00)
--- NOTE | 2019-05-19 10:27 | DS ---
CC: Dr. Stella Burns; [facility] * DISCHARGE SUMMARY: DATE OF ADMISSION: 05/14/19 DATE OF DISCHARGE: 05/18/19 SUPERVISING PSYCHIATRIST: Dr. Segun Davies.* (DICTATED BY HUYEN LEAL NP) DISCHARGE DIAGNOSES: 1. Bipolar II disorder. 2. Posttraumatic stress disorder. 3. Borderline personality disorder. 4. Borderline intellectual functioning. CONDITION AT THE TIME OF DISCHARGE: Improved. The patient is euthymic with bright affect. She denies suicidal ideation. She reports readiness to be discharged. We discussed her improved sleep while on the unit and medication changes. The patient was notified of elevated valproic acid level of 137 and recommendation to decrease Depakote to 1750 mg from 2000 mg at bedtime. She was initially upset about this recommendation. As we continued to discuss her improvement and medication changes, she was agreeable. The patient is discharged to home. MENTAL STATUS EXAM: Stephania is a 54-year-old white female, edentulous, well groomed with thin frame and dressed in her own clothing. She is wearing glasses. She is alert and oriented x3. She is pleasant and cooperative. Eye contact is good. Speech is soft, spontaneous, mumbled at times due to dentition. Concentration good. Memory 3/3. Mood is euthymic with bright affect. No abnormal psychomotor activity noted. Thought process is logical and goal directed. Thought content is negative for suicidal ideation or passive wish. She denies auditory or visual hallucinations. There are no perceptual disturbances noted. Insight and judgment are fair, improved. Fund of knowledge is adequate. She has low average intellect. INSTRUCTIONS GIVEN TO THE PATIENT: A. Medications: 1. We changed Depakote to 1750 mg ER q.h.s. 2. We discontinued olanzapine. 3. We resumed quetiapine IR at 400 mg p.o. q.h.s. The following medications were unchanged: 1. Aspirin EC 81 mg p.o. daily. 2. Atomoxetine 40 mg p.o. daily. 3. Atorvastatin 80 mg p.o. q.h.s. 4. Hydroxyzine 25 mg p.o. q.h.s. p.r.n. insomnia. 5. Insulin Lantus 35 units subcutaneous daily. 6. Melatonin 6 mg p.o. q.h.s. 7. Metformin 1000 mg p.o. b.i.d. with meals. 8. Mirtazapine 15 mg p.o. q.h.s. 9. [place]-3 fatty acid 1000 mg p.o. daily. 10. MiraLAX 17 g p.o. daily. 11. Temazepam 30 mg p.o. q.h.s. B. Diet: Consistent carbohydrate diet. C. Activity: Ambulation as tolerated. Tobacco cessation is not applicable. There are no pending labs or diagnostic studies at this time. D. Followup care: The patient will return to [facility] and has an appointment with her psychiatric nurse practitioner, Nadia, on and with her community nurse therapist, Dwayne Chiu, on 05/27/19. She will return to primary care provider, Dr. Burns, and has an appointment with her on 05/19/19 at 3 p.m. E. Substance use followup is not applicable. HOSPITAL COURSE: Part A: Reason for admission: The patient presented to the emergency department due to suicidal ideation with plans and means. She states "I need a few days in the hospital, I have access to knives and pills at home." HPI: Stephania is a 54-year-old white female with a long history of mental illness and comorbid medical diagnoses, multiple medical and psychiatric admissions, who presented to the emergency department after an appointment with her outpatient therapist demanding to be hospitalized. She was agitated and yelling in the emergency department. She reports frustration that her Seroquel dose was decreased and her Zyprexa dose was increased. According to therapist, the patient has been obsessing about this change, and as a result, stated she was suicidal. She was agitated at the clinic and calmed down once an ambulance was called. The patient is known to this telegraphic typewriter repairer and to [facility] She presents to the emergency department often. She is circumstantial about medications especially when she feels that sedative medications are not effective enough. The patient was given her medications in the ED last night and slept well. This morning when attempts were made to discharge her, she was persistent in wanting to be admitted to the mental health unit. She reports stressors of her family members telling her she needs to go to rehab and that she is crazy. She reports her sister is having heart issues and she is worried about her. The patient states that her family members have also been threatening to place her in a jail. According to collateral from her nurse therapist, the patient has agreed to [employer] application in order to pursue mental health housing separate from her family members. Part B. Psychiatric treatment rendered: The patient was admitted to adult behavioral services unit on voluntary status. Code status was full. She was placed on 15-minute checks for safety. We resumed outpatient medications with the exception of olanzapine due to multiple antipsychotic treatments. We continued quetiapine at 400 mg at bedtime. I spoke with her outpatient psychiatric nurse practitioner Gina Florez on the day of discharge. She reports trying to cross-titrate Seroquel with olanzapine. Commercial Real Estate Appraiser apologized for inadvertently discontinuing olanzapine, as at the time of admission I did not have an accurate medication list. Nevertheless, the patient slept well on this unit. She was calm and in behavioral control. She was pleasant and interactive with staff and peers. According to staff observations, the patient was circumstantial about fear of not being able to sleep. This is a consistent misperception of the patient for many years. On 05/17/19, the patient was tearful and reported suicidal ideation and fear of leaving the hospital. This happened to be a federal holiday and the clinic was closed, so I was not able to speak to Nadia until the following day. On day of discharge, the patient reported readiness for discharge as stated above. We discussed medication changes. She was initially reactive to these changes, but easily redirectable. At the end of our discussion, she reported readiness to be discharged and thanked telegraphic typewriter repairer for her treatment. HUYEN LEAL, JANNIE [id number]/CPS #: [id number] CHU
== END 2019-05-18 15:23 | disposition home or self-care (01) | DRG 885 ==
LOC: ED 12:54 → BSU 05-14 13:16 → ED 05-14 16:26 → BSU 05-17 13:55
PROVIDERS: ADMIT Nurse Practitioner Psychiatric/Mental Health; ATTEND Psychiatry & Neurology Psychiatry
PROC: GZHZZZZ Group Psychotherapy (ICD-10-PCS; principal; 2019-05-18)
DX: F31.81 Bipolar II disorder (principal); R45.851 Suicidal ideations; F43.10 Post-traumatic stress disorder, unspecified; F60.3 Borderline personality disorder; E11.9 Type 2 diabetes mellitus without complications; E78.00 Pure hypercholesterolemia, unspecified; E78.5 Hyperlipidemia, unspecified; I10 Essential (primary) hypertension; H91.90 Unspecified hearing loss, unspecified ear; G43.909 Migraine, unspecified, not intractable, without status migrainosus; F70 Mild intellectual disabilities; Z79.82 Long term (current) use of aspirin; Z79.4 Long term (current) use of insulin; Z79.899 Other long term (current) drug therapy; Z88.2 Allergy status to sulfonamides; Z88.1 Allergy status to other antibiotic agents; Z88.8 Allergy status to other drugs, medicaments and biological substances; Z97.4 Presence of external hearing-aid; Z91.5 Personal history of self-harm
CPT/HCPCS: 36415; 80053; 80164; 80307; 80320; 80329; 81003; 82947; 84443; 85025; 90853; 99222; 99231; 99238; 99284; A9270-GY; G0480

== ENCOUNTER 2019-05-27 12:29 | Emergency (ER) | payer MEDICARE, MEDICAID ==
[2019-05-27 12:47] VITALS: BP 141/89
[2019-05-27] MEDS ORDERED: Acetaminophen TAB* 325 MG PO ONE (14:23)
--- NOTE | 2019-05-27 14:28 | ED ---
Psychiatric Complaint - HPI Summary HPI Summary: Patient is a 54 y/o F arriving by ambulance to [facility] with a chief complaint of suicidal ideation with plan for overdosing onset today. She has a history of bipolar disease with multiple visits to the ED. She states that she is suicidal and has been suffering from insomnia as she is unable to sleep despite Seroquel , Restoril, Melatonin, and Hydroxyzine use. She endorses a headache and anxiety now. She denies any fevers, chills, erythema of eyes, sore throat, CP, SOB, cough, abdominal pain, N/V, dysuria, hematuria, myalgia, edema, rash, or dizziness. Past medical history significant for PTSD, depression, inpatient treatment, suicidal attempt, benzodiazepine abuse, CHARISMA, DVT, HTN, HLD, diabetes. Nonsmoker, no alcohol use. Medications reviewed. Allergies noted. - History Of Current Complaint Chief Complaint: EDPsychosocial Time Seen by Provider: 05/27/19 13:58 Hx Obtained From: Patient Hx Last Menstrual Period: 5 years ago Onset/Duration: Lasting Hours, Still Present Severity Initially: Severe Severity Currently: Severe Character: Depressed, Anxious Aggravating Factor(s): Nothing Alleviating Factor(s): Nothing Associated Signs And Symptoms: Positive: Sleep Disturbance Related History: Positive For: Prior Psychiatric Issues Has Suicidal: Reports: Thoughts, With A Plan - Allergies/Home Medications Allergies/Adverse Reactions: Allergies Allergy/AdvReac Type Severity Reaction Status Date / Time ziprasidone [From Geodon] Allergy Severe Unknown Verified 03/22/19 03:40 Reaction Details erythromycin base Allergy Intermediate Rash Verified 03/22/19 03:40 Sulfa (Sulfonamide Allergy Unknown Unknown Verified 03/22/19 03:40 Antibiotics) Reaction Details chlorpromazine AdvReac Severe Hallucinati Verified 03/22/19 03:40 [From Thorazine] ons haloperidol [From Haldol] AdvReac Severe Hallucinati Verified 03/22/19 03:40 ons fluphenazine [From Prolixin] AdvReac Intermediate depression Verified 03/22/19 03:40 lithium AdvReac Intermediate depression Verified 03/22/19 03:40 sulfisoxazole AdvReac Intermediate Nausea Verified 03/22/19 03:40 [From Gantrisin] Home Medications: Home Medications Atorvastatin* [Lipitor 80 MG*] 80 mg PO BEDTIME 06/26/16 [History Confirmed ] Insulin Glargine,Hum.rec.anlog [Lantus Solostar 100 units/ml 3 ml x 5 PENS] 35 units SUBCUT DAILY 11/26/18 [History Confirmed 05/27/19] Melatonin (NF) 6 mg PO BEDTIME PRN 11/26/18 [History Confirmed 05/27/19] Aspirin EC TAB* [Ecotrin EC Low Dose 81 MG*] 81 mg PO DAILY tab.ec 12/01/18 [ Rx Confirmed 05/27/19] Atomoxetine (NF) [Strattera (NF)] 40 mg PO DAILY cap 12/01/18 [Rx Confirmed ] Mirtazapine TAB* [Remeron TAB*] 15 mg PO BEDTIME tab 12/01/18 [Rx Confirmed ] metFORMIN* [Glucophage 1000 MG TAB *] 1,000 mg PO BID WITH MEALS tab 12/01/18 [ Rx Confirmed 05/27/19] [place]-3 Fatty Acids (Nf) [Fish Oil (NF)] 1,000 mg PO DAILY 05/13/19 [History Confirmed 05/27/19] Polyethylene Glycol 3350* [Miralax (17 GM DOSE VERITO)] 17 gm PO DAILY 05/13/19 [ History Confirmed 05/27/19] Temazepam CAP* [Restoril CAP*] 30 mg PO DAILY 05/13/19 [History Confirmed ] hydrOXYzine HCL TAB* [Atarax 25 MG TAB*] 25 mg PO BEDTIME PRN 05/13/19 [History Confirmed 05/27/19] Divalproex ER TAB(*) [Depakote ER TAB(*)] 1,500 mg PO BEDTIME #0 tab.er [Rx Confirmed 05/27/19] Divalproex ER TAB(*) [Depakote ER TAB(*)] 250 mg PO BEDTIME #30 tab 05/18/19 [ Rx Confirmed 05/27/19] Quetiapine Fumarate [Seroquel XR 400 mg Tab.Er.24h] 400 mg PO BEDTIME #30 tab.er.24h 05/18/19 [Rx Confirmed 05/27/19] OLANzapine TAB* [Zyprexa 5 MG TAB*] 5 mg PO BEDTIME 05/27/19 [History Confirmed 05/27/19] PMH/Surg Hx/FS Hx/Imm Hx Endocrine/Hematology History: Reports: Hx Diabetes Denies: Hx Anticoagulant Therapy, Hx Blood Disorders, Hx Blood Transfusions, Hx Bone Marrow Disease, Hx Systemic Lupus Erythematosus, Hx Sickle Cell Disease , Hx Thyroid Disease, Hx Anemia, Hx Unexplained Bleeding, Other Endocrine/ Hematological Disorders Cardiovascular History: Reports: Hx Hypercholesterolemia - HLD, Hx Hypertension Denies: Hx Aneurysm, Hx Angina, Hx Angioplasty, Hx Auto Implanted Cardiovert Defib, Hx Cardiac Arrest, Hx Cardiomegaly, Hx Congenital Heart Disease, Hx Congestive Heart Failure, Hx Coronary Artery Disease, Hx Deep Vein Thrombosis, Hx Embolism, Hx Hypotension, Hx Pacemaker/ICD, Hx Peripheral Vascular Disease, Hx Rheumatic Fever, Hx Syncope, Hx Valvular Heart Disease, Other Cardiovascular Problems/Disorders Respiratory History: Denies: Hx Asthma, Hx Chronic Bronchitis, Hx Chronic Obstructive Pulmonary Disease (COPD), Hx Cystic Fibrosis, Hx Lung Cancer, Hx Pleural Effusion, Hx Pneumonia, Hx Pulmonary Edema, Hx Pulmonary Embolism, Hx Seasonal Allergies, Hx Sleep Apnea, Other Respiratory Problems/Disorders GI History: Denies: Hx Cirrhosis, Hx Crohn's Disease, Hx Diverticulosis, Hx Gall Bladder Disease, Hx Gastroesophageal Reflux Disease, Hx Gastrointestinal Bleed, Hx Hiatal Hernia, Hx Irritable Bowel, Hx Jaundice, Hx Obstructive Bowel, Hx Ileostomy, Hx Pyloric Stenosis, Hx Ulcer, Other GI Disorders History: Denies: Hx Renal Disease Musculoskeletal History: Denies: Hx Arthritis, Hx Back Problems, Hx Bursitis, Hx Congenital Bone Abnormalities, Hx Fibromyalgia, Hx Gout, Hx Orthopedic Injury, Hx Osteoporosis, Hx Scoliosis, Hx Tendonitis, Other Musculoskeletal History Sensory History: Reports: Hx Contacts or Glasses, Hx Deafness - Hard of hearing , Hx Hearing Aid, Hx Hearing Problem Denies: Hx Cataracts, Hx Eye Injury, Hx Eye Prosthesis, Hx Glaucoma, Hx Legally Blind, Hx Macular Degeneration, Hx Vision Problem, Other Sensory Impairments Opthamlomology History: Reports: Hx Contacts or Glasses Denies: Hx Cataracts, Hx Eye Injury, Hx Eye Prosthesis, Hx Glaucoma, Hx Legally Blind, Hx Macular Degeneration, Hx Vision Problem, Other Sensory Impairments Neurological History: Reports: Hx Headaches, Hx Migraine Denies: Hx Dementia, Hx Developmental Delay, Hx Nerve Disease, Hx Seizures, Hx Spinal Cord Injury, Hx Transient Ischemic Attacks (TIA), Other Neuro Impairments/Disorders Psychiatric History: Reports: Hx Anxiety, Hx Attention Deficit Hyperactivity Disorder, Hx Depression, Hx Inpatient Treatment - HX PSYCHIATRIC HOSPITALIZATIONS, Hx Community Mental Health Tx, Hx Bipolar Disorder, Hx Suicide Attempt - 5 or 6 years ago, OD, Hx of Violent Episodes Against Others, Hx Substance Abuse - HX BENZO ABUSE, Other Psychiatric Issues/Disorders - HX SI/ ATTEMPT Denies: Hx Eating Disorder, Hx Panic Disorder, Hx Post Traumatic Stress Disorder, Hx Schizophrenia - Cancer History Cancer Type, Location and Year: None reported Hx Chemotherapy: No Hx Radiation Therapy: No - Surgical History Surgical History: Yes Surgery Procedure, Year, and Place: appendectomy 1975, 1972 bladder, 5yrs ago orif rt ankle Hx Anesthesia Reactions: No - Immunization History Date of Tetanus Vaccine: Unknown Date of Influenza Vaccine: 12/10/2012 Infectious Disease History: No Infectious Disease History: Denies: Hx Clostridium Difficile, Hx Hepatitis, Hx Human Immunodeficiency Virus (HIV), Hx of Known/Suspected MRSA, Hx Shingles, Hx Tuberculosis, Hx Known/ Suspected VRE, Hx Known/Suspected VRSA, History Other Infectious Disease, Traveled Outside the [place] in Last 30 Days - Family History Known Family History: Positive: Hypertension, Diabetes, Other - bipolar disorder , breat cancer - Social History Alcohol Use: None Alcohol Amount: 0 Hx Substance Use: Yes Substance Use Type: Reports: None Hx Tobacco Use: No Smoking Status (MU): Never Smoked Tobacco Review of Systems Positive: Other - insomnia. Negative: Fever, Chills Negative: Erythema Negative: Sore Throat Negative: Chest Pain Negative: Shortness Of Breath, Cough Negative: Abdominal Pain, Vomiting, Nausea Negative: dysuria, hematuria Negative: Myalgia, Edema Negative: Rash Neurological/Mental Status: Other - Negative: dizziness Positive: Headache Positive: Anxious, Other - SI with plan, sleep disturbance All Other Systems Reviewed And Are Negative: Yes Physical Exam - Summary Physical Exam Summary: General: Well appearing, no distress Cardiovascular: Skin is well perfused Pulmonary: No respiratory distress, no tachypnea Abdomen: Non-distended Skin: Warm, pink, dry Psych: Normal affect Neuro: A&Ox3 Triage Information Reviewed: Yes Vital Signs On Initial Exam: Initial Vitals Temp Pulse Resp BP Pulse Ox 97.8 F 88 16 141/89 98 05/27/19 12:38 05/27/19 12:38 05/27/19 12:38 05/27/19 12:38 05/27/19 12:38 Vital Signs Reviewed: Yes Procedures - Sedation Patient Received Moderate/Deep Sedation with Procedure: No Diagnostics - Vital Signs Vital Signs Temp Pulse Resp BP Pulse Ox 05/27/19 12:38 97.8 F 88 16 141/89 98 - Laboratory Result Diagrams: 05/27/19 15:08 05/27/19 15:08 Lab Statement: Any lab studies that have been ordered have been reviewed, and results considered in the medical decision making process. Course/Dx - Course Course Of Treatment: Patient is a 54 y/o F who has extensive psychiatric history with chief complaint of SI with plan for overdosing and insomnia for a week despite multiple sleep-aid use. Physical exam without significant abnormality. Patient received Tylenol for headache. Blood work reveals BUN 29, creatinine 1.14, glucose 156. UA with 1+ glucose. Toxicology positive for benzodiazepines. Patient not prescribed any benzodiazepines. Concern for prescribing them due to unreliability of patient and her stating SI with plan for overdose. Patient evaluated by Karri from psychiatric team, and he states there is no indication for admission at this time. Patient advised to follow with [facility] and her PCP for management. - Differential Dx/Clinical Impression Provider Diagnosis: Insomnia, Bipolar disorder - Physician Notifications Discussed Care Of Patient With: Arron Daniels - psychiatric team Time Discussed With Above Provider: 16:30 Instructed by Provider To: Other - Karri has evaluated the patient without clear indication for needing admission at this time. Discharge ED - Sign-Out/Discharge Documenting (check all that apply): Patient Departure - Patient will be discharged home. - Discharge Plan Condition: Stable Disposition: HOME Patient Education Materials: Bipolar Disorder (ED), Insomnia (ED) Referrals: Stella Burns MD [Primary Care Provider] - 3 Days Additional Instructions: Follow up with your primary care provider in 2-3 days. Follow up at [facility]. Return to the emergency department for any new or worsening symptoms. - Attestation Statements Document Initiated by Scribe: Yes Documenting Scribe: Erica Capellan Provider For Whom Aleyda is Documenting (Include Credential): Dr. Bala Selby MD Scribe Attestation: Erica Iverson scribed for Dr. Bala Selby MD on 05/27/19 at 1807. Status of Scribe Document: Ready
[2019-05-27 15:02] LABS: Urine Appearance Clear; Urine Bilirubin Negative (Negative); Urine Blood Negative (Negative); Urine Color Yellow; Urine Glucose 1+(50 mg/dL) (Negative); Urine Ketones Negative (Negative); Urine Nitrite Negative (Negative); Urine Protein Negative (Negative); Urine Specific Gravity 1.021 (1.010-1.030); Urine Urobilinogen Negative (Negative)
[2019-05-27 15:16] LABS: ABS Lymphocytes 2.6 10^3/ul (1.0-4.8); ABS Monocytes 0.4 10^3/ul (0-0.8); ABS Neutrophils 2.5 10^3/ul (1.5-7.7); Eosinophil % 0.2 %; Hematocrit 39 % (35-47); Hemoglobin 13.3 g/dL (12.0-16.0); Lymphocyte % 47.6 %; Mean Corpuscular HGB Conc 34 g/dL (31-36); Mean Corpuscular Hemoglobin 33 pg (27-31); Mean Corpuscular Volume 98 fL (80-97); Mean Platelet Volume 6.9 fL (7.4-10.4); Nucleated Red Blood Cells % 0.1; Platelet Count 176 10^3/uL (150-450); Red Blood Count 3.99 10^6 /uL (3.70-4.87); Red Cell Distribution Width 15 % (10-15); White Blood Count 5.5 10^3/uL (3.5-10.8)
[2019-05-27 15:19] LABS: Urine Benzodiazepine Screen Presumptive Positive (None Detect); Urine Opiates Screen None Detected (None Detect)
[2019-05-27 15:39] LABS: Acetaminophen < 15 mcg/mL; Alcohol < 10 mg/dL (<10); Salicylate < 2.50 mg/dL (<30)
[2019-05-27 15:41] LABS: ALT 19 U/L (7-52); AST 26 U/L (13-39); Albumin 3.9 g/dL (3.2-5.2); Albumin/Globulin Ratio 1.2 (1-3); Alkaline Phosphatase 60 U/L (34-104); Anion Gap 6 mmol/L (2-11); BUN/Creatinine Ratio 25.4 (8-20); Blood Urea Nitrogen 29 mg/dL (6-24); CO2 Carbon Dioxide 28 mmol/L (22-32); Calcium 9.9 mg/dL (8.6-10.3); Chloride 101 mmol/L (101-111); EGFR African American 59.7 (>60); EGFR Non-African American 49.3 (>60); Globulin 3.2 g/dL (2-4); Glucose 156 mg/dL (70-100); Potassium 4.9 mmol/L (3.5-5.0); Sodium 135 mmol/L (135-145); Total Protein 7.1 g/dL (6.4-8.9)
== END 2019-05-27 17:39 | disposition home or self-care (01) ==
LOC: ED 12:29
DX: G47.00 Insomnia, unspecified (principal); F31.9 Bipolar disorder, unspecified; R45.851 Suicidal ideations; R51 Headache; F41.9 Anxiety disorder, unspecified; E11.9 Type 2 diabetes mellitus without complications; Z79.4 Long term (current) use of insulin; Z79.84 Long term (current) use of oral hypoglycemic drugs; E78.00 Pure hypercholesterolemia, unspecified; Z79.899 Other long term (current) drug therapy; F90.9 Attention-deficit hyperactivity disorder, unspecified type; Z88.1 Allergy status to other antibiotic agents; Z88.2 Allergy status to sulfonamides; Z88.8 Allergy status to other drugs, medicaments and biological substances
CPT/HCPCS: 36415; 80053; 80307; 80320; 80329; 81003; 83605; 85025; 99285; A9270-GY; G0480

== ENCOUNTER 2019-07-01 08:00 | Emergency (ER) | payer MEDICARE, MEDICAID ==
--- NOTE | 2019-07-01 08:14 | ED ---
Psychiatric Complaint - HPI Summary HPI Summary: Patient is a 54 y/o F presenting to [facility] via EMS for SI. She states that her father recently and that she has been suicidal for the past two weeks. Hx of self harm is noted, patient states that attempted to overdose via pills previously. Patient notes that she has a bunch of knives at home. No alcohol or substance usage reported. Patient states that she has been taking her medications as prescribed and has not missed any dosages. No fever, no cough, no SOB noted. Patient does not report any fever, chills, erythema of eyes, sore throat, chest pain, shortness of breath, cough, abdominal pain, nausea/vomiting , dysuria, hematuria, myalgia, edema, rash, or dizziness. Home medications and allergies are reviewed. - History Of Current Complaint Time Seen by Provider: 07/01/19 08:07 Hx Obtained From: Patient Hx Last Menstrual Period: 5 years ago Onset/Duration: Lasting Weeks, Still Present Timing: Weeks Character: Depressed Aggravating Factor(s): Recent Stress Associated Signs And Symptoms: Positive: Negative Has Suicidal: Reports: Thoughts - Allergies/Home Medications Allergies/Adverse Reactions: Allergies Allergy/AdvReac Type Severity Reaction Status Date / Time ziprasidone [From Geodon] Allergy Severe Unknown Verified 03/22/19 03:40 Reaction Details erythromycin base Allergy Intermediate Rash Verified 03/22/19 03:40 Sulfa (Sulfonamide Allergy Unknown Unknown Verified 03/22/19 03:40 Antibiotics) Reaction Details chlorpromazine AdvReac Severe Hallucinati Verified 03/22/19 03:40 [From Thorazine] ons haloperidol [From Haldol] AdvReac Severe Hallucinati Verified 03/22/19 03:40 ons fluphenazine [From Prolixin] AdvReac Intermediate depression Verified 03/22/19 03:40 lithium AdvReac Intermediate depression Verified 03/22/19 03:40 sulfisoxazole AdvReac Intermediate Nausea Verified 03/22/19 03:40 [From Gantrisin] Home Medications: Home Medications Atorvastatin* [Lipitor 80 MG*] 80 mg PO BEDTIME 06/26/16 [History Confirmed 05/20] Insulin Glargine,Hum.rec.anlog [Lantus Solostar 100 units/ml 3 ml x 5 PENS] 35 units SUBCUT DAILY 11/26/18 [History Confirmed 07/01/19] Melatonin (NF) 6 mg PO BEDTIME PRN 11/26/18 [History Confirmed 07/01/19] Aspirin EC TAB* [Ecotrin EC Low Dose 81 MG*] 81 mg PO DAILY tab.ec 12/01/18 [ Rx Confirmed 07/01/19] Atomoxetine (NF) [Strattera (NF)] 40 mg PO DAILY cap 12/01/18 [Rx Confirmed 05/20] Mirtazapine TAB* [Remeron TAB*] 15 mg PO BEDTIME tab 12/01/18 [Rx Confirmed 05/20] [place]-3 Fatty Acids (Nf) [Fish Oil (NF)] 1,000 mg PO DAILY 05/13/19 [History Confirmed 07/01/19] Polyethylene Glycol 3350* [Miralax (17 GM DOSE VERITO)] 17 gm PO DAILY 05/13/19 [ History Confirmed 07/01/19] Temazepam CAP* [Restoril CAP*] 30 mg PO DAILY 05/13/19 [History Confirmed ] hydrOXYzine HCL TAB* [Atarax 25 MG TAB*] 25 mg PO BEDTIME PRN 05/13/19 [History Confirmed 07/01/19] Quetiapine Fumarate [Seroquel XR 400 mg Tab.Er.24h] 400 mg PO BEDTIME #30 tab.er.24h 05/18/19 [Rx Confirmed 07/01/19] Acetaminophen [Tylenol 8 Hour] 650 mg PO Q8H PRN 07/01/19 [History Confirmed 05/20] Amoxicillin PO (*) [Amoxicillin 500 MG CAP*] 500 mg PO BID 07/01/19 [History Confirmed 07/01/19] Ciprofloxacin TAB* [Cipro 250 MG Tab*] 250 mg PO BID 07/01/19 [History Confirmed 07/01/19] Divalproex ER TAB(*) [Depakote ER TAB(*)] 2,000 mg PO BEDTIME 07/01/19 [History Confirmed 07/01/19] metFORMIN* [Glucophage 1000 MG TAB *] 1,000 mg PO BID 07/01/19 [History Confirmed 07/01/19] PMH/Surg Hx/FS Hx/Imm Hx Endocrine/Hematology History: Reports: Hx Diabetes Denies: Hx Anticoagulant Therapy, Hx Blood Disorders, Hx Blood Transfusions, Hx Bone Marrow Disease, Hx Systemic Lupus Erythematosus, Hx Sickle Cell Disease , Hx Thyroid Disease, Hx Anemia, Hx Unexplained Bleeding, Other Endocrine/ Hematological Disorders Cardiovascular History: Reports: Hx Hypercholesterolemia - HLD, Hx Hypertension Denies: Hx Aneurysm, Hx Angina, Hx Angioplasty, Hx Auto Implanted Cardiovert Defib, Hx Cardiac Arrest, Hx Cardiomegaly, Hx Congenital Heart Disease, Hx Congestive Heart Failure, Hx Coronary Artery Disease, Hx Deep Vein Thrombosis, Hx Embolism, Hx Hypotension, Hx Pacemaker/ICD, Hx Peripheral Vascular Disease, Hx Rheumatic Fever, Hx Syncope, Hx Valvular Heart Disease, Other Cardiovascular Problems/Disorders Respiratory History: Denies: Hx Asthma, Hx Chronic Bronchitis, Hx Chronic Obstructive Pulmonary Disease (COPD), Hx Cystic Fibrosis, Hx Lung Cancer, Hx Pleural Effusion, Hx Pneumonia, Hx Pulmonary Edema, Hx Pulmonary Embolism, Hx Seasonal Allergies, Hx Sleep Apnea, Other Respiratory Problems/Disorders GI History: Denies: Hx Cirrhosis, Hx Crohn's Disease, Hx Diverticulosis, Hx Gall Bladder Disease, Hx Gastroesophageal Reflux Disease, Hx Gastrointestinal Bleed, Hx Hiatal Hernia, Hx Irritable Bowel, Hx Jaundice, Hx Obstructive Bowel, Hx Ileostomy, Hx Pyloric Stenosis, Hx Ulcer, Other GI Disorders History: Denies: Hx Renal Disease Musculoskeletal History: Denies: Hx Arthritis, Hx Back Problems, Hx Bursitis, Hx Congenital Bone Abnormalities, Hx Fibromyalgia, Hx Gout, Hx Orthopedic Injury, Hx Osteoporosis, Hx Scoliosis, Hx Tendonitis, Other Musculoskeletal History Sensory History: Reports: Hx Contacts or Glasses, Hx Deafness - Hard of hearing , Hx Hearing Aid, Hx Hearing Problem Denies: Hx Cataracts, Hx Eye Injury, Hx Eye Prosthesis, Hx Glaucoma, Hx Legally Blind, Hx Macular Degeneration, Hx Vision Problem, Other Sensory Impairments Opthamlomology History: Reports: Hx Contacts or Glasses Denies: Hx Cataracts, Hx Eye Injury, Hx Eye Prosthesis, Hx Glaucoma, Hx Legally Blind, Hx Macular Degeneration, Hx Vision Problem, Other Sensory Impairments Neurological History: Reports: Hx Headaches, Hx Migraine Denies: Hx Dementia, Hx Developmental Delay, Hx Nerve Disease, Hx Seizures, Hx Spinal Cord Injury, Hx Transient Ischemic Attacks (TIA), Other Neuro Impairments/Disorders Psychiatric History: Reports: Hx Anxiety, Hx Attention Deficit Hyperactivity Disorder, Hx Depression, Hx Inpatient Treatment - HX PSYCHIATRIC HOSPITALIZATIONS, Hx Community Mental Health Tx, Hx Bipolar Disorder, Hx Suicide Attempt - 5 or 6 years ago, OD, Hx of Violent Episodes Against Others, Hx Substance Abuse - HX BENZO ABUSE, Other Psychiatric Issues/Disorders - HX SI/ ATTEMPT Denies: Hx Eating Disorder, Hx Panic Disorder, Hx Post Traumatic Stress Disorder, Hx Schizophrenia - Cancer History Cancer Type, Location and Year: None reported Hx Chemotherapy: No Hx Radiation Therapy: No - Surgical History Surgery Procedure, Year, and Place: appendectomy 1975, 1972 bladder, 5yrs ago orif rt ankle Hx Anesthesia Reactions: No - Immunization History Date of Tetanus Vaccine: Unknown Date of Influenza Vaccine: 12/10/2012 Infectious Disease History: Denies: Hx Clostridium Difficile, Hx Hepatitis, Hx Human Immunodeficiency Virus (HIV), Hx of Known/Suspected MRSA, Hx Shingles, Hx Tuberculosis, Hx Known/ Suspected VRE, Hx Known/Suspected VRSA, History Other Infectious Disease - Family History Known Family History: Positive: Hypertension, Diabetes, Other - bipolar disorder , breat cancer - Social History Alcohol Use: None Alcohol Amount: 0 Hx Substance Use: Yes Substance Use Type: Reports: None Hx Tobacco Use: No Smoking Status (MU): Never Smoked Tobacco Review of Systems Negative: Fever, Chills Negative: Erythema Negative: Sore Throat Negative: Chest Pain Negative: Shortness Of Breath, Cough Negative: Abdominal Pain, Vomiting, Nausea Negative: dysuria, hematuria Negative: Myalgia, Edema Negative: Rash Neurological/Mental Status: Other - negative - dizziness Positive: Other - SI All Other Systems Reviewed And Are Negative: Yes Physical Exam - Summary Physical Exam Summary: Constitutional: Well-developed, Well-nourished, Alert. (-) Distressed Skin: Warm, Dry HENT: Normocephalic; Atraumatic Eyes: Conjunctiva normal Neck: Musculoskeletal ROM normal neck. (-) JVD, (-) Stridor, (-) Tracheal deviation Cardio: Rhythm regular, rate normal, Heart sounds normal; Intact distal pulses; The pedal pulses are 2+ and symmetric. Radial pulses are 2+ and symmetric. (-) Murmur Pulmonary/Chest wall: Effort normal. (-) Respiratory distress, (-) Wheezes, (-) Rales Abd: Soft, (-) tenderness, (-) Distension, (-) Guarding, (-) Rebound Musculoskeletal: (-) Edema Lymph: (-) Cervical adenopathy Neuro: Alert, Oriented x3 Psych: Mood and affect Normal Triage Information Reviewed: Yes Vital Signs On Initial Exam: Initial Vital Signs Temp 96 F 07/01/19 08:16 Pulse 75 07/01/19 08:16 Resp 16 07/01/19 08:16 BP 137/91 07/01/19 08:16 Pulse Ox 99 07/01/19 08:16 Vital Signs Reviewed: Yes Procedures - Sedation Patient Received Moderate/Deep Sedation with Procedure: No Re-Evaluation - Re-Evaluation First Eval Re-Evaluation Time: 08:14 Comment: Patient medically cleared for MHE. Second Eval Re-Evaluation Time: 08:28 Comment: Patient states that she has a 5/10 LARSEN at this time and requests Tylenol. She reports that she has been having HAs intermittently for the past week. 975 mg Tylenol ordered. Course/Dx - Course Course Of Treatment: Patient is a 54 y/o F presenting to [facility] via EMS for SI. She states that her father recently and that she has been suicidal for the past two weeks. Hx of self harm is noted, patient states that attempted to overdose via pills previously. Patient notes that she has a bunch of knives at home. No alcohol or substance usage reported. Patient states that she has been taking her medications as prescribed and has not missed any dosages. No fever, no cough, no SOB noted. Patient's statements about her father are felt not to be factual due to collateral information provided by staff. Physical exam is unremarkable. Patient was medically cleared for MHE. She received MHE. After discussion with psychiatrist, Dr. Davies, and mental health yacht builder, patient agreed to be discharged to home and will follow up with [facility] on outpatient basis. - Differential Dx/Clinical Impression Provider Diagnosis: Adjustment disorder - Physician Notifications Discussed Care Of Patient With: Segun Davies Time Discussed With Above Provider: 12:40 Instructed by Provider To: Other - Patient's case was reviewed by Dr. Davies, patient to be discharged to home with outpatient psychiatric followup. Discharge ED - Sign-Out/Discharge Documenting (check all that apply): Patient Departure - discharge - Discharge Plan Condition: Stable Disposition: HOME Referrals: Stella Burns MD [Primary Care Provider] - - Attestation Statements Document Initiated by Scribe: Yes Documenting Scribe: PAU GARCIA Provider For Whom Scribe is Documenting (Include Credential): LE BARBA MD Scribe Attestation: I, PAU GARCIA, scribed for LE BARBA MD on 07/01/19 at 1322. Status of Scribe Document: Ready
[2019-07-01] MEDS ORDERED: Acetaminophen TAB* 325 MG PO ONE (08:30)
[2019-07-01 13:33] VITALS: BP 168/100
== END 2019-07-01 13:52 | disposition home or self-care (01) ==
LOC: ED 08:00
DX: F43.20 Adjustment disorder, unspecified (principal); R45.851 Suicidal ideations; E78.00 Pure hypercholesterolemia, unspecified; E78.5 Hyperlipidemia, unspecified; I10 Essential (primary) hypertension; E11.9 Type 2 diabetes mellitus without complications; Z79.4 Long term (current) use of insulin; Z79.82 Long term (current) use of aspirin; Z79.899 Other long term (current) drug therapy; Z88.2 Allergy status to sulfonamides
CPT/HCPCS: 99285; A9270-GY

== ENCOUNTER 2019-07-24 14:33 | Emergency (ER) | payer MEDICARE, MEDICAID ==
--- NOTE | 2019-07-24 14:50 | ED ---
Psychiatric Complaint - HPI Summary HPI Summary: Patient is a 54-year-old female who has an extensive psychiatric history presenting to [facility] with a chief complaint of suicidal ideation with plan for self-inflicting cuts to her wrists this morning. She does not have any lacerations to the wrists. She is requesting a psychiatric evaluation. She additionally has pain in the left knee secondary to arthritis rated 10/10 in severity. Past medical history significant for anxiety, ADHD, depression, inpatient treatment, bipolar disorder, suicide attempt, violent episodes against others, substance abuse (benzodiazepines), diabetes, dyslipidemia, hypertension, headaches/migraines, appendectomy, ORIF right ankle. Nonsmoker. No alcohol use. No current substance use. Medications reviewed. Allergies noted. - History Of Current Complaint Chief Complaint: EDMentalHealth Time Seen by Provider: 07/24/19 14:39 Hx Obtained From: Patient Hx Last Menstrual Period: 5 years ago Onset/Duration: Lasting Hours, Still Present Timing: Constant Severity Initially: Moderate Severity Currently: Moderate Character: Depressed Aggravating Factor(s): Nothing Alleviating Factor(s): Nothing Related History: Positive For: Prior Psychiatric Issues Has Suicidal: Reports: Thoughts, With A Plan - self-inflicting cuts to wrists - Allergies/Home Medications Allergies/Adverse Reactions: Allergies Allergy/AdvReac Type Severity Reaction Status Date / Time ziprasidone [From Geodon] Allergy Severe Unknown Verified 07/24/19 14:38 Reaction Details erythromycin base Allergy Intermediate Rash Verified 07/24/19 14:38 Sulfa (Sulfonamide Allergy Unknown Unknown Verified 07/24/19 14:38 Antibiotics) Reaction Details chlorpromazine AdvReac Severe Hallucinati Verified 07/24/19 14:38 [From Thorazine] ons haloperidol [From Haldol] AdvReac Severe Hallucinati Verified 07/24/19 14:38 ons fluphenazine [From Prolixin] AdvReac Intermediate depression Verified 07/24/19 14:38 lithium AdvReac Intermediate depression Verified 07/24/19 14:38 sulfisoxazole AdvReac Intermediate Nausea Verified 07/24/19 14:38 [From Gantrisin] Home Medications: Home Medications Atorvastatin* [Lipitor 80 MG*] 80 mg PO BEDTIME 06/26/16 [History Confirmed 05/20] Insulin Glargine,Hum.rec.anlog [Lantus Solostar 100 units/ml 3 ml x 5 PENS] 35 units SUBCUT DAILY 11/26/18 [History Confirmed 07/01/19] Melatonin (NF) 6 mg PO BEDTIME PRN 11/26/18 [History Confirmed 07/01/19] Aspirin EC TAB* [Ecotrin EC Low Dose 81 MG*] 81 mg PO DAILY tab.ec 12/01/18 [ Rx Confirmed 07/01/19] Atomoxetine (NF) [Strattera (NF)] 40 mg PO DAILY cap 12/01/18 [Rx Confirmed 05/20] Mirtazapine TAB* [Remeron TAB*] 15 mg PO BEDTIME tab 12/01/18 [Rx Confirmed 05/20] [place]-3 Fatty Acids (Nf) [Fish Oil (NF)] 1,000 mg PO DAILY 05/13/19 [History Confirmed 07/01/19] Polyethylene Glycol 3350* [Miralax (17 GM DOSE VERITO)] 17 gm PO DAILY 05/13/19 [ History Confirmed 07/01/19] Temazepam CAP* [Restoril CAP*] 30 mg PO DAILY 05/13/19 [History Confirmed ] hydrOXYzine HCL TAB* [Atarax 25 MG TAB*] 25 mg PO BEDTIME PRN 05/13/19 [History Confirmed 07/01/19] Quetiapine Fumarate [Seroquel XR 400 mg Tab.Er.24h] 400 mg PO BEDTIME #30 tab.er.24h 05/18/19 [Rx Confirmed 07/01/19] Acetaminophen [Tylenol 8 Hour] 650 mg PO Q8H PRN 07/01/19 [History Confirmed 05/20] Amoxicillin PO (*) [Amoxicillin 500 MG CAP*] 500 mg PO BID 07/01/19 [History Confirmed 07/01/19] Ciprofloxacin TAB* [Cipro 250 MG Tab*] 250 mg PO BID 07/01/19 [History Confirmed 07/01/19] Divalproex ER TAB(*) [Depakote ER TAB(*)] 2,000 mg PO BEDTIME 07/01/19 [History Confirmed 07/01/19] metFORMIN* [Glucophage 1000 MG TAB *] 1,000 mg PO BID 07/01/19 [History Confirmed 07/01/19] PMH/Surg Hx/FS Hx/Imm Hx Endocrine/Hematology History: Reports: Hx Diabetes Denies: Hx Anticoagulant Therapy, Hx Blood Disorders, Hx Blood Transfusions, Hx Bone Marrow Disease, Hx Systemic Lupus Erythematosus, Hx Sickle Cell Disease , Hx Thyroid Disease, Hx Anemia, Hx Unexplained Bleeding, Other Endocrine/ Hematological Disorders Cardiovascular History: Reports: Hx Hypercholesterolemia - HLD, Hx Hypertension Denies: Hx Aneurysm, Hx Angina, Hx Angioplasty, Hx Auto Implanted Cardiovert Defib, Hx Cardiac Arrest, Hx Cardiomegaly, Hx Congenital Heart Disease, Hx Congestive Heart Failure, Hx Coronary Artery Disease, Hx Deep Vein Thrombosis, Hx Embolism, Hx Hypotension, Hx Pacemaker/ICD, Hx Peripheral Vascular Disease, Hx Rheumatic Fever, Hx Syncope, Hx Valvular Heart Disease, Other Cardiovascular Problems/Disorders Respiratory History: Denies: Hx Asthma, Hx Chronic Bronchitis, Hx Chronic Obstructive Pulmonary Disease (COPD), Hx Cystic Fibrosis, Hx Lung Cancer, Hx Pleural Effusion, Hx Pneumonia, Hx Pulmonary Edema, Hx Pulmonary Embolism, Hx Seasonal Allergies, Hx Sleep Apnea, Other Respiratory Problems/Disorders GI History: Denies: Hx Cirrhosis, Hx Crohn's Disease, Hx Diverticulosis, Hx Gall Bladder Disease, Hx Gastroesophageal Reflux Disease, Hx Gastrointestinal Bleed, Hx Hiatal Hernia, Hx Irritable Bowel, Hx Jaundice, Hx Obstructive Bowel, Hx Ileostomy, Hx Pyloric Stenosis, Hx Ulcer, Other GI Disorders History: Denies: Hx Renal Disease Musculoskeletal History: Denies: Hx Arthritis, Hx Back Problems, Hx Bursitis, Hx Congenital Bone Abnormalities, Hx Fibromyalgia, Hx Gout, Hx Orthopedic Injury, Hx Osteoporosis, Hx Scoliosis, Hx Tendonitis, Other Musculoskeletal History Sensory History: Reports: Hx Contacts or Glasses, Hx Deafness - Hard of hearing , Hx Hearing Aid, Hx Hearing Problem Denies: Hx Cataracts, Hx Eye Injury, Hx Eye Prosthesis, Hx Glaucoma, Hx Legally Blind, Hx Macular Degeneration, Hx Vision Problem, Other Sensory Impairments Opthamlomology History: Reports: Hx Contacts or Glasses Denies: Hx Cataracts, Hx Eye Injury, Hx Eye Prosthesis, Hx Glaucoma, Hx Legally Blind, Hx Macular Degeneration, Hx Vision Problem, Other Sensory Impairments Neurological History: Reports: Hx Headaches, Hx Migraine Denies: Hx Dementia, Hx Developmental Delay, Hx Nerve Disease, Hx Seizures, Hx Spinal Cord Injury, Hx Transient Ischemic Attacks (TIA), Other Neuro Impairments/Disorders Psychiatric History: Reports: Hx Anxiety, Hx Attention Deficit Hyperactivity Disorder, Hx Depression, Hx Inpatient Treatment - HX PSYCHIATRIC HOSPITALIZATIONS, Hx Community Mental Health Tx, Hx Bipolar Disorder, Hx Suicide Attempt - 5 or 6 years ago, OD, Hx of Violent Episodes Against Others, Hx Substance Abuse - HX BENZO ABUSE, Other Psychiatric Issues/Disorders - HX SI/ ATTEMPT Denies: Hx Eating Disorder, Hx Panic Disorder, Hx Post Traumatic Stress Disorder, Hx Schizophrenia - Cancer History Cancer Type, Location and Year: None reported Hx Chemotherapy: No Hx Radiation Therapy: No - Surgical History Surgical History: Yes Surgery Procedure, Year, and Place: appendectomy 1975, 1972 bladder, 5yrs ago orif rt ankle Hx Anesthesia Reactions: No - Immunization History Date of Tetanus Vaccine: Unknown Date of Influenza Vaccine: 12/10/2012 Infectious Disease History: No Infectious Disease History: Denies: Hx Clostridium Difficile, Hx Hepatitis, Hx Human Immunodeficiency Virus (HIV), Hx of Known/Suspected MRSA, Hx Shingles, Hx Tuberculosis, Hx Known/ Suspected VRE, Hx Known/Suspected VRSA, History Other Infectious Disease, Traveled Outside the [place] in Last 30 Days - Family History Known Family History: Positive: Hypertension, Diabetes, Other - bipolar disorder , breat cancer - Social History Alcohol Use: None Alcohol Amount: 0 Hx Substance Use: Yes Substance Use Type: Reports: None Hx Tobacco Use: No Smoking Status (MU): Never Smoked Tobacco Review of Systems Positive: Arthralgia - left knee secondary to arthritis Negative: Other - self-inflicted lacerations to wrists Positive: Other - suicidal ideation with plan for cutting self All Other Systems Reviewed And Are Negative: Yes Physical Exam - Summary Physical Exam Summary: VITAL SIGNS: Reviewed. GENERAL: Patient is a well-developed and nourished female who is lying comfortable in the stretcher. Patient is not in any acute respiratory distress. HEAD AND FACE: No signs of trauma. No ecchymosis, hematomas or skull depressions. No sinus tenderness. EYES: PERRL, EOMI x 2, No injected conjunctiva, no nystagmus. EARS: Hearing grossly intact. Ear canals and tympanic membranes are within normal limits. MOUTH: Oropharynx within normal limits. NECK: Supple, trachea is midline, no adenopathy, no JVD, no carotid bruit, no c- spine tenderness, neck with full ROM. CHEST: Symmetric, no tenderness at palpation. LUNGS: Clear to auscultation bilaterally. No wheezing or crackles. CVS: Regular rate and rhythm, S1 and S2 present, no murmurs or gallops appreciated. ABDOMEN: Soft, non-tender. No signs of distention. No rebound, no guarding, and no masses palpated. Bowel sounds are normal. EXTREMITIES: FROM in all major joints, no edema, no cyanosis or clubbing. NEURO: Alert and oriented x 3. No acute neurological deficits. Speech is normal and follows commands. SKIN: Dry and warm. No signs of abrasions to upper extremities. PSYCH: Speaking loudly, anxious, depressed. States suicidal thoughts with active plan. No homicidal thoughts or plan. No signs of psychosis or pressure speech. No tangential speech. Triage Information Reviewed: Yes Vital Signs On Initial Exam: Initial Vitals Temp Pulse Resp BP Pulse Ox 98 F 104 16 149/94 97 07/24/19 14:35 07/24/19 14:35 07/24/19 14:35 07/24/19 14:35 07/24/19 14:35 Vital Signs Reviewed: Yes Procedures - Sedation Patient Received Moderate/Deep Sedation with Procedure: No Diagnostics - Vital Signs Vital Signs Temp Pulse Resp BP Pulse Ox 07/24/19 14:35 98 F 104 16 149/94 97 - Laboratory Result Diagrams: 07/24/19 15:15 07/24/19 15:15 Lab Statement: Any lab studies that have been ordered have been reviewed, and results considered in the medical decision making process. Re-Evaluation - Re-Evaluation First Eval Re-Evaluation Time: 14:45 Comment: Patient is medically clear for mental health evaluation. Course/Dx - Course Assessment/Plan: Patient is a 54-year-old female who has an extensive psychiatric history presenting to [facility] with a chief complaint of suicidal ideation with plan for self-inflicting cuts to her wrists this morning. She does not have any lacerations to the wrists. She is requesting a psychiatric evaluation. She additionally has pain in the left knee secondary to arthritis rated 10/10 in severity. Past medical history significant for anxiety, ADHD, depression, inpatient treatment, bipolar disorder , suicide attempt, violent episodes against others, substance abuse ( benzodiazepines), diabetes, dyslipidemia, hypertension, headaches/migraines, appendectomy, ORIF right ankle. Nonsmoker. No alcohol use. No current substance use. Medications reviewed. Allergies noted. Blood work w/o a significant abnormality except for RBCs 3.6, sodium 131, chloride 98, creatinine 0.9, glucose 295, and total protein 6.2. Urinalysis shows trace ketones and 3+ glucose but is negative for infection. Toxicology screen within normal limits. She is medically cleared. She is awaiting a MHE. Patient is hemodynamically stable and A+O x 3. Patient given Atarax for anxiety. Dr. Titus from psychiatry has evaluated the patient and reports she is safe for discharge as she is acting at her baseline. She is advised to follow up with outpatient treatment. - Differential Dx/Clinical Impression Provider Diagnosis: Schizoaffective disorder, PTSD (post-traumatic stress disorder) - Physician Notifications Discussed Care Of Patient With: Grabiel Titus - psychiatry Time Discussed With Above Provider: 18:55 Instructed by Provider To: Other - Social work and psychiatry team have evaluated the patient and determined that she is appropriate for discharge as she seems to be acting at baseline. Plan for outpatient treatment. - Critical Care Time Critical Care Statement: Critical care time is provided exclusive of any time spent performing procedures. Discharge ED - Sign-Out/Discharge Documenting (check all that apply): Patient Departure - Patient is appropriate for discharge home. - Discharge Plan Condition: Stable Disposition: HOME Referrals: Ginny Hernandez MD [Primary Care Provider] - - Billing Disposition and Condition Condition: STABLE Disposition: Home - Attestation Statements Document Initiated by Aleyda: Yes Documenting Scribe: Erica Capellan Provider For Whom Aleyda is Documenting (Include Credential): Zi Rosado MD Scribe Attestation: Erica Iverson, scribed for Zi Rosado MD on 07/24/19 at 2040. Scribe Documentation Reviewed: Yes Provider Attestation: The documentation as recorded by the Erica zuniga accurately reflects the service I personally performed and the decisions made by me, Zi Rosado MD Status of Scribe Document: Viewed
[2019-07-24 15:23] LABS: Urine Appearance Clear; Urine Bilirubin Negative (Negative); Urine Blood Negative (Negative); Urine Color Yellow; Urine Glucose 3+(>=500 mg/dL) (Negative); Urine Ketones Trace (Negative); Urine Nitrite Negative (Negative); Urine Protein Negative (Negative); Urine Specific Gravity 1.018 (1.010-1.030); Urine Urobilinogen Negative (Negative)
[2019-07-24 15:26] LABS: ABS Basophils 0.1 10^3/ul (0-0.2); ABS Lymphocytes 2.9 10^3/ul (1.0-4.8); ABS Monocytes 0.5 10^3/ul (0-0.8); ABS Neutrophils 2.8 10^3/ul (1.5-7.7); Eosinophil % 0.1 %; Hematocrit 35 % (35-47); Hemoglobin 12.1 g/dL (12.0-16.0); Lymphocyte % 45.9 %; Mean Corpuscular HGB Conc 35 g/dL (31-36); Mean Corpuscular Hemoglobin 34 pg (27-31); Mean Corpuscular Volume 96 fL (80-97); Nucleated Red Blood Cells % 0.1; Platelet Count 345 10^3/uL (150-450); Red Cell Distribution Width 14 % (10-15); White Blood Count 6.2 10^3/uL (3.5-10.8)
[2019-07-24 15:48] LABS: Urine Benzodiazepine Screen None Detected (None Detect); Urine Opiates Screen None Detected (None Detect)
[2019-07-24 16:33] LABS: Acetaminophen < 15 mcg/mL; Alcohol < 10 mg/dL (<10); Salicylate < 2.50 mg/dL (<30)
[2019-07-24 17:30] LABS: Albumin 3.6 g/dL (3.2-5.2); Anion Gap 9 mmol/L (2-11); CO2 Carbon Dioxide 24 mmol/L (22-32); Calcium 9.2 mg/dL (8.6-10.3); Chloride 98 mmol/L (101-111); Potassium 4.9 mmol/L (3.5-5.0); Sodium 131 mmol/L (135-145)
[2019-07-24 17:36] LABS: ALT 20 U/L (7-52); AST 16 U/L (13-39); Albumin/Globulin Ratio 1.4 (1-3); Alkaline Phosphatase 66 U/L (34-104); BUN/Creatinine Ratio 21.9 (8-20); Blood Urea Nitrogen 21 mg/dL (6-24); EGFR African American 72.7 (>60); EGFR Non-African American 60.1 (>60); Globulin 2.6 g/dL (2-4); Glucose 295 mg/dL (70-100); Total Protein 6.2 g/dL (6.4-8.9)
[2019-07-24] MEDS ORDERED: hydrOXYzine HCL TAB* 50 MG PO ONE (18:59)
[2019-07-24 19:44] VITALS: BP 174/138
== END 2019-07-24 19:18 | disposition home or self-care (01) ==
LOC: ED 14:33
DX: F20.9 Schizophrenia, unspecified (principal); F43.10 Post-traumatic stress disorder, unspecified; F32.9 Major depressive disorder, single episode, unspecified; E11.9 Type 2 diabetes mellitus without complications; E78.5 Hyperlipidemia, unspecified; I10 Essential (primary) hypertension; F41.9 Anxiety disorder, unspecified; I50.9 Heart failure, unspecified; Z86.73 Personal history of transient ischemic attack (TIA), and cerebral infarction without residual deficits
CPT/HCPCS: 36415; 80053; 80307; 80320; 80329; 81003; 84443; 85025; 99285; A9270-GY; G0480

== ENCOUNTER 2019-07-24 21:19 | Emergency (ER) | payer MEDICARE, MEDICAID ==
--- NOTE | 2019-07-24 21:47 | ED ---
Progress - Progress Note Progress Note: This pt is a 54 Y/O F brought in by police due to a suicidal attempt that occurred [employer]. The pt was found holding a knife to her wrist and stating that [I ] am going to kill myself. Her mother called the police. She was recently released from [facility] after having a mental health evaluation where she was deemed safe. She states that she wanted to be admitted early today for increased help but was discharged today. She states that she is scared to be home. She has been having an increased trouble sleeping and had increased depression. She is afraid that she will commit suicide while at home. She states that her medications have not been working as well. The pt states that her BS was elevated to around 399 and has been higher than usual. She takes insulin two times a day. She denies any fevers, chills, headaches, CP, N/V, SOB, and sore throats. She has a PMHx of DM, anxiety, depression, She has no aggravating factors or alleviating factors. Home Medications Medication Instructions Recorded Confirmed Type Atorvastatin* [Lipitor 80 MG*] 80 mg PO BEDTIME 06/26/16 07/01/19 History Insulin Glargine,Hum.rec.anlog 35 units SUBCUT DAILY 11/26/18 07/01/19 History [Lantus Solostar 100 units/ml 3 ml x 5 PENS] Melatonin (NF) 6 mg PO BEDTIME PRN 11/26/18 07/01/19 History Aspirin EC TAB* [Ecotrin EC Low 81 mg PO DAILY tab.ec 12/01/18 07/01/19 Rx Dose 81 MG*] Atomoxetine (NF) [Strattera (NF)] 40 mg PO DAILY cap 12/01/18 07/01/19 Rx Mirtazapine TAB* [Remeron TAB*] 15 mg PO BEDTIME tab 12/01/18 07/01/19 Rx [place]-3 Fatty Acids (Nf) [Fish Oil 1,000 mg PO DAILY 05/13/19 07/01/19 History (NF)] Polyethylene Glycol 3350* [Miralax 17 gm PO DAILY 05/13/19 07/01/19 History (17 GM DOSE VERITO)] Temazepam CAP* [Restoril CAP*] 30 mg PO DAILY 05/13/19 07/01/19 History hydrOXYzine HCL TAB* [Atarax 25 MG 25 mg PO BEDTIME PRN 05/13/19 07/01/19 History TAB*] Quetiapine Fumarate [Seroquel XR 400 mg PO BEDTIME #30 tab.er.24h 05/18/1906/30 Rx 400 mg Tab.Er.24h] Acetaminophen [Tylenol 8 Hour] 650 mg PO Q8H PRN 07/01/19 07/01/19 History Amoxicillin PO (*) [Amoxicillin 500 mg PO BID 07/01/19 07/01/19 History 500 MG CAP*] Ciprofloxacin TAB* [Cipro 250 MG 250 mg PO BID 07/01/19 07/01/19 History Tab*] Divalproex ER TAB(*) [Depakote ER 2,000 mg PO BEDTIME 07/01/19 07/01/19 History TAB(*)] metFORMIN* [Glucophage 1000 MG TAB 1,000 mg PO BID 07/01/19 07/01/19 History *] Discharge ED - Discharge Plan Referrals: Ginny Hernandez MD [Primary Care Provider] - - Attestation Statements Document Initiated by Aleyda: Yes
[2019-07-24] MEDS ORDERED: hydrOXYzine HCL TAB* 50 MG PO ONE (21:56)
--- NOTE | 2019-07-24 22:00 | ED ---
Psychiatric Complaint - HPI Summary HPI Summary: This pt is a 54 Y/O F brought in by police due to a suicidal attempt that occurred [employer]. The pt was found holding a knife to her wrist and stating that [I ] am going to kill myself. Her mother called the police. She was recently [place] [facility] [place] mental health [place] where she was deemed safe. She states that she wanted to be admitted early today for increased help but was discharged today. She states that she is scared to be home. She has been having an increased trouble sleeping and had increased depression. She is afraid that she will commit suicide while at home. She states that her medications have not been working as well. The pt states that her BS was elevated to around 399 and has been higher than usual. She takes insulin two times a day. She denies any HI, fevers, chills, headaches, CP, N/V, SOB, and sore throats. She has a PMHx of DM, anxiety, depression, She has no aggravating factors or alleviating factors. She has a PMHx of bipolar disorder, schizophrenia, anxiety, depression, HLD, HTN and DM. Home Medications Medication Instructions Recorded Confirmed Type Atorvastatin* [Lipitor 80 MG*] 80 mg PO BEDTIME 06/26/16 07/01/19 History Insulin Glargine,Hum.rec.anlog 35 units SUBCUT DAILY 11/26/18 07/01/19 History [Lantus Solostar 100 units/ml 3 ml x 5 PENS] Melatonin (NF) 6 mg PO BEDTIME PRN 11/26/18 07/01/19 History Aspirin EC TAB* [Ecotrin EC Low 81 mg PO DAILY tab.ec 12/01/18 07/01/19 Rx Dose 81 MG*] Atomoxetine (NF) [Strattera (NF)] 40 mg PO DAILY cap 12/01/18 07/01/19 Rx Mirtazapine TAB* [Remeron TAB*] 15 mg PO BEDTIME tab 12/01/18 07/01/19 Rx [place]-3 Fatty Acids (Nf) [Fish Oil 1,000 mg PO DAILY 05/13/19 07/01/19 History (NF)] Polyethylene Glycol 3350* [Miralax 17 gm PO DAILY 05/13/19 07/01/19 History (17 GM DOSE VERITO)] Temazepam CAP* [Restoril CAP*] 30 mg PO DAILY 05/13/19 07/01/19 History hydrOXYzine HCL TAB* [Atarax 25 MG 25 mg PO BEDTIME PRN 05/13/19 07/01/19 History TAB*] Quetiapine Fumarate [Seroquel XR 400 mg PO BEDTIME #30 tab.er.24h 05/18/1906/30 Rx 400 mg Tab.Er.24h] Acetaminophen [Tylenol 8 Hour] 650 mg PO Q8H PRN 07/01/19 07/01/19 History Amoxicillin PO (*) [Amoxicillin 500 mg PO BID 07/01/19 07/01/19 History 500 MG CAP*] Ciprofloxacin TAB* [Cipro 250 MG 250 mg PO BID 07/01/19 07/01/19 History Tab*] Divalproex ER TAB(*) [Depakote ER 2,000 mg PO BEDTIME 07/01/19 07/01/19 History TAB(*)] metFORMIN* [Glucophage 1000 MG TAB 1,000 mg PO BID 07/01/19 07/01/19 History *] - History Of Current Complaint Chief Complaint: EDMentalHealth Time Seen by Provider: 07/24/19 21:55 Hx Obtained From: Patient, Other: - police Hx Last Menstrual Period: 5 years ago ?: No Onset/Duration: Sudden Onset, Lasting Hours, Still Present Timing: Hours Severity Initially: Severe Severity Currently: Severe Character: Depressed, Anxious Aggravating Factor(s): Nothing Alleviating Factor(s): Nothing Related History: Positive For: Prior Psychiatric Issues Has Suicidal: Reports: Thoughts, With A Plan, Demonstrates Gesture, Has Prior Attempt(s) Has Homicidal: Denies: Thoughts, With A Plan - Allergies/Home Medications Allergies/Adverse Reactions: Allergies Allergy/AdvReac Type Severity Reaction Status Date / Time ziprasidone [From Geodon] Allergy Severe Unknown Verified 07/24/19 22:23 Reaction Details erythromycin base Allergy Intermediate Rash Verified 07/24/19 22:23 Sulfa (Sulfonamide Allergy Unknown Unknown Verified 07/24/19 22:23 Antibiotics) Reaction Details chlorpromazine AdvReac Severe Hallucinati Verified 07/24/19 22:23 [From Thorazine] ons haloperidol [From Haldol] AdvReac Severe Hallucinati Verified 07/24/19 22:23 ons fluphenazine [From Prolixin] AdvReac Intermediate depression Verified 07/24/19 22:23 lithium AdvReac Intermediate depression Verified 07/24/19 22:23 sulfisoxazole AdvReac Intermediate Nausea Verified 07/24/19 22:23 [From Gantrisin] Home Medications: Home Medications Atorvastatin* [Lipitor 80 MG*] 80 mg PO BEDTIME 06/26/16 [History Confirmed ] Insulin Glargine,Hum.rec.anlog [Lantus Solostar 100 units/ml 3 ml x 5 PENS] 29 units SUBCUT DAILY 11/26/18 [History Confirmed 07/24/19] Aspirin EC TAB* [Ecotrin EC Low Dose 81 MG*] 81 mg PO DAILY tab.ec 12/01/18 [ Rx Confirmed 07/24/19] Atomoxetine (NF) [Strattera (NF)] 40 mg PO DAILY cap 12/01/18 [Rx Confirmed ] Mirtazapine TAB* [Remeron TAB*] 15 mg PO BEDTIME tab 12/01/18 [Rx Confirmed ] [place]-3 Fatty Acids (Nf) [Fish Oil (NF)] 1,000 mg PO DAILY 05/13/19 [History Confirmed 07/24/19] Polyethylene Glycol 3350* [Miralax (17 GM DOSE VERITO)] 17 gm PO DAILY 05/13/19 [ History Confirmed 07/24/19] Temazepam CAP* [Restoril CAP*] 30 mg PO DAILY 05/13/19 [History Confirmed ] Quetiapine Fumarate [Seroquel XR 400 mg Tab.Er.24h] 400 mg PO BEDTIME #30 tab.er.24h 05/18/19 [Rx Confirmed 07/24/19] Acetaminophen [Tylenol 8 Hour] 650 mg PO Q8H PRN 07/01/19 [History Confirmed ] Divalproex ER TAB(*) [Depakote ER TAB(*)] 750 mg PO BEDTIME 07/01/19 [History Confirmed 07/24/19] metFORMIN* [Glucophage 1000 MG TAB *] 750 mg PO BID 07/01/19 [History Confirmed 07/24/19] PMH/Surg Hx/FS Hx/Imm Hx Previously Healthy: Yes Endocrine/Hematology History: Reports: Hx Diabetes Denies: Hx Anticoagulant Therapy, Hx Blood Disorders, Hx Blood Transfusions, Hx Bone Marrow Disease, Hx Systemic Lupus Erythematosus, Hx Sickle Cell Disease , Hx Thyroid Disease, Hx Anemia, Hx Unexplained Bleeding, Other Endocrine/ Hematological Disorders Cardiovascular History: Reports: Hx Hypercholesterolemia - HLD, Hx Hypertension Denies: Hx Aneurysm, Hx Angina, Hx Angioplasty, Hx Auto Implanted Cardiovert Defib, Hx Cardiac Arrest, Hx Cardiomegaly, Hx Congenital Heart Disease, Hx Congestive Heart Failure, Hx Coronary Artery Disease, Hx Deep Vein Thrombosis, Hx Embolism, Hx Hypotension, Hx Pacemaker/ICD, Hx Peripheral Vascular Disease, Hx Rheumatic Fever, Hx Syncope, Hx Valvular Heart Disease, Other Cardiovascular Problems/Disorders Respiratory History: Denies: Hx Asthma, Hx Chronic Bronchitis, Hx Chronic Obstructive Pulmonary Disease (COPD), Hx Cystic Fibrosis, Hx Lung Cancer, Hx Pleural Effusion, Hx Pneumonia, Hx Pulmonary Edema, Hx Pulmonary Embolism, Hx Seasonal Allergies, Hx Sleep Apnea, Other Respiratory Problems/Disorders GI History: Denies: Hx Cirrhosis, Hx Crohn's Disease, Hx Diverticulosis, Hx Gall Bladder Disease, Hx Gastroesophageal Reflux Disease, Hx Gastrointestinal Bleed, Hx Hiatal Hernia, Hx Irritable Bowel, Hx Jaundice, Hx Obstructive Bowel, Hx Ileostomy, Hx Pyloric Stenosis, Hx Ulcer, Other GI Disorders History: Denies: Hx Renal Disease Musculoskeletal History: Denies: Hx Arthritis, Hx Back Problems, Hx Bursitis, Hx Congenital Bone Abnormalities, Hx Fibromyalgia, Hx Gout, Hx Orthopedic Injury, Hx Osteoporosis, Hx Scoliosis, Hx Tendonitis, Other Musculoskeletal History Sensory History: Reports: Hx Contacts or Glasses, Hx Deafness - Hard of hearing , Hx Hearing Aid, Hx Hearing Problem Denies: Hx Cataracts, Hx Eye Injury, Hx Eye Prosthesis, Hx Glaucoma, Hx Legally Blind, Hx Macular Degeneration, Hx Vision Problem, Other Sensory Impairments Opthamlomology History: Reports: Hx Contacts or Glasses Denies: Hx Cataracts, Hx Eye Injury, Hx Eye Prosthesis, Hx Glaucoma, Hx Legally Blind, Hx Macular Degeneration, Hx Vision Problem, Other Sensory Impairments Neurological History: Reports: Hx Headaches, Hx Migraine Denies: Hx Dementia, Hx Developmental Delay, Hx Nerve Disease, Hx Seizures, Hx Spinal Cord Injury, Hx Transient Ischemic Attacks (TIA), Other Neuro Impairments/Disorders Psychiatric History: Reports: Hx Anxiety, Hx Attention Deficit Hyperactivity Disorder, Hx Depression, Hx Inpatient Treatment - HX PSYCHIATRIC HOSPITALIZATIONS, Hx Community Mental Health Tx, Hx Bipolar Disorder, Hx Suicide Attempt - 5 or 6 years ago, OD, Hx of Violent Episodes Against Others, Hx Substance Abuse - HX BENZO ABUSE, Other Psychiatric Issues/Disorders - HX SI/ ATTEMPT Denies: Hx Eating Disorder, Hx Panic Disorder, Hx Post Traumatic Stress Disorder, Hx Schizophrenia - Cancer History Cancer Type, Location and Year: None reported Hx Chemotherapy: No Hx Radiation Therapy: No - Surgical History Surgical History: Yes Surgery Procedure, Year, and Place: appendectomy 1975, 1972 bladder, 5yrs ago orif rt ankle Hx Anesthesia Reactions: No - Immunization History Date of Tetanus Vaccine: Unknown Date of Influenza Vaccine: 12/10/2012 Immunizations Up to Date: Yes Infectious Disease History: No Infectious Disease History: Denies: Hx Clostridium Difficile, Hx Hepatitis, Hx Human Immunodeficiency Virus (HIV), Hx of Known/Suspected MRSA, Hx Shingles, Hx Tuberculosis, Hx Known/ Suspected VRE, Hx Known/Suspected VRSA, History Other Infectious Disease, Traveled Outside the [place] in Last 30 Days - Family History Known Family History: Positive: Hypertension, Diabetes, Other - bipolar disorder , breat cancer - Social History Occupation: Unemployed Lives: With Family Alcohol Use: None Alcohol Amount: 0 Hx Substance Use: Yes Substance Use Type: Reports: Prescribed Substance Use Comment - Amount & Last Used: Patient states currently she has a problem wth sleeping pills. Hx Tobacco Use: No Smoking Status (MU): Never Smoked Tobacco Review of Systems Negative: Fever, Chills Negative: Sore Throat Negative: Chest Pain Negative: Shortness Of Breath Negative: Vomiting, Nausea Negative: Headache Psychological: Other - suicidal ideations with attempts and gestures, issues sleeping Positive: Anxious, Depressed, Other - NEGATIVE: homicidal ideations All Other Systems Reviewed And Are Negative: Yes Physical Exam - Summary Physical Exam Summary: General: Well-developed, Well-nourished female. No acute distress. HEENT: Normocephalic, Atraumatic. Eyes: Conjuctiva normal, PERRL. Oropharynx: Clear, mucous membranes moist, (-) exudates. Neck: Soft, FROM, (-) lymphadenopathy, (-) thyromegaly, (-) JVD. Cardiovascular: Normal sinus rhythm, (-) murmur. Lungs: Clear to auscultation bilaterally (-) wheezes, (-) rales, (-) rhonchi. Abdomen: Soft, non-tender, non-distended, (-) organomegaly, normal bowel sounds. Back: (-) CVA tenderness Extremities: No edema. Skin: Warm, dry, (-) rash. Neuro: Alert and oriented x3, moves all extremities equally. No ataxia. No gait disturbance. No sensory deficit. Normal strength, normal sensation. Psychiatric: Mildly agitated, repetitive lip smacking Triage Information Reviewed: Yes Vital Signs On Initial Exam: Initial Vitals Temp Pulse Resp BP Pulse Ox 98.2 F 97 18 139/103 97 07/24/19 21:39 07/24/19 21:39 07/24/19 21:39 07/24/19 21:39 07/24/19 21:39 Vital Signs Reviewed: Yes Procedures - Sedation Patient Received Moderate/Deep Sedation with Procedure: No Diagnostics - Vital Signs Vital Signs Temp Pulse Resp BP Pulse Ox 07/24/19 21:39 98.2 F 97 18 139/103 97 - Laboratory Result Diagrams: 07/24/19 22:30 07/24/19 22:30 Lab Statement: Any lab studies that have been ordered have been reviewed, and results considered in the medical decision making process. 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 The pt was found holding a knife to her wrist and stating that [I] am going to kill myself. Her mother called the police. She was recently [place] [facility] [place] health [place] where she was deemed safe. She has an extensive psychiatric PMHx including bipolar disorder, schizophrenia, anxiety and depression. Upon PE she is agitated and has repetitive lip smacking. She will be given Atarax to help with her anxiety and psychiatric consults will be contacted to assess the pt. Per Dr. Titus, psychiatrist, the pt will be discharged home with a Dx of anxiety. - Differential Dx/Clinical Impression Provider Diagnosis: Anxiety - Physician Notifications Discussed Care Of Patient With: Grabiel Titus Time Discussed With Above Provider: 23:29 Instructed by Provider To: Other - discharge Patient Is Medically Stable For: Psych Evaluation - 2201 07/24/2019 - Critical Care Time Critical Care Statement: Critical care time is provided exclusive of any time spent performing procedures. Discharge ED - Sign-Out/Discharge Documenting (check all that apply): Patient Departure - discharge - Discharge Plan Condition: Good Disposition: HOME Patient Education Materials: Anxiety (ED) Referrals: Ginny Hernandez MD [Primary Care Provider] - - Billing Disposition and Condition Condition: GOOD Disposition: Home - Attestation Statements Document Initiated by Scribe: Yes Documenting Scribe: Severino Mckoy Provider For Whom Scribe is Documenting (Include Credential): Madhuri Avalos MD Scribe Attestation: ISeverino, scribed for Madhuri Avalos MD on 07/25/19 at 0150. Scribe Documentation Reviewed: Yes Provider Attestation: The documentation as recorded by the scribeSeverino accurately reflects the service I personally performed and the decisions made by me, Madhuri Avalos MD Status of Scribe Document: Viewed
[2019-07-24 22:26] LABS: Urine Appearance Clear; Urine Bilirubin Negative (Negative); Urine Blood Negative (Negative); Urine Color Straw; Urine Glucose 3+(>=500 mg/dL) (Negative); Urine Ketones Negative (Negative); Urine Nitrite Negative (Negative); Urine Protein Negative (Negative); Urine Specific Gravity 1.011 (1.010-1.030); Urine Urobilinogen Negative (Negative)
[2019-07-24] MEDS ORDERED: Ibuprofen TAB* 400 MG PO ONE (22:35)
[2019-07-24 22:46] LABS: Urine Benzodiazepine Screen None Detected (None Detect); Urine Opiates Screen None Detected (None Detect)
[2019-07-24 23:17] LABS: ALT 21 U/L (7-52); AST 19 U/L (13-39); Acetaminophen < 15 mcg/mL; Albumin 3.8 g/dL (3.2-5.2); Albumin/Globulin Ratio 1.3 (1-3); Alcohol < 10 mg/dL (<10); Alkaline Phosphatase 67 U/L (34-104); Anion Gap 8 mmol/L (2-11); BUN/Creatinine Ratio 22.7 (8-20); Blood Urea Nitrogen 22 mg/dL (6-24); CO2 Carbon Dioxide 26 mmol/L (22-32); Calcium 9.2 mg/dL (8.6-10.3); Chloride 98 mmol/L (101-111); EGFR African American 71.9 (>60); EGFR Non-African American 59.4 (>60); Glucose 219 mg/dL (70-100); Potassium 4.2 mmol/L (3.5-5.0); Salicylate < 2.50 mg/dL (<30); Sodium 132 mmol/L (135-145); Total Protein 6.8 g/dL (6.4-8.9)
[2019-07-24 23:18] LABS: Hematocrit 35 % (35-47); Hemoglobin 12.2 g/dL (12.0-16.0); Mean Corpuscular HGB Conc 35 g/dL (31-36); Mean Corpuscular Hemoglobin 33 pg (27-31); Mean Corpuscular Volume 96 fL (80-97); Red Blood Count 3.67 10^6 /uL (3.70-4.87); Red Cell Distribution Width 14 % (10-15); White Blood Count 6.9 10^3/uL (3.5-10.8)
[2019-07-24 23:32] LABS: TSH (Thyroid Stimulating Horm) 2.73 mcIU/mL (0.34-5.60)
[2019-07-24 23:40] LABS: ABS Lymphocytes 3.6 10^3/ul (1.0-4.8); ABS Monocytes 0.6 10^3/ul (0-0.8); ABS Neutrophils 2.6 10^3/ul (1.5-7.7); Eosinophil % 0.2 %; Lymphocyte % 52.4 %; Nucleated Red Blood Cells % 0.2; Platelet Count 345 10^3/uL (150-450)
[2019-07-25 00:01] VITALS: BP 175/126
== END 2019-07-24 23:45 | disposition home or self-care (01) ==
LOC: ED 21:19
DX: R45.851 Suicidal ideations (principal); F41.9 Anxiety disorder, unspecified; E11.9 Type 2 diabetes mellitus without complications; E78.00 Pure hypercholesterolemia, unspecified; E78.5 Hyperlipidemia, unspecified; I10 Essential (primary) hypertension; R51 Headache
CPT/HCPCS: 36415; 80053; 80307; 80320; 80329; 81003; 84443; 85025; 99285; A9270-GY; G0480